=== PATIENT | male | born 1930 | race Caucasian/White ===

== ENCOUNTER 2016-10-04 08:35 | Inpatient (IN) | payer MEDICARE, BC ==
--- NOTE | 2016-10-04 08:53 | EDM.PDOC ---
ED HPI GENERAL MEDICAL PROBLEM - General Chief Complaint: Neuro Symptoms/Deficits Stated Complaint: [facility] Time Seen by Provider: 10/04/16 08:47 Source of Information: Reports: Patient History Limitations: Reports: No limitations - History of Present Illness INITIAL COMMENTS - FREE TEXT/NARRATIVE: 86-year-old male who is a known type II back diabetic using insulin for control presents to the ED due to to generalized weakness and development of diaphoresis and feeling like he was going to pass out. This happened this morning. He did take his normal dose of insulin with his breakfast but he states he did eat much breakfast. Blood sugar by paramedics recorded was 250. He takes Lantus 20 units at bedtime. States his blood sugars for the most part have been well-controlled. Denies any recent changes in his weight. Blood pressure. Appreciated to be quite low at 85/58 better is currently coming up to 118 on 68. He takes all of his medications in the mornings. Denies feeling nauseated. No recent nausea vomiting or diarrhea. Nonproductive cough which is chronic. History of chronic heart failure. Denies any chest pain over the weekend. Denies any genitourinary complaints. Pain in his lower back which radiates into his right posterior lateral hip area. Nearly made him fall this morning due to pain. Again no recent falls or injuries. History of atrial fibrillation but not aware of any palpitations this morning. No vertigo symptoms this morning. Onset: today Onset Date: 10/04/16 Onset Time: 08:00 Duration: Minutes:, Intermittent, Other (Generalized weakness with a sense of going to pass out.) Location: Reports: generalized Quality: Reports: Other (Generalized weakness with mild diaphoresis this morning.) Severity: moderate Improves with: Reports: Rest Worsens with: Reports: Movement Context: Reports: Other (Symptoms started after breakfast.). Denies: Activity, Exercise, Sick contact, Trauma Associated Symptoms: Reports: cough, malaise, shortness of breath (Chronically on), syncope ( exertion), weakness (Near syncope this morning ). Denies: confusion, chest pain, cough w sputum (Has a chronic nonproductive cough), diaphoresis, fever/chills, headaches, loss of appetite, nausea/vomiting, rash, seizure Treatments TODDLER NANNY: Reports: Other (see below) (Gen. a took only his normal medications ) Lower Back Pain Score (Numeric/FACES): 8 - Related Data Allergies Allergy/AdvReac Type Severity Reaction Status Date / Time No Known Allergies Allergy Verified 10/04/16 08:55 Home Meds: Home Meds Omeprazole 40 mg PO DAILY 02/08/14 [History] Insulin Regular, Human [NovoLIN R] 0 units SUBCUT TID #1 pen 02/26/14 [Rx] Insulin Glarg,Human.Rec.Analog [Lantus] 20 units SQ DAILY 11/15/14 [History] Warfarin [Coumadin] 5 mg PO SUTUWETH 11/15/14 [History] Metoprolol Succinate [Toprol XL] 25 mg PO DAILY 02/04/16 [History] Warfarin Sodium [Coumadin] 7.5 mg PO MOFRSA 02/04/16 [History] traMADol [Ultram] 50 mg PO Q6HR PRN 02/04/16 [History] Acetaminophen/oxyCODONE [Percocet 325-5 MG] 1 tab PO Q6H PRN 06/21/16 [History] Bismuth Subsalicylate [Pepto Bismol] 524 mg PO BID 06/21/16 [History] Diltiazem HCl [Tiazac] 360 mg PO DAILY 06/21/16 [History] Ferrous Sulfate 325 mg PO BID 06/21/16 [History] Furosemide 40 mg PO DAILY 06/21/16 [History] Gabapentin [Neurontin] 200 mg PO BID 06/21/16 [History] Levothyroxine [Synthroid] 25 mcg PO DAILY 06/21/16 [History] Lisinopril 2.5 mg PO DAILY 06/21/16 [History] Multivitamins [Tab-A-Liz] 1 tab PO DAILY 06/21/16 [History] Polyethylene Glycol 3350 [MiraLAX] 17 gm PO DAILY 06/21/16 [History] Potassium Chloride 20 meq PO DAILY 06/21/16 [History] Tamsulosin [Flomax] 0.4 mg PO BEDTIME 06/21/16 [History] Past Medical History HEENT History: Reports: Hard of hearing, Impaired vision Other HEENT History: wears eyeglasses Cardiovascular History: Reports: Afib, CAD, Cardiomyopathy, Heart murmur, High cholesterol, Hypertension Respiratory History: Reports: COPD Gastrointestinal History: Reports: Gastritis, GERD, Hemorrhoids, Helicobacter pylori, PUD Other Gastrointestinal History: ulcer Genitourinary History: Reports: BPH, Chronic renal insuffiency Musculoskeletal History: Reports: Osteoarthritis Neurological History: Reports: Neuropathy, diabetic Psychiatric History: Reports: Addiction Other Psychiatric History: states feels depressed "when I get sick like this." Endocrine/Metabolic History: Reports: Diabetes, type II Hematologic History: Reports: Anemia, Blood transfusion(s) Dermatologic History: Reports: Other (see below) Other Dermatologic History: "blisters removed on nose" - Past Surgical History GI Surgical History: Reports: Colonoscopy, EGD Other GI Surgeries/Procedures: No abdominal operations Social & Family History - Family History Family Medical History: Noncontributory HEENT: Reports: Cataract, Macular degeneration Cardiac: Reports: Hypertension : Reports: Diabetic nephropathy Musculoskeletal: Reports: Arthritis Neurological: Reports: Alzheimers disease, Dementia, Parkinson's, Vertigo Endocrine/Metabolic: Reports: Diabetes, type II Dermatologic: Reports: Psoriasis Oncologic: Reports: Leukemia, Prostate, Other (see below) Other Oncologic Family History: stomach - Tobacco Use Smoking Status *Q: Never Smoker Years of Tobacco use: 40 Packs/Tins Daily: 1.5 Used Tobacco, but Quit: Yes Month Tobacco Last Used: 11/1994 Second Hand Smoke Exposure: No - Caffeine Use Caffeine Use: Reports: None - Alcohol Use Days Per Week of Alcohol Use: 0 Number of Drinks Per Day: 1 Total Drinks Per Week: 0 - Recreational Drug Use Recreational Drug Use: No - Living Situation & Occupation Living situation: Reports: , assisted living (Currently residing at [facility] in the assisted living program) Occupation: retired ED ROS GENERAL - Review of Systems Review Of Systems: See Below Constitutional: Reports: malaise, weakness, fatigue, diaphoresis. Denies: fever , chills, night sweats (Mild this morning), decreased appetite, weight loss, weight gain HEENT: Reports: No symptoms Respiratory: Reports: Cough. Denies: Shortness of Breath, Wheezing, Pleuritic Chest Pain, Sputum (Chronic nonproductive cough), Hemoptysis, Other Cardiovascular: Reports: Blood pressure problem, Dyspnea on exertion (Chronic dependent edema.), Edema, Lightheadedness, Palpitations (Occasional). Denies: Chest pain, Claudication, Orthopnea, PND, Syncope, Other Endocrine: Reports: fatigue, high glucose, polyuria. Denies: low glucose, polydypsia (250 this morning) GI/Abdominal: Denies: Abdominal pain, Anorexia, Black stool, Bloody stool, Diarrhea, Decreased appetite, Difficulty swallowing, Distension, Flatus, Hematemesis, Hematochezia : Reports: frequency Musculoskeletal: Reports: back pain (Having increased lower back pain radiating to the right posterior iliac crest the last week or 10 days. No recent falls or injuries.) Skin: Reports: bruising (Bruises easily. He is on Coumadin chronically) Psychiatric: Reports: No symptoms Hematologic/Lymphatic: Reports: no symptoms, easy bruising Immunologic: Reports: no symptoms ED EXAM, GENERAL - Physical Exam Exam: See Below Exam Limited By: No limitations General Appearance: alert, WD/WN, no apparent distress Eye Exam: bilateral eye: PERRL Throat/Mouth: Normal inspection, Normal lips, Normal oropharynx Head: atraumatic, normocephalic Neck: normal inspection. No: supple, non-tender, full range of motion, lymphadenopathy (L), lymphadenopathy (R) Respiratory/Chest: no respiratory distress, lungs clear, no accessory muscle use , crackles (Few crackles right base) Cardiovascular: normal peripheral pulses, regular rate, rhythm, no edema, no murmur Peripheral Pulses: 0: posterior tibial (L), posterior tibial (R), dorsalis pedis (L), dorsalis pedis (R) GI/Abdominal: normal bowel sounds, non tender, no organomegaly, other (Has some bruising left lower abdominal wall close to the midline with a underlying hematoma measuring 4 cm x 2.5 cm. This appears from her recent to be from recent Lovenox injection versus a insulin shot.) Back Exam: normal inspection, vertebral tenderness (Tender throughout the lumbar spine worse at L4-5 L5-S1 facet joint on the right side radiating to his right hip area. He is also pain on palpation of the superior half of the right SI joint.). No: full range of motion, CVA tenderness (L), CVA tenderness (R) Extremities: normal inspection, normal range of motion, non-tender, no pedal edema, normal capillary refill Neurological: alert, oriented, CN II-XII intact Psychiatric: normal affect, normal mood Skin Exam: Warm, Dry, Intact, Normal color, No rash EKG INTERPRETATION EKG Date: 10/04/16 Time: 09:00 Rhythm: a-fib Rate (beats/min): 60 [place]: LAD-left axis deviation (-37) P-wave: absent QRS: other (Decreased voltage throughout the limb leads. Q waves leads 3 and aVF suggestive of of likely old inferior wall myocardial infarction. There is initial poor weight R-wave progression from V1 to V4 cannot rule out ischemia as a cause.) ST-T: normal QT: prolonged Course - Vital Signs Last Recorded V/S: Last Vital Signs Temp 36.3 C 10/04/16 08:48 Pulse 54 L 10/04/16 08:48 Resp 16 10/04/16 08:48 BP 106/58 L 10/04/16 08:48 Pulse Ox 93 L 10/04/16 08:48 Orthostatic Blood Pressure [ 92/56 Standing] Orthostatic Blood Pressure [ 118/68 Sitting] Orthostatic Blood Pressure [ 106/58 Supine] - Orders/Labs/Meds Orders: Active Orders 24 hr Category Date Time Status Admission Status [Patient Status] [ADT] Routine ADT 10/04/16 11:05 Active Cardiac Monitoring [RC] . DIRECTED Care 10/04/16 11:05 Active EKG Documentation Completion [RC] STAT Care 10/04/16 08:48 Active Oxygen Therapy [RC] ASDIRECTED Care 10/04/16 09:40 Active Sodium Chloride 0.9% [Normal Saline] 1,000 ml Med 10/04/16 09:00 Active IV ASDIRECTED Medication Orders Sodium Chloride (Normal Saline) 1,000 mls @ 100 mls/hr IV ASDIRECTED CORY Last Admin: 10/04/16 10:38 Dose: 100 mls/hr Labs: Laboratory Tests 10/04/16 10/04/16 10/04/16 Range/Units 09:00 09:00 09:00 WBC 9.32 H (4.23-9.07) K/mm3 RBC 3.94 L (4.63-6.08) M/mm3 Hgb 11.8 L (13.7-17.5) gm/L Hct 36.6 L (40.1-51.0) % MCV 92.9 H (79.0-92.2) fl MCH 29.9 (25.7-32.2) pg MCHC 32.2 (32.2-35.5) g/dl RDW Std Deviation 48.0 H (35.1-43.9) fL Plt Count 189 (163-337) K/mm3 MPV 9.7 (9.4-12.3) fl Neutrophils % (Manual) 76 H (40-60) % Band Neutrophils % 0 (0-10) % Lymphocytes % (Manual) 21 (20-40) % Atypical Lymphs % 0 % Monocytes % (Manual) 1 L (2-10) % Eosinophils % (Manual) 2 (0.8-7.0) % Basophils % (Manual) 0 L (0.2-1.2) Platelet Estimate Adequate RBC Morph Comment Normal PT 25.8 H (8.0-13.0) SECONDS INR 2.25 Sodium 132 L (136-145) mEq/L Potassium 5.8 H (3.5-5.1) mEq/L Chloride 99 (98-107) mEq/L Carbon Dioxide 24 (21-32) mEq/L Anion Gap 14.8 (5-15) BUN 47 H (7-18) mg/dL Creatinine 2.0 H (0.7-1.3) mg/dL Est Cr Clr Drug Dosing 28.56 mL/min Estimated GFR (MDRD) 32 (>60) mL/min BUN/Creatinine Ratio 23.5 H (14-18) Glucose 240 H (83-115) mg/dL Hemoglobin A1c (4.50-6.20) % Calcium 9.0 (8.5-10.1) mg/dL Magnesium (1.8-2.4) mg/dl Total Bilirubin 1.1 H (0.2-1.0) mg/dL AST 14 L (15-37) U/L ALT 20 (16-63) U/L Alkaline Phosphatase 94 (46-116) U/L CK-MB (CK-2) 1.1 (0-3.6) ng/ml Troponin I < 0.017 (0.00-0.056) ng/mL C-Reactive Protein 0.9 (<1.0) mg/dL B-Natriuretic Peptide (0-100) pg/mL Total Protein 7.2 (6.4-8.2) g/dl Albumin 3.5 (3.4-5.0) g/dl Globulin 3.7 gm/dL Albumin/Globulin Ratio 1.0 (1-2) TSH 3rd Generation (0.358-3.74) uIU/mL Urine Color (Yellow) Urine Appearance (Clear) Urine pH (5.0-8.0) Ur Specific [place] (1.005-1.030) Urine Protein (Negative) Urine Glucose (UA) (Negative) Urine Ketones (Negative) Urine Occult Blood (Negative) Urine Nitrite (Negative) Urine Bilirubin (Negative) Urine Urobilinogen (0.2-1.0) Ur Leukocyte Esterase (Negative) Urine RBC (0-5) /hpf Urine WBC (0-5) /hpf Ur Epithelial Cells Urine Bacteria (FEW) /hpf Urine Mucus (FEW) /hpf 10/04/16 10/04/16 10/04/16 Range/Units 09:00 09:00 09:00 WBC (4.23-9.07) K/mm3 RBC (4.63-6.08) M/mm3 Hgb (13.7-17.5) gm/L Hct (40.1-51.0) % MCV (79.0-92.2) fl MCH (25.7-32.2) pg MCHC (32.2-35.5) g/dl RDW Std Deviation (35.1-43.9) fL Plt Count (163-337) K/mm3 MPV (9.4-12.3) fl Neutrophils % (Manual) (40-60) % Band Neutrophils % (0-10) % Lymphocytes % (Manual) (20-40) % Atypical Lymphs % % Monocytes % (Manual) (2-10) % Eosinophils % (Manual) (0.8-7.0) % Basophils % (Manual) (0.2-1.2) Platelet Estimate RBC Morph Comment PT (8.0-13.0) SECONDS INR Sodium (136-145) mEq/L Potassium (3.5-5.1) mEq/L Chloride (98-107) mEq/L Carbon Dioxide (21-32) mEq/L Anion Gap (5-15) BUN (7-18) mg/dL Creatinine (0.7-1.3) mg/dL Est Cr Clr Drug Dosing mL/min Estimated GFR (MDRD) (>60) mL/min BUN/Creatinine Ratio (14-18) Glucose (83-115) mg/dL Hemoglobin A1c 7.80 H (4.50-6.20) % Calcium (8.5-10.1) mg/dL Magnesium (1.8-2.4) mg/dl Total Bilirubin (0.2-1.0) mg/dL AST (15-37) U/L ALT (16-63) U/L Alkaline Phosphatase (46-116) U/L CK-MB (CK-2) (0-3.6) ng/ml Troponin I (0.00-0.056) ng/mL C-Reactive Protein (<1.0) mg/dL B-Natriuretic Peptide 464 H (0-100) pg/mL Total Protein (6.4-8.2) g/dl Albumin (3.4-5.0) g/dl Globulin gm/dL Albumin/Globulin Ratio (1-2) TSH 3rd Generation 9.284 H (0.358-3.74) uIU/mL Urine Color (Yellow) Urine Appearance (Clear) Urine pH (5.0-8.0) Ur Specific [place] (1.005-1.030) Urine Protein (Negative) Urine Glucose (UA) (Negative) Urine Ketones (Negative) Urine Occult Blood (Negative) Urine Nitrite (Negative) Urine Bilirubin (Negative) Urine Urobilinogen (0.2-1.0) Ur Leukocyte Esterase (Negative) Urine RBC (0-5) /hpf Urine WBC (0-5) /hpf Ur Epithelial Cells Urine Bacteria (FEW) /hpf Urine Mucus (FEW) /hpf 10/04/16 10/04/16 Range/Units 09:00 10:16 WBC (4.23-9.07) K/mm3 RBC (4.63-6.08) M/mm3 Hgb (13.7-17.5) gm/L Hct (40.1-51.0) % MCV (79.0-92.2) fl MCH (25.7-32.2) pg MCHC (32.2-35.5) g/dl RDW Std Deviation (35.1-43.9) fL Plt Count (163-337) K/mm3 MPV (9.4-12.3) fl Neutrophils % (Manual) (40-60) % Band Neutrophils % (0-10) % Lymphocytes % (Manual) (20-40) % Atypical Lymphs % % Monocytes % (Manual) (2-10) % Eosinophils % (Manual) (0.8-7.0) % Basophils % (Manual) (0.2-1.2) Platelet Estimate RBC Morph Comment PT (8.0-13.0) SECONDS INR Sodium (136-145) mEq/L Potassium (3.5-5.1) mEq/L Chloride (98-107) mEq/L Carbon Dioxide (21-32) mEq/L Anion Gap (5-15) BUN (7-18) mg/dL Creatinine (0.7-1.3) mg/dL Est Cr Clr Drug Dosing mL/min Estimated GFR (MDRD) (>60) mL/min BUN/Creatinine Ratio (14-18) Glucose (83-115) mg/dL Hemoglobin A1c (4.50-6.20) % Calcium (8.5-10.1) mg/dL Magnesium 2.2 (1.8-2.4) mg/dl Total Bilirubin (0.2-1.0) mg/dL AST (15-37) U/L ALT (16-63) U/L Alkaline Phosphatase (46-116) U/L CK-MB (CK-2) (0-3.6) ng/ml Troponin I (0.00-0.056) ng/mL C-Reactive Protein (<1.0) mg/dL B-Natriuretic Peptide (0-100) pg/mL Total Protein (6.4-8.2) g/dl Albumin (3.4-5.0) g/dl Globulin gm/dL Albumin/Globulin Ratio (1-2) TSH 3rd Generation (0.358-3.74) uIU/mL Urine Color Yellow (Yellow) Urine Appearance Clear (Clear) Urine pH 6.0 (5.0-8.0) Ur Specific [place] 1.015 (1.005-1.030) Urine Protein Negative (Negative) Urine Glucose (UA) Negative (Negative) Urine Ketones Negative (Negative) Urine Occult Blood Trace-lysed H (Negative) Urine Nitrite Negative (Negative) Urine Bilirubin Negative (Negative) Urine Urobilinogen 0.2 (0.2-1.0) Ur Leukocyte Esterase 2+ H (Negative) Urine RBC 0-5 (0-5) /hpf Urine WBC 10-20 H (0-5) /hpf Ur Epithelial Cells Not Reportable Urine Bacteria Few (FEW) /hpf Urine Mucus Few (FEW) /hpf Meds: Medications Generic Name Dose Route Start Last Admin Trade Name Tiffany PRN Reason Stop Dose Admin Sodium Chloride 1,000 mls @ 100 mls/hr 10/04/16 09:00 10/04/16 10:38 Normal Saline IV 100 mls/hr ASDIRECTED CORY Administration Discontinued Medications Generic Name Dose Route Start Last Admin Trade Name Tiffany PRN Reason Stop Dose Admin Furosemide 40 mg 10/04/16 10:10 10/04/16 10:38 Lasix IVPUSH 10/04/16 10:11 40 mg NOW ONE Administration Sodium Polystyrene Sulfonate 30 gm 10/04/16 10:12 10/04/16 10:39 Kayexalate PO 10/04/16 10:13 30 gm ONETIME ONE Administration - Radiology Interpretation Free Text/Narrative:: 86-year-old male presents to the ED just generally not feeling well. Had a strong sense of dizziness and weakness that he might pass out this morning. Been aware of any palpitations. He has a history of chronic atrial fibrillation usually well-controlled with current medications. Blood sugar was 250 by paramedics recording. He takes Lantus 20 units in the evenings. Does take insulin before each meal. Td most of his breakfast this morning. No chest pain no cough no sputum production no fever or chills. Her pressure was found to be quite low on initial assessment at 85/56. He came up over to 110/57. When he is lying still in bed.. Orthostatic BPs will be done. Patient is on chronic Coumadin. Denies any changes in his stool colors. Examination feels it reveals a few crackles in the right base. Otherwise she remains in atrial fibrillation at 158 per minute. Plan IV will be normal saline at 100 mils per hour. Glycosylated protein will be checked. Routine labs to include PT/INR. Note he is taking his morning medications which include Cardizem 360 mg once daily with metoprolol. It may well drop his blood pressure too much at one time. - Re-Assessments/Exams Free Text/Narrative Re-Assessment/Exam: 10/04/16 09:10 ECG reveals atrial fibrillation at 60 per minute with no signs of ischemia. There is poor we aren't R-wave progression from V1 to V4 however. 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 Orthostatic BPs reveal BP 106/58 with a heart rate of 52 lying BP 118/68 sitting. Heart rate 53 BP 92/ 56 standing with a heart rate of 59. Therefore he is indeed orthostatic. Possibly due to too much antihypertensive medication at one time. Will await labs. One view chest x-ray to be obtained. 10/04/16 10:05 chest x-ray reveals mild to moderate cardiomegaly. Right hemidiaphragm appears to be mildly elevated as compared to the left but it appears to be chronic. Visualized portion of the lung clement are clear. He did drift down as low as 84% on O2 sats and is therefore placed on 2 L of oxygen per minute. O2 sats is staying up in the 90s high 90s at this time . BP is 112 172. 10/04/16 10:13 labs are back did reveal a normal white count at 9.3 2 with 76% neutrophils. Hemoglobin is mildly low 11.8 hematocrit 36.6 pounds 189,000. PT is 25.8 INR is 2.25. Sodium slightly low at 132 potassium is high at 5.8 and labs checked twice to make sure this was right. I will therefore treat him with Kayexalate 30 mg by mouth Lasix 40 mg IV. He is on a potassium supplement which obviously needs to be stopped. He is on low-dose lisinopril 2.5 mg daily. BUN is 47 creatinine is 2.0 glucose 240 hemoglobin A1c is 7.8. Bilirubin is 1.1 chest is 14 BNP was 464. TSH is markedly elevated at 9.284 indicating noncompliance with medication or underdosing. 10/04/16 10:52 x-rays of the lumbar spine reveal degenerative changes throughout and prepped and a mild compression fracture of the superior endplate of lumbar 4. She quit he is unclear. The pelvis itself appeared to be within normal limits with no sign of metastatic disease. Ideally he should probably stay in the hospital for observation status. I suspect he is on a bit to much medication causing orthostatic hypotension particularly taking the large dose of Cardizem I am in first thing in the morning with his long-acting metoprolol. Take stimulus tamsulosin before bed. Unclear why his potassium is so elevated. Certainly needs to discontinue the 20 mg of potassium daily. His hypothyroidism may well be causing some of his current symptoms as well with fatigue and dyspnea on minimal exertion. 10/04/16 11:[address] Aguirre interventional nurse hospitalist and the patient will be admitted for observation to the [facility] floor. Departure - Departure Time of Disposition: 11:23 Disposition: Admitted As Inpatient 65 Condition: fair Clinical Impression: Iatrogenic hypotension, Bradycardia, Hypothyroidism (acquired), Chronic renal insufficiency, stage III (moderate), Hyperkalemia, Chronic atrial fibrillation Congestive heart failure Qualifiers: Congestive heart failure type: diastolic Congestive heart failure chronicity: acute on chronic Qualified Code(s): I50.33 - Acute on chronic diastolic ( congestive) heart failure - My Orders Last 24 Hours: My Active Orders 10/04/16 08:48 EKG Documentation Completion [RC] STAT 10/04/16 09:00 Sodium Chloride 0.9% [Normal Saline] 1,000 ml IV ASDIRECTED 10/04/16 09:40 Oxygen Therapy [RC] ASDIRECTED 10/04/16 11:05 Admission Status [Patient Status] [ADT] Routine Cardiac Monitoring [RC] . DIRECTED - Assessment/Plan Last 24 Hours: My Active Orders 10/04/16 08:48 EKG Documentation Completion [RC] STAT 10/04/16 09:00 Sodium Chloride 0.9% [Normal Saline] 1,000 ml IV ASDIRECTED 10/04/16 09:40 Oxygen Therapy [RC] ASDIRECTED 10/04/16 11:05 Admission Status [Patient Status] [ADT] Routine Cardiac Monitoring [RC] . DIRECTED
[2016-10-04] MEDS ORDERED: Sodium Chloride 0.9% 1,000 ML IV SCH (09:00)
--- NOTE | 2016-10-04 09:47 | CR ---
Chest: Frontal view of the chest was obtained. Comparison: Previous chest x-ray of 06/22/16. Heart size is slightly prominent. Mild tortuosity of the thoracic aorta is seen. Lungs are clear with no acute infiltrates. Elevated right hemidiaphragm is seen which is stable. Impression: 1. Incidental findings. Nothing acute is identified on frontal chest x-ray. Diagnostic code #2
[2016-10-04] MEDS ORDERED: Furosemide 40 MG/4 ML VIAL IVPUSH ONE (10:10)
[2016-10-04] MEDS ORDERED: Sodium Polystyrene Sulfonate 15 GM/60 ML Susp 60 ML Bot PO ONE (10:12)
--- NOTE | 2016-10-04 11:20 | CR ---
Pelvis: AP view of the pelvis was obtained. Comparison: Previous pelvis exam of 08/10/10. Joint spaces are preserved within both hips. Mild joint space narrowing is seen within the left sacroiliac joint. Joint space within the right sacroiliac joint is maintained. Bony structures are osteopenic. Vascular calcification is seen. Nothing acute is identified. Impression: 1. Joint space narrowing within the left sacroiliac joint. 2. Other incidental findings. Diagnostic code #2
--- NOTE | 2016-10-04 11:20 | CR ---
Lumbar spine: AP, lateral and coned-down lateral views centered to the lumbosacral junction were obtained. Comparison: Previous lumbar spine study of 11/15/14. Disc space narrowing is scattered within the lower thoracic spine. Disc space narrowing with vacuum phenomena noted within the L1-L2 and L2-L3 disc. Minimal disc space narrowing and vacuum phenomenon is noted within the L3-L4 disc. Posterior disc space narrowing is noted at L4-L5. Scattered endplate osteophytes are seen. Minimal scoliosis is noted. Pedicles as well as visualized transverse and spinous processes appear intact. No abnormal subluxation is seen. Diffuse vascular calcification is noted within a nondilated abdominal aorta. Impression: 1. Degenerative change as noted above. Findings remain fairly stable from prior exam. Diagnostic code #2
[2016-10-04] MEDS ORDERED: Insulin Regular, Human 100 Units/ML 3 ML Vial SUBCUT ONE (12:08)
--- NOTE | 2016-10-04 14:01 | PCM.HP ---
H&P History of Present Illness - General Date of Service: 10/04/16 Admit Problem/Dx: Admission Diagnosis/Problem Admission Diagnosis/Problem Hypotension Source of Information: Patient, Old records, Provider, RN notes reviewed History Limitations: Reports: No limitations - History of Present Illness Initial Comments - Free Text/Narative: This is an 86 yo elderly white male with past medical hx/o atrial fibrillation on warfarin, CAD, Cardiomyopathy, HTN, HLD, COPD, GERD, PUD, BPH, CKD Stage 3, OA, DM2, Diabetic Neuropathy and PETER who comes in with complaints of generalized weakness associated with a sense of dizziness that he might pass out. He denies any traumatic episode or falls related to his symptoms. Patient denies having issues with his glucose. He is on insulin for his diabetes. His recorded initial glucose level was 250, taken by paramedics. He denies having any GI bleed or changes on his bowel habits or color. However he was found to be hypotensive with a BP of 85/56 mmHg on initial assessment. A review of his home medications reveals he is on the following for rate control and anti-hypertensive medications: Lasix 40 mg po daily, Cardizem 360 po daily, Lisinopril 2.5 mg po daily, Metoprolol 25 mg po daily and + Flomax which is known to cause Orthostatic hypotension. Patient had similar presentation back in early June and he was found to have GI bleed. His initial work up in ED shows a fairly stable Hgb level of 11.8 and Hct of 36.6. His INR is therapeutic at 2.25. His chemistry is remarkable for Na of 132, K of 5.8, BUN of 47, Cr of 2, BS 240, A1C 7.80, AST of 14, BNP of 464, and TSH 9.284. All his imaging studies (Chest, Pelvis and Lumbar Spine XRs) show no acute abnormal findings. Patient is being admitted for medical management of Orthostatic Hypotension and Mild Hypokalemia. He sis full code. Lower Back Pain Score (Numeric/FACES): 8 Right Hip Pain Score (Numeric/FACES): 2 - Related Data Allergies/Adverse Reactions: Allergies Allergy/AdvReac Type Severity Reaction Status Date / Time No Known Allergies Allergy Verified 10/04/16 08:55 Home Medications: Home Meds Omeprazole 40 mg PO DAILY 08/29/14 [History] Insulin Regular, Human [NovoLIN R] 0 units SUBCUT TID #1 pen 02/26/14 [Rx] Insulin Glarg,Human.Rec.Analog [Lantus] 20 units SQ DAILY 11/15/14 [History] Warfarin [Coumadin] 5 mg PO SUTUWETH 11/15/14 [History] Metoprolol Succinate [Toprol XL] 25 mg PO DAILY 02/04/16 [History] Warfarin Sodium [Coumadin] 7.5 mg PO MOFRSA 02/04/16 [History] traMADol [Ultram] 50 mg PO Q6HR PRN 02/04/16 [History] Acetaminophen/oxyCODONE [Percocet 325-5 MG] 1 tab PO Q6H PRN 06/21/16 [History] Bismuth Subsalicylate [Pepto Bismol] 524 mg PO BID 06/21/16 [History] Diltiazem HCl [Tiazac] 360 mg PO DAILY 06/21/16 [History] Ferrous Sulfate 325 mg PO BID 06/21/16 [History] Furosemide 40 mg PO DAILY 06/21/16 [History] Gabapentin [Neurontin] 200 mg PO BID 06/21/16 [History] Levothyroxine [Synthroid] 25 mcg PO DAILY 06/21/16 [History] Lisinopril 2.5 mg PO DAILY 06/21/16 [History] Multivitamins [Tab-A-Liz] 1 tab PO DAILY 06/21/16 [History] Polyethylene Glycol 3350 [MiraLAX] 17 gm PO DAILY 06/21/16 [History] Potassium Chloride 20 meq PO DAILY 06/21/16 [History] Tamsulosin [Flomax] 0.4 mg PO BEDTIME 06/21/16 [History] Past Medical History HEENT History: Reports: Hard of hearing, Impaired vision Other HEENT History: wears eyeglasses Cardiovascular History: Reports: Afib, CAD, Cardiomyopathy, Heart murmur, High cholesterol, Hypertension Respiratory History: Reports: COPD Gastrointestinal History: Reports: Gastritis, GERD, Hemorrhoids, Helicobacter pylori, PUD Other Gastrointestinal History: ulcer Genitourinary History: Reports: BPH, Chronic renal insuffiency Musculoskeletal History: Reports: Osteoarthritis Neurological History: Reports: Neuropathy, diabetic Psychiatric History: Reports: Addiction Other Psychiatric History: states feels depressed "when I get sick like this." Endocrine/Metabolic History: Reports: Diabetes, type II Hematologic History: Reports: Anemia, Blood transfusion(s) Dermatologic History: Reports: Other (see below) Other Dermatologic History: "blisters removed on nose" - Past Surgical History GI Surgical History: Reports: Colonoscopy, EGD Other GI Surgeries/Procedures: No abdominal operations Social & Family History - Family History Family Medical History: Noncontributory HEENT: Reports: Cataract, Macular degeneration Cardiac: Reports: Hypertension : Reports: Diabetic nephropathy Musculoskeletal: Reports: Arthritis Neurological: Reports: Alzheimers disease, Dementia, Parkinson's, Vertigo Endocrine/Metabolic: Reports: Diabetes, type II Dermatologic: Reports: Psoriasis Oncologic: Reports: Leukemia, Prostate, Other (see below) Other Oncologic Family History: stomach - Tobacco Use Smoking Status *Q: Never Smoker Years of Tobacco use: 40 Packs/Tins Daily: 1.5 Used Tobacco, but Quit: Yes Month Tobacco Last Used: 11/1994 Second Hand Smoke Exposure: No - Caffeine Use Caffeine Use: Reports: None - Alcohol Use Days Per Week of Alcohol Use: 0 Number of Drinks Per Day: 1 Total Drinks Per Week: 0 - Recreational Drug Use Recreational Drug Use: No - Living Situation & Occupation Living situation: Reports: , assisted living (Currently residing at [facility] in the assisted living program) Occupation: retired H&P Review of Systems - Review of Systems: Review Of Systems: See Below General: Reports: malaise, weakness, fatigue. Denies: fever, chills HEENT: Reports: no symptoms Pulmonary: Reports: Cough. Denies: Shortness of Breath Cardiovascular: Reports: palpitations, dyspnea on exertion, edema, lightheadedness, blood pressure problem. Denies: chest pain, syncope Gastrointestinal: Denies: Abdominal pain, Black stool, Bloody stool, Decreased appetite, Hematochezia, Melena, Nausea, Vomiting Genitourinary: Reports: frequency, retention Musculoskeletal: Reports: no symptoms Skin: Denies: cyanosis, pruritis, rash, erythema Psychiatric: Denies: depression, anxiety, hallucinations Neurological: Denies: Confusion, Dizziness, Seizure, Syncope, Difficulty Walking , Weakness, Gait Disturbance Hematologic/Lymphatic: Reports: anemia, easy bruising Immunologic: Reports: no symptoms Exam - Exam Exam: See Below - Vital Signs Vital Signs: Last Vital Signs Temp 36.3 C 04/24/17 08:48 Pulse 54 L 10/04/16 08:48 Resp 16 10/04/16 08:48 BP 106/58 L 10/04/16 08:48 Pulse Ox 93 L 10/04/16 08:48 Weight: 97.341 kg - Exam Quality Assessment: supplemental oxygen General: alert, oriented, cooperative, mild distress HEENT: Conjunctiva clear, EACs clear, EOMI, Hearing intact, Mucosa moist & pink , Nares patent, Normal nasal septum, Posterior pharynx clear, Pupils equal, Pupils reactive Neck: supple, trachea midline, 2+ carotid pulse wo bruit, full range of motion. No: JVD Lungs: Normal respiratory effort, Decreased breath sounds Cardiovascular: irregular rhythm, systolic murmur, other (irregular) Abdomen: normal bowel sounds, soft, other (Obese). No: organomegaly (Male) Exam: Deferred Rectal (Males) Exam: Deferred Back Exam: normal inspection, decreased range of motion Extremities: normal inspection, normal pulses, other (hyperpigmented skin on bilateral lower extremity). No: clubbing, cyanosis, calf tenderness, edema Peripheral Pulses: 2+: dorsalis pedis (L), dorsalis pedis (R) Skin: warm, dry, intact Neuro Extensive - Mental Status: oriented x3, normal cognition, memory intact Neuro Extensive - Motor, Sensory, Reflexes: CN II-XII intact, normal gait Psychiatric: alert, normal affect, normal mood - Patient Data Result Diagrams: 10/04/16 09:00 10/04/16 09:00 EKG INTERPRETATION EKG Date: 10/04/16 Time: 09:00 Rhythm: a-fib Rate (beats/min): 60 [place]: LAD-left axis deviation P-wave: absent ST-T: normal QT: prolonged EKG Interpretation Comments: Q wave in leads V1-V3 and aVF *Q Meaningful Use (ADM) - VTE *Q VTE Criteria *Q: - Stroke *Q Stroke Criteria *Q: - AMI *Q AMI Criteria *Q: Problem List Initiated/Reviewed/Updated: Yes Orders Last 24hrs: Medication Orders Sodium Chloride (Normal Saline) 1,000 mls @ 100 mls/hr IV ASDIRECTED CORY Last Admin: 10/04/16 10:38 Dose: 100 mls/hr Assessment/Plan Comment:: Assessment/Plan: Acute: Orthostatic Hypotension - Medication induced - Pos in ED: Standing 92/56 mmHg, Sitting 118/68 mmHg, Supine 106/58 mmHg - He is on Lasix 40 mg po daily, Cardizem 360 po daily, Lisinopril 2.5 mg po daily, and Metoprolol 25 mg po daily + Flomax for BPH - BP with parameters - Cut Cardizem current dose to 1/2 daily Generalized Weakness - 2/2 Above not hyperglycemia - Now resolved Mild Hypokalemia - K 5.8 - He is on K supplement - He got lasix, kayexalate and insulin in ED - Monitor Elevated TSH level - TSH is 9.2 - On thyroid hormone with 25 mcg po daily - Will increase dose to 50 mcg po daily High Risk falls - Risk factors: DM, HTN and A-fib - Insulin, Warfarin and BP Meds Chronic: Atrial Fibrillation, HR controlled on Warfarin CAD HTN Cardiomyopathy 2/2 CAD HLD COPD Hypothyroidism GERD with Hx/o PUD CKD Stage 3 BPH OA DM2, Stable, A1C is 7.8: ideal for his age group Diabetic Neuropathy PETER Hx/o CVA Plan: Admit to med-Surg with Tele Routine AM Labs Routine BP check Resume home meds except anti-hypertensive due to hypotension PT/OT consult SW/CM for d/c planning Code status: 1
[2016-10-04] MEDS ORDERED: Ondansetron 4 MG/2 ML SDV IV PRN (15:30)
[2016-10-04] MEDS ORDERED: Acetaminophen 325 MG Tab PO PRN (15:30)
[2016-10-04] MEDS ORDERED: Docusate Sodium 100 MG Cap PO PRN (15:30)
[2016-10-04] MEDS ORDERED: LORazepam 2 MG/ML MDV IV PRN (15:30)
[2016-10-04] MEDS ORDERED: Albuterol 0.083% 2.5 MG/3 ML Neb Soln NEB PRN (15:30)
[2016-10-04] MEDS ORDERED: Polyethylene Glycol 3350 Powder 17 GM Packet PO PRN (15:30)
[2016-10-04] MEDS ORDERED: Bisacodyl 5 MG Tab PO PRN (15:30)
[2016-10-04] MEDS ORDERED: HYDROmorphone 0.5 MG/0.5 ML Syringe IVPUSH PRN (15:30)
[2016-10-04] MEDS ORDERED: Acetaminophen/oxyCODONE 325-5 MG Tab PO PRN (15:35)
[2016-10-04] MEDS ORDERED: traMADol 50 MG Tab PO PRN (16:31)
[2016-10-04] MEDS ORDERED: Warfarin 7.5 MG Tab PO SCH (18:00)
[2016-10-04] MEDS: Insulin Aspart 100 Units/ML 3 ML Pen SUBCUT SCH ×2 (18:26→21:12)
[2016-10-04] MEDS ORDERED: Temazepam 7.5 MG Cap PO PRN (21:00)
[2016-10-04] MEDS ORDERED: Bismuth Subsalicylate 262 MG/15 ML Susp 236 ML Bottle PO SCH (21:00)
[2016-10-04] MEDS: Gabapentin 100 MG Cap PO SCH (21:11)
[2016-10-04] MEDS: Ferrous Sulfate 325 MG Tab PO SCH (21:12)
[2016-10-04] MEDS: Tamsulosin 0.4 MG Cap.ER PO SCH (21:12)
[2016-10-05] MEDS ORDERED: Bismuth Subsalicylate 262 MG/15 ML Susp 236 ML Bottle PO PRN (00:34)
[2016-10-05] MEDS: Levothyroxine 50 MCG Tab PO SCH (06:29)
[2016-10-05] MEDS: Insulin Aspart 100 Units/ML 3 ML Pen SUBCUT SCH ×4 (08:36→21:37)
[2016-10-05] MEDS: Metoprolol Succinate 25 MG Tab.ER PO SCH (08:37)
[2016-10-05] MEDS: Ferrous Sulfate 325 MG Tab PO SCH ×2 (08:38→21:37)
[2016-10-05] MEDS: Multivitamins,Therapeutic Tab PO SCH (08:38)
[2016-10-05] MEDS: Diltiazem 180 MG Cap.CD PO SCH (08:38)
[2016-10-05] MEDS: Lisinopril 2.5 MG Tab PO SCH (08:38)
[2016-10-05] MEDS: Furosemide 40 MG Tab PO SCH (08:38)
[2016-10-05] MEDS: Polyethylene Glycol 3350 Powder 17 GM Packet PO SCH ×2 (08:39→08:59)
[2016-10-05] MEDS: Gabapentin 100 MG Cap PO SCH ×2 (08:39→21:37)
[2016-10-05] MEDS: Acetaminophen/HYDROcodone 325-5 MG Tab PO PRN ×2 (08:58→21:41)
[2016-10-05] MEDS ORDERED: POTASSIUM CHLORIDE 20 MEQ PO SCH (09:00)
[2016-10-05] MEDS ORDERED: Insulin Detemir 100 Units/ML 3 ML Pen SUBCUT SCH (09:00)
--- NOTE | 2016-10-05 09:02 | PCM.PN ---
- General Info Date of Service: 10/05/16 Admission Dx/Problem (Free Text): Admission Diagnosis/Problem Admission Diagnosis/Problem Hypotension Subjective Update: Follow Up Functional Status: Reports: pain controlled, tolerating diet, ambulating, urinating. Denies: new symptoms - Review of Systems General: Denies: Fever, Weakness, Fatigue, Malaise HEENT: Reports: no symptoms Pulmonary: Denies: shortness of breath Cardiovascular: Denies: Chest Pain, Palpitations, Dyspnea on Exertion, Lightheadedness Gastrointestinal: Denies: Abdominal pain, Nausea, Vomiting Genitourinary: Reports: no symptoms Musculoskeletal: Reports: joint pain, other (hip pain) Skin: Reports: no symptoms Neurological: Reports: Difficulty Walking, Gait Disturbance. Denies: Confusion , Dizziness, Seizure, Syncope, Weakness Psychiatric: Denies: depression, anxiety, agitation, cravings, hallucinations - Patient Data Vitals - most recent: Last Vital Signs Temp 36.9 C 10/05/16 07:29 Pulse 85 10/05/16 08:37 Resp 18 10/05/16 07:29 BP 145/79 H 10/05/16 08:38 Pulse Ox 97 10/05/16 07:29 Weight - most recent: 94.483 kg I&O - last 24 hours: Intake & Output 10/04/16 10/05/16 10/05/16 22:59 06:59 14:59 Intake Total 885 1025 Output Total 950 3400 Balance -65 -2375 Lab Results last 24 hrs: Laboratory Results - last 24 hr 10/04/16 10/04/16 10/04/16 Range/Units 16:50 18:24 21:05 WBC (4.23-9.07) K/mm3 RBC (4.63-6.08) M/mm3 Hgb (13.7-17.5) gm/L Hct (40.1-51.0) % MCV (79.0-92.2) fl MCH (25.7-32.2) pg MCHC (32.2-35.5) g/dl RDW Std Deviation (35.1-43.9) fL Plt Count (163-337) K/mm3 MPV (9.4-12.3) fl Neut % (Auto) (34.0-67.9) % Lymph % (Auto) (21.8-53.1) % [place] % (Auto) (5.3-12.2) % Eos % (Auto) (0.8-7.0) Baso % (Auto) (0.1-1.2) % Neut # (Auto) (1.78-5.38) K/mm3 Lymph # (Auto) (1.32-3.57) K/mm3 [place] # (Auto) (0.30-0.82) K/mm3 Eos # (Auto) (0.04-0.54) K/mm3 Baso # (Auto) (0.01-0.08) K/mm3 PT (8.0-13.0) SECONDS INR Sodium (136-145) mEq/L Potassium (3.5-5.1) mEq/L Chloride (98-107) mEq/L Carbon Dioxide (21-32) mEq/L Anion Gap (5-15) BUN (7-18) mg/dL Creatinine (0.7-1.3) mg/dL Est Cr Clr Drug Dosing mL/min Estimated GFR (MDRD) (>60) mL/min BUN/Creatinine Ratio (14-18) Glucose (83-115) mg/dL POC Glucose 190 H 164 H (83-110) mg/dL Calcium (8.5-10.1) mg/dL Magnesium (1.8-2.4) mg/dl Urine Color Light yellow (Yellow) Urine Appearance Clear (Clear) Urine pH 6.5 (5.0-8.0) Ur Specific [place] 1.015 (1.005-1.030) Urine Protein Negative (Negative) Urine Glucose (UA) Negative (Negative) Urine Ketones Negative (Negative) Urine Occult Blood Negative (Negative) Urine Nitrite Negative (Negative) Urine Bilirubin Negative (Negative) Urine Urobilinogen 0.2 (0.2-1.0) Ur Leukocyte Esterase 1+ H (Negative) Urine RBC 0-5 (0-5) /hpf Urine WBC 0-5 (0-5) /hpf Ur Epithelial Cells Not seen (0-5) /hpf Urine Bacteria Rare (FEW) /hpf Urine Mucus Not seen (FEW) /hpf 10/05/16 10/05/16 10/05/16 Range/Units 05:10 05:10 05:10 WBC 6.53 (4.23-9.07) K/mm3 RBC 3.84 L (4.63-6.08) M/mm3 Hgb 11.3 L (13.7-17.5) gm/L Hct 35.6 L (40.1-51.0) % MCV 92.7 H (79.0-92.2) fl MCH 29.4 (25.7-32.2) pg MCHC 31.7 L (32.2-35.5) g/dl RDW Std Deviation 47.5 H (35.1-43.9) fL Plt Count 175 (163-337) K/mm3 MPV 10.2 (9.4-12.3) fl Neut % (Auto) 74.7 H (34.0-67.9) % Lymph % (Auto) 10.9 L (21.8-53.1) % [place] % (Auto) 10.9 (5.3-12.2) % Eos % (Auto) 2.9 (0.8-7.0) Baso % (Auto) 0.3 (0.1-1.2) % Neut # (Auto) 4.88 (1.78-5.38) K/mm3 Lymph # (Auto) 0.71 L (1.32-3.57) K/mm3 [place] # (Auto) 0.71 (0.30-0.82) K/mm3 Eos # (Auto) 0.19 (0.04-0.54) K/mm3 Baso # (Auto) 0.02 (0.01-0.08) K/mm3 PT 26.2 H (8.0-13.0) SECONDS INR 2.28 Sodium 138 (136-145) mEq/L Potassium 4.3 (3.5-5.1) mEq/L Chloride 102 (98-107) mEq/L Carbon Dioxide 28 (21-32) mEq/L Anion Gap 12.3 (5-15) BUN 38 H (7-18) mg/dL Creatinine 1.6 H (0.7-1.3) mg/dL Est Cr Clr Drug Dosing 35.70 mL/min Estimated GFR (MDRD) 41 (>60) mL/min BUN/Creatinine Ratio 23.8 H (14-18) Glucose 181 H (83-115) mg/dL POC Glucose (83-110) mg/dL Calcium 8.9 (8.5-10.1) mg/dL Magnesium 2.0 (1.8-2.4) mg/dl Urine Color (Yellow) Urine Appearance (Clear) Urine pH (5.0-8.0) Ur Specific [place] (1.005-1.030) Urine Protein (Negative) Urine Glucose (UA) (Negative) Urine Ketones (Negative) Urine Occult Blood (Negative) Urine Nitrite (Negative) Urine Bilirubin (Negative) Urine Urobilinogen (0.2-1.0) Ur Leukocyte Esterase (Negative) Urine RBC (0-5) /hpf Urine WBC (0-5) /hpf Ur Epithelial Cells (0-5) /hpf Urine Bacteria (FEW) /hpf Urine Mucus (FEW) /hpf 10/05/16 Range/Units 06:29 WBC (4.23-9.07) K/mm3 RBC (4.63-6.08) M/mm3 Hgb (13.7-17.5) gm/L Hct (40.1-51.0) % MCV (79.0-92.2) fl MCH (25.7-32.2) pg MCHC (32.2-35.5) g/dl RDW Std Deviation (35.1-43.9) fL Plt Count (163-337) K/mm3 MPV (9.4-12.3) fl Neut % (Auto) (34.0-67.9) % Lymph % (Auto) (21.8-53.1) % [place] % (Auto) (5.3-12.2) % Eos % (Auto) (0.8-7.0) Baso % (Auto) (0.1-1.2) % Neut # (Auto) (1.78-5.38) K/mm3 Lymph # (Auto) (1.32-3.57) K/mm3 [place] # (Auto) (0.30-0.82) K/mm3 Eos # (Auto) (0.04-0.54) K/mm3 Baso # (Auto) (0.01-0.08) K/mm3 PT (8.0-13.0) SECONDS INR Sodium (136-145) mEq/L Potassium (3.5-5.1) mEq/L Chloride (98-107) mEq/L Carbon Dioxide (21-32) mEq/L Anion Gap (5-15) BUN (7-18) mg/dL Creatinine (0.7-1.3) mg/dL Est Cr Clr Drug Dosing mL/min Estimated GFR (MDRD) (>60) mL/min BUN/Creatinine Ratio (14-18) Glucose (83-115) mg/dL POC Glucose 194 H (83-110) mg/dL Calcium (8.5-10.1) mg/dL Magnesium (1.8-2.4) mg/dl Urine Color (Yellow) Urine Appearance (Clear) Urine pH (5.0-8.0) Ur Specific [place] (1.005-1.030) Urine Protein (Negative) Urine Glucose (UA) (Negative) Urine Ketones (Negative) Urine Occult Blood (Negative) Urine Nitrite (Negative) Urine Bilirubin (Negative) Urine Urobilinogen (0.2-1.0) Ur Leukocyte Esterase (Negative) Urine RBC (0-5) /hpf Urine WBC (0-5) /hpf Ur Epithelial Cells (0-5) /hpf Urine Bacteria (FEW) /hpf Urine Mucus (FEW) /hpf Med Orders - Current: Current Medications Acetaminophen (Tylenol) 650 mg PO Q4H PRN PRN Reason: Pain (Mild 1-3)/fever Hydrocodone Bitart/Acetaminophen ([place] 325-5 Mg) 1 tab PO Q4H PRN PRN Reason: Pain (moderate 4-6) Last Admin: 10/05/16 08:58 Dose: 1 tab Albuterol (Proventil Neb Soln) 2.5 mg NEB Q2H PRN PRN Reason: Shortness Of Breath/wheezing Bisacodyl (Dulcolax) 5 mg PO DAILY PRN PRN Reason: Constipation Bismuth Subsalicylate (Pepto Bismol) 30 ml PO BID PRN PRN Reason: Heartburn Diltiazem HCl (Cardizem Cd) 180 mg PO DAILY [facility] Last Admin: 10/05/16 08:38 Dose: 180 mg Docusate Sodium (Colace) 100 mg PO BID PRN PRN Reason: Constipation Ferrous Sulfate (Ferrous Sulfate) 325 mg PO BID [facility] Last Admin: 10/05/16 08:38 Dose: 325 mg Furosemide (Lasix) 40 mg PO DAILY [facility] Last Admin: 10/05/16 08:38 Dose: 40 mg Gabapentin (Neurontin) 200 mg PO BID [facility] Last Admin: 10/05/16 08:39 Dose: 200 mg Hydromorphone HCl (Dilaudid) 0.25 mg IVPUSH Q2H PRN PRN Reason: Pain (severe 7-10) Insulin Aspart (Novolog) 0 unit SUBCUT QIDACANDBED [facility] PRN Reason: Protocol Last Admin: 10/05/16 08:36 Dose: 1 units Insulin Detemir (Levemir) 10 unit SUBCUT BID [facility] Levothyroxine Sodium (Synthroid) 50 mcg PO ACBREAKFAST [facility] Last Admin: 10/05/16 06:29 Dose: 50 mcg Lisinopril (Prinivil) 2.5 mg PO DAILY [facility] Last Admin: 10/05/16 08:38 Dose: 2.5 mg Lorazepam (Ativan) 0.5 mg IV Q6H PRN PRN Reason: Anxiety Magnesium Sulfate (Pharmacy To Dose - Magnesium Replacement) 0 dose .XX ASDIRECTED PRN PRN Reason: RX TO MONITOR MAG LEVELS Metoprolol Succinate (Toprol Xl) 25 mg PO DAILY [facility] Last Admin: 10/05/16 08:37 Dose: 25 mg Multivitamins (Thera) 1 each PO DAILY [facility] Last Admin: 10/05/16 08:38 Dose: 1 each Ondansetron HCl (Zofran) 4 mg IV Q6H PRN PRN Reason: Nausea/Vomiting Oxycodone/Acetaminophen (Percocet 325-5 Mg) 1 tab PO Q6H PRN PRN Reason: Pain Polyethylene Glycol (Miralax) 17 gm PO DAILY PRN PRN Reason: Constipation Polyethylene Glycol (Miralax) 17 gm PO DAILY [facility] Last Admin: 10/05/16 08:59 Dose: Not Given Potassium Chloride (Pharmacy To Dose - Potassium Replacement) 0 dose .XX ASDIRECTED PRN PRN Reason: RX TO MONITOR K LEVELS Senna/Docusate Sodium (Senna Plus) 1 tab PO BID PRN PRN Reason: Constipation Tamsulosin HCl (Flomax) 0.4 mg PO BEDTIME [facility] Last Admin: 10/04/16 21:12 Dose: 0.4 mg Temazepam (Restoril) 7.5 mg PO BEDTIME PRN PRN Reason: Sleep Tramadol HCl (Ultram) 50 mg PO Q6H PRN PRN Reason: Pain Warfarin Sodium (Coumadin) 5 mg PO SuTuWeTh@1800 [facility] Warfarin Sodium (Coumadin) 7.5 mg PO MoFrSa@1800 [facility] Last Admin: 10/04/16 18:30 Dose: 7.5 mg Warfarin Sodium (Pharmacy To Dose - Warfarin) 0 dose .XX ASDIRECTED PRN PRN Reason: RX TO DOSE COUMADIN Discontinued Medications Bismuth Subsalicylate (Pepto Bismol) 30 ml PO BID [facility] Last Admin: 10/04/16 21:12 Dose: Not Given Furosemide (Lasix) 40 mg IVPUSH NOW ONE Stop: 10/04/16 10:11 Last Admin: 10/04/16 10:38 Dose: 40 mg Sodium Chloride (Normal Saline) 1,000 mls @ 100 mls/hr IV ASDIRECTED [facility] Last Admin: 10/04/16 10:38 Dose: 100 mls/hr Insulin Human Regular (Humulin R) 4 unit SUBCUT ONETIME ONE PRN Reason: Protocol Stop: 10/04/16 12:09 Last Admin: 10/04/16 12:37 Dose: 4 unit Non-Formulary Medication (Potassium Chloride) 20 meq PO DAILY [facility] Sodium Polystyrene Sulfonate (Kayexalate) 30 gm PO ONETIME ONE Stop: 10/04/16 10:13 Last Admin: 10/04/16 10:39 Dose: 30 gm - Exam General: alert, oriented, cooperative, no acute distress HEENT: Pupils equal, Pupils reactive, EOMI, Mucous membr. moist/pink Neck: supple, trachea midline, no JVD, no thyromegaly Lungs: Normal respiratory effort, Decreased breath sounds Cardiovascular: Irregular Rhythm, Murmurs Abdomen: bowel sounds present, soft, no tenderness, no distension (Male) Exam: Deferred Back Exam: normal inspection, decreased range of motion Extremities: no edema, normal pulses, no tenderness/swelling, no clubbing, no cyanosis, no calf tenderness, other (Pain with active and passive ROM on right hip) Peripheral Pulses: 2+: posterior tibial (L), posterior tibial (R), dorsalis pedis (L), dorsalis pedis (R) Skin: warm, dry, intact Neurological: no new focal deficit Psy/Mental Status: alert, normal affect, normal mood - Problem List Review Problem List Initiated/Reviewed/Updated: Yes - My Orders Last 24 Hours: My Active Orders 10/04/16 15:30 Oxygen Therapy [RC] PRN Up With Assistance [RC] ASDIRECTED Up ad Kelsi [RC] ASDIRECTED VTE/DVT Education [RC] , Vital Signs [RC] 00,04,08,12,16,20 Acetaminophen [Tylenol] 650 mg PO Q4H PRN Acetaminophen/HYDROcodone [[place] 325-5 MG] 1 tab PO Q4H PRN Albuterol [Proventil Neb Soln] 2.5 mg NEB Q2H PRN Bisacodyl [Dulcolax] 5 mg PO DAILY PRN Docusate Sodium [Colace] 100 mg PO BID PRN Docusate Sodium/Sennosides [Senna Plus] 1 tab PO BID PRN HYDROmorphone [Dilaudid] 0.25 mg IVPUSH Q2H PRN LORazepam [Ativan] 0.5 mg IV Q6H PRN Ondansetron [Zofran] 4 mg IV Q6H PRN Polyethylene Glycol 3350 [MiraLAX] 17 gm PO DAILY PRN Resuscitation Status Routine 10/04/16 15:31 Intake and Output [RC] 04,16 10/04/16 15:32 RT Aerosol Therapy [RC] .PRN 10/04/16 15:33 Consult to Case Management [CONS] Routine Consult to Dye Range Operator [CONS] Routine Consult to Spiritual Care [CONS] Routine OT Evaluation and Treatment [CONS] Routine PT Evaluation and Treatment [CONS] Routine 10/04/16 15:35 Acetaminophen/oxyCODONE [Percocet 325-5 MG] 1 tab PO Q6H PRN 10/04/16 15:45 Magnesium Rep Pharmacy to Dose [Pharmacy to Dose - Magnesium Replacement] 0 dose .XX ASDIRECTED PRN Potassium Rep Pharmacy to Dose [Pharmacy to Dose - Potassium Replacement] 0 dose .XX ASDIRECTED PRN Warfarin Pharmacy to Dose [Pharmacy to Dose - Warfarin] 0 dose .XX ASDIRECTED PRN 10/04/16 16:31 traMADol [Ultram] 50 mg PO Q6H PRN 10/04/16 16:50 CULTURE URINE [RM] Stat 10/04/16 17:00 Insulin Aspart [NovoLOG] See Protocol SUBCUT QIDACANDBED 10/04/16 17:16 Accu Check [Blood Glucose Check, Bedside] [RC] QIDACANDBED 10/04/16 18:00 Warfarin [Coumadin] 7.5 mg PO MoFrSa@1800 10/04/16 21:00 Ferrous Sulfate 325 mg PO BID Gabapentin [Neurontin] 200 mg PO BID Tamsulosin [Flomax] 0.4 mg PO BEDTIME Temazepam [Restoril] 7.5 mg PO BEDTIME PRN 10/04/16 Dinner 2 Gram Sodium Diet [DIET] Consistent Carbohydrate Diet [DIET] Heart Healthy Diet [DIET] 10/05/16 00:34 Bismuth Subsalicylate [Pepto Bismol] 30 ml PO BID PRN 10/05/16 06:00 Levothyroxine [Synthroid] 50 mcg PO ACBREAKFAST 10/05/16 09:00 Diltiazem [Cardizem CD] 180 mg PO DAILY Furosemide [Lasix] 40 mg PO DAILY Insulin Detemir [Levemir] 10 unit SUBCUT BID Lisinopril [Prinivil] 2.5 mg PO DAILY Metoprolol Succinate [Toprol XL] 25 mg PO DAILY Multivitamins,Therapeutic [Thera] 1 each PO DAILY Polyethylene Glycol 3350 [MiraLAX] 17 gm PO DAILY 10/05/16 18:00 Warfarin [Coumadin] 5 mg PO SuTuWeTh@1800 10/06/16 05:11 BASIC METABOLIC PANEL,BMP [CHEM] AM CBC WITH AUTO DIFF [HEME] AM INR,PT,PROTHROMBIN TIME [COAG] AM MAGNESIUM [CHEM] AM 10/07/16 05:11 BASIC METABOLIC PANEL,BMP [CHEM] AM INR,PT,PROTHROMBIN TIME [COAG] AM MAGNESIUM [CHEM] AM - Plan Plan:: Assessment/Plan: Acute: OA/DJD- Right Hip - PRN Pain meds - PT/OT consult Generalized Weakness - 2/2 Above not hyperglycemia - Now resolved Elevated TSH level - TSH is 9.2, On thyroid hormone with 25 mcg po daily - Continue current dose of 50 mcg po daily High Risk falls - Risk factors: DM, HTN and A-fib - Insulin, Warfarin and BP Meds Resolved: S/p Orthostatic Hypotension - Medication induced - Pos in ED: Standing 92/56 mmHg, Sitting 118/68 mmHg, Supine 106/58 mmHg - He is on Lasix 40 mg po daily, Cardizem 360 po daily, Lisinopril 2.5 mg po daily, and Metoprolol 25 mg po daily + Flomax for BPH - BP with parameters - Cut Cardizem current dose to 1/2 daily - BP have been stable S/p Mild Hypokalemia - K 5.8 - He is on K supplement - He got lasix, kayexalate and insulin in ED - Monitor Chronic: Atrial Fibrillation, HR controlled on Warfarin CAD HTN Cardiomyopathy 2/2 CAD HLD COPD Hypothyroidism GERD with Hx/o PUD CKD Stage 3 BPH OA DM2, Stable, A1C is 7.8: ideal for his age group Diabetic Neuropathy PETER Hx/o CVA Plan: He is clinically stable Routine AM Labs Continue PT/OT consult SW/CM for d/c planning Possible d/c in am if vitals remains stable Code status: 1
[2016-10-05] MEDS ORDERED: Acetaminophen/HYDROcodone 325-10 MG Tab PO PRN (09:19)
[2016-10-05] MEDS ORDERED: Warfarin 5 MG Tab PO SCH (18:00)
[2016-10-05] MEDS: Tamsulosin 0.4 MG Cap.ER PO SCH (21:37)
[2016-10-05] MEDS: Insulin Detemir 100 Units/ML 3 ML Pen SUBCUT SCH (21:38)
[2016-10-06] MEDS: Levothyroxine 50 MCG Tab PO SCH (06:15)
[2016-10-06] MEDS: Insulin Detemir 100 Units/ML 3 ML Pen SUBCUT SCH (06:15)
--- NOTE | 2016-10-06 08:02 | PCM.DCSUM1 ---
Discharge Summary - Hospital Course Free Text/Narrative:: This is an 86 yo elderly white male with past medical hx/o atrial fibrillation on warfarin, CAD, Cardiomyopathy, HTN, HLD, COPD, GERD, PUD, BPH, CKD Stage 3, OA, DM2, Diabetic Neuropathy and PETER who comes in with complaints of generalized weakness associated with a sense of dizziness that he might pass out. He denies any traumatic episode or falls related to his symptoms. Patient denies having issues with his glucose. He is on insulin for his diabetes. His recorded initial glucose level was 250, taken by paramedics. He denies having any GI bleed or changes on his bowel habits or color. However he was found to be hypotensive with a BP of 85/56 mmHg on initial assessment. A review of his home medications reveals he is on the following for rate control and anti-hypertensive medications: Lasix 40 mg po daily, Cardizem 360 po daily, Lisinopril 2.5 mg po daily, Metoprolol 25 mg po daily and + Flomax which is known to cause Orthostatic hypotension. Patient had similar presentation back in early June and he was found to have GI bleed. His initial work up in ED shows a fairly stable Hgb level of 11.8 and Hct of 36.6. His INR is therapeutic at 2.25. His chemistry is remarkable for Na of 132, K of 5.8, BUN of 47, Cr of 2, BS 240, A1C 7.80, AST of 14, BNP of 464, and TSH 9.284. All his imaging studies (Chest, Pelvis and Lumbar Spine XRs) show no acute abnormal findings. Patient is being admitted for medical management of Orthostatic Hypotension and Mild Hypokalemia. He is full code. He was admitted, hydrated, diltiazem dose was decreased by half with good response and resolution of bradycardia and hypotenseion. He was given kayexalate , insulin in the ED for correction of hyperkalemia. Potassium level normalized and has been WNL since initial reading. Levothyroxine dose was increased to 50mcg daily- recommend recheck of TSH in 3 months to follow. INR's were therapeutic during his stay. He worked with PT/OT, did well and without dizziness/orthostasis. UA was with leukocytes and + WBC, UC is with gram + cocci , final and sensitivity is pending; verbal from micro is that looks like coagulase negative staph. He is started on oral bactrim BID x 5 total days pending sensitivity. He had cognitive eval with CAB STATION ATTENDANT for concerns of memory impairment, forgetfulness and is with moderate cognitive impairment, recommends assistance with higher executive functioning and recommend no further driving at this point. He will cont to have home health care through the [facility] for assistance with medications and further assistance as needed. He will follow up with his PCP, Dr. Cervantes within 7 days of discharge, labs prior, CBC, BMP and INR. - Discharge Data Discharge Date: 10/06/16 (admit date 10/04/16) Discharge Disposition: Home, Self-Care 01 Condition: Good - Discharge Diagnosis/Problem(s) (1) UTI (urinary tract infection) SNOMED Code(s): 10050389 ICD Code: N39.0 - URINARY TRACT INFECTION, SITE NOT SPECIFIED Status: Acute Current Visit: Yes (2) Bradycardia SNOMED Code(s): 56279109 ICD Code: R00.1 - BRADYCARDIA, UNSPECIFIED Status: Resolved Priority: High Current Visit: Yes (3) Chronic atrial fibrillation SNOMED Code(s): 107625653 ICD Code: I48.2 - CHRONIC ATRIAL FIBRILLATION Status: Chronic Priority: High Current Visit: Yes (4) Chronic renal insufficiency, stage III (moderate) SNOMED Code(s): 027651700 ICD Code: N18.3 - CHRONIC KIDNEY DISEASE, STAGE 3 (MODERATE) Status: Chronic Priority: High Current Visit: Yes (5) Congestive heart failure SNOMED Code(s): 08380950 ICD Code: I50.9 - HEART FAILURE, UNSPECIFIED Status: Chronic Priority: High Current Visit: Yes Qualifiers: Congestive heart failure type: diastolic Congestive heart failure chronicity: acute on chronic Qualified Code(s): I50.33 - Acute on chronic diastolic (congestive) heart failure (6) Hyperkalemia SNOMED Code(s): 17591725 ICD Code: E87.5 - HYPERKALEMIA Status: Resolved Priority: High Current Visit: Yes (7) Hypothyroidism (acquired) SNOMED Code(s): 231757995 ICD Code: E03.9 - HYPOTHYROIDISM, UNSPECIFIED Status: Chronic Priority: High Current Visit: Yes (8) Iatrogenic hypotension SNOMED Code(s): 460766407 ICD Code: I95.89 - OTHER HYPOTENSION Status: Resolved Priority: High Current Visit: Yes (9) Diabetes type 2, controlled SNOMED Code(s): 88922046 ICD Code: E11.9 - TYPE 2 DIABETES MELLITUS WITHOUT COMPLICATIONS Status: Chronic Priority: Medium Current Visit: Yes Qualifiers: Diabetes mellitus complication status: without complication - Patient Summary/Data Operative Procedure(s) Performed: None Complications: None Consults: Consultations 10/04/16 15:33 Consult to Case Management [CONS] Routine Consult to Electrical Transmission Engineer [CONS] Routine Consult to Spiritual Care [CONS] Routine OT Evaluation and Treatment [CONS] Routine PT Evaluation and Treatment [CONS] Routine 10/05/16 11:57 Consult to Speech Language Pathology [CAB STATION ATTENDANT Evaluation and Treatment] [CONS] Routine Labs Pending at D/C: Final urine culture- Urine sensitivity Recommended Follow-up Testing/Procedures: Check blood sugars per your prior home routine. Daily morning weight. Keep a record for your doctor. Follow up with Dr. Cervantes, PCP, within 5-7 days of discharge, Labs prior: CBC , BMP and INR Continue with Home Health Care through [facility] for medication set up assistance and monitoring Planned Operative Procedure(s) after DC: None - Patient Instructions Diet: Heart Healthy Diet, Drink 8-10+ Glasses/Day, Diabetic Diet Activity: As Tolerated Driving: Do Not Drive (recommend do not drive; use bus service or have a national van truck driver ) Showering/Bathing: May Shower Notify Provider of: Fever, Increased Pain, Nausea and/or Vomiting (dizziness, lightheadedness, weakness) - Discharge Plan Prescriptions/Med Rec: Diltiazem [Cardizem CD] 180 mg PO DAILY #30 cap.cd Levothyroxine [Synthroid] 50 mcg PO ACBREAKFAST #30 tablet Sulfamethoxazole/Trimethoprim [Bactrim Ds Tablet] 1 each PO BID #10 tablet Home Medications: Home Meds Omeprazole 40 mg PO DAILY 02/08/14 [History] Insulin Glarg,Human.Rec.Analog [Lantus] 20 units SQ DAILY 11/15/14 [History] Warfarin [Coumadin] 5 mg PO SUTUWETH 11/15/14 [History] Metoprolol Succinate [Toprol XL] 25 mg PO DAILY 02/04/16 [History] Warfarin Sodium [Coumadin] 7.5 mg PO MOFRSA 02/04/16 [History] traMADol [Ultram] 50 mg PO Q6HR PRN 02/04/16 [History] Acetaminophen/oxyCODONE [Percocet 325-5 MG] 1 tab PO Q6H PRN 06/21/16 [History] Bismuth Subsalicylate [Pepto Bismol] 524 mg PO BID PRN 06/21/16 [History] Ferrous Sulfate 325 mg PO BID 06/21/16 [History] Furosemide 40 mg PO DAILY 06/21/16 [History] Gabapentin [Neurontin] 200 mg PO BID 06/21/16 [History] Lisinopril 2.5 mg PO DAILY 06/21/16 [History] Multivitamins [Tab-A-Liz] 1 tab PO DAILY 06/21/16 [History] Polyethylene Glycol 3350 [MiraLAX] 17 gm PO DAILY 06/21/16 [History] Potassium Chloride 20 meq PO DAILY 06/21/16 [History] Tamsulosin [Flomax] 0.4 mg PO BEDTIME 06/21/16 [History] Diltiazem [Cardizem CD] 180 mg PO DAILY #30 cap.cd 10/06/16 [Rx] Levothyroxine [Synthroid] 50 mcg PO ACBREAKFAST #30 tablet 10/06/16 [Rx] Sulfamethoxazole/Trimethoprim [Bactrim Ds Tablet] 1 each PO BID #10 tablet 10/06 [Rx] Patient Handouts: Dizziness, [id number], Hypotension Forms: ED Department Discharge Referrals: Rosalio Cervantes MD [Primary Care Provider] - - Discharge Summary/Plan Comment DC Time >30 min.: Yes (40 min) - Review of Systems General: Reports: No Symptoms HEENT: Reports: no symptoms Pulmonary: Reports: no symptoms. Denies: shortness of breath, cough Cardiovascular: Reports: No Symptoms. Denies: Chest Pain, Palpitations, Dyspnea on Exertion, Lightheadedness Gastrointestinal: Reports: No symptoms Genitourinary: Reports: no symptoms Musculoskeletal: Reports: no symptoms Skin: Reports: no symptoms Neurological: Reports: No Symptoms. Denies: Dizziness Psychiatric: Reports: no symptoms - Patient Data Vitals - Most Recent: Last Vital Signs Temp 97.9 F 10/06/16 03:51 Pulse 73 10/06/16 03:51 Resp 16 10/06/16 03:51 BP 123/77 10/06/16 03:51 Pulse Ox 93 L 10/06/16 03:51 Weight - Most Recent: 201 lb I&O - Last 24 hours: Intake & Output 10/05/16 10/06/16 10/06/16 22:59 06:59 14:59 Intake Total 990 350 Output Total 4250 1100 Balance -3260 -750 Lab Results - Last 24 hrs: Laboratory Results - last 24 hr 10/05/16 10/05/16 10/05/16 Range/Units 11:42 17:06 21:20 WBC (4.23-9.07) K/mm3 RBC (4.63-6.08) M/mm3 Hgb (13.7-17.5) gm/L Hct (40.1-51.0) % MCV (79.0-92.2) fl MCH (25.7-32.2) pg MCHC (32.2-35.5) g/dl RDW Std Deviation (35.1-43.9) fL Plt Count (163-337) K/mm3 MPV (9.4-12.3) fl Neut % (Auto) (34.0-67.9) % Lymph % (Auto) (21.8-53.1) % Hopkins % (Auto) (5.3-12.2) % Eos % (Auto) (0.8-7.0) Baso % (Auto) (0.1-1.2) % Neut # (Auto) (1.78-5.38) K/mm3 Lymph # (Auto) (1.32-3.57) K/mm3 Hopkins # (Auto) (0.30-0.82) K/mm3 Eos # (Auto) (0.04-0.54) K/mm3 Baso # (Auto) (0.01-0.08) K/mm3 PT (8.0-13.0) SECONDS INR Sodium (136-145) mEq/L Potassium (3.5-5.1) mEq/L Chloride (98-107) mEq/L Carbon Dioxide (21-32) mEq/L Anion Gap (5-15) BUN (7-18) mg/dL Creatinine (0.7-1.3) mg/dL Est Cr Clr Drug Dosing mL/min Estimated GFR (MDRD) (>60) mL/min BUN/Creatinine Ratio (14-18) Glucose (83-115) mg/dL POC Glucose 199 H 169 H 172 H (83-110) mg/dL Calcium (8.5-10.1) mg/dL Magnesium (1.8-2.4) mg/dl 10/06/16 10/06/16 10/06/16 Range/Units 05:20 05:20 05:20 WBC 6.55 (4.23-9.07) K/mm3 RBC 4.00 L (4.63-6.08) M/mm3 Hgb 12.1 L (13.7-17.5) gm/L Hct 36.7 L (40.1-51.0) % MCV 91.8 (79.0-92.2) fl MCH 30.3 (25.7-32.2) pg MCHC 33.0 (32.2-35.5) g/dl RDW Std Deviation 46.6 H (35.1-43.9) fL Plt Count 202 (163-337) K/mm3 MPV 9.8 (9.4-12.3) fl Neut % (Auto) 66.0 (34.0-67.9) % Lymph % (Auto) 17.1 L (21.8-53.1) % Hopkins % (Auto) 11.9 (5.3-12.2) % Eos % (Auto) 3.7 (0.8-7.0) Baso % (Auto) 1.1 (0.1-1.2) % Neut # (Auto) 4.33 (1.78-5.38) K/mm3 Lymph # (Auto) 1.12 L (1.32-3.57) K/mm3 Hopkins # (Auto) 0.78 (0.30-0.82) K/mm3 Eos # (Auto) 0.24 (0.04-0.54) K/mm3 Baso # (Auto) 0.07 (0.01-0.08) K/mm3 PT 29.2 H (8.0-13.0) SECONDS INR 2.53 Sodium 138 (136-145) mEq/L Potassium 4.0 (3.5-5.1) mEq/L Chloride 101 (98-107) mEq/L Carbon Dioxide 28 (21-32) mEq/L Anion Gap 13.0 (5-15) BUN 33 H (7-18) mg/dL Creatinine 1.6 H (0.7-1.3) mg/dL Est Cr Clr Drug Dosing 35.70 mL/min Estimated GFR (MDRD) 41 (>60) mL/min BUN/Creatinine Ratio 20.6 H (14-18) Glucose 124 H (83-115) mg/dL POC Glucose (83-110) mg/dL Calcium 9.2 (8.5-10.1) mg/dL Magnesium 2.0 (1.8-2.4) mg/dl 10/06/16 Range/Units 06:14 WBC (4.23-9.07) K/mm3 RBC (4.63-6.08) M/mm3 Hgb (13.7-17.5) gm/L Hct (40.1-51.0) % MCV (79.0-92.2) fl MCH (25.7-32.2) pg MCHC (32.2-35.5) g/dl RDW Std Deviation (35.1-43.9) fL Plt Count (163-337) K/mm3 MPV (9.4-12.3) fl Neut % (Auto) (34.0-67.9) % Lymph % (Auto) (21.8-53.1) % Hopkins % (Auto) (5.3-12.2) % Eos % (Auto) (0.8-7.0) Baso % (Auto) (0.1-1.2) % Neut # (Auto) (1.78-5.38) K/mm3 Lymph # (Auto) (1.32-3.57) K/mm3 Hopkins # (Auto) (0.30-0.82) K/mm3 Eos # (Auto) (0.04-0.54) K/mm3 Baso # (Auto) (0.01-0.08) K/mm3 PT (8.0-13.0) SECONDS INR Sodium (136-145) mEq/L Potassium (3.5-5.1) mEq/L Chloride (98-107) mEq/L Carbon Dioxide (21-32) mEq/L Anion Gap (5-15) BUN (7-18) mg/dL Creatinine (0.7-1.3) mg/dL Est Cr Clr Drug Dosing mL/min Estimated GFR (MDRD) (>60) mL/min BUN/Creatinine Ratio (14-18) Glucose (83-115) mg/dL POC Glucose 123 H (83-110) mg/dL Calcium (8.5-10.1) mg/dL Magnesium (1.8-2.4) mg/dl BASSEM Results - Last 24 hrs: Microbiology 10/04/16 16:50 Urine Culture - Preliminary Urine, Bladder Staphylococcus Coagulase Neg Med Orders - Current: Current Medications Acetaminophen (Tylenol) 650 mg PO Q4H PRN PRN Reason: Pain (Mild 1-3)/fever Hydrocodone Bitart/Acetaminophen ([place] 325-5 Mg) 1 tab PO Q4H PRN PRN Reason: Pain (moderate 4-6) Last Admin: 10/05/16 21:41 Dose: 1 tab Hydrocodone Bitart/Acetaminophen ([place] 325-10 Mg) 1 tab PO Q6H PRN PRN Reason: Pain Albuterol (Proventil Neb Soln) 2.5 mg NEB Q2H PRN PRN Reason: Shortness Of Breath/wheezing Bisacodyl (Dulcolax) 5 mg PO DAILY PRN PRN Reason: Constipation Bismuth Subsalicylate (Pepto Bismol) 30 ml PO BID PRN PRN Reason: Heartburn Diltiazem HCl (Cardizem Cd) 180 mg PO DAILY [facility] Last Admin: 10/05/16 08:38 Dose: 180 mg Docusate Sodium (Colace) 100 mg PO BID PRN PRN Reason: Constipation Ferrous Sulfate (Ferrous Sulfate) 325 mg PO BID [facility] Last Admin: 10/05/16 21:37 Dose: 325 mg Furosemide (Lasix) 40 mg PO DAILY [facility] Last Admin: 10/05/16 08:38 Dose: 40 mg Gabapentin (Neurontin) 200 mg PO BID [facility] Last Admin: 10/05/16 21:37 Dose: 200 mg Hydromorphone HCl (Dilaudid) 0.25 mg IVPUSH Q2H PRN PRN Reason: Pain (severe 7-10) Insulin Aspart (Novolog) 0 unit SUBCUT QIDACANDBED [facility] PRN Reason: Protocol Last Admin: 10/05/16 21:37 Dose: 1 units Insulin Detemir (Levemir) 10 unit SUBCUT BID@0600,2100 [facility] Last Admin: 10/06/16 06:15 Dose: 10 units Levothyroxine Sodium (Synthroid) 50 mcg PO ACBREAKFAST [facility] Last Admin: 10/06/16 06:15 Dose: 50 mcg Lisinopril (Prinivil) 2.5 mg PO DAILY [facility] Last Admin: 10/05/16 08:38 Dose: 2.5 mg Lorazepam (Ativan) 0.5 mg IV Q6H PRN PRN Reason: Anxiety Magnesium Sulfate (Pharmacy To Dose - Magnesium Replacement) 0 dose .XX ASDIRECTED PRN PRN Reason: RX TO MONITOR MAG LEVELS Metoprolol Succinate (Toprol Xl) 25 mg PO DAILY [facility] Last Admin: 10/05/16 08:37 Dose: 25 mg Multivitamins (Thera) 1 each PO DAILY [facility] Last Admin: 10/05/16 08:38 Dose: 1 each Ondansetron HCl (Zofran) 4 mg IV Q6H PRN PRN Reason: Nausea/Vomiting Polyethylene Glycol (Miralax) 17 gm PO DAILY PRN PRN Reason: Constipation Polyethylene Glycol (Miralax) 17 gm PO DAILY [facility] Last Admin: 10/05/16 08:59 Dose: Not Given Potassium Chloride (Pharmacy To Dose - Potassium Replacement) 0 dose .XX ASDIRECTED PRN PRN Reason: RX TO MONITOR K LEVELS Senna/Docusate Sodium (Senna Plus) 1 tab PO BID PRN PRN Reason: Constipation Tamsulosin HCl (Flomax) 0.4 mg PO BEDTIME [facility] Last Admin: 10/05/16 21:37 Dose: 0.4 mg Temazepam (Restoril) 7.5 mg PO BEDTIME PRN PRN Reason: Sleep Tramadol HCl (Ultram) 50 mg PO Q6H PRN PRN Reason: Pain Warfarin Sodium (Coumadin) 5 mg PO SuTuWeTh@1800 [facility] Last Admin: 10/05/16 17:21 Dose: 5 mg Warfarin Sodium (Coumadin) 7.5 mg PO MoFrSa@1800 [facility] Last Admin: 10/04/16 18:30 Dose: 7.5 mg Warfarin Sodium (Pharmacy To Dose - Warfarin) 0 dose .XX ASDIRECTED PRN PRN Reason: RX TO DOSE COUMADIN Discontinued Medications Bismuth Subsalicylate (Pepto Bismol) 30 ml PO BID [facility] Last Admin: 10/04/16 21:12 Dose: Not Given Furosemide (Lasix) 40 mg IVPUSH NOW ONE Stop: 10/04/16 10:11 Last Admin: 10/04/16 10:38 Dose: 40 mg Sodium Chloride (Normal Saline) 1,000 mls @ 100 mls/hr IV ASDIRECTED [facility] Last Admin: 10/04/16 10:38 Dose: 100 mls/hr Insulin Detemir (Levemir) 10 unit SUBCUT BID [facility] Last Admin: 10/05/16 09:22 Dose: 10 units Insulin Human Regular (Humulin R) 4 unit SUBCUT ONETIME ONE PRN Reason: Protocol Stop: 10/04/16 12:09 Last Admin: 10/04/16 12:37 Dose: 4 unit Non-Formulary Medication (Potassium Chloride) 20 meq PO DAILY [facility] Oxycodone/Acetaminophen (Percocet 325-5 Mg) 1 tab PO Q6H PRN PRN Reason: Pain Sodium Polystyrene Sulfonate (Kayexalate) 30 gm PO ONETIME ONE Stop: 10/04/16 10:13 Last Admin: 10/04/16 10:39 Dose: 30 gm - Exam Quality Assessment: Reports: DVT prophylaxis General: Reports: alert, oriented, cooperative, no acute distress HEENT: Reports: Pupils equal, Pupils reactive, EOMI, Mucous membr. moist/pink Neck: Reports: supple Lungs: Reports: Clear to auscultation, Normal respiratory effort Cardiovascular: Reports: Irregular Rhythm Abdomen: Reports: bowel sounds present, soft, no tenderness, no distension (Male) Exam: Deferred Rectal (Males) Exam: Deferred Extremities: Reports: no edema, no calf tenderness Skin: Reports: warm, dry, intact Neurological: Reports: no new focal deficit, other (intermittent memory impairment- A&O x 3 this morning) Psy/Mental Status: Reports: alert, normal affect, normal mood *Q Meaningful Use (DIS) - VTE *Q VTE Criteria *Q: - Stroke *Q Stroke Criteria *Q: - AMI *Q AMI Criteria *Q:
[2016-10-06] MEDS: Gabapentin 100 MG Cap PO SCH (08:48)
[2016-10-06] MEDS: Metoprolol Succinate 25 MG Tab.ER PO SCH (08:48)
[2016-10-06] MEDS: Multivitamins,Therapeutic Tab PO SCH (08:48)
[2016-10-06] MEDS: Diltiazem 180 MG Cap.CD PO SCH (08:48)
[2016-10-06] MEDS: Insulin Aspart 100 Units/ML 3 ML Pen SUBCUT SCH ×2 (08:48→11:58)
[2016-10-06] MEDS: Lisinopril 2.5 MG Tab PO SCH (08:49)
[2016-10-06] MEDS: Ferrous Sulfate 325 MG Tab PO SCH (08:49)
[2016-10-06] MEDS: Polyethylene Glycol 3350 Powder 17 GM Packet PO SCH (08:49)
[2016-10-06] MEDS: Furosemide 40 MG Tab PO SCH (08:49)
[2016-10-06] MEDS ORDERED: Pneumococcal 13-Valent Conjugate Vaccine 0.5 ML Syringe IM ONE (10:21)
[2016-10-06] MEDS ORDERED: Diphtheria,Pertussis(Acell),Tetanus Vaccine 0.5 ML SDV inactive IM ONE (10:21)
[2016-10-06 11:12] VITALS: BP 125/77
== END 2016-10-06 12:39 | disposition home or self-care (01) | DRG 312 ==
LOC: JD.ED 08:35 → JD.MS 11:05
PROVIDERS: ADMIT Internal Medicine; ATTEND Internal Medicine
DX: I95.89 Other hypotension (principal); I95.2 Hypotension due to drugs; I50.33 Acute on chronic diastolic (congestive) heart failure; N39.0 Urinary tract infection, site not specified; I13.0 Hypertensive heart and chronic kidney disease with heart failure and stage 1 through stage 4 chronic kidney disease, or unspecified chronic kidney disease; I42.9 Cardiomyopathy, unspecified; T46.1X5A Adverse effect of calcium-channel blockers, initial encounter; R00.1 Bradycardia, unspecified; E78.00 Pure hypercholesterolemia, unspecified; R53.1 Weakness; E87.6 Hypokalemia; E87.5 Hyperkalemia; M16.11 Unilateral primary osteoarthritis, right hip; E03.9 Hypothyroidism, unspecified; R94.6 Abnormal results of thyroid function studies; Z91.81 History of falling; I48.2 Chronic atrial fibrillation; Z79.01 Long term (current) use of anticoagulants; D64.9 Anemia, unspecified; I25.10 Atherosclerotic heart disease of native coronary artery without angina pectoris; N18.3 Chronic kidney disease, stage 3 (moderate); Z87.891 Personal history of nicotine dependence; E78.5 Hyperlipidemia, unspecified; J44.9 Chronic obstructive pulmonary disease, unspecified; K21.9 Gastro-esophageal reflux disease without esophagitis; N40.0 Benign prostatic hyperplasia without lower urinary tract symptoms; M19.90 Unspecified osteoarthritis, unspecified site; E11.40 Type 2 diabetes mellitus with diabetic neuropathy, unspecified; Z79.4 Long term (current) use of insulin; D50.9 Iron deficiency anemia, unspecified; H91.90 Unspecified hearing loss, unspecified ear; Z79.899 Other long term (current) drug therapy; Z86.73 Personal history of transient ischemic attack (TIA), and cerebral infarction without residual deficits; Z23 Encounter for immunization
CPT/HCPCS: 36415; 71010; 72100; 72170; 80053; 81001; 82553; 83036; 83735; 83880; 84443; 84484; 85025; 85610; 86140; 93005; 96361; 96374; 99285; A9270; J1940; J7040; 80048; 82962; 87086; 87088; 87186; 90471; 90670; 90715; 96125-GN; 96372; 97110-GP; 97116-GP; 97161-GP; 97165-GO; 97530-GP; G0009; J1815-GY; J1817

== ENCOUNTER 2016-10-07 09:47 | Emergency (ER) | payer MEDICARE, BC ==
[2016-10-07] MEDS ORDERED: Acetaminophen/HYDROcodone 325-5 MG Tab PO ONE (10:31)
--- NOTE | 2016-10-07 10:57 | EDM.PDOC ---
ED HPI Trauma - General Chief Complaint: Lower Extremity Injury/Pain Stated Complaint: RIGHT HIP PAIN Time Seen by Provider: 10/07/16 10:12 Source: Reports: Patient, RN notes reviewed - History of Present Illness INITIAL COMMENTS - FREE TEXT/NARRATIVE: 86-year-old gentleman comes in with right low back pain. He states he's been having this discomfort for about 2 weeks. The pain is much worse when he tries to sit up, get up out of bed or a chair and with walking-type movement. As long he is sitting or lying relatively still the pain is either gone or very mild. He does not remember any fall or particular injury the pain does not radiate to his right groin and also does not radiate down the leg. No chest or abdominal pain at this time. No nausea vomiting fever chills. Allergies/ADRs: Allergies No Known Allergies Allergy (Verified 10/07/16 10:06) Home Medications: Ambulatory Orders Omeprazole 40 mg PO DAILY 02/08/14 [Confirmed 10/07/16] Warfarin [Coumadin] 5 mg PO SUTUWETHSA 11/15/14 [Confirmed 10/07/16] Metoprolol Succinate [Toprol XL] 25 mg PO DAILY 02/04/16 [Confirmed 10/07/16] Warfarin Sodium [Coumadin] 7.5 mg PO MOFR 02/04/16 [Confirmed 10/07/16] Ferrous Sulfate 325 mg PO BID 06/21/16 [Confirmed 10/07/16] Furosemide 40 mg PO DAILY 06/21/16 [Confirmed 10/07/16] Gabapentin [Neurontin] 200 mg PO BID 06/21/16 [Confirmed 10/07/16] Lisinopril 2.5 mg PO DAILY 06/21/16 [Confirmed 10/07/16] Potassium Chloride 20 meq PO DAILY 06/21/16 [Confirmed 10/07/16] Tamsulosin [Flomax] 0.4 mg PO BEDTIME 06/21/16 [Confirmed 10/07/16] Diltiazem [Cardizem CD] 180 mg PO DAILY #30 cap.cd 10/06/16 [Confirmed 10/07/16] Levothyroxine [Synthroid] 50 mcg PO ACBREAKFAST #30 tablet 10/06/16 [Confirmed 10/07/16] Sulfamethoxazole/Trimethoprim [Bactrim Ds Tablet] 1 each PO BID #10 tablet 10/06 [Confirmed 10/07/16] Hydrocodone/Acetaminophen [[place] 5-325 Tablet] 1 each PO Q6HR PRN #14 tablet [place]-3/DHA/Epa/Fish Oil [Fish Oil 1,000 mg Softgel] 1,000 mg PO DAILY 10/07/16 [Confirmed 10/07/16] Vitamin E 400 intnl unit PO DAILY 10/07/16 [Confirmed 10/07/16] Past Medical History HEENT History: Reports: Hard of hearing, Impaired vision Other HEENT History: wears eyeglasses Cardiovascular History: Reports: Afib, CAD, Cardiomyopathy, Heart murmur, High cholesterol, Hypertension Respiratory History: Reports: COPD Gastrointestinal History: Reports: Gastritis, GERD, Hemorrhoids, Helicobacter pylori, PUD Other Gastrointestinal History: ulcer Genitourinary History: Reports: BPH, Chronic renal insuffiency, UTI, recurrent Musculoskeletal History: Reports: Osteoarthritis Neurological History: Reports: Neuropathy, diabetic Psychiatric History: Reports: Addiction, Depression Other Psychiatric History: states feels depressed "when I get sick like this." State "the only thing, I'd like to get well, this pain" is making pt feel depressed. Endocrine/Metabolic History: Reports: Diabetes, type II Hematologic History: Reports: Anemia, Blood transfusion(s) Dermatologic History: Reports: Other (see below) Other Dermatologic History: "blisters removed on nose" - Past Surgical History GI Surgical History: Reports: Colonoscopy, EGD Other GI Surgeries/Procedures: No abdominal operations Social & Family History - Family History Family Medical History: Noncontributory HEENT: Reports: Cataract, Macular degeneration Cardiac: Reports: Hypertension : Reports: Diabetic nephropathy Musculoskeletal: Reports: Arthritis Neurological: Reports: Alzheimers disease, Dementia, Parkinson's, Vertigo Endocrine/Metabolic: Reports: Diabetes, type II Dermatologic: Reports: Psoriasis Oncologic: Reports: Leukemia, Prostate, Other (see below) Other Oncologic Family History: stomach - Tobacco Use Smoking Status *Q: Never Smoker Years of Tobacco use: 40 Packs/Tins Daily: 1.5 Used Tobacco, but Quit: Yes Month Tobacco Last Used: 11/1994 Second Hand Smoke Exposure: No - Caffeine Use Caffeine Use: Reports: None - Alcohol Use Days Per Week of Alcohol Use: 0 Number of Drinks Per Day: 1 Total Drinks Per Week: 0 - Recreational Drug Use Recreational Drug Use: No - Living Situation & Occupation Living situation: Reports: , assisted living (Currently residing at [facility] in the assisted living program) Occupation: retired Review of Systems - Review of Systems Review Of Systems: See Below Constitutional: Denies: chills, fever Mouth/Throat: Reports: no symptoms Respiratory: Reports: Shortness of Breath (Mild exertional, chronic). Denies: Cough Cardiovascular: Denies: chest pain GI/Abdominal: Denies: Abdominal pain, Nausea, Vomiting Musculoskeletal: Reports: back pain (Right low back). Denies: leg pain, joint pain Skin: Reports: bruising (A she does have some bruising right low back, he does not recall any injury to that area) Neurological: Denies: Numbness, Tingling, Weakness Trauma Exam - Physical Exam Exam: See Below General Appearance: Reports: alert, mild distress Head: Reports: atraumatic. Denies: facial swelling Eyes: bilateral eye: PERRL Throat/Mouth: Reports: Normal inspection Neck: Reports: full range of motion Respiratory Exam: Reports: no respiratory distress, lungs clear Cardiovascular: Reports: regular rate, rhythm GI/Abdominal: Reports: soft, non tender Back: Reports: paraspinal tenderness (Patient does have some tenderness right low back, there is also an area of bruising right flank with tenderness there as well). Denies: vertebral tenderness Extremities: Reports: other (Patient has good range of motion at the hips with no unusual discomfort with that). Denies: bony-point tenderness, pain with movement Neurologic: Reports: no motor/sensory deficits, normal mood/affect. Denies: motor weakness, sensory deficit Skin: Reports: Normal color, Warm/dry Course - Vital Signs Last Recorded V/S: Last Vital Signs Temp 98.8 F 10/07/16 10:00 Pulse 88 10/07/16 10:00 Resp 18 10/07/16 10:00 BP 146/80 H 10/07/16 10:00 Pulse Ox 96 10/07/16 10:00 - Orders/Labs/Meds Meds: Medications Discontinued Medications Generic Name Dose Route Start Last Admin Trade Name Freq PRN Reason Stop Dose Admin Hydrocodone Bitart/Acetaminophen 1 tab 10/07/16 10:31 10/07/16 11:01 [place] 325-5 Mg PO 10/07/16 10:32 1 tab ONETIME ONE Administration - Re-Assessments/Exams Free Text/Narrative Re-Assessment/Exam: 10/07/16 10:58 Patient does have tenderness area of discomfort right low back and also a small area of bruising as documented. He does not recall falling or injuring himself but also is on Coumadin. He states he does use a walker to get around. He's been taking some Aleve for the discomfort but states that has not really given him much relief. He has not taken anything yet today. He is probably going to need some hydrocodone or something of that nature for a short period of time to get through this. I also am going to prescribe some physical therapy for him and hopefully that will work out. The pain does not radiate to his groin. This does not appear to be a hip problem. X-rays are therefore not clinically indicated at this time. Discharge instructions as documented Departure - Departure Time of Disposition: 11:00 Disposition: Home, Self-Care 01 Condition: fair Clinical Impression: Back strain Prescriptions: Hydrocodone/Acetaminophen [[place] 5-325 Tablet] 1 each PO Q6HR PRN #14 tablet PRN Reason: Pain Referrals: Rosalio Cervantes MD [Primary Care Provider] - Forms: ED Department Discharge Additional Instructions: Alternate ice and heat as needed to right low back, he may take the hydrocodone pain pills one every 6-8 hours as needed for severe pain, continue to use her walker, physical therapy recommended to try get that to heal up more quickly for you, followup with your regular medical provider at the clinic in about 7- 10 days for recheck, call for appointment. Return to ED as needed
[2016-10-07 13:57] VITALS: BP 132/73
== END 2016-10-07 11:35 | disposition home or self-care (01) ==
LOC: JD.ED 09:47
DX: S39.012A Strain of muscle, fascia and tendon of lower back, initial encounter (principal); I48.91 Unspecified atrial fibrillation; I25.10 Atherosclerotic heart disease of native coronary artery without angina pectoris; R01.1 Cardiac murmur, unspecified; E78.00 Pure hypercholesterolemia, unspecified; I10 Essential (primary) hypertension; J44.9 Chronic obstructive pulmonary disease, unspecified; K21.9 Gastro-esophageal reflux disease without esophagitis; Z87.440 Personal history of urinary (tract) infections; F32.9 Major depressive disorder, single episode, unspecified; E11.9 Type 2 diabetes mellitus without complications; Z86.2 Personal history of diseases of the blood and blood-forming organs and certain disorders involving the immune mechanism; X58.XXXA Exposure to other specified factors, initial encounter
CPT/HCPCS: 99283; A9270

== ENCOUNTER 2016-11-09 01:54 | Emergency (ER) | payer MEDICARE, BC ==
[2016-11-09 02:01] VITALS: BP 151/75
--- NOTE | 2016-11-09 02:03 | EDM.PDOC ---
ED HPI GENERAL MEDICAL PROBLEM - General Chief Complaint: Gastrointestinal Problem Stated Complaint: [facility] Time Seen by Provider: 11/09/16 02:01 - History of Present Illness INITIAL COMMENTS - FREE TEXT/NARRATIVE: 86-year-old male brought in by EMS with rectal bleeding. Patient is single episode of rectal bleeding this evening. He went to the bathroom and noticed bright red blood in the toilet. The patient has had problems with significantly bleeding hemorrhoids in the past to the point of causing dizziness. He has been transfused because of this. Patient colonoscopy and EGD this last winter that was significant for gastritis from reviewing the hospitalist note however have not found the entire operative report. The patient is not having any chest pain chest pressure breathing difficulties or shortness of breath this time he is not having any abdominal pain. Patient denies any constipation. The patient is on Coumadin for atrial fibrillation. - Related Data Allergies Allergy/AdvReac Type Severity Reaction Status Date / Time No Known Allergies Allergy Verified 11/09/16 02:01 Home Meds: Home Meds Omeprazole 40 mg PO DAILY 02/08/14 [History] Warfarin [Coumadin] 5 mg PO SUTUWETHSA 11/15/14 [History] Metoprolol Succinate [Toprol XL] 25 mg PO DAILY 02/04/16 [History] Warfarin Sodium [Coumadin] 7.5 mg PO MOFR 02/04/16 [History] Ferrous Sulfate 325 mg PO BID 06/21/16 [History] Furosemide 40 mg PO DAILY 06/21/16 [History] Gabapentin [Neurontin] 200 mg PO BID 06/21/16 [History] Lisinopril 2.5 mg PO DAILY 06/21/16 [History] Potassium Chloride 20 meq PO DAILY 06/21/16 [History] Tamsulosin [Flomax] 0.4 mg PO BEDTIME 06/21/16 [History] Diltiazem [Cardizem CD] 180 mg PO DAILY #30 cap.cd 10/06/16 [Rx] Levothyroxine [Synthroid] 50 mcg PO ACBREAKFAST #30 tablet 10/06/16 [Rx] Sulfamethoxazole/Trimethoprim [Bactrim Ds Tablet] 1 each PO BID #10 tablet 10/06 [Rx] Hydrocodone/Acetaminophen [[place] 5-325 Tablet] 1 each PO Q6HR PRN #14 tablet [Rx] Insulin Glarg,Human.Rec.Analog [Lantus] 20 unit SQ BEDTIME 10/07/16 [History] [place]-3/DHA/Epa/Fish Oil [Fish Oil 1,000 mg Softgel] 1,000 mg PO DAILY 10/07/16 [History] Vitamin E 400 intnl unit PO DAILY 10/07/16 [History] Hydrocortisone [Anusol-HC] 30 gm RC Q12H #1 cream..g. 11/09/16 [Rx] Past Medical History HEENT History: Reports: Hard of Hearing, Impaired Vision Other HEENT History: wears eyeglasses Cardiovascular History: Reports: Afib, CAD, Cardiomyopathy, Heart Murmur, High Cholesterol, Hypertension Respiratory History: Reports: COPD Gastrointestinal History: Reports: Gastritis, GERD, Hemorrhoids, Helicobacter Pylori, PUD Other Gastrointestinal History: ulcer Genitourinary History: Reports: BPH, Chronic Renal Insuffiency, UTI, Recurrent Musculoskeletal History: Reports: Osteoarthritis Neurological History: Reports: Neuropathy, Diabetic Psychiatric History: Reports: Addiction, Depression Other Psychiatric History: states feels depressed "when I get sick like this." State "the only thing, I'd like to get well, this pain" is making pt feel depressed. Endocrine/Metabolic History: Reports: Diabetes, Type II Hematologic History: Reports: Anemia, Blood Transfusion(s) Dermatologic History: Reports: Other (See Below) Other Dermatologic History: "blisters removed on nose" - Past Surgical History Musculoskeletal Surgical History: Reports: Other (See Below) Dermatological Surgical History: Reports: Skin Biopsy Social & Family History - Family History Family Medical History: Noncontributory HEENT: Reports: Cataract, Macular Degeneration Cardiac: Reports: Hypertension : Reports: Diabetic Nephropathy Musculoskeletal: Reports: Arthritis Neurological: Reports: Alzheimers Disease, Dementia, Parkinson's, Vertigo Endocrine/Metabolic: Reports: Diabetes, type II Dermatologic: Reports: Psoriasis Oncologic: Reports: Leukemia, Prostate, Other (See Below) Other Oncologic Family History: stomach - Tobacco Use Smoking Status *Q: Never Smoker Years of Tobacco use: 40 Packs/Tins Daily: 1.5 Used Tobacco, but Quit: Yes Month Tobacco Last Used: 11/1994 Second Hand Smoke Exposure: No - Caffeine Use Caffeine Use: Reports: None - Alcohol Use Days Per Week of Alcohol Use: 0 Number of Drinks Per Day: 1 Total Drinks Per Week: 0 - Recreational Drug Use Recreational Drug Use: No - Living Situation & Occupation Living situation: Reports: , Assisted Living Occupation: Retired ED ROS GENERAL - Review of Systems Review Of Systems: See Below Constitutional: Reports: No Symptoms HEENT: Reports: No Symptoms Respiratory: Reports: No Symptoms Cardiovascular: Reports: No Symptoms Endocrine: Reports: No Symptoms GI/Abdominal: Reports: Hematochezia. Denies: Abdominal Pain, Constipation, Diarrhea, Decreased Appetite, Difficulty Swallowing, Nausea, Vomiting : Reports: No Symptoms Neurological: Reports: No Symptoms ED EXAM, GI/ABD - Physical Exam Exam: See Below Exam Limited By: No Limitations General Appearance: Alert, No Apparent Distress Head: Atraumatic, Normocephalic Neck: Normal Inspection, Supple, Non-Tender, Full Range of Motion. No: Lymphadenopathy (L), Lymphadenopathy (R) Respiratory/Chest: No Respiratory Distress, Lungs Clear, Normal Breath Sounds Cardiovascular: No Edema, No Murmur, Irregularly Irregular GI/Abdominal: Normal Bowel Sounds, Soft, Non-Tender Rectal (Males) Exam: Heme + Stool, Hemorrhoids (Multiple external hemorrhoids, no thrombosed), Other (Patient is an enlarged prostate no fissures identified bright red blood and maroon clots noted). No: Prostate Normal Course - Vital Signs Last Recorded V/S: Last Vital Signs Temp 36.6 C 11/09/16 01:58 Pulse 97 11/09/16 01:58 Resp 16 11/09/16 01:58 BP 151/75 H 11/09/16 01:58 Pulse Ox 97 11/09/16 01:58 - Orders/Labs/Meds Labs: Laboratory Tests 11/09/16 11/09/16 11/09/16 Range/Units 02:30 02:30 02:30 WBC (4.23-9.07) K/mm3 RBC (4.63-6.08) M/mm3 Hgb (13.7-17.5) gm/L Hct (40.1-51.0) % MCV (79.0-92.2) fl MCH (25.7-32.2) pg MCHC (32.2-35.5) g/dl RDW Std Deviation (35.1-43.9) fL Plt Count (163-337) K/mm3 MPV (9.4-12.3) fl Neutrophils % (Manual) (40-60) % Band Neutrophils % (0-10) % Lymphocytes % (Manual) (20-40) % Atypical Lymphs % % Monocytes % (Manual) (2-10) % Eosinophils % (Manual) (0.8-7.0) % Basophils % (Manual) (0.2-1.2) Platelet Estimate RBC Morph Comment PT 34.0 H (8.0-13.0) SECONDS INR 2.91 APTT 42 H (22-36) SECONDS Sodium 141 (136-145) mEq/L Potassium 4.2 (3.5-5.1) mEq/L Chloride 105 (98-107) mEq/L Carbon Dioxide 25 (21-32) mEq/L Anion Gap 15.2 H (5-15) BUN 24 H (7-18) mg/dL Creatinine 1.5 H (0.7-1.3) mg/dL Est Cr Clr Drug Dosing TNP Estimated GFR (MDRD) 44 (>60) mL/min BUN/Creatinine Ratio 16.0 (14-18) Glucose 107 (83-115) mg/dL Calcium 8.7 (8.5-10.1) mg/dL Total Bilirubin 0.7 (0.2-1.0) mg/dL AST 15 (15-37) U/L ALT 18 (16-63) U/L Alkaline Phosphatase 101 (46-116) U/L Total Protein 7.0 (6.4-8.2) g/dl Albumin 2.9 L (3.4-5.0) g/dl Globulin 4.1 gm/dL Albumin/Globulin Ratio 0.7 L (1-2) Blood Type A POSITIVE Gel Antibody Screen Negative 11/09/16 Range/Units 02:39 WBC 6.40 (4.23-9.07) K/mm3 RBC 3.97 L (4.63-6.08) M/mm3 Hgb 11.5 L (13.7-17.5) gm/L Hct 35.5 L (40.1-51.0) % MCV 89.4 (79.0-92.2) fl MCH 29.0 (25.7-32.2) pg MCHC 32.4 (32.2-35.5) g/dl RDW Std Deviation 45.8 H (35.1-43.9) fL Plt Count 236 (163-337) K/mm3 MPV 8.8 L (9.4-12.3) fl Neutrophils % (Manual) 72 H (40-60) % Band Neutrophils % 1 (0-10) % Lymphocytes % (Manual) 20 (20-40) % Atypical Lymphs % 0 % Monocytes % (Manual) 4 (2-10) % Eosinophils % (Manual) 3 (0.8-7.0) % Basophils % (Manual) 0 L (0.2-1.2) Platelet Estimate Adequate RBC Morph Comment Normal PT (8.0-13.0) SECONDS INR APTT (22-36) SECONDS Sodium (136-145) mEq/L Potassium (3.5-5.1) mEq/L Chloride (98-107) mEq/L Carbon Dioxide (21-32) mEq/L Anion Gap (5-15) BUN (7-18) mg/dL Creatinine (0.7-1.3) mg/dL Est Cr Clr Drug Dosing Estimated GFR (MDRD) (>60) mL/min BUN/Creatinine Ratio (14-18) Glucose (83-115) mg/dL Calcium (8.5-10.1) mg/dL Total Bilirubin (0.2-1.0) mg/dL AST (15-37) U/L ALT (16-63) U/L Alkaline Phosphatase (46-116) U/L Total Protein (6.4-8.2) g/dl Albumin (3.4-5.0) g/dl Globulin gm/dL Albumin/Globulin Ratio (1-2) Blood Type Gel Antibody Screen - Re-Assessments/Exams Free Text/Narrative Re-Assessment/Exam: 11/09/16 04:14 Patient has not had any more bloody stools and has been stable here in the emergency room we'll continue to observe for now labs show no acute change hematocrit of 35% hemoglobin 11.5, INR 2.9 11/09/16 04:48 Patient continues to do well no bleeding 11/09/16 06:05 Patient attempted a BM had a few small pieces of stool some bright red blood in the toilet but we did still see the bottom of the toilet then bright red blood on wipes. The nurse thought that she saw one of the hemorrhoids bleeding. We reexamined and could not find the bleeder. 11/09/16 07:[address] Hooker we will stop the patient's Coumadin. The patient should followup with Dr. Hooker on we'll start Anusol HC Departure - Departure Time of Disposition: 07:20 Disposition: Home, Self-Care 01 Clinical Impression: Hemorrhoids - Discharge Information Prescriptions: Hydrocortisone [Anusol-HC] 30 gm RC Q12H #1 cream..g. Referrals: Rosalio Cervantes MD [Primary Care Provider] - Mariposa Hooker MD [Physician] - Forms: ED Department Discharge Additional Instructions: Return to the emergency room with any questions or problems. Stop your Coumadin until advised to restart it. You have been started on Anusol HC use twice daily for up to one week. Followup with Dr. Hooker on of this week.
== END 2016-11-09 08:15 | disposition home or self-care (01) ==
LOC: JD.ED 01:54
DX: K64.9 Unspecified hemorrhoids (principal); D64.9 Anemia, unspecified; I25.10 Atherosclerotic heart disease of native coronary artery without angina pectoris; E78.00 Pure hypercholesterolemia, unspecified; I48.91 Unspecified atrial fibrillation; K21.9 Gastro-esophageal reflux disease without esophagitis; J44.9 Chronic obstructive pulmonary disease, unspecified; M19.90 Unspecified osteoarthritis, unspecified site; E11.40 Type 2 diabetes mellitus with diabetic neuropathy, unspecified; F32.9 Major depressive disorder, single episode, unspecified; Z79.01 Long term (current) use of anticoagulants; Z79.899 Other long term (current) drug therapy; Z79.4 Long term (current) use of insulin
CPT/HCPCS: 36415; 80053; 85025; 85610; 85730; 86850; 86900; 86901; 99283; 99284

== ENCOUNTER 2016-12-29 18:20 | Emergency (ER) | payer MEDICARE, BC ==
--- NOTE | 2016-12-29 19:28 | EDM.PDOC ---
ED HPI GENERAL MEDICAL PROBLEM - General Chief Complaint: Diabetic Complaint Stated Complaint: JUAN JOSE CRENSHAW Time Seen by Provider: 12/29/16 19:05 Source of Information: Reports: Patient, Old Records, RN Notes Reviewed History Limitations: Reports: Other (Patient is a poor historian) - History of Present Illness INITIAL COMMENTS - FREE TEXT/NARRATIVE: EMS reported to the patient's nurse that they were called by the patient for not feeling well. They found his blood glucose to be depressed at 68. They gave D50, and here in the ED, his Accu-Chek was 195. When I asked the patient what happened that brings him to the ED, he states that he was feeling drowsy and weak, and that he checked his blood sugar himself and found it to be 68. He states that he takes both regular and Lantus insulin by a sliding scale, and that he checks his sugars 3 times a day. When I asked what sort of numbers he has recently had, he reports Accu-Cheks of 110-140 , but then states that he has been taking up to 130 and 140 units of regular insulin, before correcting himself that he met 30 or 40 units. He is unable to tell me how much Lantus he takes. He was unable to provide a past medical history, other than diabetes. I had to obtain his past history from old charts. 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: IV/IO Other Treatments RATE QUOTING OPERATOR: D50 amp - Related Data Allergies Allergy/AdvReac Type Severity Reaction Status Date / Time No Known Allergies Allergy Verified 12/29/16 18:27 Home Meds: Home Meds Omeprazole 40 mg PO DAILY 02/08/14 [History] Warfarin [Coumadin] 5 mg PO SUTUWETHSA 11/15/14 [History] Metoprolol Succinate [Toprol XL] 25 mg PO DAILY 02/04/16 [History] Warfarin Sodium [Coumadin] 7.5 mg PO MOFR 02/04/16 [History] Ferrous Sulfate 325 mg PO BID 06/21/16 [History] Furosemide 40 mg PO DAILY 06/21/16 [History] Gabapentin [Neurontin] 200 mg PO BID 06/21/16 [History] Lisinopril 2.5 mg PO DAILY 06/21/16 [History] Potassium Chloride 20 meq PO DAILY 06/21/16 [History] Tamsulosin [Flomax] 0.4 mg PO BEDTIME 06/21/16 [History] Diltiazem [Cardizem CD] 180 mg PO DAILY #30 cap.cd 10/06/16 [Rx] Levothyroxine [Synthroid] 50 mcg PO ACBREAKFAST #30 tablet 10/06/16 [Rx] Sulfamethoxazole/Trimethoprim [Bactrim Ds Tablet] 1 each PO BID #10 tablet 10/06 [Rx] Hydrocodone/Acetaminophen [[place] 5-325 Tablet] 1 each PO Q6HR PRN #14 tablet [Rx] Insulin Glarg,Human.Rec.Analog [Lantus] 20 unit SQ BEDTIME 10/07/16 [History] [place]-3/DHA/Epa/Fish Oil [Fish Oil 1,000 mg Softgel] 1,000 mg PO DAILY 10/07/16 [History] Vitamin E 400 intnl unit PO DAILY 10/07/16 [History] Hydrocortisone [Anusol-HC] 30 gm RC Q12H #1 cream..g. 11/09/16 [Rx] Past Medical History HEENT History: Reports: Hard of Hearing, Impaired Vision Other HEENT History: wears eyeglasses Cardiovascular History: Reports: Afib, CAD, Cardiomyopathy, High Cholesterol, Hypertension Gastrointestinal History: Reports: Gastritis, GERD, Hemorrhoids, Helicobacter Pylori, PUD Genitourinary History: Reports: BPH, Chronic Renal Insuffiency Musculoskeletal History: Reports: Osteoarthritis Neurological History: Reports: Neuropathy, Diabetic Psychiatric History: Reports: Addiction, Depression Endocrine/Metabolic History: Reports: Diabetes, Type II Hematologic History: Reports: Anemia, Blood Transfusion(s) - Past Surgical History Dermatological Surgical History: Reports: Skin Biopsy Social & Family History - Family History Family Medical History: Noncontributory HEENT: Reports: Cataract, Macular Degeneration Cardiac: Reports: Hypertension : Reports: Diabetic Nephropathy Musculoskeletal: Reports: Arthritis Neurological: Reports: Alzheimers Disease, Dementia, Parkinson's, Vertigo Endocrine/Metabolic: Reports: Diabetes, type II Dermatologic: Reports: Psoriasis Oncologic: Reports: Leukemia, Prostate, Other (See Below) Other Oncologic Family History: stomach - Tobacco Use Smoking Status *Q: Former Smoker Years of Tobacco use: 40 Packs/Tins Daily: 1.5 Used Tobacco, but Quit: No Month Tobacco Last Used: 11/1994 Second Hand Smoke Exposure: No - Caffeine Use Caffeine Use: Reports: None - Alcohol Use Alcohol Use History: Yes Days Per Week of Alcohol Use: 0 Number of Drinks Per Day: 1 Total Drinks Per Week: 0 Alcohol Use Frequency: Rarely - Recreational Drug Use Recreational Drug Use: No - Living Situation & Occupation Living situation: Reports: Single, Assisted Living Occupation: Retired ED ROS GENERAL - Review of Systems Review Of Systems: Unable To Obtain ED EXAM GENERAL NO PERIP PULSE - Physical Exam Exam: See Below Exam Limited By: No Limitations General Appearance: Alert, WD/WN, No Apparent Distress Eye Exam: Bilateral Eye: Normal Inspection Ears: Normal External Exam, Hearing Grossly Normal Nose: Normal Inspection, No Blood Throat/Mouth: Normal Inspection, Normal Lips, Normal Voice, No Airway Compromise Head: Atraumatic, Normocephalic Neck: Normal Inspection, Full Range of Motion Respiratory/Chest: No Respiratory Distress, Lungs Clear, Normal Breath Sounds, No Accessory Muscle Use Cardiovascular: Normal Peripheral Pulses, No Gallop, No JVD, No Murmur, No Rub, Tachycardia, Irregularly Irregular GI/Abdominal: Normal Bowel Sounds, Soft, Non-Tender, No Organomegaly, No Distention, No Abnormal Bruit, No Mass (Male) Exam: Deferred Rectal (Males) Exam: Deferred Back Exam: Normal Inspection, Full Range of Motion, NT Extremities: Normal Inspection, Normal Range of Motion, No Pedal Edema, Normal Capillary Refill Neurological: Alert, Oriented, No Motor/Sensory Deficits Psychiatric: Normal Affect Skin Exam: Warm, Dry, Intact, Normal Color, No Rash Lymphatic: No Adenopathy EKG INTERPRETATION EKG Date: 12/29/16 Time: 20:00 Rhythm: A-Fib Rate (Beats/Min): 107 [place]: LAD-Left [place] Deviation P-Wave: Absent QRS: Normal ST-T: Normal QT: Normal Comparison: No Change (10/04/2016) Course - Vital Signs Last Recorded V/S: Last Vital Signs Temp 36.6 C 12/29/16 18:27 Pulse 99 12/29/16 22:49 Resp 18 12/29/16 22:49 BP 143/95 H 12/29/16 22:49 Pulse Ox 99 12/29/16 22:49 Orthostatic Blood Pressure [ 123/74 Standing] Orthostatic Blood Pressure [ 139/85 Sitting] Orthostatic Blood Pressure [ 142/91 Supine] - Orders/Labs/Meds Orders: Active Orders 24 hr Category Date Time Status Accu Check [Blood Glucose Check, Bedside] [RC] ONETIME Care 12/29/16 19:07 Active Accu Check [Blood Glucose Check, Bedside] [RC] ONETIME Care 12/29/16 22:08 Active EKG Documentation Completion [RC] STAT Care 12/29/16 19:23 Active Orthostatic Vital Signs [RC] STAT Care 12/29/16 19:23 Active Chest 2V [CR] Stat Exams 12/29/16 19:23 Taken Labs: Laboratory Tests 12/29/16 12/29/16 12/29/16 Range/Units 18:26 19:46 20:10 WBC 12.09 H (4.23-9.07) K/mm3 RBC 3.56 L (4.63-6.08) M/mm3 Hgb 10.3 L (13.7-17.5) gm/L Hct 31.7 L (40.1-51.0) % MCV 89.0 (79.0-92.2) fl MCH 28.9 (25.7-32.2) pg MCHC 32.5 (32.2-35.5) g/dl RDW Std Deviation 46.7 H (35.1-43.9) fL Plt Count 300 (163-337) K/mm3 MPV 9.1 L (9.4-12.3) fl Neutrophils % (Manual) 78 H (40-60) % Band Neutrophils % 0 (0-10) % Lymphocytes % (Manual) 11 L (20-40) % Atypical Lymphs % 0 % Monocytes % (Manual) 11 H (2-10) % Eosinophils % (Manual) 0 L (0.8-7.0) % Basophils % (Manual) 0 L (0.2-1.2) Platelet Estimate Adequate RBC Morph Comment Normal PT (8.0-13.0) SECONDS INR Sodium (136-145) mEq/L Potassium (3.5-5.1) mEq/L Chloride (98-107) mEq/L Carbon Dioxide (21-32) mEq/L Anion Gap (5-15) BUN (7-18) mg/dL Creatinine (0.7-1.3) mg/dL Est Cr Clr Drug Dosing mL/min Estimated GFR (MDRD) (>60) mL/min BUN/Creatinine Ratio (14-18) Glucose (83-115) mg/dL POC Glucose 195 H (83-110) mg/dL Calcium (8.5-10.1) mg/dL Magnesium (1.8-2.4) mg/dl Total Bilirubin (0.2-1.0) mg/dL AST (15-37) U/L ALT (16-63) U/L Alkaline Phosphatase (46-116) U/L Troponin I (0.00-0.056) ng/mL B-Natriuretic Peptide (0-100) pg/mL Total Protein (6.4-8.2) g/dl Albumin (3.4-5.0) g/dl Globulin gm/dL Albumin/Globulin Ratio (1-2) TSH 3rd Generation (0.358-3.74) uIU/mL Urine Color Yellow (Yellow) Urine Appearance Clear (Clear) Urine pH 7.0 (5.0-8.0) Ur Specific [place] 1.015 (1.005-1.030) Urine Protein 2+ H (Negative) Urine Glucose (UA) Negative (Negative) Urine Ketones Negative (Negative) Urine Occult Blood Trace-lysed H (Negative) Urine Nitrite Negative (Negative) Urine Bilirubin Negative (Negative) Urine Urobilinogen 1.0 (0.2-1.0) Ur Leukocyte Esterase Negative (Negative) Urine RBC 0-5 (0-5) /hpf Urine WBC 0-5 (0-5) /hpf Ur Epithelial Cells Not seen (0-5) /hpf Urine Bacteria Occasional (FEW) /hpf Urine Mucus Not seen (FEW) /hpf 12/29/16 12/29/16 12/29/16 Range/Units 20:10 20:10 20:10 WBC (4.23-9.07) K/mm3 RBC (4.63-6.08) M/mm3 Hgb (13.7-17.5) gm/L Hct (40.1-51.0) % MCV (79.0-92.2) fl MCH (25.7-32.2) pg MCHC (32.2-35.5) g/dl RDW Std Deviation (35.1-43.9) fL Plt Count (163-337) K/mm3 MPV (9.4-12.3) fl Neutrophils % (Manual) (40-60) % Band Neutrophils % (0-10) % Lymphocytes % (Manual) (20-40) % Atypical Lymphs % % Monocytes % (Manual) (2-10) % Eosinophils % (Manual) (0.8-7.0) % Basophils % (Manual) (0.2-1.2) Platelet Estimate RBC Morph Comment PT 36.1 H (8.0-13.0) SECONDS INR 3.08 Sodium 136 (136-145) mEq/L Potassium 4.0 (3.5-5.1) mEq/L Chloride 101 (98-107) mEq/L Carbon Dioxide 26 (21-32) mEq/L Anion Gap 13.0 (5-15) BUN 15 (7-18) mg/dL Creatinine 1.3 (0.7-1.3) mg/dL Est Cr Clr Drug Dosing 38.73 mL/min Estimated GFR (MDRD) 52 (>60) mL/min BUN/Creatinine Ratio 11.5 L (14-18) Glucose 131 H (83-115) mg/dL POC Glucose (83-110) mg/dL Calcium 8.8 (8.5-10.1) mg/dL Magnesium 1.8 (1.8-2.4) mg/dl Total Bilirubin 1.2 H (0.2-1.0) mg/dL AST 15 (15-37) U/L ALT 12 L (16-63) U/L Alkaline Phosphatase 134 H (46-116) U/L Troponin I 0.021 (0.00-0.056) ng/mL B-Natriuretic Peptide 479 H (0-100) pg/mL Total Protein 7.5 (6.4-8.2) g/dl Albumin 2.7 L (3.4-5.0) g/dl Globulin 4.8 gm/dL Albumin/Globulin Ratio 0.6 L (1-2) TSH 3rd Generation 2.209 (0.358-3.74) uIU/mL Urine Color (Yellow) Urine Appearance (Clear) Urine pH (5.0-8.0) Ur Specific [place] (1.005-1.030) Urine Protein (Negative) Urine Glucose (UA) (Negative) Urine Ketones (Negative) Urine Occult Blood (Negative) Urine Nitrite (Negative) Urine Bilirubin (Negative) Urine Urobilinogen (0.2-1.0) Ur Leukocyte Esterase (Negative) Urine RBC (0-5) /hpf Urine WBC (0-5) /hpf Ur Epithelial Cells (0-5) /hpf Urine Bacteria (FEW) /hpf Urine Mucus (FEW) /hpf 12/29/16 Range/Units 22:09 WBC (4.23-9.07) K/mm3 RBC (4.63-6.08) M/mm3 Hgb (13.7-17.5) gm/L Hct (40.1-51.0) % MCV (79.0-92.2) fl MCH (25.7-32.2) pg MCHC (32.2-35.5) g/dl RDW Std Deviation (35.1-43.9) fL Plt Count (163-337) K/mm3 MPV (9.4-12.3) fl Neutrophils % (Manual) (40-60) % Band Neutrophils % (0-10) % Lymphocytes % (Manual) (20-40) % Atypical Lymphs % % Monocytes % (Manual) (2-10) % Eosinophils % (Manual) (0.8-7.0) % Basophils % (Manual) (0.2-1.2) Platelet Estimate RBC Morph Comment PT (8.0-13.0) SECONDS INR Sodium (136-145) mEq/L Potassium (3.5-5.1) mEq/L Chloride (98-107) mEq/L Carbon Dioxide (21-32) mEq/L Anion Gap (5-15) BUN (7-18) mg/dL Creatinine (0.7-1.3) mg/dL Est Cr Clr Drug Dosing mL/min Estimated GFR (MDRD) (>60) mL/min BUN/Creatinine Ratio (14-18) Glucose (83-115) mg/dL POC Glucose 134 H (83-110) mg/dL Calcium (8.5-10.1) mg/dL Magnesium (1.8-2.4) mg/dl Total Bilirubin (0.2-1.0) mg/dL AST (15-37) U/L ALT (16-63) U/L Alkaline Phosphatase (46-116) U/L Troponin I (0.00-0.056) ng/mL B-Natriuretic Peptide (0-100) pg/mL Total Protein (6.4-8.2) g/dl Albumin (3.4-5.0) g/dl Globulin gm/dL Albumin/Globulin Ratio (1-2) TSH 3rd Generation (0.358-3.74) uIU/mL Urine Color (Yellow) Urine Appearance (Clear) Urine pH (5.0-8.0) Ur Specific [place] (1.005-1.030) Urine Protein (Negative) Urine Glucose (UA) (Negative) Urine Ketones (Negative) Urine Occult Blood (Negative) Urine Nitrite (Negative) Urine Bilirubin (Negative) Urine Urobilinogen (0.2-1.0) Ur Leukocyte Esterase (Negative) Urine RBC (0-5) /hpf Urine WBC (0-5) /hpf Ur Epithelial Cells (0-5) /hpf Urine Bacteria (FEW) /hpf Urine Mucus (FEW) /hpf - Re-Assessments/Exams Free Text/Narrative Re-Assessment/Exam: 12/29/16 20:10 The patient is orthostatic, based on a diastolic drop of >10 mmHg, however, is likely because he is on Lasix for his CHF. I'm therefore going to refrain from bolusing with IV fluid presently, until I have additional lab results. 12/29/16 21:13 Two-view chest radiograph reviewed. Cardiac silhouette is at the upper limits of normal. Mild pulmonary vascular congestion. No pleural effusions. No focal infiltrate. No pneumothorax. Formal read per the Radiologist pending. 12/29/16 22:12 Repeat Accu-Chek at this time is 134. The patient's workup is grossly unremarkable. As mentioned above, the patient is mildly orthostatic, however, his chest radiograph shows mild pulmonary vascular congestion, and his BNP is modestly elevated at 479, therefore I have elected to not give him IV fluid. He is in atrial fibrillation, which is chronic. His INR is supratherapeutic at 3.08. The patient appears to be confused, and I suspect he may have some dementia. His earlier hypoglycemia of 68 is likely due to excess insulin or inadequate oral intake. I don't see an indication to have the patient admitted to the hospital, however, I will request the patient follow-up with his PCP, Dr. Cervantes. Departure - Departure Time of Disposition: 22:13 Disposition: Home, Self-Care 01 Preliminary Cause of *Q: Sepsis & Multi System Organ Failure Condition: Good Clinical Impression: Insulin reaction, Supratherapeutic INR, Atrial fibrillation, chronic, Orthostasis, Congestive heart failure - Discharge Information Instructions: Atrial Fibrillation, [id number] Referrals: Rosalio Cervantes MD [Primary Care Provider] - Forms: ED Department Discharge Additional Instructions: You were seen in the emergency room after calling EMS for not feeling well. Your blood sugar was found to be low at 68. You were given sugar through an IV, and since then, your blood sugar has been good. Workup in the ER included blood work, a urinalysis, an ECG, a chest x-ray, positional blood pressure checks, and two Accu-Cheks. Your workup showed that your blood pressure dropped when you stood up, however, this is likely because of the Lasix that you are taking. Your INR (coumadin number) was found to be slightly high at 3.08. You need to follow-up with Dr. Cervantes, as he may want you to hold a dose of Coumadin, or perhaps reduce your dose. The rest of your workup was unremarkable. Your low blood sugar was due to taking too much insulin for the amount that you ate. Follow-up with Dr. Cervantes at the next available appointment. If any other problems, please do not hesitate to return to the ER. - My Orders Last 24 Hours: My Active Orders 12/29/16 19:07 Accu Check [Blood Glucose Check, Bedside] [RC] ONETIME 12/29/16 19:23 EKG Documentation Completion [RC] STAT Orthostatic Vital Signs [RC] STAT Chest 2V [CR] Stat 12/29/16 22:08 Accu Check [Blood Glucose Check, Bedside] [RC] ONETIME - Assessment/Plan Last 24 Hours: My Active Orders 12/29/16 19:07 Accu Check [Blood Glucose Check, Bedside] [RC] ONETIME 12/29/16 19:23 EKG Documentation Completion [RC] STAT Orthostatic Vital Signs [RC] STAT Chest 2V [CR] Stat 12/29/16 22:08 Accu Check [Blood Glucose Check, Bedside] [RC] ONETIME
[2016-12-29 22:51] VITALS: BP 143/95
--- NOTE | 2016-12-30 07:39 | CR ---
Chest: Two views of the chest were obtained. Comparison: Previous chest x-ray of 10/04/16. Heart is mildly enlarged. Mild increased density is noted within the left base believed to be chronic. No acute appearing infiltrates are seen. Mild degenerative change is seen within the spine. Impression: 1. Findings as described above. Nothing acute is appreciated. Diagnostic code #2
== END 2016-12-29 22:50 | disposition home or self-care (01) ==
LOC: JD.ED 18:20
DX: R53.1 Weakness (principal); T38.3X5A Adverse effect of insulin and oral hypoglycemic [antidiabetic] drugs, initial encounter; R79.1 Abnormal coagulation profile; I48.2 Chronic atrial fibrillation; I13.0 Hypertensive heart and chronic kidney disease with heart failure and stage 1 through stage 4 chronic kidney disease, or unspecified chronic kidney disease; N18.9 Chronic kidney disease, unspecified; I50.9 Heart failure, unspecified; E11.22 Type 2 diabetes mellitus with diabetic chronic kidney disease; E11.40 Type 2 diabetes mellitus with diabetic neuropathy, unspecified; I25.10 Atherosclerotic heart disease of native coronary artery without angina pectoris; E78.00 Pure hypercholesterolemia, unspecified; K21.9 Gastro-esophageal reflux disease without esophagitis; I42.9 Cardiomyopathy, unspecified; M19.90 Unspecified osteoarthritis, unspecified site; Z86.2 Personal history of diseases of the blood and blood-forming organs and certain disorders involving the immune mechanism; Z87.891 Personal history of nicotine dependence; Z79.4 Long term (current) use of insulin; Z79.01 Long term (current) use of anticoagulants; Z79.899 Other long term (current) drug therapy; Z98.890 Other specified postprocedural states
CPT/HCPCS: 36415; 71020; 71020-26; 80053; 81001; 82962; 83735; 83880; 84443; 84484; 85025; 85610; 93005; 99283; 99284-25

== ENCOUNTER 2017-01-15 21:09 | Inpatient (IN) | payer MEDICARE, BC ==
[2017-01-15] MEDS ORDERED: Sodium Chloride 0.9% 10 ML Syringe FLUSH PRN (21:32)
--- NOTE | 2017-01-15 22:34 | PCM.HP ---
H&P History of Present Illness - General Date of Service: 01/15/17 Source of Information: Patient, Old Records, Provider, RN Notes Reviewed, Significant Other History Limitations: Reports: Physical Impairment - History of Present Illness Initial Comments - Free Text/Narative: This is an 86 year old elderly white male with past medical history of chronic atrial fibrillation on warfarin, coronary artery disease, hypertension, hyperlipidemia, COPD, history of cardiomyopathy, peptic ulcers disease, BPH, C[address], osteoarthritis/DJD, type 2 diabetes with diabetic neuropathy and iron deficiency anemia who presents to the emergency department with complains of urinary retention. His chief complaint is associated with weakness and dizziness. On presentation to the emergency department, he was found hypotensive and with a heart rate ranging in the 40s to 50s. Patient is known to me from previous multiple admissions. Last time he was here was in September 2016 where in he was admitted for hypotension. His initial workup in the emergency department shows a CBC remarkable for RBC of 3.38, hemoglobin 9.7, HCT of 30.2, neutrophils of 68.6% and lymphocyte of 15.8%. His PT is 55.9 and INR is 4.65. His chemistry is remarkable for sodium of 133, BUN of 30, creatinine of 2.2, glucose of 162, AST of 9, ALT of 12, alkaline phosphatase of 124, and albumin of 2.9. His UA is not suggestive of UTI. Patient received initial treatment in the emergency department before he was sent to the floor for further management. He is full code. Lower Pelvic Pain Score (Numeric/FACES): 6 - Related Data Allergies/Adverse Reactions: Allergies Allergy/AdvReac Type Severity Reaction Status Date / Time No Known Allergies Allergy Verified 01/15/17 21:10 Home Medications: Home Meds Omeprazole 80 mg PO DAILY 02/08/14 [History] Warfarin [Coumadin] 5 mg PO SUTUWETHSA 11/15/14 [History] Metoprolol Succinate [Toprol XL] 25 mg PO DAILY 02/04/16 [History] Warfarin Sodium [Coumadin] 7.5 mg PO MOFR 02/04/16 [History] Ferrous Sulfate 325 mg PO BID 06/21/16 [History] Furosemide 40 mg PO DAILY 06/21/16 [History] Gabapentin [Neurontin] 200 mg PO BID 06/21/16 [History] Lisinopril 2.5 mg PO DAILY 06/21/16 [History] Tamsulosin [Flomax] 0.4 mg PO BEDTIME 06/21/16 [History] Diltiazem [Cardizem CD] 180 mg PO DAILY #30 cap.cd 10/06/16 [Rx] Levothyroxine [Synthroid] 50 mcg PO ACBREAKFAST #30 tablet 10/06/16 [Rx] Insulin Glarg,Human.Rec.Analog [Lantus] 20 unit SQ BEDTIME 10/07/16 [History] [place]-3/DHA/Epa/Fish Oil [Fish Oil 1,000 mg Softgel] 1,000 mg PO DAILY 10/07/16 [History] Vitamin E 400 intnl unit PO DAILY 10/07/16 [History] Acetaminophen [Tylenol] 500 mg PO Q6HR PRN 01/15/17 [History] Acetaminophen/oxyCODONE [Percocet 325-5 MG] 1 tab PO Q6HR PRN 01/15/17 [History] Bismuth Subsalicylate [Pepto-Bismol] 524 mg PO BID PRN 01/15/17 [History] L.acidoph,Paracasei, B.lactis [Probiotic] 1 dose PO DAILY 01/15/17 [History] Polyethylene Glycol [Polyox Wsr-301] 17 gram PO DAILY 01/15/17 [History] traMADol [Ultram] 1 tab PO Q6HR PRN 01/15/17 [History] Multivitamin [[place] Multivitamin] 1 dose PO DAILY 01/16/17 [History] Potassium Chloride [Klor-Con M20] 20 meq PO DAILY 01/16/17 [History] Past Medical History HEENT History: Reports: Hard of Hearing, Impaired Vision Other HEENT History: wears eyeglasses Cardiovascular History: Reports: Afib, CAD, Cardiomyopathy, High Cholesterol, Hypertension Respiratory History: Reports: COPD Gastrointestinal History: Reports: Gastritis, GERD, Hemorrhoids, Helicobacter Pylori, PUD Other Gastrointestinal History: ulcer Genitourinary History: Reports: BPH, Chronic Renal Insuffiency Musculoskeletal History: Reports: Osteoarthritis Neurological History: Reports: Neuropathy, Diabetic Psychiatric History: Reports: Addiction, Depression Other Psychiatric History: states feels depressed "when I get sick like this." State "the only thing, I'd like to get well, this pain" is making pt feel depressed. Endocrine/Metabolic History: Reports: Diabetes, Type II Hematologic History: Reports: Anemia, Blood Transfusion(s) Dermatologic History: Reports: Other (See Below) Other Dermatologic History: "blisters removed on nose" - Past Surgical History Dermatological Surgical History: Reports: Skin Biopsy Social & Family History - Family History Family Medical History: Noncontributory HEENT: Reports: Cataract, Macular Degeneration Cardiac: Reports: Hypertension : Reports: Diabetic Nephropathy Musculoskeletal: Reports: Arthritis Neurological: Reports: Alzheimers Disease, Dementia, Parkinson's, Vertigo Endocrine/Metabolic: Reports: Diabetes, type II Dermatologic: Reports: Psoriasis Oncologic: Reports: Leukemia, Prostate, Other (See Below) Other Oncologic Family History: stomach - Tobacco Use Smoking Status *Q: Former Smoker Years of Tobacco use: 40 Packs/Tins Daily: 1.5 Used Tobacco, but Quit: Yes Month Tobacco Last Used: years ago Second Hand Smoke Exposure: No - Caffeine Use Caffeine Use: Reports: Soda - Alcohol Use Days Per Week of Alcohol Use: 0 Number of Drinks Per Day: 1 Total Drinks Per Week: 0 - Recreational Drug Use Recreational Drug Use: No - Living Situation & Occupation Living situation: Reports: Single, Assisted Living Occupation: Retired H&P Review of Systems - Review of Systems: Review Of Systems: See Below General: Reports: Malaise, Weakness, Fatigue HEENT: Reports: No Symptoms Pulmonary: Reports: Cough Cardiovascular: Reports: Dyspnea on Exertion, Blood Pressure Problem Gastrointestinal: Denies: Abdominal Pain, Diarrhea, Hematochezia, Melena, Nausea , Vomiting Genitourinary: Reports: Frequency, Retention Musculoskeletal: Reports: No Symptoms Skin: Reports: Change in Color. Denies: Cyanosis, Pallor, Rash Psychiatric: Denies: Depression, Anxiety, Hallucinations, Suicidal Ideation Neurological: Reports: Weakness, Gait Disturbance. Denies: Confusion Hematologic/Lymphatic: Reports: Anemia, Easy Bruising Immunologic: Reports: No Symptoms Exam - Exam Exam: See Below - Vital Signs Vital Signs: Last Vital Signs Temp 36.4 C 01/15/17 21:11 Pulse 62 01/15/17 21:11 Resp 16 01/15/17 21:11 BP 91/51 L 01/15/17 21:11 Pulse Ox 100 01/15/17 21:11 Weight: 90.718 kg - Exam General: Alert, Oriented, Cooperative. No: Mild Distress HEENT: Conjunctiva Clear, EACs Clear, EOMI, Hearing Intact, Mucosa Moist & [place] , Nares Patent, Normal Nasal Septum, Posterior Pharynx Clear, Pupils Equal, Pupils Reactive Neck: Supple, Trachea Midline, +2 Carotid Pulse wo Bruit. No: JVD Lungs: Normal Respiratory Effort, Decreased Breath Sounds, Crackles Cardiovascular: Irregular Rhythm, Systolic Murmur GI/Abdominal Exam: Normal Bowel Sounds, Soft, Non-Tender, No Organomegaly, No Distention, No Abnormal Bruit, No Mass (Male) Exam: Other (Indwelling Enam[place]ado catheter) Rectal (Males) Exam: Deferred Back Exam: Normal Inspection, Decreased Range of Motion Extremities: Normal Inspection, Normal Range of Motion, Non-Tender, No Pedal Edema, Normal Capillary Refill Peripheral Pulses: 2+: Posterior Tibial (L), Posterior Tibial (R), Dorsalis Pedis (L), Dorsalis Pedis (R) Skin: Warm, Dry, Intact Neuro Extensive - Mental Status: Oriented x3, Normal Cognition, Memory Intact Neuro Extensive - Motor, Sensory, Reflexes: CN II-XII Intact (fairly intact), Abnormal Gait Psychiatric: Alert, Normal Affect, Normal Mood - Patient Data Lab Results Last 24 hrs: Laboratory Results - last 24 hr 01/15/17 01/15/17 01/15/17 Range/Units 21:40 21:40 21:40 WBC 6.91 (4.23-9.07) K/mm3 RBC 3.38 L (4.63-6.08) M/mm3 Hgb 9.7 L (13.7-17.5) gm/L Hct 30.2 L (40.1-51.0) % MCV 89.3 (79.0-92.2) fl MCH 28.7 (25.7-32.2) pg MCHC 32.1 L (32.2-35.5) g/dl RDW Std Deviation 47.8 H (35.1-43.9) fL Plt Count 298 (163-337) K/mm3 MPV 8.6 L (9.4-12.3) fl Neut % (Auto) 68.6 H (34.0-67.9) % Lymph % (Auto) 15.8 L (21.8-53.1) % Gran[place] % (Auto) 11.7 (5.3-12.2) % Eos % (Auto) 2.9 (0.8-7.0) Baso % (Auto) 0.7 (0.1-1.2) % Neut # (Auto) 4.74 (1.78-5.38) K/mm3 Lymph # (Auto) 1.09 L (1.32-3.57) K/mm3 Granite # (Auto) 0.81 (0.30-0.82) K/mm3 Eos # (Auto) 0.20 (0.04-0.54) K/mm3 Baso # (Auto) 0.05 (0.01-0.08) K/mm3 PT 55.9 H* (8.0-13.0) SECONDS INR 4.65 Sodium 133 L (136-145) mEq/L Potassium 4.5 (3.5-5.1) mEq/L Chloride 98 (98-107) mEq/L Carbon Dioxide 28 (21-32) mEq/L Anion Gap 11.5 (5-15) BUN 30 H (7-18) mg/dL Creatinine 2.2 H (0.7-1.3) mg/dL Est Cr Clr Drug Dosing 25.20 mL/min Estimated GFR (MDRD) 28 (>60) mL/min BUN/Creatinine Ratio 13.6 L (14-18) Glucose 162 H (83-115) mg/dL Calcium 8.9 (8.5-10.1) mg/dL Total Bilirubin 0.6 (0.2-1.0) mg/dL AST 9 L (15-37) U/L ALT 12 L (16-63) U/L Alkaline Phosphatase 124 H (46-116) U/L Troponin I 0.022 (0.00-0.056) ng/mL Total Protein 7.0 (6.4-8.2) g/dl Albumin 2.9 L (3.4-5.0) g/dl Globulin 4.1 gm/dL Albumin/Globulin Ratio 0.7 L (1-2) Lipase 113 (73-393) U/L Urine Color (Yellow) Urine Appearance (Clear) Urine pH (5.0-8.0) Ur Specific [place] (1.005-1.030) Urine Protein (Negative) Urine Glucose (UA) (Negative) Urine Ketones (Negative) Urine Occult Blood (Negative) Urine Nitrite (Negative) Urine Bilirubin (Negative) Urine Urobilinogen (0.2-1.0) Ur Leukocyte Esterase (Negative) Urine RBC (0-5) /hpf Urine WBC (0-5) /hpf Urine WBC Clumps (NOT SEEN) /hpf Ur Epithelial Cells (0-5) /hpf Ur Transition Epith Cell (0-5) Urine Bacteria (FEW) /hpf Hyaline Casts (0-5) /lpf Urine Mucus (FEW) /hpf Urine Yeast (NOT SEEN) 01/15/17 Range/Units 21:45 WBC (4.23-9.07) K/mm3 RBC (4.63-6.08) M/mm3 Hgb (13.7-17.5) gm/L Hct (40.1-51.0) % MCV (79.0-92.2) fl MCH (25.7-32.2) pg MCHC (32.2-35.5) g/dl RDW Std Deviation (35.1-43.9) fL Plt Count (163-337) K/mm3 MPV (9.4-12.3) fl Neut % (Auto) (34.0-67.9) % Lymph % (Auto) (21.8-53.1) % Granite % (Auto) (5.3-12.2) % Eos % (Auto) (0.8-7.0) Baso % (Auto) (0.1-1.2) % Neut # (Auto) (1.78-5.38) K/mm3 Lymph # (Auto) (1.32-3.57) K/mm3 Gran[place] # (Auto) (0.30-0.82) K/mm3 Eos # (Auto) (0.04-0.54) K/mm3 Baso # (Auto) (0.01-0.08) K/mm3 PT (8.0-13.0) SECONDS INR Sodium (136-145) mEq/L Potassium (3.5-5.1) mEq/L Chloride (98-107) mEq/L Carbon Dioxide (21-32) mEq/L Anion Gap (5-15) BUN (7-18) mg/dL Creatinine (0.7-1.3) mg/dL Est Cr Clr Drug Dosing mL/min Estimated GFR (MDRD) (>60) mL/min BUN/Creatinine Ratio (14-18) Glucose (83-115) mg/dL Calcium (8.5-10.1) mg/dL Total Bilirubin (0.2-1.0) mg/dL AST (15-37) U/L ALT (16-63) U/L Alkaline Phosphatase (46-116) U/L Troponin I (0.00-0.056) ng/mL Total Protein (6.4-8.2) g/dl Albumin (3.4-5.0) g/dl Globulin gm/dL Albumin/Globulin Ratio (1-2) Lipase (73-393) U/L Urine Color Yellow (Yellow) Urine Appearance Clear (Clear) Urine pH 5.5 (5.0-8.0) Ur Specific [place] 1.015 (1.005-1.030) Urine Protein Trace H (Negative) Urine Glucose (UA) Negative (Negative) Urine Ketones Negative (Negative) Urine Occult Blood Negative (Negative) Urine Nitrite Negative (Negative) Urine Bilirubin Negative (Negative) Urine Urobilinogen 0.2 (0.2-1.0) Ur Leukocyte Esterase Trace H (Negative) Urine RBC 0-5 (0-5) /hpf Urine WBC 0-5 (0-5) /hpf Urine WBC Clumps Not seen (NOT SEEN) /hpf Ur Epithelial Cells 0-5 (0-5) /hpf Ur Transition Epith Cell 0-5 (0-5) Urine Bacteria Few (FEW) /hpf Hyaline Casts 0-5 (0-5) /lpf Urine Mucus Not seen (FEW) /hpf Urine Yeast Not seen (NOT SEEN) Result Diagrams: 01/16/17 05:45 01/16/17 05:45 *Q Meaningful Use (ADM) - VTE *Q VTE Criteria *Q: - Stroke *Q Stroke Criteria *Q: - AMI *Q AMI Criteria *Q: Problem List Initiated/Reviewed/Updated: Yes Orders Last 24hrs: Active Orders 24 hr Category Date Time Status EKG 12 Lead [EKG Documentation Completion] [RC] STAT Care 01/15/17 21:33 Active [place] Catheter Insertion [Insert Urinary Catheter] [OM. Care 01/15/17 22:15 Ordered PC] Q24H Peripheral IV Care [RC] . DIRECTED Care 01/15/17 21:33 Active Peripheral IV Care [RC] . DIRECTED Care 01/15/17 21:33 Active Urinary Catheter Assessment [RC] ASDIRECTED Care 01/15/17 22:15 Ordered Sodium Chloride 0.9% [Saline Flush] Med 01/15/17 21:32 Active 10 ml FLUSH ASDIRECTED PRN Peripheral IV Insertion Adult [OM.PC] Routine Oth 01/15/17 21:33 Ordered Medication Orders Sodium Chloride (Saline Flush) 10 ml FLUSH ASDIRECTED PRN PRN Reason: Keep Vein Open Assessment/Plan Comment:: Assessment/Plan: Acute: Orthostatic Hypotension - Gain likely medications induced - Feels dizzy and weak - He is 81/51 mmHg at the time of my examination - He is on the following medications: Lasix 40 mg po daily, lisinopril 2.5 mg by mouth daily, Cardizem 180 mg by mouth daily, and Flomax 0.4 mg by mouth at bedtime - Will continue to trim down his home maintenance meds Bradycardia - HR as low as 40s-50s - He is on cardizem 180 mg po daily - Telemetry - Hold off CCB Supratherapeutic INR - INR 4.65 - Will hold off Warfarin dose - No need for Vit K at this time 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 - 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, may have worsened by acute urinary retention - Hold off diuretics - May consider gentle hydration - Monitor labs - Avoid neprhotoxis agent if all possible Acute on Chronic Urinary Retention - Has BPH and Urinary Retention - Already on flomax - Received enamorado cath in ED - Will increase frequency of flomax to BID Generalized Weakness and Dizziness - Multi-factorial - PT/OT consult Chronic: Atrial Fibrillation, with Slow HR, on Warfarin CAD HTN HLD 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
--- NOTE | 2017-01-15 22:43 | EDM.PDOC ---
ED HPI GENERAL MEDICAL PROBLEM - General Chief Complaint: Genitourinary Problem Stated Complaint: [facility] Time Seen by Provider: 01/15/17 21:13 Source of Information: Reports: Patient, Old Records, Provider, RN Notes Reviewed, Significant Other History Limitations: Reports: Other (mild confusion) - History of Present Illness INITIAL COMMENTS - FREE TEXT/NARRATIVE: 86 y/o M with hx many medical problems including A-fib on warfarin, CHF, DM, presents with lower abd pain and difficulty urinating. He called EMS because he was also having a hard time walking. He lives alone. He is a poor historian. Not able to state when symptoms started. States he felt ok earlier today. Started feeling worse after taking his meds this evening. Feels weak and dizzy. No chest pain/SOB. Has lower abd pain and difficulty urinating today. No dysuria/hematuria or flank pain. No vomiting. Has been taking meds as prescribed, no recent changes per patient. Lower Pelvic Pain Score (Numeric/FACES): 6 - Related Data Allergies Allergy/AdvReac Type Severity Reaction Status Date / Time No Known Allergies Allergy Verified 01/15/17 21:10 Home Meds: Home Meds Omeprazole 40 mg PO DAILY 02/08/14 [History] Warfarin [Coumadin] 5 mg PO SUTUWETHSA 11/15/14 [History] Metoprolol Succinate [Toprol XL] 25 mg PO DAILY 02/04/16 [History] Warfarin Sodium [Coumadin] 7.5 mg PO MOFR 02/04/16 [History] Ferrous Sulfate 325 mg PO BID 06/21/16 [History] Furosemide 40 mg PO DAILY 06/21/16 [History] Gabapentin [Neurontin] 200 mg PO BID 06/21/16 [History] Lisinopril 2.5 mg PO DAILY 06/21/16 [History] Potassium Chloride 20 meq PO DAILY 06/21/16 [History] Tamsulosin [Flomax] 0.4 mg PO BEDTIME 06/21/16 [History] Diltiazem [Cardizem CD] 180 mg PO DAILY #30 cap.cd 10/06/16 [Rx] Levothyroxine [Synthroid] 50 mcg PO ACBREAKFAST #30 tablet 10/06/16 [Rx] Sulfamethoxazole/Trimethoprim [Bactrim Ds Tablet] 1 each PO BID #10 tablet 10/06 [Rx] Hydrocodone/Acetaminophen [Boaz 5-325 Tablet] 1 each PO Q6HR PRN #14 tablet [Rx] Insulin Glarg,Human.Rec.Analog [Lantus] 20 unit SQ BEDTIME 10/07/16 [History] [place]-3/DHA/Epa/Fish Oil [Fish Oil 1,000 mg Softgel] 1,000 mg PO DAILY 10/07/16 [History] Vitamin E 400 intnl unit PO DAILY 10/07/16 [History] Hydrocortisone [Anusol-HC] 30 gm RC Q12H #1 cream..g. 11/09/16 [Rx] Past Medical History HEENT History: Reports: Hard of Hearing, Impaired Vision Other HEENT History: wears eyeglasses Cardiovascular History: Reports: Afib, CAD, Cardiomyopathy, High Cholesterol, Hypertension Respiratory History: Reports: COPD Gastrointestinal History: Reports: Gastritis, GERD, Hemorrhoids, Helicobacter Pylori, PUD Other Gastrointestinal History: ulcer Genitourinary History: Reports: BPH, Chronic Renal Insuffiency Musculoskeletal History: Reports: Osteoarthritis Neurological History: Reports: Neuropathy, Diabetic Psychiatric History: Reports: Addiction, Depression Other Psychiatric History: states feels depressed "when I get sick like this." State "the only thing, I'd like to get well, this pain" is making pt feel depressed. Endocrine/Metabolic History: Reports: Diabetes, Type II Hematologic History: Reports: Anemia, Blood Transfusion(s) Dermatologic History: Reports: Other (See Below) Other Dermatologic History: "blisters removed on nose" - Past Surgical History Dermatological Surgical History: Reports: Skin Biopsy Social & Family History - Family History Family Medical History: Noncontributory HEENT: Reports: Cataract, Macular Degeneration Cardiac: Reports: Hypertension : Reports: Diabetic Nephropathy Musculoskeletal: Reports: Arthritis Neurological: Reports: Alzheimers Disease, Dementia, Parkinson's, Vertigo Endocrine/Metabolic: Reports: Diabetes, type II Dermatologic: Reports: Psoriasis Oncologic: Reports: Leukemia, Prostate, Other (See Below) Other Oncologic Family History: stomach - Tobacco Use Smoking Status *Q: Former Smoker Years of Tobacco use: 40 Packs/Tins Daily: 1.5 Used Tobacco, but Quit: Yes Month Tobacco Last Used: years ago Second Hand Smoke Exposure: No - Caffeine Use Caffeine Use: Reports: Soda - Alcohol Use Days Per Week of Alcohol Use: 0 Number of Drinks Per Day: 1 Total Drinks Per Week: 0 - Recreational Drug Use Recreational Drug Use: No - Living Situation & Occupation Living situation: Reports: Single, Assisted Living Occupation: Retired ED ROS GENERAL - Review of Systems Review Of Systems: See Below Constitutional: Reports: Malaise, Weakness, Fatigue. Denies: Fever HEENT: Reports: No Symptoms Respiratory: Denies: Shortness of Breath Cardiovascular: Denies: Chest Pain Endocrine: Reports: Fatigue GI/Abdominal: Reports: Abdominal Pain : Reports: Urinary Retention Musculoskeletal: Reports: No Symptoms Skin: Reports: No Symptoms Neurological: Reports: Dizziness Psychiatric: Reports: No Symptoms Hematologic/Lymphatic: Reports: No Symptoms Immunologic: Reports: No Symptoms ED EXAM, RENAL/ - Physical Exam Exam: See Below Exam Limited By: No Limitations General Appearance: Alert, WD/WN, No Apparent Distress Eye Exam: Bilateral Eye: Normal Inspection, PERRL Ears: Normal External Exam Nose: Normal Inspection, Nasal Flaring Throat/Mouth: Normal Voice, No Airway Compromise Head: Atraumatic, Normocephalic Neck: Normal Inspection, Supple, Non-Tender, Full Range of Motion Respiratory/Chest: No Respiratory Distress, Lungs Clear, Normal Breath Sounds, No Accessory Muscle Use, Chest Non-Tender Cardiovascular: No Edema, No Murmur, Bradycardia, Irregularly Irregular GI/Abdominal: Soft, No Distention, Other (mild suprapubic TTP, no rebound/ guarding). No: Rebound Back Exam: Normal Inspection. No: CVA Tenderness (L), CVA Tenderness (R) Extremities: Normal Inspection Neurological: Alert, Oriented, Normal Cognition, No Motor/Sensory Deficits Psychiatric: Normal Affect, Normal Mood Skin Exam: Warm, Dry, Intact, Normal Color, No Rash Course - Vital Signs Last Recorded V/S: Last Vital Signs Temp 36.4 C 01/15/17 23:30 Pulse 58 L 01/15/17 23:30 Resp 14 01/15/17 23:30 BP 119/71 01/15/17 23:30 Pulse Ox 97 01/15/17 23:30 - Orders/Labs/Meds Orders: Active Orders 24 hr Category Date Time Status EKG 12 Lead [EKG Documentation Completion] [RC] STAT Care 01/15/17 21:33 Active Dickey Catheter Insertion [Insert Urinary Catheter] [OM. Care 01/15/17 22:15 Ordered PC] Q24H Peripheral IV Care [RC] . DIRECTED Care 01/15/17 21:33 Active Peripheral IV Care [RC] . DIRECTED Care 01/15/17 21:33 Active Urinary Catheter Assessment [RC] ASDIRECTED Care 01/15/17 22:15 Active Sodium Chloride 0.9% [Saline Flush] Med 01/15/17 21:32 Active 10 ml FLUSH ASDIRECTED PRN Peripheral IV Insertion Adult [OM.PC] Routine Oth 01/15/17 21:33 Ordered Medication Orders Acetaminophen (Tylenol) 650 mg PO Q4H PRN PRN Reason: Pain (Mild 1-3)/fever Hydrocodone Bitart/Acetaminophen (Boaz 325-5 Mg) 1 tab PO Q4H PRN PRN Reason: Pain (moderate 4-6) Albuterol/Ipratropium (Duoneb 3.0-0.5 Mg/3 Ml) 3 ml NEB Q4H PRN PRN Reason: Shortness Of Breath/wheezing Bisacodyl (Dulcolax) 5 mg PO DAILY PRN PRN Reason: Constipation Docusate Sodium (Colace) 100 mg PO BID PRN PRN Reason: Constipation Ferrous Sulfate (Ferrous Sulfate) 325 mg PO BID [facility] Hydromorphone HCl (Dilaudid) 0.25 mg IVPUSH Q4H PRN PRN Reason: Pain (severe 7-10) Promethazine HCl 12.5 mg/ (Sodium Chloride) 50.5 mls @ 100 mls/hr IV Q6H PRN PRN Reason: Nausea/Vomiting Levothyroxine Sodium (Synthroid) 50 mcg PO ACBREAKFAST [facility] Lorazepam (Ativan) 0.25 mg IV Q6H PRN PRN Reason: Anxiety Lorazepam (Ativan) 2 mg IVPUSH Q4H PRN PRN Reason: Seizures Magnesium Sulfate (Pharmacy To Dose - Magnesium Replacement) 1 dose .XX ASDIRECTED [facility] Metoprolol Tartrate (Lopressor) 5 mg IVPUSH Q4H PRN PRN Reason: Tachycardia Non-Formulary Medication (Hydrocortisone) 30 gm RC Q12H [facility] Non-Formulary Medication (Insulin Glarg,Human.Rec.Analog) 20 unit SQ BEDTIME [facility] Non-Formulary Medication ([place]-3/Dha/Epa/Fish Oil [Fish Oil 1,000 Mg Softgel]) 1,000 mg PO DAILY [facility] Non-Formulary Medication (Vitamin E [Vitamin E]) 400 intnl unit PO DAILY [facility] Ondansetron HCl (Zofran) 4 mg IV Q6H PRN PRN Reason: Nausea/Vomiting Polyethylene Glycol (Miralax) 17 gm PO DAILY PRN PRN Reason: Constipation Potassium Chloride (Pharmacy To Dose - Potassium Replacement) 1 dose .XX ASDIRECTED [facility] Senna/Docusate Sodium (Senna Plus) 1 tab PO BID PRN PRN Reason: Constipation Sodium Chloride (Saline Flush) 10 ml FLUSH ASDIRECTED PRN PRN Reason: Keep Vein Open Tamsulosin HCl (Flomax) 0.4 mg PO BEDTIME [facility] Temazepam (Restoril) 7.5 mg PO BEDTIME PRN PRN Reason: Sleep Labs: Laboratory Tests 01/15/17 01/15/17 01/15/17 Range/Units 21:40 21:40 21:40 WBC 6.91 (4.23-9.07) K/mm3 RBC 3.38 L (4.63-6.08) M/mm3 Hgb 9.7 L (13.7-17.5) gm/L Hct 30.2 L (40.1-51.0) % MCV 89.3 (79.0-92.2) fl MCH 28.7 (25.7-32.2) pg MCHC 32.1 L (32.2-35.5) g/dl RDW Std Deviation 47.8 H (35.1-43.9) fL Plt Count 298 (163-337) K/mm3 MPV 8.6 L (9.4-12.3) fl Neut % (Auto) 68.6 H (34.0-67.9) % Lymph % (Auto) 15.8 L (21.8-53.1) % [place] % (Auto) 11.7 (5.3-12.2) % Eos % (Auto) 2.9 (0.8-7.0) Baso % (Auto) 0.7 (0.1-1.2) % Neut # (Auto) 4.74 (1.78-5.38) K/mm3 Lymph # (Auto) 1.09 L (1.32-3.57) K/mm3 [place] # (Auto) 0.81 (0.30-0.82) K/mm3 Eos # (Auto) 0.20 (0.04-0.54) K/mm3 Baso # (Auto) 0.05 (0.01-0.08) K/mm3 PT 55.9 H* (8.0-13.0) SECONDS INR 4.65 Sodium 133 L (136-145) mEq/L Potassium 4.5 (3.5-5.1) mEq/L Chloride 98 (98-107) mEq/L Carbon Dioxide 28 (21-32) mEq/L Anion Gap 11.5 (5-15) BUN 30 H (7-18) mg/dL Creatinine 2.2 H (0.7-1.3) mg/dL Est Cr Clr Drug Dosing 25.20 mL/min Estimated GFR (MDRD) 28 (>60) mL/min BUN/Creatinine Ratio 13.6 L (14-18) Glucose 162 H (83-115) mg/dL Calcium 8.9 (8.5-10.1) mg/dL Total Bilirubin 0.6 (0.2-1.0) mg/dL AST 9 L (15-37) U/L ALT 12 L (16-63) U/L Alkaline Phosphatase 124 H (46-116) U/L Troponin I 0.022 (0.00-0.056) ng/mL Total Protein 7.0 (6.4-8.2) g/dl Albumin 2.9 L (3.4-5.0) g/dl Globulin 4.1 gm/dL Albumin/Globulin Ratio 0.7 L (1-2) Lipase 113 (73-393) U/L Urine Color (Yellow) Urine Appearance (Clear) Urine pH (5.0-8.0) Ur Specific [place] (1.005-1.030) Urine Protein (Negative) Urine Glucose (UA) (Negative) Urine Ketones (Negative) Urine Occult Blood (Negative) Urine Nitrite (Negative) Urine Bilirubin (Negative) Urine Urobilinogen (0.2-1.0) Ur Leukocyte Esterase (Negative) Urine RBC (0-5) /hpf Urine WBC (0-5) /hpf Urine WBC Clumps (NOT SEEN) /hpf Ur Epithelial Cells (0-5) /hpf Ur Transition Epith Cell (0-5) Urine Bacteria (FEW) /hpf Hyaline Casts (0-5) /lpf Urine Mucus (FEW) /hpf Urine Yeast (NOT SEEN) 01/15/17 Range/Units 21:45 WBC (4.23-9.07) K/mm3 RBC (4.63-6.08) M/mm3 Hgb (13.7-17.5) gm/L Hct (40.1-51.0) % MCV (79.0-92.2) fl MCH (25.7-32.2) pg MCHC (32.2-35.5) g/dl RDW Std Deviation (35.1-43.9) fL Plt Count (163-337) K/mm3 MPV (9.4-12.3) fl Neut % (Auto) (34.0-67.9) % Lymph % (Auto) (21.8-53.1) % [place] % (Auto) (5.3-12.2) % Eos % (Auto) (0.8-7.0) Baso % (Auto) (0.1-1.2) % Neut # (Auto) (1.78-5.38) K/mm3 Lymph # (Auto) (1.32-3.57) K/mm3 [place] # (Auto) (0.30-0.82) K/mm3 Eos # (Auto) (0.04-0.54) K/mm3 Baso # (Auto) (0.01-0.08) K/mm3 PT (8.0-13.0) SECONDS INR Sodium (136-145) mEq/L Potassium (3.5-5.1) mEq/L Chloride (98-107) mEq/L Carbon Dioxide (21-32) mEq/L Anion Gap (5-15) BUN (7-18) mg/dL Creatinine (0.7-1.3) mg/dL Est Cr Clr Drug Dosing mL/min Estimated GFR (MDRD) (>60) mL/min BUN/Creatinine Ratio (14-18) Glucose (83-115) mg/dL Calcium (8.5-10.1) mg/dL Total Bilirubin (0.2-1.0) mg/dL AST (15-37) U/L ALT (16-63) U/L Alkaline Phosphatase (46-116) U/L Troponin I (0.00-0.056) ng/mL Total Protein (6.4-8.2) g/dl Albumin (3.4-5.0) g/dl Globulin gm/dL Albumin/Globulin Ratio (1-2) Lipase (73-393) U/L Urine Color Yellow (Yellow) Urine Appearance Clear (Clear) Urine pH 5.5 (5.0-8.0) Ur Specific [place] 1.015 (1.005-1.030) Urine Protein Trace H (Negative) Urine Glucose (UA) Negative (Negative) Urine Ketones Negative (Negative) Urine Occult Blood Negative (Negative) Urine Nitrite Negative (Negative) Urine Bilirubin Negative (Negative) Urine Urobilinogen 0.2 (0.2-1.0) Ur Leukocyte Esterase Trace H (Negative) Urine RBC 0-5 (0-5) /hpf Urine WBC 0-5 (0-5) /hpf Urine WBC Clumps Not seen (NOT SEEN) /hpf Ur Epithelial Cells 0-5 (0-5) /hpf Ur Transition Epith Cell 0-5 (0-5) Urine Bacteria Few (FEW) /hpf Hyaline Casts 0-5 (0-5) /lpf Urine Mucus Not seen (FEW) /hpf Urine Yeast Not seen (NOT SEEN) Meds: Medications Generic Name Dose Route Start Last Admin Trade Name Freq PRN Reason Stop Dose Admin Acetaminophen 650 mg 01/15/17 23:10 Tylenol PO Q4H PRN Pain (Mild 1-3)/fever Hydrocodone Bitart/Acetaminophen 1 tab 01/15/17 23:10 Boaz 325-5 Mg PO Q4H PRN Pain (moderate 4-6) Albuterol/Ipratropium 3 ml 01/15/17 23:10 Duoneb 3.0-0.5 Mg/3 Ml NEB Q4H PRN Shortness Of Breath/wheezing Bisacodyl 5 mg 01/15/17 23:10 Dulcolax PO DAILY PRN Constipation Docusate Sodium 100 mg 01/15/17 23:10 Colace PO BID PRN Constipation Ferrous Sulfate 325 mg 01/16/17 09:00 Ferrous Sulfate PO BID [facility] Hydromorphone HCl 0.25 mg 01/15/17 23:10 Dilaudid IVPUSH Q4H PRN Pain (severe 7-10) Promethazine HCl 12.5 mg/ 50.5 mls @ 100 mls/hr 01/15/17 23:10 Sodium Chloride IV Q6H PRN Nausea/Vomiting Levothyroxine Sodium 50 mcg 01/16/17 06:00 Synthroid PO ACBREAKFAST [facility] Lorazepam 0.25 mg 01/15/17 23:10 Ativan IV Q6H PRN Anxiety Lorazepam 2 mg 01/15/17 23:21 Ativan IVPUSH Q4H PRN Seizures Magnesium Sulfate 1 dose 01/15/17 23:30 Pharmacy To Dose - Magnesium Replacement .XX ASDIRECTED [facility] Metoprolol Tartrate 5 mg 01/15/17 23:21 Lopressor IVPUSH Q4H PRN Tachycardia Non-Formulary Medication 30 gm 01/15/17 23:15 Hydrocortisone RC Q12H [facility] Non-Formulary Medication 20 unit 01/16/17 21:00 Insulin Glarg,Human.Rec.Analog SQ BEDTIME [facility] Non-Formulary Medication 1,000 mg 01/16/17 09:00 [place]-3/Dha/Epa/Fish Oil [Fish Oil 1,000 Mg Softgel] PO DAILY [facility] Non-Formulary Medication 400 intnl unit 01/16/17 09:00 Vitamin E [Vitamin E] PO DAILY [facility] Ondansetron HCl 4 mg 01/15/17 23:10 Zofran IV Q6H PRN Nausea/Vomiting Polyethylene Glycol 17 gm 01/15/17 23:10 Miralax PO DAILY PRN Constipation Potassium Chloride 1 dose 01/15/17 23:30 Pharmacy To Dose - Potassium Replacement .XX ASDIRECTED [facility] Senna/Docusate Sodium 1 tab 01/15/17 23:10 Senna Plus PO BID PRN Constipation Sodium Chloride 10 ml 01/15/17 21:32 Saline Flush FLUSH ASDIRECTED PRN Keep Vein Open Tamsulosin HCl 0.4 mg 01/16/17 21:00 Flomax PO BEDTIME [facility] Temazepam 7.5 mg 01/15/17 23:10 Restoril PO BEDTIME PRN Sleep - Re-Assessments/Exams Free Text/Narrative Re-Assessment/Exam: 01/15/17 22:38 EKG shows atrial fibrillation with rate 50, no significant ST abnormality. Dickey placed for retention with approx 300 cc out. Creatinine 2.2, up from 1.3 a few weeks ago. Feels dizzy with standing. BP 90/50, HR 40-50, suspect that he is overly medicated. INR also supratherapeutic. Mild anemia, HCT 30 down from 32 a few weeks ago. Can't walk due to dizziness/weakness. Discussed with Dr. Aguirre who agrees to admit the patient. Departure - Departure Time of Disposition: 22:41 Disposition: Admitted As Inpatient 65 Clinical Impression: Urinary retention with incomplete bladder emptying, Acute kidney injury, Supratherapeutic INR, Chronic anemia, Bradycardia with 41-50 beats per minute Atrial fibrillation Qualifiers: Atrial fibrillation type: chronic Qualified Code(s): I48.2 - Chronic atrial fibrillation Hypotension Qualifiers: Hypotension type: hypotension due to drug Qualified Code(s): I95.2 - Hypotension due to drugs - Discharge Information - My Orders Last 24 Hours: My Active Orders 01/15/17 21:32 Sodium Chloride 0.9% [Saline Flush] 10 ml FLUSH ASDIRECTED PRN 01/15/17 21:33 EKG 12 Lead [EKG Documentation Completion] [RC] STAT Peripheral IV Care [RC] . DIRECTED Peripheral IV Care [RC] . DIRECTED Peripheral IV Insertion Adult [OM.PC] Routine 01/15/17 22:15 Dickey Catheter Insertion [Insert Urinary Catheter] [OM.PC] Q24H Urinary Catheter Assessment [RC] ASDIRECTED - Assessment/Plan Last 24 Hours: My Active Orders 01/15/17 21:32 Sodium Chloride 0.9% [Saline Flush] 10 ml FLUSH ASDIRECTED PRN 01/15/17 21:33 EKG 12 Lead [EKG Documentation Completion] [RC] STAT Peripheral IV Care [RC] . DIRECTED Peripheral IV Care [RC] . DIRECTED Peripheral IV Insertion Adult [OM.PC] Routine 01/15/17 22:15 Dickey Catheter Insertion [Insert Urinary Catheter] [OM.PC] Q24H Urinary Catheter Assessment [RC] ASDIRECTED
[2017-01-15] MEDS ORDERED: Promethazine 12.5 MG in Sodium Chloride 0.9% 50 ML IV PRN (23:10)
[2017-01-15] MEDS ORDERED: HYDROmorphone 1 MG/ML Syringe IVPUSH PRN (23:10)
[2017-01-15] MEDS ORDERED: Ondansetron 4 MG/2 ML SDV IV PRN (23:10)
[2017-01-15] MEDS ORDERED: Docusate Sodium 100 MG Cap PO PRN (23:10)
[2017-01-15] MEDS ORDERED: Polyethylene Glycol 3350 Powder 17 GM Packet PO PRN (23:10)
[2017-01-15] MEDS ORDERED: Acetaminophen 325 MG Tab PO PRN (23:10)
[2017-01-15] MEDS ORDERED: LORazepam 2 MG/ML MDV IV PRN (23:10)
[2017-01-15] MEDS ORDERED: Albuterol/Ipratropium 3.0-0.5 MG/3 ML Neb Soln NEB PRN (23:10)
[2017-01-15] MEDS ORDERED: Metoprolol Tartrate 5 MG/5 ML SDV IVPUSH PRN (23:21)
[2017-01-15] MEDS ORDERED: LORazepam 2 MG/ML MDV IVPUSH PRN (23:21)
[2017-01-16] MEDS: HYDROCORTISONE 30 GM RC SCH ×2 (00:30→12:25)
[2017-01-16] MEDS: Acetaminophen/HYDROcodone 325-5 MG Tab PO PRN (00:37)
[2017-01-16] MEDS: Temazepam 7.5 MG Cap PO PRN ×2 (01:57→21:05)
[2017-01-16] MEDS: Levothyroxine 50 MCG Tab PO SCH (06:36)
--- NOTE | 2017-01-16 07:53 | PCM.PN ---
- General Info Date of Service: 01/16/17 Admission Dx/Problem (Free Text): Orthostatic Hypotension, Bradycardia and Urinary Retention Subjective Update: Follow Up Functional Status: Reports: Pain Controlled, Tolerating Diet, Urinating. Denies : Ambulating - Review of Systems General: Reports: Weakness. Denies: Fever, Chills HEENT: Denies: Contact Lenses Pulmonary: Denies: Shortness of Breath Cardiovascular: Denies: Chest Pain Gastrointestinal: Denies: Abdominal Pain, Nausea, Vomiting Genitourinary: Reports: No Symptoms Musculoskeletal: Reports: No Symptoms Skin: Reports: No Symptoms Neurological: Reports: No Symptoms, Weakness, Gait Disturbance. Denies: Confusion Psychiatric: Denies: Depression, Anxiety, Hallucinations Systems Review Comment:: No overnight or acute issues. He is no apparent distress. He has no new complaints. He felt about the same. His BP and HRs have improved significantly. However INR remains elevated. No active bleed reported. - Patient Data Vitals - Most Recent: Last Vital Signs Temp 36.6 C 01/16/17 04:33 Pulse 65 01/16/17 04:33 Resp 16 01/16/17 04:33 BP 107/51 L 01/16/17 04:33 Pulse Ox 96 01/16/17 04:33 Weight - Most Recent: 86.999 kg I&O - Last 24 Hours: Intake & Output 01/15/17 01/16/17 01/16/17 22:59 06:59 14:59 Intake Total 130 Output Total 512 Balance -382 Lab Results Last 24 Hours: Laboratory Results - last 24 hr 01/16/17 01/16/17 01/16/17 Range/Units 01:50 05:45 05:45 WBC 7.75 (4.23-9.07) K/mm3 RBC 3.49 L (4.63-6.08) M/mm3 Hgb 9.9 L (13.7-17.5) gm/L Hct 31.3 L (40.1-51.0) % MCV 89.7 (79.0-92.2) fl MCH 28.4 (25.7-32.2) pg MCHC 31.6 L (32.2-35.5) g/dl RDW Std Deviation 47.8 H (35.1-43.9) fL Plt Count 301 (163-337) K/mm3 MPV 9.5 (9.4-12.3) fl Neut % (Auto) 79.9 H (34.0-67.9) % Lymph % (Auto) 10.7 L (21.8-53.1) % [place] % (Auto) 8.1 (5.3-12.2) % Eos % (Auto) 0.8 (0.8-7.0) Baso % (Auto) 0.4 (0.1-1.2) % Neut # (Auto) 6.19 H (1.78-5.38) K/mm3 Lymph # (Auto) 0.83 L (1.32-3.57) K/mm3 [place] # (Auto) 0.63 (0.30-0.82) K/mm3 Eos # (Auto) 0.06 (0.04-0.54) K/mm3 Baso # (Auto) 0.03 (0.01-0.08) K/mm3 PT (8.0-13.0) SECONDS INR Sodium 134 L (136-145) mEq/L Potassium 4.9 (3.5-5.1) mEq/L Chloride 96 L (98-107) mEq/L Carbon Dioxide 29 (21-32) mEq/L Anion Gap 13.9 (5-15) BUN 31 H (7-18) mg/dL Creatinine 2.2 H (0.7-1.3) mg/dL Est Cr Clr Drug Dosing 25.20 mL/min Estimated GFR (MDRD) 28 (>60) mL/min BUN/Creatinine Ratio 14.1 (14-18) Glucose 193 H (83-115) mg/dL Calcium 8.7 (8.5-10.1) mg/dL Magnesium 1.9 (1.8-2.4) mg/dl MRSA (PCR) Negative 01/16/17 Range/Units 05:45 WBC (4.23-9.07) K/mm3 RBC (4.63-6.08) M/mm3 Hgb (13.7-17.5) gm/L Hct (40.1-51.0) % MCV (79.0-92.2) fl MCH (25.7-32.2) pg MCHC (32.2-35.5) g/dl RDW Std Deviation (35.1-43.9) fL Plt Count (163-337) K/mm3 MPV (9.4-12.3) fl Neut % (Auto) (34.0-67.9) % Lymph % (Auto) (21.8-53.1) % [place] % (Auto) (5.3-12.2) % Eos % (Auto) (0.8-7.0) Baso % (Auto) (0.1-1.2) % Neut # (Auto) (1.78-5.38) K/mm3 Lymph # (Auto) (1.32-3.57) K/mm3 [place] # (Auto) (0.30-0.82) K/mm3 Eos # (Auto) (0.04-0.54) K/mm3 Baso # (Auto) (0.01-0.08) K/mm3 PT 58.9 H* (8.0-13.0) SECONDS INR 4.88 Sodium (136-145) mEq/L Potassium (3.5-5.1) mEq/L Chloride (98-107) mEq/L Carbon Dioxide (21-32) mEq/L Anion Gap (5-15) BUN (7-18) mg/dL Creatinine (0.7-1.3) mg/dL Est Cr Clr Drug Dosing mL/min Estimated GFR (MDRD) (>60) mL/min BUN/Creatinine Ratio (14-18) Glucose (83-115) mg/dL Calcium (8.5-10.1) mg/dL Magnesium (1.8-2.4) mg/dl MRSA (PCR) Med Orders - Current: Current Medications Acetaminophen (Tylenol) 650 mg PO Q4H PRN PRN Reason: Pain (Mild 1-3)/fever Hydrocodone Bitart/Acetaminophen ([place] 325-5 Mg) 1 tab PO Q4H PRN PRN Reason: Pain (moderate 4-6) Last Admin: 01/16/17 00:37 Dose: 1 tab Albuterol/Ipratropium (Duoneb 3.0-0.5 Mg/3 Ml) 3 ml NEB Q4H PRN PRN Reason: Shortness Of Breath/wheezing Bisacodyl (Dulcolax) 5 mg PO DAILY PRN PRN Reason: Constipation Docusate Sodium (Colace) 100 mg PO BID PRN PRN Reason: Constipation Ferrous Sulfate (Ferrous Sulfate) 325 mg PO BID [facility] Hydromorphone HCl (Dilaudid) 0.25 mg IVPUSH Q4H PRN PRN Reason: Pain (severe 7-10) Promethazine HCl 12.5 mg/ (Sodium Chloride) 50.5 mls @ 100 mls/hr IV Q6H PRN PRN Reason: Nausea/Vomiting Levothyroxine Sodium (Synthroid) 50 mcg PO ACBREAKFAST [facility] Last Admin: 01/16/17 06:36 Dose: 50 mcg Lorazepam (Ativan) 0.25 mg IV Q6H PRN PRN Reason: Anxiety Lorazepam (Ativan) 2 mg IVPUSH Q4H PRN PRN Reason: Seizures Magnesium Sulfate (Pharmacy To Dose - Magnesium Replacement) 1 dose .XX ASDIRECTED [facility] Metoprolol Tartrate (Lopressor) 5 mg IVPUSH Q4H PRN PRN Reason: Tachycardia Non-Formulary Medication (Hydrocortisone) 30 gm RC Q12H [facility] Last Admin: 01/16/17 00:30 Dose: Not Given Non-Formulary Medication (Insulin Glarg,Human.Rec.Analog) 20 unit SQ BEDTIME [facility] Non-Formulary Medication ([place]-3/Dha/Epa/Fish Oil [Fish Oil 1,000 Mg Softgel]) 1,000 mg PO DAILY [facility] Non-Formulary Medication (Vitamin E [Vitamin E]) 400 intnl unit PO DAILY [facility] Ondansetron HCl (Zofran) 4 mg IV Q6H PRN PRN Reason: Nausea/Vomiting Polyethylene Glycol (Miralax) 17 gm PO DAILY PRN PRN Reason: Constipation Potassium Chloride (Pharmacy To Dose - Potassium Replacement) 1 dose .XX ASDIRECTED [facility] Senna/Docusate Sodium (Senna Plus) 1 tab PO BID PRN PRN Reason: Constipation Sodium Chloride (Saline Flush) 10 ml FLUSH ASDIRECTED PRN PRN Reason: Keep Vein Open Tamsulosin HCl (Flomax) 0.4 mg PO BID [facility] Temazepam (Restoril) 7.5 mg PO BEDTIME PRN PRN Reason: Sleep Last Admin: 01/16/17 01:57 Dose: 7.5 mg Discontinued Medications Tamsulosin HCl (Flomax) 0.4 mg PO BEDTIME [facility] - Exam General: Alert, Oriented, Cooperative HEENT: Pupils Equal, Pupils Reactive, EOMI, Mucous Membr. Moist/[place], Other ( Poor dentition) Neck: Supple, Trachea Midline, No JVD, No Thyromegaly Lungs: Normal Respiratory Effort, Decreased Breath Sounds Cardiovascular: Irregular Rhythm, Murmurs GI/Abdominal Exam: Normal Bowel Sounds, Soft, Non-Tender, No Organomegaly, No Distention, No Abnormal Bruit, No Mass (Male) Exam: Deferred Back Exam: Normal Inspection, Decreased Range of Motion Extremities: Normal Inspection, Normal Range of Motion, Non-Tender, No Pedal Edema, Normal Capillary Refill, Other (hyperpimentation on bilateral lower extremity) Skin: Warm, Dry, Intact Neurological: No New Focal Deficit Psy/Mental Status: Alert, Normal Affect, Normal Mood - Problem List Review Problem List Initiated/Reviewed/Updated: Yes - My Orders Last 24 Hours: My Active Orders 01/15/17 23:10 Oxygen Therapy [RC] PRN Up With Assistance [RC] ASDIRECTED Up ad Kelsi [RC] ASDIRECTED VTE/DVT Education [RC] Vital Signs [RC] Q4HR Acetaminophen [Tylenol] 650 mg PO Q4H PRN Acetaminophen/HYDROcodone [[place] 325-5 MG] 1 tab PO Q4H PRN Albuterol/Ipratropium [DuoNeb 3.0-0.5 MG/3 ML] 3 ml NEB Q4H PRN Bisacodyl [Dulcolax] 5 mg PO DAILY PRN Docusate Sodium [Colace] 100 mg PO BID PRN Docusate Sodium/Sennosides [Senna Plus] 1 tab PO BID PRN HYDROmorphone [Dilaudid] 0.25 mg IVPUSH Q4H PRN LORazepam [Ativan] 0.25 mg IV Q6H PRN Ondansetron [Zofran] 4 mg IV Q6H PRN Polyethylene Glycol 3350 [MiraLAX] 17 gm PO DAILY PRN Promethazine [Phenergan] 12.5 mg Sodium Chloride 0.9% [Normal Saline] 50 ml IV Q6H Temazepam [Restoril] 7.5 mg PO BEDTIME PRN Resuscitation Status Routine 01/15/17 23:12 RT Aerosol Therapy [RC] ASDIRECTED Consult to Case Management [CONS] Routine Consult to [employer] [CONS] Routine Consult to Spiritual Care [CONS] Routine OT Evaluation and Treatment [CONS] Routine PT Evaluation and Treatment [CONS] Routine Respiratory Care Assess and Treatment [CONS] Routine 01/15/17 23:15 Hydrocortisone 30 gm RC Q12H 01/15/17 23:21 LORazepam [Ativan] 2 mg IVPUSH Q4H PRN Metoprolol Tartrate [Lopressor] 5 mg IVPUSH Q4H PRN 01/15/17 23:30 Magnesium Rep Pharmacy to Dose [Pharmacy to Dose - Magnesium Replacement] 1 dose .XX ASDIRECTED Potassium Rep Pharmacy to Dose [Pharmacy to Dose - Potassium Replacement] 1 dose .XX ASDIRECTED 01/16/17 06:00 Levothyroxine [Synthroid] 50 mcg PO ACBREAKFAST 01/16/17 09:00 Ferrous Sulfate 325 mg PO BID [place]-3/DHA/Epa/Fish Oil [Fish Oil 1,000 mg Softgel] 1,000 mg PO DAILY Tamsulosin [Flomax] 0.4 mg PO BID Vitamin E [Vitamin E] 400 intnl unit PO DAILY 01/16/17 21:00 Insulin Glarg,Human.Rec.Analog 20 unit SQ BEDTIME 01/16/17 Breakfast Heart Healthy Diet [DIET] 01/17/17 05:11 BASIC METABOLIC PANEL,BMP [CHEM] AM CBC WITH AUTO DIFF [HEME] AM INR,PT,PROTHROMBIN TIME [COAG] AM MAGNESIUM [CHEM] AM 01/18/17 05:11 BASIC METABOLIC PANEL,BMP [CHEM] AM CBC WITH AUTO DIFF [HEME] AM INR,PT,PROTHROMBIN TIME [COAG] AM MAGNESIUM [CHEM] AM 01/19/17 05:11 BASIC METABOLIC PANEL,BMP [CHEM] AM CBC WITH AUTO DIFF [HEME] AM INR,PT,PROTHROMBIN TIME [COAG] AM MAGNESIUM [CHEM] AM - Plan Plan:: Assessment/Plan: Acute: Supratherapeutic INR - INR 4.65 ---> 4.88 - Continue to hold off Warfarin dose - No need for Vit K 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, 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 - Hold off diuretics - May consider gentle hydration - Monitor labs - Avoid nephrotoxic agent if all possible Acute on Chronic Urinary Retention - Has BPH and Urinary Retention - Already on flomax - Consider removing enamorado in am - Continue flomax 0.4 mg po BID Generalized Weakness - Multi-factorial as noted above - Continue PT/OT Polypharmacy Resolved: S/p Orthostatic Hypotension - Gain likely medications induced - Feels dizzy and weak - He is 81/51 mmHg at the time of my examination - He is on the following medications: Lasix 40 mg po daily, lisinopril 2.5 mg by mouth daily, Cardizem 180 mg by mouth daily, and Flomax 0.4 mg by mouth at bedtime - Will continue to trim down his home maintenance meds S/p Bradycardia - HR as low as 40s-50s - He is on cardizem 180 mg po daily - Telemetry - Hold off CCB Chronic: Atrial Fibrillation, with Slow HR, on Warfarin CAD HTN HLD 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
[2017-01-16] MEDS: Ferrous Sulfate 325 MG Tab PO SCH ×2 (09:24→21:05)
[2017-01-16] MEDS: Non-Formulary Medication 1 Each (Omega-3/Dha/Epa/Fish Oil [Fish Oil 1,000 Mg Softgel] 1,00 PO SCH (09:24)
[2017-01-16] MEDS: Tamsulosin 0.4 MG Cap.ER PO SCH ×2 (09:24→21:05)
[2017-01-16] MEDS: VITAMIN E PO SCH (09:25)
[2017-01-16] MEDS ORDERED: Magnesium Sulfate/Water 2 GM in Premix Bag 1 BAG IV ONE (13:45)
[2017-01-16] MEDS ORDERED: Bismuth Subsalicylate 262 MG/15 ML Susp 236 ML Bottle PO PRN (17:04)
[2017-01-16] MEDS ORDERED: INSULIN GLARG HUMAN REC ANALOG 20 UNIT SQ SCH (21:00)
[2017-01-16] MEDS ORDERED: Tamsulosin 0.4 MG Cap.ER PO SCH (21:00)
[2017-01-16] MEDS: Insulin Detemir 100 Units/ML 3 ML Pen SUBCUT SCH (21:30)
[2017-01-17] MEDS: HYDROCORTISONE 30 GM RC SCH (00:18)
[2017-01-17] MEDS: Levothyroxine 50 MCG Tab PO SCH (05:22)
[2017-01-17] MEDS: Insulin Aspart 100 Units/ML 3 ML Pen SUBCUT SCH ×4 (07:39→21:07)
[2017-01-17] MEDS: Ferrous Sulfate 325 MG Tab PO SCH ×2 (08:24→21:04)
[2017-01-17] MEDS: Diltiazem 180 MG Cap.CD PO SCH (08:24)
[2017-01-17] MEDS: Insulin Detemir 100 Units/ML 3 ML Pen SUBCUT SCH ×2 (08:25→21:06)
[2017-01-17] MEDS: Tamsulosin 0.4 MG Cap.ER PO SCH ×2 (08:25→21:05)
[2017-01-17] MEDS: VITAMIN E PO SCH (08:26)
[2017-01-17] MEDS: Non-Formulary Medication 1 Each (Omega-3/Dha/Epa/Fish Oil [Fish Oil 1,000 Mg Softgel] 1,00 PO SCH (08:26)
[2017-01-17] MEDS: Multivitamins,Therapeutic Tab PO SCH (08:26)
[2017-01-17] MEDS ORDERED: HYDROmorphone 0.5 MG/0.5 ML Syringe IVPUSH PRN (08:52)
--- NOTE | 2017-01-17 08:53 | PCM.PN ---
- General Info Date of Service: 01/17/17 Admission Dx/Problem (Free Text): Orthostatic Hypotension, Bradycardia and Urinary Retention Subjective Update: Follow Up Functional Status: Reports: Pain Controlled, Tolerating Diet, Urinating - Review of Systems General: Denies: Fever, Weakness, Fatigue, Malaise HEENT: Reports: No Symptoms Pulmonary: Denies: Shortness of Breath Cardiovascular: Denies: Chest Pain Gastrointestinal: Denies: Abdominal Pain, Nausea, Vomiting Genitourinary: Reports: No Symptoms Musculoskeletal: Reports: No Symptoms Skin: Reports: No Symptoms Neurological: Denies: Confusion, Difficulty Walking, Weakness, Gait Disturbance Psychiatric: Denies: Depression, Anxiety, Agitation, Hallucinations Systems Review Comment:: No significant overnight or acute issues. He feels all right. He slept good. He has been ambulating. He has not has a bm yet. He has no new complaints. - Patient Data Vitals - Most Recent: Last Vital Signs Temp 36.7 C 01/17/17 08:18 Pulse 67 01/17/17 08:18 Resp 14 01/17/17 08:18 BP 139/80 01/17/17 08:18 Pulse Ox 99 01/17/17 08:18 Weight - Most Recent: 85.049 kg I&O - Last 24 Hours: Intake & Output 01/16/17 01/17/17 01/17/17 22:59 06:59 14:59 Intake Total 1350 500 Output Total 1500 2200 Balance -150 -1700 Lab Results Last 24 Hours: Laboratory Results - last 24 hr 01/16/17 01/17/17 01/17/17 Range/Units 21:10 06:05 06:05 WBC 7.06 (4.23-9.07) K/mm3 RBC 3.61 L (4.63-6.08) M/mm3 Hgb 10.5 L (13.7-17.5) gm/L Hct 32.3 L (40.1-51.0) % MCV 89.5 (79.0-92.2) fl MCH 29.1 (25.7-32.2) pg MCHC 32.5 (32.2-35.5) g/dl RDW Std Deviation 48.0 H (35.1-43.9) fL Plt Count 295 (163-337) K/mm3 MPV 9.3 L (9.4-12.3) fl Neut % (Auto) 76.8 H (34.0-67.9) % Lymph % (Auto) 9.9 L (21.8-53.1) % [place] % (Auto) 9.2 (5.3-12.2) % Eos % (Auto) 3.0 (0.8-7.0) Baso % (Auto) 0.8 (0.1-1.2) % Neut # (Auto) 5.42 H (1.78-5.38) K/mm3 Lymph # (Auto) 0.70 L (1.32-3.57) K/mm3 [place] # (Auto) 0.65 (0.30-0.82) K/mm3 Eos # (Auto) 0.21 (0.04-0.54) K/mm3 Baso # (Auto) 0.06 (0.01-0.08) K/mm3 Manual Slide Review Abnormal smear PT (8.0-13.0) SECONDS INR Sodium 137 (136-145) mEq/L Potassium 5.4 H (3.5-5.1) mEq/L Chloride 101 (98-107) mEq/L Carbon Dioxide 29 (21-32) mEq/L Anion Gap 12.4 (5-15) BUN 24 H (7-18) mg/dL Creatinine 1.4 H (0.7-1.3) mg/dL Est Cr Clr Drug Dosing 39.59 mL/min Estimated GFR (MDRD) 48 (>60) mL/min BUN/Creatinine Ratio 17.1 (14-18) Glucose 110 (83-115) mg/dL POC Glucose 260 H (83-110) mg/dL Calcium 9.2 (8.5-10.1) mg/dL Magnesium 2.3 (1.8-2.4) mg/dl 01/17/17 01/17/17 Range/Units 06:05 07:11 WBC (4.23-9.07) K/mm3 RBC (4.63-6.08) M/mm3 Hgb (13.7-17.5) gm/L Hct (40.1-51.0) % MCV (79.0-92.2) fl MCH (25.7-32.2) pg MCHC (32.2-35.5) g/dl RDW Std Deviation (35.1-43.9) fL Plt Count (163-337) K/mm3 MPV (9.4-12.3) fl Neut % (Auto) (34.0-67.9) % Lymph % (Auto) (21.8-53.1) % [place] % (Auto) (5.3-12.2) % Eos % (Auto) (0.8-7.0) Baso % (Auto) (0.1-1.2) % Neut # (Auto) (1.78-5.38) K/mm3 Lymph # (Auto) (1.32-3.57) K/mm3 [place] # (Auto) (0.30-0.82) K/mm3 Eos # (Auto) (0.04-0.54) K/mm3 Baso # (Auto) (0.01-0.08) K/mm3 Manual Slide Review PT 56.1 H* (8.0-13.0) SECONDS INR 4.66 Sodium (136-145) mEq/L Potassium (3.5-5.1) mEq/L Chloride (98-107) mEq/L Carbon Dioxide (21-32) mEq/L Anion Gap (5-15) BUN (7-18) mg/dL Creatinine (0.7-1.3) mg/dL Est Cr Clr Drug Dosing mL/min Estimated GFR (MDRD) (>60) mL/min BUN/Creatinine Ratio (14-18) Glucose (83-115) mg/dL POC Glucose 102 (83-110) mg/dL Calcium (8.5-10.1) mg/dL Magnesium (1.8-2.4) mg/dl Med Orders - Current: Current Medications Acetaminophen (Tylenol) 650 mg PO Q4H PRN PRN Reason: Pain (Mild 1-3)/fever Hydrocodone Bitart/Acetaminophen ([place] 325-5 Mg) 1 tab PO Q4H PRN PRN Reason: Pain (moderate 4-6) Last Admin: 01/16/17 00:37 Dose: 1 tab Albuterol/Ipratropium (Duoneb 3.0-0.5 Mg/3 Ml) 3 ml NEB Q4H PRN PRN Reason: Shortness Of Breath/wheezing Bisacodyl (Dulcolax) 5 mg PO DAILY PRN PRN Reason: Constipation Bismuth Subsalicylate (Pepto Bismol) 30 ml PO BID PRN PRN Reason: Heartburn Diltiazem HCl (Cardizem Cd) 180 mg PO DAILY [facility] Last Admin: 01/17/17 08:24 Dose: 180 mg Docusate Sodium (Colace) 100 mg PO BID PRN PRN Reason: Constipation Ferrous Sulfate (Ferrous Sulfate) 325 mg PO BID [facility] Last Admin: 01/17/17 08:24 Dose: 325 mg Hydromorphone HCl (Dilaudid) 0.25 mg IVPUSH Q4H PRN PRN Reason: Pain (severe 7-10) Promethazine HCl 12.5 mg/ (Sodium Chloride) 50.5 mls @ 100 mls/hr IV Q6H PRN PRN Reason: Nausea/Vomiting Insulin Aspart (Novolog) 0 unit SUBCUT QIDACANDBED [facility] PRN Reason: Protocol Last Admin: 01/17/17 07:39 Dose: Not Given Insulin Detemir (Levemir) 10 unit SUBCUT BID [facility] Last Admin: 01/17/17 08:25 Dose: 10 units Levothyroxine Sodium (Synthroid) 50 mcg PO ACBREAKFAST [facility] Last Admin: 01/17/17 05:22 Dose: 50 mcg Lorazepam (Ativan) 0.25 mg IV Q6H PRN PRN Reason: Anxiety Lorazepam (Ativan) 2 mg IVPUSH Q4H PRN PRN Reason: Seizures Magnesium Sulfate (Pharmacy To Dose - Magnesium Replacement) 1 dose .XX ASDIRECTED [facility] Metoprolol Tartrate (Lopressor) 5 mg IVPUSH Q4H PRN PRN Reason: Tachycardia Multivitamins (Thera) 1 each PO DAILY [facility] Last Admin: 01/17/17 08:26 Dose: 1 each Non-Formulary Medication (Hydrocortisone) 30 gm RC Q12H [facility] Last Admin: 01/17/17 00:18 Dose: Not Given Non-Formulary Medication ([place]-3/Dha/Epa/Fish Oil [Fish Oil 1,000 Mg Softgel]) 1,000 mg PO DAILY [facility] Last Admin: 01/17/17 08:26 Dose: Not Given Non-Formulary Medication (Vitamin E [Vitamin E]) 400 intnl unit PO DAILY [facility] Last Admin: 01/17/17 08:26 Dose: Not Given Ondansetron HCl (Zofran) 4 mg IV Q6H PRN PRN Reason: Nausea/Vomiting Polyethylene Glycol (Miralax) 17 gm PO DAILY PRN PRN Reason: Constipation Potassium Chloride (Pharmacy To Dose - Potassium Replacement) 1 dose .XX ASDIRECTED [facility] Senna/Docusate Sodium (Senna Plus) 1 tab PO BID PRN PRN Reason: Constipation Last Admin: 01/17/17 05:22 Dose: 1 tab Sodium Chloride (Saline Flush) 10 ml FLUSH ASDIRECTED PRN PRN Reason: Keep Vein Open Tamsulosin HCl (Flomax) 0.4 mg PO BID [facility] Last Admin: 01/17/17 08:25 Dose: 0.4 mg Temazepam (Restoril) 7.5 mg PO BEDTIME PRN PRN Reason: Sleep Last Admin: 01/16/17 21:05 Dose: 7.5 mg Discontinued Medications Hydromorphone HCl (Dilaudid) 0.25 mg IVPUSH Q4H PRN PRN Reason: Pain (severe 7-10) Magnesium Sulfate 2 gm/ Premix 50 mls @ 50 mls/hr IV ONETIME ONE Stop: 01/16/17 14:44 Last Admin: 01/16/17 14:28 Dose: 50 mls/hr Non-Formulary Medication (Insulin Glarg,Human.Rec.Analog) 20 unit SQ BEDTIME [facility] Last Admin: 01/16/17 22:12 Dose: Not Given Non-FormGummi (Bear Multivitamin) 1 dose PO DAILY [facility] Tamsulosin HCl (Flomax) 0.4 mg PO BEDTIME [facility] Last Admin: 01/16/17 22:12 Dose: Not Given - Exam General: Alert, Oriented, Cooperative, No Acute Distress HEENT: Pupils Equal, Pupils Reactive, EOMI, Mucous Membr. Moist/[place], Other ( poor dentition) Neck: Supple, Trachea Midline, No JVD, No Thyromegaly Lungs: Normal Respiratory Effort, Decreased Breath Sounds Cardiovascular: Irregular Rhythm, Murmurs GI/Abdominal Exam: Normal Bowel Sounds, Soft, Non-Tender, No Distention, No Abnormal Bruit, No Mass (Male) Exam: Other (indwellign enamorado catheter) Back Exam: Normal Inspection, Decreased Range of Motion Extremities: Normal Inspection, Normal Range of Motion, Non-Tender, No Pedal Edema, Normal Capillary Refill, Other (Hyperpigmentation) Peripheral Pulses: 2+: Dorsalis Pedis (L), Dorsalis Pedis (R) Skin: Warm, Dry, Intact Neurological: No New Focal Deficit Psy/Mental Status: Alert, Normal Affect, Normal Mood - Problem List Review Problem List Initiated/Reviewed/Updated: Yes - My Orders Last 24 Hours: My Active Orders 01/16/17 09:00 Ferrous Sulfate 325 mg PO BID [place]-3/DHA/Epa/Fish Oil [Fish Oil 1,000 mg Softgel] 1,000 mg PO DAILY Tamsulosin [Flomax] 0.4 mg PO BID Vitamin E [Vitamin E] 400 intnl unit PO DAILY 01/16/17 17:04 Bismuth Subsalicylate [Pepto Bismol] 30 ml PO BID PRN 01/17/17 08:52 HYDROmorphone [Dilaudid] 0.25 mg IVPUSH Q4H PRN 01/17/17 09:00 Diltiazem [Cardizem CD] 180 mg PO DAILY Insulin Detemir [Levemir] 10 unit SUBCUT BID Multivitamins,Therapeutic [Thera] 1 each PO DAILY 01/18/17 05:11 BASIC METABOLIC PANEL,BMP [CHEM] AM CBC WITH AUTO DIFF [HEME] AM INR,PT,PROTHROMBIN TIME [COAG] AM MAGNESIUM [CHEM] AM 01/19/17 05:11 BASIC METABOLIC PANEL,BMP [CHEM] AM CBC WITH AUTO DIFF [HEME] AM INR,PT,PROTHROMBIN TIME [COAG] AM MAGNESIUM [CHEM] AM - Plan Plan:: Assessment/Plan: Acute: Supratherapeutic INR - INR 4.65 ---> 4.88 ---> 4.66 - Continue to hold off Warfarin dose - No need for Vit K Urinary Retention - Acute on Chronic - Has BPH and Urinary Retention - Already on flomax - Consider removing enamorado in am - Continue flomax 0.4 mg po BID - D/c enamorado cath and see if he can void on his own Generalized Weakness, Improved - Multi-factorial as noted above - Continue PT/OT 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 If he is not able to do this on his own, then he should need someone to do it for him. Patient is not receptive to NH placment. SW/CM will sit down and further talks to him.
[2017-01-17] MEDS ORDERED: [UNRECOGNIZED DRUG - REMARK] PO SCH (09:00)
[2017-01-17] MEDS: Vitamin E (dl-alpha-tocopherol acetate) 400 Unit Cap PO SCH (09:28)
[2017-01-17] MEDS: Bisacodyl 5 MG Tab PO PRN (09:29)
[2017-01-17] MEDS: Fish Oil/Omega-3 Fatty Acids 1 Gm Cap PO SCH (09:29)
[2017-01-17] MEDS ORDERED: Magnesium Hydroxide 400 MG/5 ML Susp 30 ML Cup PO ONE (20:00)
[2017-01-18] MEDS: Insulin Aspart 100 Units/ML 3 ML Pen SUBCUT SCH ×4 (06:08→21:30)
[2017-01-18] MEDS: Levothyroxine 50 MCG Tab PO SCH (06:08)
[2017-01-18] MEDS: Tamsulosin 0.4 MG Cap.ER PO SCH ×2 (09:16→21:30)
[2017-01-18] MEDS: Vitamin E (dl-alpha-tocopherol acetate) 400 Unit Cap PO SCH (09:16)
[2017-01-18] MEDS: Ferrous Sulfate 325 MG Tab PO SCH ×2 (09:16→21:30)
[2017-01-18] MEDS: Fish Oil/Omega-3 Fatty Acids 1 Gm Cap PO SCH (09:16)
[2017-01-18] MEDS: Multivitamins,Therapeutic Tab PO SCH (09:16)
[2017-01-18] MEDS: Diltiazem 180 MG Cap.CD PO SCH (09:16)
[2017-01-18] MEDS: Insulin Detemir 100 Units/ML 3 ML Pen SUBCUT SCH ×2 (09:17→21:29)
[2017-01-18] MEDS: Bisacodyl 5 MG Tab PO PRN (12:56)
--- NOTE | 2017-01-18 13:30 | PCM.PN ---
- General Info Date of Service: 01/18/17 Admission Dx/Problem (Free Text): Orthostatic Hypotension, Bradycardia and Urinary Retention Patient doing well, seen this morning. Slept well. Denies any complaints of pain or discomfort. Passing urine without problems. Had small BM yesterday, good appetite. Up ambulatory with PT doing well. B/P has been stable, no further bradycardia noted. This afternoon has been tachycardic with slight low grade temp in the 99 range. Functional Status: Reports: Pain Controlled, Tolerating Diet, Ambulating, Urinating. Denies: New Symptoms - Review of Systems General: Reports: Fever (minimal 99.1). Denies: Weakness (resolved) HEENT: Reports: No Symptoms Pulmonary: Reports: No Symptoms Cardiovascular: Reports: No Symptoms Gastrointestinal: Reports: No Symptoms Genitourinary: Reports: No Symptoms Neurological: Reports: No Symptoms - Patient Data Vitals - Most Recent: Last Vital Signs Temp 99.0 F 01/18/17 11:55 Pulse 109 H 01/18/17 11:55 Resp 12 01/18/17 11:55 BP 120/75 01/18/17 11:55 Pulse Ox 97 01/18/17 11:55 Weight - Most Recent: 184 lb 3.2 oz I&O - Last 24 Hours: Intake & Output 01/17/17 01/18/17 01/18/17 22:59 06:59 14:59 Intake Total 1010 375 240 Output Total 2600 1425 Balance -1590 -1050 240 Lab Results Last 24 Hours: Laboratory Results - last 24 hr 01/17/17 01/17/17 01/18/17 Range/Units 16:45 21:04 06:06 WBC (4.23-9.07) K/mm3 RBC (4.63-6.08) M/mm3 Hgb (13.7-17.5) gm/L Hct (40.1-51.0) % MCV (79.0-92.2) fl MCH (25.7-32.2) pg MCHC (32.2-35.5) g/dl RDW Std Deviation (35.1-43.9) fL Plt Count (163-337) K/mm3 MPV (9.4-12.3) fl Neut % (Auto) (34.0-67.9) % Lymph % (Auto) (21.8-53.1) % [place] % (Auto) (5.3-12.2) % Eos % (Auto) (0.8-7.0) Baso % (Auto) (0.1-1.2) % Neut # (Auto) (1.78-5.38) K/mm3 Lymph # (Auto) (1.32-3.57) K/mm3 [place] # (Auto) (0.30-0.82) K/mm3 Eos # (Auto) (0.04-0.54) K/mm3 Baso # (Auto) (0.01-0.08) K/mm3 Manual Slide Review PT (8.0-13.0) SECONDS INR Sodium (136-145) mEq/L Potassium (3.5-5.1) mEq/L Chloride (98-107) mEq/L Carbon Dioxide (21-32) mEq/L Anion Gap (5-15) BUN (7-18) mg/dL Creatinine (0.7-1.3) mg/dL Est Cr Clr Drug Dosing mL/min Estimated GFR (MDRD) (>60) mL/min BUN/Creatinine Ratio (14-18) Glucose (83-115) mg/dL POC Glucose 171 H 194 H 133 H (83-110) mg/dL Calcium (8.5-10.1) mg/dL Magnesium (1.8-2.4) mg/dl 01/18/17 01/18/17 01/18/17 Range/Units 06:17 06:17 06:17 WBC 9.70 H (4.23-9.07) K/mm3 RBC 3.75 L (4.63-6.08) M/mm3 Hgb 10.9 L (13.7-17.5) gm/L Hct 33.2 L (40.1-51.0) % MCV 88.5 (79.0-92.2) fl MCH 29.1 (25.7-32.2) pg MCHC 32.8 (32.2-35.5) g/dl RDW Std Deviation 47.3 H (35.1-43.9) fL Plt Count 317 (163-337) K/mm3 MPV 9.7 (9.4-12.3) fl Neut % (Auto) 80.2 H (34.0-67.9) % Lymph % (Auto) 7.5 L (21.8-53.1) % [place] % (Auto) 11.1 (5.3-12.2) % Eos % (Auto) 0.8 (0.8-7.0) Baso % (Auto) 0.2 (0.1-1.2) % Neut # (Auto) 7.77 H (1.78-5.38) K/mm3 Lymph # (Auto) 0.73 L (1.32-3.57) K/mm3 [place] # (Auto) 1.08 H (0.30-0.82) K/mm3 Eos # (Auto) 0.08 (0.04-0.54) K/mm3 Baso # (Auto) 0.02 (0.01-0.08) K/mm3 Manual Slide Review Abnormal smear PT 31.0 H (8.0-13.0) SECONDS INR 2.67 Sodium 134 L (136-145) mEq/L Potassium 5.1 (3.5-5.1) mEq/L Chloride 100 (98-107) mEq/L Carbon Dioxide 28 (21-32) mEq/L Anion Gap 11.1 (5-15) BUN 19 H (7-18) mg/dL Creatinine 1.3 (0.7-1.3) mg/dL Est Cr Clr Drug Dosing 42.64 mL/min Estimated GFR (MDRD) 52 (>60) mL/min BUN/Creatinine Ratio 14.6 (14-18) Glucose 132 H (83-115) mg/dL POC Glucose (83-110) mg/dL Calcium 9.6 (8.5-10.1) mg/dL Magnesium 2.1 (1.8-2.4) mg/dl 01/18/17 Range/Units 10:42 WBC (4.23-9.07) K/mm3 RBC (4.63-6.08) M/mm3 Hgb (13.7-17.5) gm/L Hct (40.1-51.0) % MCV (79.0-92.2) fl MCH (25.7-32.2) pg MCHC (32.2-35.5) g/dl RDW Std Deviation (35.1-43.9) fL Plt Count (163-337) K/mm3 MPV (9.4-12.3) fl Neut % (Auto) (34.0-67.9) % Lymph % (Auto) (21.8-53.1) % [place] % (Auto) (5.3-12.2) % Eos % (Auto) (0.8-7.0) Baso % (Auto) (0.1-1.2) % Neut # (Auto) (1.78-5.38) K/mm3 Lymph # (Auto) (1.32-3.57) K/mm3 [place] # (Auto) (0.30-0.82) K/mm3 Eos # (Auto) (0.04-0.54) K/mm3 Baso # (Auto) (0.01-0.08) K/mm3 Manual Slide Review PT (8.0-13.0) SECONDS INR Sodium (136-145) mEq/L Potassium (3.5-5.1) mEq/L Chloride (98-107) mEq/L Carbon Dioxide (21-32) mEq/L Anion Gap (5-15) BUN (7-18) mg/dL Creatinine (0.7-1.3) mg/dL Est Cr Clr Drug Dosing mL/min Estimated GFR (MDRD) (>60) mL/min BUN/Creatinine Ratio (14-18) Glucose (83-115) mg/dL POC Glucose 187 H (83-110) mg/dL Calcium (8.5-10.1) mg/dL Magnesium (1.8-2.4) mg/dl Med Orders - Current: Current Medications Acetaminophen (Tylenol) 650 mg PO Q4H PRN PRN Reason: Pain (Mild 1-3)/fever Hydrocodone Bitart/Acetaminophen ([place] 325-5 Mg) 1 tab PO Q4H PRN PRN Reason: Pain (moderate 4-6) Last Admin: 01/16/17 00:37 Dose: 1 tab Albuterol/Ipratropium (Duoneb 3.0-0.5 Mg/3 Ml) 3 ml NEB Q4H PRN PRN Reason: Shortness Of Breath/wheezing Bisacodyl (Dulcolax) 5 mg PO DAILY PRN PRN Reason: Constipation Last Admin: 08/08/17 12:56 Dose: 5 mg Bismuth Subsalicylate (Pepto Bismol) 30 ml PO BID PRN PRN Reason: Heartburn Diltiazem HCl (Cardizem Cd) 180 mg PO DAILY [facility] Last Admin: 01/18/17 09:16 Dose: 180 mg Docusate Sodium (Colace) 100 mg PO BID PRN PRN Reason: Constipation Last Admin: 01/18/17 12:56 Dose: 100 mg Ferrous Sulfate (Ferrous Sulfate) 325 mg PO BID [facility] Last Admin: 01/18/17 09:16 Dose: 325 mg Fish Oil (Fish Oil) 1 gm PO DAILY [facility] Last Admin: 01/18/17 09:16 Dose: 1 gm Hydromorphone HCl (Dilaudid) 0.25 mg IVPUSH Q4H PRN PRN Reason: Pain (severe 7-10) Promethazine HCl 12.5 mg/ (Sodium Chloride) 50.5 mls @ 100 mls/hr IV Q6H PRN PRN Reason: Nausea/Vomiting Insulin Aspart (Novolog) 0 unit SUBCUT QIDACANDBED [facility] PRN Reason: Protocol Last Admin: 01/18/17 12:43 Dose: 1 unit Insulin Detemir (Levemir) 10 unit SUBCUT BID [facility] Last Admin: 01/18/17 09:17 Dose: 10 units Levothyroxine Sodium (Synthroid) 50 mcg PO ACBREAKFAST [facility] Last Admin: 01/18/17 06:08 Dose: 50 mcg Lorazepam (Ativan) 0.25 mg IV Q6H PRN PRN Reason: Anxiety Lorazepam (Ativan) 2 mg IVPUSH Q4H PRN PRN Reason: Seizures Magnesium Sulfate (Pharmacy To Dose - Magnesium Replacement) 1 dose .XX ASDIRECTED [facility] Metoprolol Succinate (Toprol Xl) 12.5 mg PO DAILY [facility] Metoprolol Tartrate (Lopressor) 5 mg IVPUSH Q4H PRN PRN Reason: Tachycardia Multivitamins (Thera) 1 each PO DAILY [facility] Last Admin: 01/18/17 09:16 Dose: 1 each Ondansetron HCl (Zofran) 4 mg IV Q6H PRN PRN Reason: Nausea/Vomiting Last Admin: 01/18/17 12:56 Dose: 4 mg Polyethylene Glycol (Miralax) 17 gm PO DAILY PRN PRN Reason: Constipation Potassium Chloride (Pharmacy To Dose - Potassium Replacement) 1 dose .XX ASDIRECTED [facility] Senna/Docusate Sodium (Senna Plus) 1 tab PO BID PRN PRN Reason: Constipation Last Admin: 01/17/17 05:22 Dose: 1 tab Sodium Chloride (Saline Flush) 10 ml FLUSH ASDIRECTED PRN PRN Reason: Keep Vein Open Tamsulosin HCl (Flomax) 0.4 mg PO BID [facility] Last Admin: 01/18/17 09:16 Dose: 0.4 mg Temazepam (Restoril) 7.5 mg PO BEDTIME PRN PRN Reason: Sleep Last Admin: 01/16/17 21:05 Dose: 7.5 mg Vitamin E (Vitamin E) 400 units PO DAILY [facility] Last Admin: 01/18/17 09:16 Dose: 400 units Warfarin Sodium (Pharmacy To Dose - Warfarin) 1 dose .XX ASDIRECTED [facility] Discontinued Medications Hydromorphone HCl (Dilaudid) 0.25 mg IVPUSH Q4H PRN PRN Reason: Pain (severe 7-10) Magnesium Sulfate 2 gm/ Premix 50 mls @ 50 mls/hr IV ONETIME ONE Stop: 01/16/17 14:44 Last Admin: 01/16/17 14:28 Dose: 50 mls/hr Magnesium Hydroxide (Milk Of Magnesia) 30 ml PO ONETIME ONE Stop: 01/17/17 20:01 Last Admin: 01/17/17 21:05 Dose: 30 ml Non-Formulary Medication (Hydrocortisone) 30 gm RC Q12H [facility] Last Admin: 01/17/17 00:18 Dose: Not Given Non-Formulary Medication (Insulin Glarg,Human.Rec.Analog) 20 unit SQ BEDTIME [facility] Last Admin: 01/16/17 22:12 Dose: Not Given Non-Formulary Medication ([place]-3/Dha/Epa/Fish Oil [Fish Oil 1,000 Mg Softgel]) 1,000 mg PO DAILY [facility] Last Admin: 01/17/17 08:26 Dose: Not Given Non-Formulary Medication (Vitamin E [Vitamin E]) 400 intnl unit PO DAILY [facility] Last Admin: 01/17/17 08:26 Dose: Not Given Non-FormGummi (Bear Multivitamin) 1 dose PO DAILY [facility] Tamsulosin HCl (Flomax) 0.4 mg PO BEDTIME [facility] Last Admin: 01/16/17 22:12 Dose: Not Given - Exam Quality Assessment: DVT Prophylaxis General: Alert, Oriented, Cooperative, No Acute Distress, Other ([place]) HEENT: Pupils Equal, EOMI, Mucous Membr. Moist/[place] Neck: Supple Lungs: Clear to Auscultation, Normal Respiratory Effort, Decreased Breath Sounds (bases bilat), Rhonchi (exp to bases bilat) Cardiovascular: Irregular Rhythm GI/Abdominal Exam: Normal Bowel Sounds, Soft, Non-Tender, No Organomegaly (Male) Exam: Deferred Extremities: Normal Inspection, No Pedal Edema, Other (venous insufficiency changes) Peripheral Pulses: 1+: Dorsalis Pedis (L), Dorsalis Pedis (R) Neurological: No New Focal Deficit Psy/Mental Status: Alert, Normal Affect, Normal Mood - Problem List & Annotations (1) Acute kidney injury SNOMED Code(s): 32527841 Code(s): N17.9 - ACUTE KIDNEY FAILURE, UNSPECIFIED Status: Acute Priority : High Current Visit: Yes (2) Atrial fibrillation SNOMED Code(s): 13138700 Code(s): I48.91 - UNSPECIFIED ATRIAL FIBRILLATION Status: Chronic Priority: Medium Current Visit: Yes Qualifiers: Atrial fibrillation type: chronic Qualified Code(s): I48.2 - Chronic atrial fibrillation (3) Bradycardia with 41-50 beats per minute SNOMED Code(s): 24046492 Code(s): R00.1 - BRADYCARDIA, UNSPECIFIED Status: Resolved Priority: High Current Visit: Yes (4) Chronic anemia SNOMED Code(s): 642680944 Code(s): D64.9 - ANEMIA, UNSPECIFIED Status: Chronic Priority: Medium Current Visit: Yes (5) Hypotension SNOMED Code(s): 38008973 Code(s): I95.9 - HYPOTENSION, UNSPECIFIED Status: Resolved Priority: High Current Visit: Yes Qualifiers: Hypotension type: hypotension due to drug Qualified Code(s): I95.2 - Hypotension due to drugs (6) Supratherapeutic INR SNOMED Code(s): 286561445, 570088476 Code(s): R79.1 - ABNORMAL COAGULATION PROFILE Status: Resolved Priority: High Current Visit: Yes (7) Urinary retention with incomplete bladder emptying SNOMED Code(s): 672197440 Code(s): R33.9 - RETENTION OF URINE, UNSPECIFIED Status: Resolved Priority: High Current Visit: Yes (8) Hyperkalemia SNOMED Code(s): 69239234 Code(s): E87.5 - HYPERKALEMIA Status: Resolved Priority: High Current Visit: Yes - Problem List Review Problem List Initiated/Reviewed/Updated: Yes - My Orders Last 24 Hours: My Active Orders 01/18/17 13:22 Chest 2V [CR] Routine UA W/MICROSCOPIC [URIN] Urgent 01/18/17 13:30 Metoprolol Succinate [Toprol XL] 12.5 mg PO DAILY Warfarin Pharmacy to Dose [Pharmacy to Dose - Warfarin] 1 dose .XX ASDIRECTED - Plan Plan:: Assessment/Plan: Acute: Supratherapeutic INR - INR 4.65 ---> 4.88 ---> 4.66-->2.66--therapeutic today - Restart Coumadin with pharmacy to dose Urinary Retention - Acute on Chronic - Has BPH and Urinary Retention - Already on flomax; BID - Dickey has been dc'd and he is voiding on his own - Low grade temp this afternoon, will recheck UA this afternoon Generalized Weakness, Improved - Multi-factorial as noted above - Continue PT/OT Check CXR and UA this afternoon as WBC with slight elevation and low grade temp this afternoon. 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 If he is not able to do this on his own, then he should need someone to do it for him. Patient is not receptive to NH placment. SW/CM will sit down and further talks to him. Most likely will return to [facility] with increased services per SW. Will continue to assess.
[2017-01-18] MEDS: Metoprolol Succinate 25 MG Tab.ER PO SCH (14:26)
--- NOTE | 2017-01-18 14:39 | CR ---
Chest: Two views of the chest were obtained. Comparison: Previous chest x-ray of 12/29/16. Heart size slightly prominent. Central lung markings mildly increased which appear stable. Mild increased density noted within the lateral left costophrenic angle which appears chronic. No acute infiltrates are seen. Bony structures are within normal limits for the patient's age. Impression: 1. Stable findings. Nothing acute is appreciated. Diagnostic code #2
[2017-01-18] MEDS ORDERED: Warfarin 5 MG Tab PO SCH (18:00)
[2017-01-19] MEDS: Levothyroxine 50 MCG Tab PO SCH (06:24)
[2017-01-19] MEDS: Insulin Aspart 100 Units/ML 3 ML Pen SUBCUT SCH ×4 (06:24→21:40)
[2017-01-19] MEDS: Fish Oil/Omega-3 Fatty Acids 1 Gm Cap PO SCH (10:12)
[2017-01-19] MEDS: Vitamin E (dl-alpha-tocopherol acetate) 400 Unit Cap PO SCH (10:12)
[2017-01-19] MEDS: Multivitamins,Therapeutic Tab PO SCH (10:15)
[2017-01-19] MEDS: Ferrous Sulfate 325 MG Tab PO SCH ×2 (10:15→21:36)
[2017-01-19] MEDS: Insulin Detemir 100 Units/ML 3 ML Pen SUBCUT SCH ×2 (10:25→21:38)
[2017-01-19] MEDS: Tamsulosin 0.4 MG Cap.ER PO SCH ×2 (10:25→21:36)
[2017-01-19] MEDS: Metoprolol Succinate 25 MG Tab.ER PO SCH (11:13)
[2017-01-19] MEDS: Diltiazem 180 MG Cap.CD PO SCH (11:15)
--- NOTE | 2017-01-19 13:26 | PCM.PN ---
- General Info Date of Service: 01/19/17 Admission Dx/Problem (Free Text): Orthostatic Hypotension, Bradycardia and Urinary Retention Patient doing well, seen this morning. Slept well. Denies any complaints of pain or discomfort. Passing urine without problems. Had small BM again today. good appetite. Up ambulatory with PT doing well. Functional Status: Reports: Pain Controlled, Tolerating Diet, Ambulating, Urinating. Denies: New Symptoms - Review of Systems General: Reports: No Symptoms HEENT: Reports: No Symptoms Pulmonary: Reports: No Symptoms. Denies: Shortness of Breath, Cough Cardiovascular: Reports: No Symptoms. Denies: Palpitations, Dyspnea on Exertion Gastrointestinal: Reports: No Symptoms. Denies: Nausea Genitourinary: Reports: No Symptoms. Denies: Retention Musculoskeletal: Reports: No Symptoms Skin: Reports: No Symptoms Neurological: Reports: No Symptoms Psychiatric: Reports: No Symptoms - Patient Data Vitals - Most Recent: Last Vital Signs Temp 98.6 F 01/19/17 08:24 Pulse 92 01/19/17 11:13 Resp 14 01/19/17 08:24 BP 109/70 01/19/17 11:13 Pulse Ox 98 01/19/17 08:24 Weight - Most Recent: 181 lb 6.4 oz I&O - Last 24 Hours: Intake & Output 01/18/17 01/19/17 01/19/17 22:59 06:59 14:59 Intake Total 1030 125 240 Output Total 975 1000 Balance 55 -875 240 Lab Results Last 24 Hours: Laboratory Results - last 24 hr 01/18/17 01/18/17 01/18/17 Range/Units 17:12 20:08 21:29 WBC (4.23-9.07) K/mm3 RBC (4.63-6.08) M/mm3 Hgb (13.7-17.5) gm/L Hct (40.1-51.0) % MCV (79.0-92.2) fl MCH (25.7-32.2) pg MCHC (32.2-35.5) g/dl RDW Std Deviation (35.1-43.9) fL Plt Count (163-337) K/mm3 MPV (9.4-12.3) fl Neut % (Auto) (34.0-67.9) % Lymph % (Auto) (21.8-53.1) % [place] % (Auto) (5.3-12.2) % Eos % (Auto) (0.8-7.0) Baso % (Auto) (0.1-1.2) % Neut # (Auto) (1.78-5.38) K/mm3 Lymph # (Auto) (1.32-3.57) K/mm3 [place] # (Auto) (0.30-0.82) K/mm3 Eos # (Auto) (0.04-0.54) K/mm3 Baso # (Auto) (0.01-0.08) K/mm3 PT (8.0-13.0) SECONDS INR Sodium (136-145) mEq/L Potassium (3.5-5.1) mEq/L Chloride (98-107) mEq/L Carbon Dioxide (21-32) mEq/L Anion Gap (5-15) BUN (7-18) mg/dL Creatinine (0.7-1.3) mg/dL Est Cr Clr Drug Dosing mL/min Estimated GFR (MDRD) (>60) mL/min BUN/Creatinine Ratio (14-18) Glucose (83-115) mg/dL POC Glucose 177 H 179 H (83-110) mg/dL Calcium (8.5-10.1) mg/dL Magnesium (1.8-2.4) mg/dl Urine Color Yellow (Yellow) Urine Appearance Clear (Clear) Urine pH 7.0 (5.0-8.0) Ur Specific [place] 1.020 (1.005-1.030) Urine Protein 2+ H (Negative) Urine Glucose (UA) Negative (Negative) Urine Ketones Negative (Negative) Urine Occult Blood Trace-lysed H (Negative) Urine Nitrite Negative (Negative) Urine Bilirubin Negative (Negative) Urine Urobilinogen 0.2 (0.2-1.0) Ur Leukocyte Esterase Negative (Negative) Urine RBC 5-10 H (0-5) /hpf Urine WBC 0-5 (0-5) /hpf Ur Epithelial Cells 0-5 (0-5) /hpf Urine Bacteria Not seen (FEW) /hpf Urine Mucus Not seen (FEW) /hpf 01/19/17 01/19/17 01/19/17 Range/Units 06:20 06:27 06:27 WBC 9.20 H (4.23-9.07) K/mm3 RBC 3.56 L (4.63-6.08) M/mm3 Hgb 10.2 L (13.7-17.5) gm/L Hct 31.6 L (40.1-51.0) % MCV 88.8 (79.0-92.2) fl MCH 28.7 (25.7-32.2) pg MCHC 32.3 (32.2-35.5) g/dl RDW Std Deviation 47.4 H (35.1-43.9) fL Plt Count 302 (163-337) K/mm3 MPV 9.3 L (9.4-12.3) fl Neut % (Auto) 75.4 H (34.0-67.9) % Lymph % (Auto) 10.5 L (21.8-53.1) % Stokes % (Auto) 12.4 H (5.3-12.2) % Eos % (Auto) 1.1 (0.8-7.0) Baso % (Auto) 0.3 (0.1-1.2) % Neut # (Auto) 6.93 H (1.78-5.38) K/mm3 Lymph # (Auto) 0.97 L (1.32-3.57) K/mm3 Stokes # (Auto) 1.14 H (0.30-0.82) K/mm3 Eos # (Auto) 0.10 (0.04-0.54) K/mm3 Baso # (Auto) 0.03 (0.01-0.08) K/mm3 PT (8.0-13.0) SECONDS INR Sodium 133 L (136-145) mEq/L Potassium 5.2 H (3.5-5.1) mEq/L Chloride 100 (98-107) mEq/L Carbon Dioxide 27 (21-32) mEq/L Anion Gap 11.2 (5-15) BUN 18 (7-18) mg/dL Creatinine 1.5 H (0.7-1.3) mg/dL Est Cr Clr Drug Dosing 36.95 mL/min Estimated GFR (MDRD) 44 (>60) mL/min BUN/Creatinine Ratio 12.0 L (14-18) Glucose 135 H (83-115) mg/dL POC Glucose 132 H (83-110) mg/dL Calcium 9.7 (8.5-10.1) mg/dL Magnesium 2.4 (1.8-2.4) mg/dl Urine Color (Yellow) Urine Appearance (Clear) Urine pH (5.0-8.0) Ur Specific [place] (1.005-1.030) Urine Protein (Negative) Urine Glucose (UA) (Negative) Urine Ketones (Negative) Urine Occult Blood (Negative) Urine Nitrite (Negative) Urine Bilirubin (Negative) Urine Urobilinogen (0.2-1.0) Ur Leukocyte Esterase (Negative) Urine RBC (0-5) /hpf Urine WBC (0-5) /hpf Ur Epithelial Cells (0-5) /hpf Urine Bacteria (FEW) /hpf Urine Mucus (FEW) /hpf 01/19/17 01/19/17 Range/Units 06:27 11:45 WBC (4.23-9.07) K/mm3 RBC (4.63-6.08) M/mm3 Hgb (13.7-17.5) gm/L Hct (40.1-51.0) % MCV (79.0-92.2) fl MCH (25.7-32.2) pg MCHC (32.2-35.5) g/dl RDW Std Deviation (35.1-43.9) fL Plt Count (163-337) K/mm3 MPV (9.4-12.3) fl Neut % (Auto) (34.0-67.9) % Lymph % (Auto) (21.8-53.1) % Stokes % (Auto) (5.3-12.2) % Eos % (Auto) (0.8-7.0) Baso % (Auto) (0.1-1.2) % Neut # (Auto) (1.78-5.38) K/mm3 Lymph # (Auto) (1.32-3.57) K/mm3 Stokes # (Auto) (0.30-0.82) K/mm3 Eos # (Auto) (0.04-0.54) K/mm3 Baso # (Auto) (0.01-0.08) K/mm3 PT 26.0 H (8.0-13.0) SECONDS INR 2.26 Sodium (136-145) mEq/L Potassium (3.5-5.1) mEq/L Chloride (98-107) mEq/L Carbon Dioxide (21-32) mEq/L Anion Gap (5-15) BUN (7-18) mg/dL Creatinine (0.7-1.3) mg/dL Est Cr Clr Drug Dosing mL/min Estimated GFR (MDRD) (>60) mL/min BUN/Creatinine Ratio (14-18) Glucose (83-115) mg/dL POC Glucose 163 H (83-110) mg/dL Calcium (8.5-10.1) mg/dL Magnesium (1.8-2.4) mg/dl Urine Color (Yellow) Urine Appearance (Clear) Urine pH (5.0-8.0) Ur Specific [place] (1.005-1.030) Urine Protein (Negative) Urine Glucose (UA) (Negative) Urine Ketones (Negative) Urine Occult Blood (Negative) Urine Nitrite (Negative) Urine Bilirubin (Negative) Urine Urobilinogen (0.2-1.0) Ur Leukocyte Esterase (Negative) Urine RBC (0-5) /hpf Urine WBC (0-5) /hpf Ur Epithelial Cells (0-5) /hpf Urine Bacteria (FEW) /hpf Urine Mucus (FEW) /hpf Med Orders - Current: Current Medications Acetaminophen (Tylenol) 650 mg PO Q4H PRN PRN Reason: Pain (Mild 1-3)/fever Hydrocodone Bitart/Acetaminophen ([place] 325-5 Mg) 1 tab PO Q4H PRN PRN Reason: Pain (moderate 4-6) Last Admin: 01/16/17 00:37 Dose: 1 tab Albuterol/Ipratropium (Duoneb 3.0-0.5 Mg/3 Ml) 3 ml NEB Q4H PRN PRN Reason: Shortness Of Breath/wheezing Bisacodyl (Dulcolax) 5 mg PO DAILY PRN PRN Reason: Constipation Last Admin: 01/18/17 12:56 Dose: 5 mg Bismuth Subsalicylate (Pepto Bismol) 30 ml PO BID PRN PRN Reason: Heartburn Diltiazem HCl (Cardizem Cd) 180 mg PO DAILY [facility] Last Admin: 01/19/17 11:15 Dose: Not Given Docusate Sodium (Colace) 100 mg PO BID PRN PRN Reason: Constipation Last Admin: 01/18/17 12:56 Dose: 100 mg Ferrous Sulfate (Ferrous Sulfate) 325 mg PO BID [facility] Last Admin: 01/19/17 10:15 Dose: 325 mg Fish Oil (Fish Oil) 1 gm PO DAILY [facility] Last Admin: 01/19/17 10:12 Dose: 1 gm Hydromorphone HCl (Dilaudid) 0.25 mg IVPUSH Q4H PRN PRN Reason: Pain (severe 7-10) Promethazine HCl 12.5 mg/ (Sodium Chloride) 50.5 mls @ 100 mls/hr IV Q6H PRN PRN Reason: Nausea/Vomiting Insulin Aspart (Novolog) 0 unit SUBCUT QIDACANDBED [facility] PRN Reason: Protocol Last Admin: 01/19/17 11:53 Dose: 1 unit Insulin Detemir (Levemir) 10 unit SUBCUT BID [facility] Last Admin: 01/19/17 10:25 Dose: 10 units Levothyroxine Sodium (Synthroid) 50 mcg PO ACBREAKFAST [facility] Last Admin: 01/19/17 06:24 Dose: 50 mcg Lorazepam (Ativan) 0.25 mg IV Q6H PRN PRN Reason: Anxiety Lorazepam (Ativan) 2 mg IVPUSH Q4H PRN PRN Reason: Seizures Magnesium Sulfate (Pharmacy To Dose - Magnesium Replacement) 1 dose .XX ASDIRECTED [facility] Metoprolol Succinate (Toprol Xl) 12.5 mg PO DAILY [facility] Last Admin: 01/19/17 11:13 Dose: 12.5 mg Metoprolol Tartrate (Lopressor) 5 mg IVPUSH Q4H PRN PRN Reason: Tachycardia Multivitamins (Thera) 1 each PO DAILY [facility] Last Admin: 01/19/17 10:15 Dose: 1 each Ondansetron HCl (Zofran) 4 mg IV Q6H PRN PRN Reason: Nausea/Vomiting Last Admin: 01/18/17 12:56 Dose: 4 mg Polyethylene Glycol (Miralax) 17 gm PO DAILY PRN PRN Reason: Constipation Potassium Chloride (Pharmacy To Dose - Potassium Replacement) 1 dose .XX ASDIRECTED [facility] Senna/Docusate Sodium (Senna Plus) 1 tab PO BID PRN PRN Reason: Constipation Last Admin: 01/17/17 05:22 Dose: 1 tab Sodium Chloride (Saline Flush) 10 ml FLUSH ASDIRECTED PRN PRN Reason: Keep Vein Open Tamsulosin HCl (Flomax) 0.4 mg PO BID [facility] Last Admin: 01/19/17 10:25 Dose: 0.4 mg Temazepam (Restoril) 7.5 mg PO BEDTIME PRN PRN Reason: Sleep Last Admin: 01/16/17 21:05 Dose: 7.5 mg Vitamin E (Vitamin E) 400 units PO DAILY [facility] Last Admin: 01/19/17 10:12 Dose: 400 units Warfarin Sodium (Pharmacy To Dose - Warfarin) 0 dose .XX ASDIRECTED PRN PRN Reason: RX TO DOSE COUMADIN Discontinued Medications Hydromorphone HCl (Dilaudid) 0.25 mg IVPUSH Q4H PRN PRN Reason: Pain (severe 7-10) Magnesium Sulfate 2 gm/ Premix 50 mls @ 50 mls/hr IV ONETIME ONE Stop: 01/16/17 14:44 Last Admin: 01/16/17 14:28 Dose: 50 mls/hr Magnesium Hydroxide (Milk Of Magnesia) 30 ml PO ONETIME ONE Stop: 01/17/17 20:01 Last Admin: 01/17/17 21:05 Dose: 30 ml Non-Formulary Medication (Hydrocortisone) 30 gm RC Q12H [facility] Last Admin: 01/17/17 00:18 Dose: Not Given Non-Formulary Medication (Insulin Glarg,Human.Rec.Analog) 20 unit SQ BEDTIME [facility] Last Admin: 01/16/17 22:12 Dose: Not Given Non-Formulary Medication ([place]-3/Dha/Epa/Fish Oil [Fish Oil 1,000 Mg Softgel]) 1,000 mg PO DAILY [facility] Last Admin: 01/17/17 08:26 Dose: Not Given Non-Formulary Medication (Vitamin E [Vitamin E]) 400 intnl unit PO DAILY [facility] Last Admin: 01/17/17 08:26 Dose: Not Given Non-FormGummi (Bear Multivitamin) 1 dose PO DAILY [facility] Tamsulosin HCl (Flomax) 0.4 mg PO BEDTIME [facility] Last Admin: 01/16/17 22:12 Dose: Not Given Warfarin Sodium (Coumadin) 5 mg PO DAILY@1800 [facility] Stop: 01/18/17 21:00 Last Admin: 01/18/17 17:11 Dose: 5 mg - Exam Quality Assessment: DVT Prophylaxis General: Alert, Oriented, Cooperative, No Acute Distress HEENT: Pupils Equal, Mucous Membr. Moist/[place] Lungs: Clear to Auscultation, Normal Respiratory Effort Cardiovascular: Irregular Rhythm GI/Abdominal Exam: Normal Bowel Sounds, Soft, Non-Tender (Male) Exam: Deferred Extremities: Normal Inspection Neurological: No New Focal Deficit Psy/Mental Status: Alert, Normal Affect, Normal Mood - Problem List & Annotations (1) Acute kidney injury SNOMED Code(s): 03927983 Code(s): N17.9 - ACUTE KIDNEY FAILURE, UNSPECIFIED Status: Acute Priority : High Current Visit: Yes (2) Atrial fibrillation SNOMED Code(s): 99393651 Code(s): I48.91 - UNSPECIFIED ATRIAL FIBRILLATION Status: Chronic Priority: Medium Current Visit: Yes Qualifiers: Atrial fibrillation type: chronic Qualified Code(s): I48.2 - Chronic atrial fibrillation (3) Bradycardia with 41-50 beats per minute SNOMED Code(s): 68416508 Code(s): R00.1 - BRADYCARDIA, UNSPECIFIED Status: Resolved Priority: High Current Visit: Yes (4) Chronic anemia SNOMED Code(s): 057879508 Code(s): D64.9 - ANEMIA, UNSPECIFIED Status: Chronic Priority: Medium Current Visit: Yes (5) Hypotension SNOMED Code(s): 10789473 Code(s): I95.9 - HYPOTENSION, UNSPECIFIED Status: Resolved Priority: High Current Visit: Yes Qualifiers: Hypotension type: hypotension due to drug Qualified Code(s): I95.2 - Hypotension due to drugs (6) Supratherapeutic INR SNOMED Code(s): 368561167, 377737237 Code(s): R79.1 - ABNORMAL COAGULATION PROFILE Status: Resolved Priority: High Current Visit: Yes (7) Urinary retention with incomplete bladder emptying SNOMED Code(s): 714368327 Code(s): R33.9 - RETENTION OF URINE, UNSPECIFIED Status: Resolved Priority: High Current Visit: Yes (8) Hyperkalemia SNOMED Code(s): 61847076 Code(s): E87.5 - HYPERKALEMIA Status: Resolved Priority: High Current Visit: Yes - Problem List Review Problem List Initiated/Reviewed/Updated: Yes - My Orders Last 24 Hours: My Active Orders 01/18/17 13:30 Metoprolol Succinate [Toprol XL] 12.5 mg PO DAILY Warfarin Pharmacy to Dose [Pharmacy to Dose - Warfarin] 0 dose .XX ASDIRECTED PRN 01/20/17 05:11 BASIC METABOLIC PANEL,BMP [CHEM] AM CBC WITH AUTO DIFF [HEME] AM INR,PT,PROTHROMBIN TIME [COAG] AM 01/21/17 05:11 INR,PT,PROTHROMBIN TIME [COAG] AM 01/22/17 05:11 INR,PT,PROTHROMBIN TIME [COAG] AM 01/23/17 05:11 INR,PT,PROTHROMBIN TIME [COAG] AM 01/24/17 05:11 INR,PT,PROTHROMBIN TIME [COAG] AM 01/25/17 05:11 INR,PT,PROTHROMBIN TIME [COAG] AM - Plan Plan:: Assessment/Plan: Acute: Generalized Weakness, Improved - Multi-factorial as noted above - Continue PT/OT Check CXR and UA yesterday for slight increased WBC and low grade fever; both unremarkable. 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 - Hold off diuretics - May consider gentle hydration - Monitor labs - Avoid nephrotoxic agent if all possible Supratherapeutic INR - INR 4.65 ---> 4.88 ---> 4.66-->2.66-->2.26 - Restart Coumadin with pharmacy to dose Urinary Retention - Acute on Chronic - Has BPH and Urinary Retention - Already on flomax; BID - Dickey has been dc'd and he is voiding on his own - Low grade temp this afternoon, will recheck UA this afternoon Chronic: Atrial Fibrillation, with Slow HR, on Warfarin CAD HTN HLD 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 Likely dc in next 24-48 hours. Code status: 1
[2017-01-19] MEDS: Acetaminophen/HYDROcodone 325-5 MG Tab PO PRN (16:52)
[2017-01-19] MEDS: Temazepam 7.5 MG Cap PO PRN (21:36)
[2017-01-20] MEDS: Levothyroxine 50 MCG Tab PO SCH (06:30)
[2017-01-20] MEDS: Insulin Aspart 100 Units/ML 3 ML Pen SUBCUT SCH (06:30)
--- NOTE | 2017-01-20 06:51 | PCM.DCSUM1 ---
[id number] with past medical history of chronic atrial fibrillation on warfarin, coronary artery disease, hypertension, hyperlipidemia, COPD, history of cardiomyopathy, peptic ulcers disease, BPH, [address], osteoarthritis/ DJD, type 2 diabetes with diabetic neuropathy and iron deficiency anemia who presents to the emergency department with complains of urinary retention. His chief complaint is associated with weakness and dizziness. On presentation to the emergency department, he was found hypotensive and with a heart rate ranging in the 40s to 50s. Patient is known to me from previous multiple admissions. Last time he was here was in September 2016 where in he was admitted for hypotension. His initial workup in the emergency department shows a CBC remarkable for RBC of 3.38, hemoglobin 9.7, HCT of 30.2, neutrophils of 68.6% and lymphocyte of 15.8%. His PT is 55.9 and INR is 4.65. His chemistry is remarkable for sodium of 133, BUN of 30, creatinine of 2.2, glucose of 162, AST of 9, ALT of 12, alkaline phosphatase of 124, and albumin of 2.9. His UA is not suggestive of UTI. Patient received initial treatment in the emergency department before he was sent to the floor for further management. He is full code. Patient was hydrated with IVF, B/P medications, specifically beta luis medications were adjusted. INR was supratherapeutic, coumadin doses held and adjusted. INR was therapeutic at time of discharge. Labs remained essentially stable during his stay. PT/OT recommend rehab stay. He is discharged to SNF today. HR's controlled, B/P stable without further hypotension. He is up ambulatory with assist. He is to follow up with PCP within 5-7 days of discharge. - Discharge Data Discharge Date: 01/20/17 (admit date 01/15/17) Discharge Disposition: DC/Tfer to Other 70 Condition: Good - Discharge Diagnosis/Problem(s) (1) Acute kidney injury SNOMED Code(s): 57761998 ICD Code: N17.9 - ACUTE KIDNEY FAILURE, UNSPECIFIED Status: Acute Priority: High (2) Atrial fibrillation SNOMED Code(s): 95249359 ICD Code: I48.91 - UNSPECIFIED ATRIAL FIBRILLATION Status: Chronic Priority: Medium Qualifiers: Atrial fibrillation type: chronic Qualified Code(s): I48.2 - Chronic atrial fibrillation (3) Bradycardia with 41-50 beats per minute SNOMED Code(s): 41890450 ICD Code: R00.1 - BRADYCARDIA, UNSPECIFIED Status: Resolved Priority: High (4) Chronic anemia SNOMED Code(s): 393665592 ICD Code: D64.9 - ANEMIA, UNSPECIFIED Status: Chronic Priority: Medium (5) Hypotension SNOMED Code(s): 49210535 ICD Code: I95.9 - HYPOTENSION, UNSPECIFIED Status: Resolved Priority: High Qualifiers: Hypotension type: hypotension due to drug Qualified Code(s): I95.2 - Hypotension due to drugs (6) Supratherapeutic INR SNOMED Code(s): 022277612, 636197690 ICD Code: R79.1 - ABNORMAL COAGULATION PROFILE Status: Resolved Priority : High (7) Urinary retention with incomplete bladder emptying SNOMED Code(s): 313416002 ICD Code: R33.9 - RETENTION OF URINE, UNSPECIFIED Status: Resolved Priority: High (8) Hyperkalemia SNOMED Code(s): 45137259 ICD Code: E87.5 - HYPERKALEMIA Status: Resolved Priority: High - Patient Summary/Data Operative Procedure(s) Performed: None Complications: None Consults: Consultations 01/15/17 23:12 Consult to Case Management [CONS] Routine Consult to Entry Level Software Developer [CONS] Routine Consult to Spiritual Care [CONS] Routine OT Evaluation and Treatment [CONS] Routine PT Evaluation and Treatment [CONS] Routine Respiratory Care Assess and Treatment [CONS] Routine Labs Pending at D/C: None Recommended Follow-up Testing/Procedures: Take Daily weight and record in log. Please take to primary provider on clinic visit. B/P checks daily prior to medication administration with parameters for blood pressure medications Follow up with your PCP, Dr. Cervantes within 5-7 days of discharge Push fluids Labs to be done at time of follow up with Doctor- BMP and INR Planned Operative Procedure(s) after DC: None Hospital Course: As above - Patient Instructions Diet: Heart Healthy Diet Activity: As Tolerated Driving: Do Not Drive Showering/Bathing: May Shower Notify Provider of: Fever, Increased Pain, Swelling and Redness, Nausea and/or Vomiting - Discharge Plan Prescriptions/Med Rec: Diltiazem [Cardizem CD] 180 mg PO DAILY #30 cap.cd Docusate Sodium [Colace] 100 mg PO BID PRN #30 cap PRN Reason: Constipation Ferrous Sulfate 325 mg PO BID #60 tablet Metoprolol Succinate [Toprol XL] 12.5 mg PO DAILY #30 tab.er Home Medications: Home Meds Omeprazole 80 mg PO DAILY 02/08/14 [History] Warfarin [Coumadin] 5 mg PO SUTUWETHSA 11/15/14 [History] Warfarin Sodium [Coumadin] 7.5 mg PO MOFR 02/04/16 [History] Gabapentin [Neurontin] 200 mg PO BID 06/21/16 [History] Tamsulosin [Flomax] 0.4 mg PO BEDTIME 06/21/16 [History] Levothyroxine [Synthroid] 50 mcg PO ACBREAKFAST #30 tablet 10/06/16 [Rx] Insulin Glarg,Human.Rec.Analog [Lantus] 20 unit SQ BEDTIME 10/07/16 [History] Banner-3/DHA/Epa/Fish Oil [Fish Oil 1,000 mg Softgel] 1,000 mg PO DAILY 10/07/16 [History] Vitamin E 400 intnl unit PO DAILY 10/07/16 [History] Acetaminophen [Tylenol] 500 mg PO Q6HR PRN 01/15/17 [History] Acetaminophen/oxyCODONE [Percocet 325-5 MG] 1 tab PO Q6HR PRN 01/15/17 [History] L.acidoph,Paracasei, B.lactis [Probiotic] 1 dose PO DAILY 01/15/17 [History] Polyethylene Glycol [Polyox Wsr-301] 17 gram PO DAILY 01/15/17 [History] traMADol [Ultram] 1 tab PO Q6HR PRN 01/15/17 [History] Multivitamin [Gummi Bear Multivitamin] 1 dose PO DAILY 01/16/17 [History] Potassium Chloride [Klor-Con M20] 20 meq PO DAILY 01/16/17 [History] Diltiazem [Cardizem CD] 180 mg PO DAILY #30 cap.cd 01/20/17 [Rx] Docusate Sodium [Colace] 100 mg PO BID PRN #30 cap 01/20/17 [Rx] Ferrous Sulfate 325 mg PO BID #60 tablet 01/20/17 [Rx] Furosemide 40 mg PO DAILY #0 01/20/17 [Rx] Metoprolol Succinate [Toprol XL] 12.5 mg PO DAILY #30 tab.er 01/20/17 [Rx] Patient Handouts: Acute Kidney Injury, Hypotension, [id number], Warfarin: What You Need to Know Forms: ED Department Discharge Referrals: Rosalio Cervantes MD [Primary Care Provider] - - Discharge Summary/Plan Comment DC Time >30 min.: Yes (40 min) - General Info Date of Service: 01/20/17 Admission Dx/Problem (Free Text: Orthostatic Hypotension, Bradycardia and Urinary Retention Patient doing well, seen this morning. Slept well. Denies any complaints of pain or discomfort. Passing urine without problems. good appetite. Up ambulatory with PT doing well. Plans for DC to [place] today. Functional Status: Reports: Pain Controlled, Tolerating Diet, Ambulating, Urinating. Denies: New Symptoms - Review of Systems General: Reports: No Symptoms HEENT: Reports: No Symptoms Pulmonary: Reports: No Symptoms Cardiovascular: Reports: No Symptoms Gastrointestinal: Reports: No Symptoms Genitourinary: Reports: No Symptoms Musculoskeletal: Reports: No Symptoms Skin: Reports: No Symptoms Neurological: Reports: No Symptoms Psychiatric: Reports: No Symptoms - Patient Data Vitals - Most Recent: Last Vital Signs Temp 98.1 F 01/20/17 03:01 Pulse 92 01/20/17 03:01 Resp 14 01/20/17 03:01 BP 140/98 H 01/20/17 03:01 Pulse Ox 100 01/20/17 03:01 Weight - Most Recent: 179 lb 4.8 oz I&O - Last 24 hours: Intake & Output 01/19/17 01/19/17 01/20/17 14:59 22:59 06:59 Intake Total 240 840 200 Output Total 800 300 Balance 240 40 -100 Lab Results - Last 24 hrs: Laboratory Results - last 24 hr 01/19/17 01/19/17 01/19/17 Range/Units 06:27 06:27 06:27 WBC 9.20 H (4.23-9.07) K/mm3 RBC 3.56 L (4.63-6.08) M/mm3 Hgb 10.2 L (13.7-17.5) gm/L Hct 31.6 L (40.1-51.0) % MCV 88.8 (79.0-92.2) fl MCH 28.7 (25.7-32.2) pg MCHC 32.3 (32.2-35.5) g/dl RDW Std Deviation 47.4 H (35.1-43.9) fL Plt Count 302 (163-337) K/mm3 MPV 9.3 L (9.4-12.3) fl Neut % (Auto) 75.4 H (34.0-67.9) % Lymph % (Auto) 10.5 L (21.8-53.1) % [place] % (Auto) 12.4 H (5.3-12.2) % Eos % (Auto) 1.1 (0.8-7.0) Baso % (Auto) 0.3 (0.1-1.2) % Neut # (Auto) 6.93 H (1.78-5.38) K/mm3 Lymph # (Auto) 0.97 L (1.32-3.57) K/mm3 [place] # (Auto) 1.14 H (0.30-0.82) K/mm3 Eos # (Auto) 0.10 (0.04-0.54) K/mm3 Baso # (Auto) 0.03 (0.01-0.08) K/mm3 PT 26.0 H (8.0-13.0) SECONDS INR 2.26 Sodium 133 L (136-145) mEq/L Potassium 5.2 H (3.5-5.1) mEq/L Chloride 100 (98-107) mEq/L Carbon Dioxide 27 (21-32) mEq/L Anion Gap 11.2 (5-15) BUN 18 (7-18) mg/dL Creatinine 1.5 H (0.7-1.3) mg/dL Est Cr Clr Drug Dosing 36.95 mL/min Estimated GFR (MDRD) 44 (>60) mL/min BUN/Creatinine Ratio 12.0 L (14-18) Glucose 135 H (83-115) mg/dL POC Glucose (83-110) mg/dL Calcium 9.7 (8.5-10.1) mg/dL Magnesium 2.4 (1.8-2.4) mg/dl 01/19/17 01/19/17 01/19/17 Range/Units 11:45 16:40 21:38 WBC (4.23-9.07) K/mm3 RBC (4.63-6.08) M/mm3 Hgb (13.7-17.5) gm/L Hct (40.1-51.0) % MCV (79.0-92.2) fl MCH (25.7-32.2) pg MCHC (32.2-35.5) g/dl RDW Std Deviation (35.1-43.9) fL Plt Count (163-337) K/mm3 MPV (9.4-12.3) fl Neut % (Auto) (34.0-67.9) % Lymph % (Auto) (21.8-53.1) % [place] % (Auto) (5.3-12.2) % Eos % (Auto) (0.8-7.0) Baso % (Auto) (0.1-1.2) % Neut # (Auto) (1.78-5.38) K/mm3 Lymph # (Auto) (1.32-3.57) K/mm3 [place] # (Auto) (0.30-0.82) K/mm3 Eos # (Auto) (0.04-0.54) K/mm3 Baso # (Auto) (0.01-0.08) K/mm3 PT (8.0-13.0) SECONDS INR Sodium (136-145) mEq/L Potassium (3.5-5.1) mEq/L Chloride (98-107) mEq/L Carbon Dioxide (21-32) mEq/L Anion Gap (5-15) BUN (7-18) mg/dL Creatinine (0.7-1.3) mg/dL Est Cr Clr Drug Dosing mL/min Estimated GFR (MDRD) (>60) mL/min BUN/Creatinine Ratio (14-18) Glucose (83-115) mg/dL POC Glucose 163 H 92 138 H (83-110) mg/dL Calcium (8.5-10.1) mg/dL Magnesium (1.8-2.4) mg/dl 01/20/17 01/20/17 01/20/17 Range/Units 05:25 05:25 05:25 WBC 8.07 (4.23-9.07) K/mm3 RBC 3.80 L (4.63-6.08) M/mm3 Hgb 10.8 L (13.7-17.5) gm/L Hct 33.7 L (40.1-51.0) % MCV 88.7 (79.0-92.2) fl MCH 28.4 (25.7-32.2) pg MCHC 32.0 L (32.2-35.5) g/dl RDW Std Deviation 47.2 H (35.1-43.9) fL Plt Count 327 (163-337) K/mm3 MPV 9.2 L (9.4-12.3) fl Neut % (Auto) 74.0 H (34.0-67.9) % Lymph % (Auto) 10.9 L (21.8-53.1) % [place] % (Auto) 12.6 H (5.3-12.2) % Eos % (Auto) 1.9 (0.8-7.0) Baso % (Auto) 0.4 (0.1-1.2) % Neut # (Auto) 5.97 H (1.78-5.38) K/mm3 Lymph # (Auto) 0.88 L (1.32-3.57) K/mm3 [place] # (Auto) 1.02 H (0.30-0.82) K/mm3 Eos # (Auto) 0.15 (0.04-0.54) K/mm3 Baso # (Auto) 0.03 (0.01-0.08) K/mm3 PT 23.9 H (8.0-13.0) SECONDS INR 2.09 Sodium 135 L (136-145) mEq/L Potassium 5.0 (3.5-5.1) mEq/L Chloride 100 (98-107) mEq/L Carbon Dioxide 25 (21-32) mEq/L Anion Gap 15.0 (5-15) BUN 22 H (7-18) mg/dL Creatinine 1.4 H (0.7-1.3) mg/dL Est Cr Clr Drug Dosing 39.59 mL/min Estimated GFR (MDRD) 48 (>60) mL/min BUN/Creatinine Ratio 15.7 (14-18) Glucose 126 H (83-115) mg/dL POC Glucose (83-110) mg/dL Calcium 9.3 (8.5-10.1) mg/dL Magnesium (1.8-2.4) mg/dl 01/20/17 Range/Units 06:06 WBC (4.23-9.07) K/mm3 RBC (4.63-6.08) M/mm3 Hgb (13.7-17.5) gm/L Hct (40.1-51.0) % MCV (79.0-92.2) fl MCH (25.7-32.2) pg MCHC (32.2-35.5) g/dl RDW Std Deviation (35.1-43.9) fL Plt Count (163-337) K/mm3 MPV (9.4-12.3) fl Neut % (Auto) (34.0-67.9) % Lymph % (Auto) (21.8-53.1) % [place] % (Auto) (5.3-12.2) % Eos % (Auto) (0.8-7.0) Baso % (Auto) (0.1-1.2) % Neut # (Auto) (1.78-5.38) K/mm3 Lymph # (Auto) (1.32-3.57) K/mm3 [place] # (Auto) (0.30-0.82) K/mm3 Eos # (Auto) (0.04-0.54) K/mm3 Baso # (Auto) (0.01-0.08) K/mm3 PT (8.0-13.0) SECONDS INR Sodium (136-145) mEq/L Potassium (3.5-5.1) mEq/L Chloride (98-107) mEq/L Carbon Dioxide (21-32) mEq/L Anion Gap (5-15) BUN (7-18) mg/dL Creatinine (0.7-1.3) mg/dL Est Cr Clr Drug Dosing mL/min Estimated GFR (MDRD) (>60) mL/min BUN/Creatinine Ratio (14-18) Glucose (83-115) mg/dL POC Glucose 125 H (83-110) mg/dL Calcium (8.5-10.1) mg/dL Magnesium (1.8-2.4) mg/dl Med Orders - Current: Current Medications Acetaminophen (Tylenol) 650 mg PO Q4H PRN PRN Reason: Pain (Mild 1-3)/fever Hydrocodone Bitart/Acetaminophen ([place] 325-5 Mg) 1 tab PO Q4H PRN PRN Reason: Pain (moderate 4-6) Last Admin: 01/19/17 16:52 Dose: 1 tab Albuterol/Ipratropium (Duoneb 3.0-0.5 Mg/3 Ml) 3 ml NEB Q4H PRN PRN Reason: Shortness Of Breath/wheezing Bisacodyl (Dulcolax) 5 mg PO DAILY PRN PRN Reason: Constipation Last Admin: 01/18/17 12:56 Dose: 5 mg Bismuth Subsalicylate (Pepto Bismol) 30 ml PO BID PRN PRN Reason: Heartburn Diltiazem HCl (Cardizem Cd) 180 mg PO DAILY [facility] Last Admin: 01/19/17 11:15 Dose: Not Given Docusate Sodium (Colace) 100 mg PO BID PRN PRN Reason: Constipation Last Admin: 01/18/17 12:56 Dose: 100 mg Ferrous Sulfate (Ferrous Sulfate) 325 mg PO BID [facility] Last Admin: 01/19/17 21:36 Dose: 325 mg Fish Oil (Fish Oil) 1 gm PO DAILY [facility] Last Admin: 01/19/17 10:12 Dose: 1 gm Hydromorphone HCl (Dilaudid) 0.25 mg IVPUSH Q4H PRN PRN Reason: Pain (severe 7-10) Promethazine HCl 12.5 mg/ (Sodium Chloride) 50.5 mls @ 100 mls/hr IV Q6H PRN PRN Reason: Nausea/Vomiting Insulin Aspart (Novolog) 0 unit SUBCUT QIDACANDBED [facility] PRN Reason: Protocol Last Admin: 01/20/17 06:30 Dose: Not Given Insulin Detemir (Levemir) 10 unit SUBCUT BID [facility] Last Admin: 01/19/17 21:38 Dose: 10 units Levothyroxine Sodium (Synthroid) 50 mcg PO ACBREAKFAST [facility] Last Admin: 01/20/17 06:30 Dose: 50 mcg Lorazepam (Ativan) 0.25 mg IV Q6H PRN PRN Reason: Anxiety Lorazepam (Ativan) 2 mg IVPUSH Q4H PRN PRN Reason: Seizures Magnesium Sulfate (Pharmacy To Dose - Magnesium Replacement) 1 dose .XX ASDIRECTED [facility] Metoprolol Succinate (Toprol Xl) 12.5 mg PO DAILY [facility] Last Admin: 01/19/17 11:13 Dose: 12.5 mg Metoprolol Tartrate (Lopressor) 5 mg IVPUSH Q4H PRN PRN Reason: Tachycardia Multivitamins (Thera) 1 each PO DAILY [facility] Last Admin: 01/19/17 10:15 Dose: 1 each Ondansetron HCl (Zofran) 4 mg IV Q6H PRN PRN Reason: Nausea/Vomiting Last Admin: 01/18/17 12:56 Dose: 4 mg Polyethylene Glycol (Miralax) 17 gm PO DAILY PRN PRN Reason: Constipation Potassium Chloride (Pharmacy To Dose - Potassium Replacement) 1 dose .XX ASDIRECTED [facility] Senna/Docusate Sodium (Senna Plus) 1 tab PO BID PRN PRN Reason: Constipation Last Admin: 01/17/17 05:22 Dose: 1 tab Sodium Chloride (Saline Flush) 10 ml FLUSH ASDIRECTED PRN PRN Reason: Keep Vein Open Tamsulosin HCl (Flomax) 0.4 mg PO BID [facility] Last Admin: 01/19/17 21:36 Dose: 0.4 mg Temazepam (Restoril) 7.5 mg PO BEDTIME PRN PRN Reason: Sleep Last Admin: 01/19/17 21:36 Dose: 7.5 mg Vitamin E (Vitamin E) 400 units PO DAILY [facility] Last Admin: 01/19/17 10:12 Dose: 400 units Warfarin Sodium (Pharmacy To Dose - Warfarin) 0 dose .XX ASDIRECTED PRN PRN Reason: RX TO DOSE COUMADIN Discontinued Medications Hydromorphone HCl (Dilaudid) 0.25 mg IVPUSH Q4H PRN PRN Reason: Pain (severe 7-10) Magnesium Sulfate 2 gm/ Premix 50 mls @ 50 mls/hr IV ONETIME ONE Stop: 01/16/17 14:44 Last Admin: 01/16/17 14:28 Dose: 50 mls/hr Magnesium Hydroxide (Milk Of Magnesia) 30 ml PO ONETIME ONE Stop: 01/17/17 20:01 Last Admin: 01/17/17 21:05 Dose: 30 ml Non-Formulary Medication (Hydrocortisone) 30 gm RC Q12H [facility] Last Admin: 01/17/17 00:18 Dose: Not Given Non-Formulary Medication (Insulin Glarg,Human.Rec.Analog) 20 unit SQ BEDTIME [facility] Last Admin: 01/16/17 22:12 Dose: Not Given Non-Formulary Medication (Banner-3/Dha/Epa/Fish Oil [Fish Oil 1,000 Mg Softgel]) 1,000 mg PO DAILY [facility] Last Admin: 01/17/17 08:26 Dose: Not Given Non-Formulary Medication (Vitamin E [Vitamin E]) 400 intnl unit PO DAILY [facility] Last Admin: 01/17/17 08:26 Dose: Not Given Non-FormGummi (Bear Multivitamin) 1 dose PO DAILY [facility] Tamsulosin HCl (Flomax) 0.4 mg PO BEDTIME [facility] Last Admin: 01/16/17 22:12 Dose: Not Given Warfarin Sodium (Coumadin) 5 mg PO DAILY@1800 [facility] Stop: 01/18/17 21:00 Last Admin: 01/18/17 17:11 Dose: 5 mg - Exam Quality Assessment: Reports: DVT Prophylaxis General: Reports: Alert, Oriented, Cooperative, No Acute Distress, Other ([place]) HEENT: Reports: Pupils Equal, EOMI, Mucous Membr. Moist/[place] Neck: Reports: Supple Lungs: Reports: Clear to Auscultation, Normal Respiratory Effort Cardiovascular: Reports: Irregular Rhythm GI/Abdominal Exam: Normal Bowel Sounds, Soft, Non-Tender (Male) Exam: Deferred Rectal (Males) Exam: Deferred Extremities: Pedal Edema (trace to ankles/pedal; venous infufficiency changes to LE noted) Neurological: Reports: No New Focal Deficit Psy/Mental Status: Reports: Alert, Normal Affect, Normal Mood *Q Meaningful Use (DIS) - VTE *Q VTE Criteria *Q: - Stroke *Q Stroke Criteria *Q: - AMI *Q AMI Criteria *Q:
[2017-01-20] MEDS: Fish Oil/Omega-3 Fatty Acids 1 Gm Cap PO SCH (08:28)
[2017-01-20] MEDS: Diltiazem 180 MG Cap.CD PO SCH (08:28)
[2017-01-20] MEDS: Vitamin E (dl-alpha-tocopherol acetate) 400 Unit Cap PO SCH (08:28)
[2017-01-20] MEDS: Multivitamins,Therapeutic Tab PO SCH (08:28)
[2017-01-20] MEDS: Tamsulosin 0.4 MG Cap.ER PO SCH (08:28)
[2017-01-20] MEDS: Ferrous Sulfate 325 MG Tab PO SCH (08:28)
[2017-01-20] MEDS: Insulin Detemir 100 Units/ML 3 ML Pen SUBCUT SCH (08:29)
[2017-01-20] MEDS: Metoprolol Succinate 25 MG Tab.ER PO SCH (08:30)
[2017-01-20 08:34] VITALS: BP 123/78
[2017-01-20] MEDS ORDERED: Warfarin 3 MG Tab PO ONE (10:00)
== END 2017-01-20 10:10 | disposition home or self-care (01) | DRG 683 ==
LOC: JD.ED 21:09 → UNDOADMIN 22:57 → JD.MS 22:57 → UNDODISIN 01-20 10:10
PROVIDERS: ADMIT Internal Medicine; ATTEND Internal Medicine
PROC: 0T2BX0Z Change Drainage Device in Bladder, External Approach (ICD-10-PCS; principal; 2017-01-15)
DX: N17.9 Acute kidney failure, unspecified (principal); R33.8 Other retention of urine; I42.9 Cardiomyopathy, unspecified; I48.2 Chronic atrial fibrillation; R00.1 Bradycardia, unspecified; D64.9 Anemia, unspecified; I95.2 Hypotension due to drugs; R79.1 Abnormal coagulation profile; R33.9 Retention of urine, unspecified; I48.91 Unspecified atrial fibrillation; N40.1 Benign prostatic hyperplasia with lower urinary tract symptoms; E78.00 Pure hypercholesterolemia, unspecified; E87.5 Hyperkalemia; K21.9 Gastro-esophageal reflux disease without esophagitis; R53.1 Weakness; N18.9 Chronic kidney disease, unspecified; R42 Dizziness and giddiness; F32.9 Major depressive disorder, single episode, unspecified; I25.10 Atherosclerotic heart disease of native coronary artery without angina pectoris; N18.3 Chronic kidney disease, stage 3 (moderate); I12.9 Hypertensive chronic kidney disease with stage 1 through stage 4 chronic kidney disease, or unspecified chronic kidney disease; E78.5 Hyperlipidemia, unspecified; J44.9 Chronic obstructive pulmonary disease, unspecified; E11.40 Type 2 diabetes mellitus with diabetic neuropathy, unspecified; Z79.899 Other long term (current) drug therapy; Z79.01 Long term (current) use of anticoagulants; Z87.891 Personal history of nicotine dependence
CPT/HCPCS: 36415; 51702; 51798; 71020; 71020-26; 80048; 80053; 81001; 82962; 83690; 83735; 84484; 85025; 85610; 87641; 93005; 97112-GP; 97116-GP; 97162-GP; 97165-GO; 99285; 99285-25; A9270-GY; J1815-GY; J2405; J3475

== ENCOUNTER 2017-02-11 21:49 | Emergency (ER) | payer MEDICARE, BC ==
[2017-02-11 22:05] VITALS: BP 140/75
--- NOTE | 2017-02-11 23:34 | EDM.PDOC ---
ED HPI GENERAL MEDICAL PROBLEM - General Chief Complaint: Flank Pain Stated Complaint: LOWER CHEST PAIN Time Seen by Provider: 02/11/17 21:51 Source of Information: Reports: Patient History Limitations: Reports: No Limitations - History of Present Illness INITIAL COMMENTS - FREE TEXT/NARRATIVE: This is an 86-year-old male. Around 6 PM this evening after supper he had onset of left flank pain going into the left lower quadrant. He has no history of kidney stones and no history of diverticulitis. The stone he states is pretty severe but he had no nausea and vomiting and no diaphoresis. He denies any recent urinary tract type symptoms. He lives at [facility] and he comes by ambulance to the ER. He denies any fever or chills. He denies any diarrhea. The left flank pain has gotten better since it occurred but it is still there. Denies any right-sided back pain or abdominal pain. Treatments POOL HAND: Reports: Acetaminophen Left Flank Pain Score (Numeric/FACES): 7 - Related Data Allergies Allergy/AdvReac Type Severity Reaction Status Date / Time No Known Allergies Allergy Verified 01/15/17 21:10 Home Meds: Home Meds Omeprazole 80 mg PO DAILY 02/08/14 [History] Warfarin [Coumadin] 5 mg PO SUTUWETHSA 11/15/14 [History] Gabapentin [Neurontin] 200 mg PO BID 06/21/16 [History] Tamsulosin [Flomax] 0.4 mg PO BEDTIME 06/21/16 [History] Levothyroxine [Synthroid] 50 mcg PO ACBREAKFAST #30 tablet 10/06/16 [Rx] Insulin Glarg,Human.Rec.Analog [Lantus] 20 unit SQ BEDTIME 10/07/16 [History] [place]-3/DHA/Epa/Fish Oil [Fish Oil 1,000 mg Softgel] 1,000 mg PO DAILY 10/07/16 [History] Vitamin E 400 intnl unit PO DAILY 10/07/16 [History] Acetaminophen [Tylenol] 500 mg PO Q6HR PRN 01/15/17 [History] L.acidoph,Paracasei, B.lactis [Probiotic] 1 dose PO DAILY 01/15/17 [History] Polyethylene Glycol [Polyox Wsr-301] 17 gram PO DAILY 01/15/17 [History] traMADol [Ultram] 1 tab PO Q6HR PRN 01/15/17 [History] Multivitamin [Gummi Bear Multivitamin] 1 dose PO DAILY 01/16/17 [History] Potassium Chloride [Klor-Con M20] 20 meq PO DAILY 01/16/17 [History] Diltiazem [Cardizem CD] 180 mg PO DAILY #30 cap.cd 01/20/17 [Rx] Docusate Sodium [Colace] 100 mg PO BID PRN #30 cap 01/20/17 [Rx] Ferrous Sulfate 325 mg PO BID #60 tablet 01/20/17 [Rx] Furosemide 40 mg PO DAILY #0 01/20/17 [Rx] Metoprolol Succinate [Toprol XL] 12.5 mg PO DAILY #30 tab.er 01/20/17 [Rx] Warfarin [Coumadin] 2.5 mg PO DAILY 02/11/17 [History] Past Medical History HEENT History: Reports: Hard of Hearing, Impaired Vision Other HEENT History: wears eyeglasses Cardiovascular History: Reports: Afib, CAD, Cardiomyopathy, Heart Failure, High Cholesterol, Hypertension Respiratory History: Reports: COPD Gastrointestinal History: Reports: Gastritis, GERD, Hemorrhoids, PUD Other Gastrointestinal History: ulcer Genitourinary History: Reports: Acute Renal Failure, BPH, Retention, Urinary Musculoskeletal History: Reports: Osteoarthritis Neurological History: Reports: Neuropathy, Diabetic Psychiatric History: Reports: Addiction, Depression Other Psychiatric History: states feels depressed "when I get sick like this." State "the only thing, I'd like to get well, this pain" is making pt feel depressed. Endocrine/Metabolic History: Reports: Diabetes, Type II, Hypothyroidism Hematologic History: Reports: Anemia, Blood Transfusion(s) Dermatologic History: Reports: Other (See Below) Other Dermatologic History: "blisters removed on nose" - Infectious Disease History Infectious Disease History: Reports: Chicken Pox, Influenza - Past Surgical History Dermatological Surgical History: Reports: Skin Biopsy Social & Family History - Family History Family Medical History: Noncontributory HEENT: Reports: Cataract, Macular Degeneration Cardiac: Reports: Hypertension : Reports: Diabetic Nephropathy Musculoskeletal: Reports: Arthritis Neurological: Reports: Alzheimers Disease, Dementia, Parkinson's, Vertigo Endocrine/Metabolic: Reports: Diabetes, type II Dermatologic: Reports: Psoriasis Oncologic: Reports: Leukemia, Prostate, Other (See Below) Other Oncologic Family History: stomach - Tobacco Use Smoking Status *Q: Former Smoker Years of Tobacco use: 40 Packs/Tins Daily: 1 Used Tobacco, but Quit: Yes Month Tobacco Last Used: 4 Second Hand Smoke Exposure: No - Caffeine Use Caffeine Use: Reports: Soda Caffeine Use Comment: every other day - Alcohol Use Days Per Week of Alcohol Use: 0 Number of Drinks Per Day: 1 Total Drinks Per Week: 0 - Recreational Drug Use Recreational Drug Use: No - Living Situation & Occupation Living situation: Reports: Single, Assisted Living Occupation: Retired ED ROS GENERAL - Review of Systems Review Of Systems: See Below Constitutional: Denies: Fever, Chills HEENT: Reports: No Symptoms Respiratory: Reports: No Symptoms Cardiovascular: Reports: No Symptoms Endocrine: Reports: No Symptoms GI/Abdominal: Reports: Abdominal Pain, Other (As per history of present illness) . Denies: Diarrhea, Nausea, Vomiting : Reports: Flank Pain. Denies: Dysuria Musculoskeletal: Reports: No Symptoms Skin: Reports: No Symptoms Neurological: Reports: No Symptoms Psychiatric: Reports: No Symptoms Hematologic/Lymphatic: Reports: No Symptoms ED EXAM,LOWER BACK PAIN/INJURY - Physical Exam Exam: See Below Exam Limited By: No Limitations General Appearance: Alert, WD/WN, No Apparent Distress Eye Exam: Bilateral Eye: Normal Inspection Ears: Normal External Exam Nose: Normal Inspection Throat/Mouth: Normal Inspection, Normal Lips, Normal Voice Head: Atraumatic, Normocephalic Neck: Supple Respiratory/Chest: No Respiratory Distress, Lungs Clear, Normal Breath Sounds Cardiovascular: Regular Rate, Rhythm, No Murmur GI/Abdominal: Soft, Other (He has some mild soreness the left lower quadrant on palpation but he is no guarding and no distention no rigidity or rebound, his left flank is also somewhat tender but seems to be more muscle related not rib related though I cannot reproduce his pain exactly with palpation) Back Exam: Other (As above) Extremities: Normal Inspection Neurological: Alert, Normal Mood/Affect Psychiatric: Normal Affect, Normal Mood Skin Exam: Warm, Dry Course - Vital Signs Last Recorded V/S: Last Vital Signs Temp 97.8 F 02/11/17 22:04 Pulse 91 02/11/17 22:04 Resp 18 02/11/17 22:04 BP 140/75 02/11/17 22:04 Pulse Ox 98 02/11/17 22:04 - Orders/Labs/Meds Orders: Active Orders 24 hr Category Date Time Status Dickey Catheter Insertion [Insert Urinary Catheter] [OM. Care 02/12/17 00:10 Ordered PC] Q24H Urinary Catheter Assessment [RC] ASDIRECTED Care 02/12/17 00:19 Active Abdomen Pelvis wo Cont [CT] Stat Exams 02/11/17 23:06 Taken UA W/MICROSCOPIC [URIN] Stat Lab 02/11/17 23:05 Ordered Labs: Laboratory Tests 02/11/17 02/11/17 Range/Units 23:30 23:30 WBC 6.12 (4.23-9.07) K/mm3 RBC 3.35 L (4.63-6.08) M/mm3 Hgb 9.8 L (13.7-17.5) gm/L Hct 29.9 L (40.1-51.0) % MCV 89.3 (79.0-92.2) fl MCH 29.3 (25.7-32.2) pg MCHC 32.8 (32.2-35.5) g/dl RDW Std Deviation 51.2 H (35.1-43.9) fL Plt Count 213 (163-337) K/mm3 MPV 9.4 (9.4-12.3) fl Neut % (Auto) 67.3 (34.0-67.9) % Lymph % (Auto) 16.8 L (21.8-53.1) % [place] % (Auto) 12.1 (5.3-12.2) % Eos % (Auto) 2.8 (0.8-7.0) Baso % (Auto) 0.7 (0.1-1.2) % Neut # (Auto) 4.12 (1.78-5.38) K/mm3 Lymph # (Auto) 1.03 L (1.32-3.57) K/mm3 [place] # (Auto) 0.74 (0.30-0.82) K/mm3 Eos # (Auto) 0.17 (0.04-0.54) K/mm3 Baso # (Auto) 0.04 (0.01-0.08) K/mm3 Sodium 137 (136-145) mEq/L Potassium 4.3 (3.5-5.1) mEq/L Chloride 102 (98-107) mEq/L Carbon Dioxide 27 (21-32) mEq/L Anion Gap 12.3 (5-15) BUN 22 H (7-18) mg/dL Creatinine 1.2 (0.7-1.3) mg/dL Est Cr Clr Drug Dosing 46.19 mL/min Estimated GFR (MDRD) 57 (>60) mL/min BUN/Creatinine Ratio 18.3 H (14-18) Glucose 140 H (83-115) mg/dL Calcium 8.9 (8.5-10.1) mg/dL Total Bilirubin 0.6 (0.2-1.0) mg/dL AST 15 (15-37) U/L ALT 18 (16-63) U/L Alkaline Phosphatase 104 (46-116) U/L Total Protein 6.3 L (6.4-8.2) g/dl Albumin 2.7 L (3.4-5.0) g/dl Globulin 3.6 gm/dL Albumin/Globulin Ratio 0.8 L (1-2) - Radiology Interpretation Free Text/Narrative:: CT scan of the abdomen and pelvis shows prostate cancer metastasized to the extra peritoneal lymph nodes and a probable cirrhotic liver. - Re-Assessments/Exams Free Text/Narrative Re-Assessment/Exam: 02/12/17 01:07 I spoke to the patient regarding his prostate because he does appear to have a TURP in the past but he doesn't remember. I told him that his prostate was enlarged thyroid did not say the cancer word to him. We did put a Dickey catheter and got just over 1000 mL of urine and his right flank pain has resolved. I will leave the Dickey catheter in and send him back to [facility]. He is to follow-up with Dr. Cervantes this coming week for his Dickey catheter possible removal as well as evaluation and consideration of his prostate cancer that metastasized. 02/12/17 01:09 Departure - Departure Time of Disposition: 01:08 Disposition: Home, Self-Care 01 Condition: Fair Clinical Impression: Acute urinary retention, Prostate cancer metastatic to intraabdominal lymph node - Discharge Information Referrals: Rosalio Cervantes MD [Primary Care Provider] - Forms: ED Department Discharge Additional Instructions: Return to [facility], Please continue with Dickey catheter care, make an appointment for him to see Dr. Cervantes this coming week regarding his Dickey catheter care as well as his newly diagnosed prostate cancer with lymph node involvement, return to the ER as needed - My Orders Last 24 Hours: My Active Orders 02/11/17 23:05 UA W/MICROSCOPIC [URIN] Stat 02/11/17 23:06 Abdomen Pelvis wo Cont [CT] Stat 02/12/17 00:10 Dickey Catheter Insertion [Insert Urinary Catheter] [OM.PC] Q24H 02/12/17 00:19 Urinary Catheter Assessment [RC] ASDIRECTED - Assessment/Plan Last 24 Hours: My Active Orders 02/11/17 23:05 UA W/MICROSCOPIC [URIN] Stat 02/11/17 23:06 Abdomen Pelvis wo Cont [CT] Stat 02/12/17 00:10 Dickey Catheter Insertion [Insert Urinary Catheter] [OM.PC] Q24H 02/12/17 00:19 Urinary Catheter Assessment [RC] ASDIRECTED
--- NOTE | 2017-02-14 17:57 | CT ---
CT abdomen and pelvis Technique: Multiple axial sections from above the dome of the diaphragm inferiorly through the pubic symphysis were obtained. Intravenous and oral contrast was not utilized. Comparison: Previous CT abdomen and pelvis exam of 02/14/14. Findings: Prominent retroperitoneal adenopathy is seen which is an interval change from prior study. Adenopathy continues along the right iliac chain within the pelvis. Prostate gland is markedly enlarged which also is an interval change from prior exam. Bladder is moderately dilated. Visualized lung bases show mild interstitial fibrosis and scarring. Liver is slightly small in size possibly due to cirrhosis. Spleen size is normal. Adrenal glands show no nodule. Aorta shows atherosclerotic change without aneurysmal dilatation. Gallbladder shows no calcified gallstones. Cyst is identified within the right kidney measuring about 3.3 cm. Exophytic cyst noted off the left kidney measuring 6.9 cm. No renal calculi are seen. No ureteral dilatation is seen. Pancreas appears within normal limits. No mesenteric abnormalities are seen. There is a slightly prominent lymph node being seen next to the left side of the bladder measuring 1.7 cm. Additional lymph node is noted within the upper left groin or adjacent lower anterior pelvis measuring 1.6 cm. Bone window settings were reviewed which show scattered degenerative change throughout the spine. Osteopenia is also present within the osseous structures. Impression: 1. Bulky retroperitoneal adenopathy with adenopathy continuing along the right iliac chain. Very enlarged prostate gland. These findings are an interval change from prior study. Several additional lymph nodes are seen within the left pelvis. Findings are likely due to worsening prostate carcinoma with metastasis. 2. Moderately dilated bladder compatible with an element of bladder outlet obstruction. 3. Cysts within both kidneys. 4. Several lymph nodes are seen within the left lower pelvis. 5. Probable cirrhosis and other stable findings as noted above. Diagnostic code #9 I agree with preliminary report issued by [employer] ([employer] preliminary report dictated on 02/12/17, 1:20 AM Central Time)
== END 2017-02-12 01:25 | disposition home or self-care (01) ==
LOC: JD.ED 21:49
DX: C61 Malignant neoplasm of prostate (principal); C77.2 Secondary and unspecified malignant neoplasm of intra-abdominal lymph nodes; R33.8 Other retention of urine; I11.0 Hypertensive heart disease with heart failure; I50.9 Heart failure, unspecified; I25.10 Atherosclerotic heart disease of native coronary artery without angina pectoris; E78.00 Pure hypercholesterolemia, unspecified; J44.9 Chronic obstructive pulmonary disease, unspecified; K21.9 Gastro-esophageal reflux disease without esophagitis; F32.9 Major depressive disorder, single episode, unspecified; E11.40 Type 2 diabetes mellitus with diabetic neuropathy, unspecified; E03.9 Hypothyroidism, unspecified; Z86.2 Personal history of diseases of the blood and blood-forming organs and certain disorders involving the immune mechanism; Z87.891 Personal history of nicotine dependence; Z79.899 Other long term (current) drug therapy; Z79.01 Long term (current) use of anticoagulants; Z79.4 Long term (current) use of insulin
CPT/HCPCS: 36415; 51702; 74176; 74176-26; 80053; 85025; 99284; 99284-25

== ENCOUNTER 2017-02-26 22:45 | Emergency (ER) | payer MEDICARE, BC ==
[2017-02-26 22:54] VITALS: BP 116/70
--- NOTE | 2017-02-26 23:03 | EDM.PDOC ---
ED HPI GENERAL MEDICAL PROBLEM - General Chief Complaint: Abdominal Pain Stated Complaint: LOWER ABDOMINAL PAIN Time Seen by Provider: 02/26/17 22:55 - History of Present Illness INITIAL COMMENTS - FREE TEXT/NARRATIVE: 86-year-old male presents emergency room with abdominal pain. Patient states the pain started late this afternoon he describes it as lower abdominal. He is not associated with any nausea or vomiting. He is not having any difficulty voiding. He is stooling every day but his stools are hard. Patient denies any fevers chills. Patient has not had any significant dietary changes no recent medication changes. Lower Abdomen Pain Score (Numeric/FACES): 6 - Related Data Allergies Allergy/AdvReac Type Severity Reaction Status Date / Time No Known Allergies Allergy Verified 01/15/17 21:10 Home Meds: Home Meds Omeprazole 80 mg PO DAILY 02/08/14 [History] Warfarin [Coumadin] 5 mg PO SUTUWETHSA 11/15/14 [History] Gabapentin [Neurontin] 200 mg PO BID 06/21/16 [History] Tamsulosin [Flomax] 0.4 mg PO BEDTIME 06/21/16 [History] Levothyroxine [Synthroid] 50 mcg PO ACBREAKFAST #30 tablet 10/06/16 [Rx] Insulin Glarg,Human.Rec.Analog [Lantus] 20 unit SQ BEDTIME 10/07/16 [History] [place]-3/DHA/Epa/Fish Oil [Fish Oil 1,000 mg Softgel] 1,000 mg PO DAILY 10/07/16 [History] Vitamin E 400 intnl unit PO DAILY 10/07/16 [History] Acetaminophen [Tylenol] 500 mg PO Q6HR PRN 01/15/17 [History] L.acidoph,Paracasei, B.lactis [Probiotic] 1 dose PO DAILY 01/15/17 [History] Polyethylene Glycol [Polyox Wsr-301] 17 gram PO DAILY 01/15/17 [History] traMADol [Ultram] 1 tab PO Q6HR PRN 01/15/17 [History] Multivitamin [Gummi Bear Multivitamin] 1 dose PO DAILY 01/16/17 [History] Potassium Chloride [Klor-Con M20] 20 meq PO DAILY 01/16/17 [History] Diltiazem [Cardizem CD] 180 mg PO DAILY #30 cap.cd 01/20/17 [Rx] Docusate Sodium [Colace] 100 mg PO BID PRN #30 cap 01/20/17 [Rx] Ferrous Sulfate 325 mg PO BID #60 tablet 01/20/17 [Rx] Furosemide 40 mg PO DAILY #0 01/20/17 [Rx] Metoprolol Succinate [Toprol XL] 12.5 mg PO DAILY #30 tab.er 01/20/17 [Rx] Warfarin [Coumadin] 2.5 mg PO MOFR 02/11/17 [History] Bisacodyl [Dulcolax] 5 mg PO DAILY 02/26/17 [History] Hydrocortisone [Anusol-HC] 1 dose TOP BID PRN 02/26/17 [History] Ipratropium/Albuterol Sulfate [Iprat-Albut 0.5-3(2.5) MG/3 ML] 1 ampule INH Q4H PRN 02/26/17 [History] Past Medical History HEENT History: Reports: Hard of Hearing, Impaired Vision Other HEENT History: wears eyeglasses Cardiovascular History: Reports: Afib, CAD, Cardiomyopathy, Heart Failure, High Cholesterol, Hypertension Respiratory History: Reports: COPD Gastrointestinal History: Reports: Gastritis, GERD, Hemorrhoids, PUD Other Gastrointestinal History: ulcer Genitourinary History: Reports: Acute Renal Failure, BPH, Retention, Urinary Musculoskeletal History: Reports: Osteoarthritis Neurological History: Reports: Neuropathy, Diabetic Psychiatric History: Reports: Addiction, Depression Other Psychiatric History: states feels depressed "when I get sick like this." State "the only thing, I'd like to get well, this pain" is making pt feel depressed. Endocrine/Metabolic History: Reports: Diabetes, Type II, Hypothyroidism Hematologic History: Reports: Anemia, Blood Transfusion(s) Dermatologic History: Reports: Other (See Below) Other Dermatologic History: "blisters removed on nose" - Infectious Disease History Infectious Disease History: Reports: Chicken Pox, Influenza - Past Surgical History Dermatological Surgical History: Reports: Skin Biopsy Social & Family History - Family History Family Medical History: Noncontributory HEENT: Reports: Cataract, Macular Degeneration Cardiac: Reports: Hypertension : Reports: Diabetic Nephropathy Musculoskeletal: Reports: Arthritis Neurological: Reports: Alzheimers Disease, Dementia, Parkinson's, Vertigo Endocrine/Metabolic: Reports: Diabetes, type II Dermatologic: Reports: Psoriasis Oncologic: Reports: Leukemia, Prostate, Other (See Below) Other Oncologic Family History: stomach - Tobacco Use Smoking Status *Q: Former Smoker Years of Tobacco use: 40 Packs/Tins Daily: 1 Used Tobacco, but Quit: Yes Month Tobacco Last Used: 4 Second Hand Smoke Exposure: No - Caffeine Use Caffeine Use: Reports: Soda Caffeine Use Comment: every other day - Alcohol Use Days Per Week of Alcohol Use: 0 Number of Drinks Per Day: 1 Total Drinks Per Week: 0 - Recreational Drug Use Recreational Drug Use: No - Living Situation & Occupation Living situation: Reports: Single, Assisted Living Occupation: Retired ED ROS GENERAL - Review of Systems Review Of Systems: See Below Constitutional: Reports: No Symptoms HEENT: Reports: No Symptoms Respiratory: Reports: No Symptoms Cardiovascular: Reports: No Symptoms GI/Abdominal: Reports: Abdominal Pain, Constipation. Denies: Diarrhea, Nausea, Vomiting : Reports: No Symptoms Musculoskeletal: Reports: No Symptoms Neurological: Reports: No Symptoms ED EXAM, GI/ABD - Physical Exam Exam: See Below Exam Limited By: No Limitations General Appearance: Alert, No Apparent Distress Head: Atraumatic, Normocephalic Neck: Normal Inspection, Supple, Non-Tender. No: Lymphadenopathy (L), Lymphadenopathy (R) Respiratory/Chest: No Respiratory Distress, Lungs Clear, Normal Breath Sounds Cardiovascular: Regular Rate, Rhythm, No Edema, No Murmur GI/Abdominal Exam: Normal Bowel Sounds, Soft, Other (He has diffuse abdominal discomfort worse in the suprapubic area and in the upper abdomen with palpation no rebound guarding or distention noted) Extremities: Normal Inspection, No Pedal Edema Course - Vital Signs Last Recorded V/S: Last Vital Signs Temp 36.1 C 02/26/17 22:50 Pulse 81 02/26/17 22:50 Resp 16 02/26/17 22:50 BP 116/70 02/26/17 22:50 Pulse Ox 100 02/26/17 22:50 - Orders/Labs/Meds Orders: Active Orders 24 hr Category Date Time Status Abdomen 2V AP Flat Upright [CR] Stat Exams 02/26/17 23:16 Taken Labs: Laboratory Tests 02/26/17 02/26/17 02/26/17 Range/Units 22:53 22:53 22:53 WBC 7.35 (4.23-9.07) K/mm3 RBC 3.77 L (4.63-6.08) M/mm3 Hgb 10.8 L (13.7-17.5) gm/L Hct 33.5 L (40.1-51.0) % MCV 88.9 (79.0-92.2) fl MCH 28.6 (25.7-32.2) pg MCHC 32.2 (32.2-35.5) g/dl RDW Std Deviation 49.6 H (35.1-43.9) fL Plt Count 393 H (163-337) K/mm3 MPV 9.2 L (9.4-12.3) fl Neutrophils % (Manual) 81 H (40-60) % Band Neutrophils % 0 (0-10) % Lymphocytes % (Manual) 9 L (20-40) % Atypical Lymphs % 0 % Monocytes % (Manual) 7 (2-10) % Eosinophils % (Manual) 2 (0.8-7.0) % Basophils % (Manual) 1 (0.2-1.2) Platelet Estimate Adequate Plt Morphology Comment Normal Polychromasia 1+ slight Hypochromasia 1+ slight Poikilocytosis 1+ slight Anisocytosis 1+ slight Microcytosis 1+ slight Macrocytosis 1+ slight Spherocytes 1+ slight Tear Drop Cells 1+ slight RBC Morph Comment Abnormal PT 22.8 H (8.0-13.0) SECONDS INR 2.00 Sodium 134 L (136-145) mEq/L Potassium 4.0 (3.5-5.1) mEq/L Chloride 99 (98-107) mEq/L Carbon Dioxide 29 (21-32) mEq/L Anion Gap 10.0 (5-15) BUN 19 H (7-18) mg/dL Creatinine 1.4 H (0.7-1.3) mg/dL Est Cr Clr Drug Dosing 40.80 mL/min Estimated GFR (MDRD) 48 (>60) mL/min BUN/Creatinine Ratio 13.6 L (14-18) Glucose 177 H (83-115) mg/dL Calcium 8.7 (8.5-10.1) mg/dL Total Bilirubin 0.4 (0.2-1.0) mg/dL AST 15 (15-37) U/L ALT 15 L (16-63) U/L Alkaline Phosphatase 133 H (46-116) U/L Total Protein 7.1 (6.4-8.2) g/dl Albumin 2.6 L (3.4-5.0) g/dl Globulin 4.5 gm/dL Albumin/Globulin Ratio 0.6 L (1-2) Urine Color (Yellow) Urine Appearance (Clear) Urine pH (5.0-8.0) Ur Specific [place] (1.005-1.030) Urine Protein (Negative) Urine Glucose (UA) (Negative) Urine Ketones (Negative) Urine Occult Blood (Negative) Urine Nitrite (Negative) Urine Bilirubin (Negative) Urine Urobilinogen (0.2-1.0) Ur Leukocyte Esterase (Negative) Urine RBC (0-5) /hpf Urine WBC (0-5) /hpf Ur Epithelial Cells (0-5) /hpf Urine Bacteria (FEW) /hpf Hyaline Casts (0-5) /lpf Urine Mucus (FEW) /hpf 02/27/17 Range/Units 00:01 WBC (4.23-9.07) K/mm3 RBC (4.63-6.08) M/mm3 Hgb (13.7-17.5) gm/L Hct (40.1-51.0) % MCV (79.0-92.2) fl MCH (25.7-32.2) pg MCHC (32.2-35.5) g/dl RDW Std Deviation (35.1-43.9) fL Plt Count (163-337) K/mm3 MPV (9.4-12.3) fl Neutrophils % (Manual) (40-60) % Band Neutrophils % (0-10) % Lymphocytes % (Manual) (20-40) % Atypical Lymphs % % Monocytes % (Manual) (2-10) % Eosinophils % (Manual) (0.8-7.0) % Basophils % (Manual) (0.2-1.2) Platelet Estimate Plt Morphology Comment Polychromasia Hypochromasia Poikilocytosis Anisocytosis Microcytosis Macrocytosis Spherocytes Tear Drop Cells RBC Morph Comment PT (8.0-13.0) SECONDS INR Sodium (136-145) mEq/L Potassium (3.5-5.1) mEq/L Chloride (98-107) mEq/L Carbon Dioxide (21-32) mEq/L Anion Gap (5-15) BUN (7-18) mg/dL Creatinine (0.7-1.3) mg/dL Est Cr Clr Drug Dosing mL/min Estimated GFR (MDRD) (>60) mL/min BUN/Creatinine Ratio (14-18) Glucose (83-115) mg/dL Calcium (8.5-10.1) mg/dL Total Bilirubin (0.2-1.0) mg/dL AST (15-37) U/L ALT (16-63) U/L Alkaline Phosphatase (46-116) U/L Total Protein (6.4-8.2) g/dl Albumin (3.4-5.0) g/dl Globulin gm/dL Albumin/Globulin Ratio (1-2) Urine Color Yellow (Yellow) Urine Appearance Clear (Clear) Urine pH 5.5 (5.0-8.0) Ur Specific [place] 1.025 (1.005-1.030) Urine Protein 2+ H (Negative) Urine Glucose (UA) Trace H (Negative) Urine Ketones Negative (Negative) Urine Occult Blood Negative (Negative) Urine Nitrite Negative (Negative) Urine Bilirubin Negative (Negative) Urine Urobilinogen 0.2 (0.2-1.0) Ur Leukocyte Esterase Negative (Negative) Urine RBC 0-5 (0-5) /hpf Urine WBC 0-5 (0-5) /hpf Ur Epithelial Cells 0-5 (0-5) /hpf Urine Bacteria Not seen (FEW) /hpf Hyaline Casts 0-5 (0-5) /lpf Urine Mucus Moderate H (FEW) /hpf Meds: Medications Discontinued Medications Generic Name Dose Route Start Last Admin Trade Name Tiffany PRN Reason Stop Dose Admin Acetaminophen 650 mg 02/27/17 00:47 02/27/17 00:53 Tylenol PO 02/27/17 00:48 650 mg ONETIME ONE Administration Magnesium Citrate 296 ml 02/27/17 01:14 Citrate Of Magnesia PO 02/27/17 01:15 ONETIME ONE - Re-Assessments/Exams Free Text/Narrative Re-Assessment/Exam: 02/26/17 23:21 Bladder scan showed a urine volume of 166 mL 02/27/17 01:21 Laboratory evaluation really unrevealing the patient was given some Tylenol for his discomfort x-ray shows a lot of stool in the right and into the transverse colon not a lot of stool seen in the descending and sigmoid region. The cause of his discomfort is uncertain at this point it could be related to the right- sided stool accumulation. Discussed the findings of this with the patient. We will hold off on CT evaluation try him on mag citrate at the [facility]. Return to the emergency room in 12-24 hours if not better sooner if getting worse. Departure - Departure Time of Disposition: :23 Disposition: Home, Self-Care 01 Clinical Impression: Abdominal pain - Discharge Information Referrals: Rosalio Cervantes MD [Primary Care Provider] - Forms: ED Department Discharge Additional Instructions: Return to the emergency room with any questions problems or worsening symptoms. Return if not better in 12-24 hours sooner if getting worse. You have been sent home with a bottle of mag citrate drink this when you get home. This should help your stool move and hopefully improve your discomfort. If you are not feeling better in 12-24 hours return to the emergency room for reevaluation. Tylenol may be used for discomfort follow the directions on the bottle. - My Orders Last 24 Hours: My Active Orders 02/26/17 23:16 Abdomen 2V AP Flat Upright [CR] Stat - Assessment/Plan Last 24 Hours: My Active Orders 02/26/17 23:16 Abdomen 2V AP Flat Upright [CR] Stat
[2017-02-27] MEDS ORDERED: Acetaminophen Soln 650 MG/20.3 ML UD Cup PO ONE (00:47)
[2017-02-27] MEDS ORDERED: Magnesium Citrate Solution 296 ML Bottle PO ONE (01:14)
--- NOTE | 2017-02-28 08:20 | CR ---
Abdomen: Supine and upright views of the abdomen were obtained. Comparison: Previous abdominal x-ray of 07/28/16. Bowel gas pattern appears within normal limits. Slight degenerative change is scattered within the spine. Calcifications are seen within the pelvis compatible with phleboliths. Vascular calcification is seen. Impression: 1. Incidental findings. Diagnostic code #2
== END 2017-02-27 01:38 | disposition home or self-care (01) ==
LOC: JD.ED 22:45
DX: R10.30 Lower abdominal pain, unspecified (principal); I48.91 Unspecified atrial fibrillation; I25.10 Atherosclerotic heart disease of native coronary artery without angina pectoris; I50.9 Heart failure, unspecified; E78.00 Pure hypercholesterolemia, unspecified; J44.9 Chronic obstructive pulmonary disease, unspecified; K21.9 Gastro-esophageal reflux disease without esophagitis; E11.40 Type 2 diabetes mellitus with diabetic neuropathy, unspecified; E03.9 Hypothyroidism, unspecified; M19.90 Unspecified osteoarthritis, unspecified site; F32.9 Major depressive disorder, single episode, unspecified; Z79.01 Long term (current) use of anticoagulants; Z79.4 Long term (current) use of insulin; Z79.899 Other long term (current) drug therapy; Z87.891 Personal history of nicotine dependence
CPT/HCPCS: 36415; 74020; 80053; 81001; 85025; 85610; 99284; A9270

== ENCOUNTER 2017-06-12 08:43 | Emergency (ER) | payer MEDICARE, BC ==
[2017-06-12 09:00] VITALS: BP 127/84
--- NOTE | 2017-06-12 09:19 | EDM.PDOC ---
ED HPI GENERAL MEDICAL PROBLEM - General Chief Complaint: General Stated Complaint: INCREASED WEAKNESS Time Seen by Provider: 06/12/17 09:13 Source of Information: Reports: Patient History Limitations: Reports: No Limitations - History of Present Illness INITIAL COMMENTS - FREE TEXT/NARRATIVE: 87-year-old male presents the ED from [place] where he resides. Reports he lost control of his bladder during the night unbeknownst to him. This is never happened before. He just generally doesn't feel well. His finger on anything specific. No fever or chills. Abdomen doesn't feel all the best but he did have breakfast this morning. There's been no vomiting or diarrhea. He tends to have constipation issues. He is an insulin-dependent diabetic. Blood sugar was 114 and this morning. Possibility of a hypoglycemic episode causing him to lose control his bladder appreciated. He's alert he is oriented. He is aware that his left eye is reddened. Black has been using some drops in this eye. Denies cough or sputum production. Denies feeling any more short of breath than normal. Has had no previous prostate problems. Denies any real dysuria or urgency or frequency. History of chronic atrial fibrillation and on Coumadin. He is also an insulin-dependent diabetic. Denies any chest pains. Onset: Today Onset Date: 06/12/17 (Awoke with widened bed i.e. lost bladder control during the night unbeknownst to him.) Location: Reports: Generalized (Generalized sense of not feeling well.) Quality: Denies: Ache, Burning, Pressure, Same as Previous Episode, Sharp, Stabbing, Throbbing Severity: Moderate Improves with: Reports: None Worsens with: Reports: None Context: Denies: Activity, Exercise, Lifting, Sick Contact, Trauma, Other Associated Symptoms: Reports: Malaise, Shortness of Breath, Weakness. 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: Other (see below) (None.) - Related Data Allergies Allergy/AdvReac Type Severity Reaction Status Date / Time No Known Allergies Allergy Verified 06/12/17 09:00 Home Meds: Home Meds Omeprazole 40 mg PO DAILY 02/08/14 [History] Warfarin [Coumadin] 5 mg PO MOFR 11/15/14 [History] Gabapentin [Neurontin] 200 mg PO BID 06/21/16 [History] Tamsulosin [Flomax] 0.4 mg PO BEDTIME 06/21/16 [History] Levothyroxine [Synthroid] 50 mcg PO ACBREAKFAST #30 tablet 10/06/16 [Rx] Insulin Glarg,Human.Rec.Analog [Lantus] 17 unit SQ BEDTIME 10/07/16 [History] [place]-3/DHA/Epa/Fish Oil [Fish Oil 1,000 mg Softgel] 1,000 mg PO DAILY 10/07/16 [History] Vitamin E 400 intnl unit PO DAILY 10/07/16 [History] Acetaminophen [Tylenol] 650 mg PO Q6HR PRN 01/15/17 [History] L.acidoph,Paracasei, B.lactis [Probiotic] 1 dose PO DAILY 01/15/17 [History] Polyethylene Glycol [Polyox Wsr-301] 17 gram PO DAILY 01/15/17 [History] traMADol [Ultram] 1 tab PO Q6HR PRN 01/15/17 [History] Multivitamin [G[place] Multivitamin] 1 dose PO DAILY 01/16/17 [History] Potassium Chloride [Klor-Con M20] 20 meq PO DAILY 01/16/17 [History] Diltiazem [Cardizem CD] 180 mg PO DAILY #30 cap.cd 01/20/17 [Rx] Docusate Sodium [Colace] 100 mg PO BID PRN #30 cap 01/20/17 [Rx] Ferrous Sulfate 325 mg PO BID #60 tablet 01/20/17 [Rx] Furosemide 40 mg PO DAILY #0 01/20/17 [Rx] Metoprolol Succinate [Toprol XL] 12.5 mg PO DAILY #30 tab.er 01/20/17 [Rx] Warfarin [Coumadin] 7.5 mg PO SUTUWETHSA 02/11/17 [History] Bisacodyl [Dulcolax] 5 mg PO DAILY 02/26/17 [History] Hydrocortisone [Anusol-HC] 1 dose TOP BID PRN 02/26/17 [History] Ipratropium/Albuterol Sulfate [Iprat-Albut 0.5-3(2.5) MG/3 ML] 1 ampule INH Q4H PRN 02/26/17 [History] Bicalutamide [Casodex] 50 mg PO DAILY 06/12/17 [History] Tobramycin/Dexamethasone [Tobradex Eye Drops] 1 drop EYELF DAILY 06/12/17 [ History] Past Medical History HEENT History: Reports: Hard of Hearing, Impaired Vision Other HEENT History: wears eyeglasses Cardiovascular History: Reports: Afib, CAD, Cardiomyopathy, Heart Failure, High Cholesterol, Hypertension Respiratory History: Reports: COPD Gastrointestinal History: Reports: Gastritis, GERD, Hemorrhoids, PUD Other Gastrointestinal History: ulcer Genitourinary History: Reports: Acute Renal Failure, BPH, Retention, Urinary Musculoskeletal History: Reports: Osteoarthritis Neurological History: Reports: Neuropathy, Diabetic Psychiatric History: Reports: Addiction, Depression Other Psychiatric History: states feels depressed "when I get sick like this." State "the only thing, I'd like to get well, this pain" is making pt feel depressed. Endocrine/Metabolic History: Reports: Diabetes, Type II, Hypothyroidism Hematologic History: Reports: Anemia, Blood Transfusion(s) Dermatologic History: Reports: Other (See Below) Other Dermatologic History: "blisters removed on nose" - Infectious Disease History Infectious Disease History: Reports: Chicken Pox, Influenza - Past Surgical History Dermatological Surgical History: Reports: Skin Biopsy Social & Family History - Family History Family Medical History: Noncontributory HEENT: Reports: Cataract, Macular Degeneration Cardiac: Reports: Hypertension : Reports: Diabetic Nephropathy Musculoskeletal: Reports: Arthritis Neurological: Reports: Alzheimers Disease, Dementia, Parkinson's, Vertigo Endocrine/Metabolic: Reports: Diabetes, type II Dermatologic: Reports: Psoriasis Oncologic: Reports: Leukemia, Prostate, Other (See Below) Other Oncologic Family History: stomach - Tobacco Use Smoking Status *Q: Unknown Ever Smoked Years of Tobacco use: 40 Packs/Tins Daily: 1 Used Tobacco, but Quit: Yes Month Tobacco Last Used: 4 Second Hand Smoke Exposure: No - Caffeine Use Caffeine Use: Reports: Soda Caffeine Use Comment: every other day - Alcohol Use Days Per Week of Alcohol Use: 0 Number of Drinks Per Day: 1 Total Drinks Per Week: 0 - Recreational Drug Use Recreational Drug Use: No - Living Situation & Occupation Living situation: Reports: Single, Assisted Living Occupation: Retired ED ROS GENERAL - Review of Systems Review Of Systems: See Below Constitutional: Reports: Malaise, Weakness, Fatigue, Decreased Appetite. Denies : Fever, Chills HEENT: Reports: Eye Pain, Glasses. Denies: Eye Discharge, Nose Pain (Left eye is reddened but not painful.), Rhinitis Respiratory: Reports: Shortness of Breath. Denies: Wheezing, Pleuritic Chest Pain (On exertion), Cough, Sputum, Hemoptysis Cardiovascular: Reports: Blood Pressure Problem, Dyspnea on Exertion ( Chronically), Edema (Usually has a little bit of fluid in both lower extremities ). Denies: Chest Pain, Claudication, Lightheadedness, Orthopnea (Chronic hypertension) Endocrine: Reports: Fatigue. Denies: High Glucose GI/Abdominal: Reports: Abdominal Pain, Constipation (And intermittent abdominal cramping pain. History of constipation problems). Denies: Diarrhea, Nausea, Stool Incontinence, Vomiting, Other : Reports: Incontinence. Denies: Dysuria, Flank Pain, Frequency, Pain, Urgency Musculoskeletal: Reports: Shoulder Pain (JK knees hips low back and neck.), Joint Pain, Other ( Shoulder pain at times. uses a walker to aid his ambulation. ) Skin: Reports: Bruising (Bruises easily from being on Coumadin. Particularly at sites of insulin injections.) Neurological: Reports: Paresthesia, Difficulty Walking, Weakness. Denies: Confusion, Dizziness, Headache, Pre-Existing Deficit, Seizure, Syncope Psychiatric: Reports: No Symptoms (Uses a walker to aid his gait.) Hematologic/Lymphatic: Reports: No Symptoms Immunologic: Reports: No Symptoms ED EXAM, GENERAL - Physical Exam Exam: See Below Exam Limited By: No Limitations General Appearance: Alert, WD/WN, No Apparent Distress Eye Exam: Left Eye: Periorbital Changes (Left lower lid is erythematous and he appears to have a blocked tear duct on the left side.) Ears: Normal TMs Throat/Mouth: Normal Inspection, Normal Lips, Normal Oropharynx. No: Normal Teeth Head: Atraumatic, Normocephalic Neck: Normal Inspection, Supple, Non-Tender, Full Range of Motion. No: Lymphadenopathy (L), Lymphadenopathy (R) Respiratory/Chest: No Respiratory Distress, No Accessory Muscle Use, Chest Non- Tender, Rales (Right base.). No: Respiratory Distress, Rhonchi, Wheezing Cardiovascular: JVD (Mild JVD.), Irregularly Irregular. No: Normal Peripheral Pulses, No Edema, No Gallop, No Murmur, No Rub Peripheral Pulses: 1+: Posterior Tibial (L), Posterior Tibial (R), Dorsalis Pedis (L), Dorsalis Pedis (R) GI/Abdominal: Normal Bowel Sounds, Soft, Non-Tender, No Organomegaly, Distended (Slightly distended and to page percussion the upper abdomen. The lower abdomen shows distention and tenderness to palpation over the suprapubic area. Questionable if he's not in very mild retention. A bladder scan will be ordered. ) Back Exam: Normal Inspection, Vertebral Tenderness (Mild along the for). No: Full Range of Motion, CVA Tenderness (L), CVA Tenderness (R) Extremities: Normal Inspection ( lumbar spine bilaterally.), Normal Range of Motion, Pedal Edema, Other (Evidence of degenerative arthritic changes both knees both hips.) Neurological: Alert (1+ pitting edema both lower extremities.), Oriented, CN II- XII Intact, Normal Cognition. No: Normal Reflexes Psychiatric: Normal Affect, Normal Mood Skin Exam: Warm, Dry, Intact, Normal Color, Other (1 ecchymotic area right lower mid abdomen at site of insulin injection. Has bilateral mild venous stasis dermatitis.) Course - Vital Signs Last Recorded V/S: Last Vital Signs Temp 36.9 C 06/12/17 08:56 Pulse 75 06/12/17 08:56 Resp 18 06/12/17 08:56 BP 127/84 06/12/17 08:56 Pulse Ox 99 06/12/17 08:56 - Orders/Labs/Meds Orders: Active Orders 24 hr Category Date Time Status EKG Documentation Completion [RC] STAT Care 06/12/17 09:15 Active Labs: Laboratory Tests 06/12/17 06/12/17 06/12/17 Range/Units 09:35 10:06 10:06 WBC 7.54 (4.23-9.07) K/mm3 RBC 4.16 L (4.63-6.08) M/mm3 Hgb 12.3 L (13.7-17.5) gm/L Hct 37.9 L (40.1-51.0) % MCV 91.1 (79.0-92.2) fl MCH 29.6 (25.7-32.2) pg MCHC 32.5 (32.2-35.5) g/dl RDW Std Deviation 49.3 H (35.1-43.9) fL Plt Count 183 (163-337) K/mm3 MPV 9.5 (9.4-12.3) fl Neutrophils % (Manual) 77 H (40-60) % Band Neutrophils % 0 (0-10) % Lymphocytes % (Manual) 20 (20-40) % Atypical Lymphs % 0 % Monocytes % (Manual) 3 (2-10) % Eosinophils % (Manual) 0 L (0.8-7.0) % Basophils % (Manual) 0 L (0.2-1.2) Platelet Estimate Adequate RBC Morph Comment Normal PT 28.3 H (8.0-13.0) SECONDS INR 2.45 Sodium (136-145) mEq/L Potassium (3.5-5.1) mEq/L Chloride (98-107) mEq/L Carbon Dioxide (21-32) mEq/L Anion Gap (5-15) BUN (7-18) mg/dL Creatinine (0.7-1.3) mg/dL Est Cr Clr Drug Dosing mL/min Estimated GFR (MDRD) (>60) mL/min BUN/Creatinine Ratio (14-18) Glucose (83-115) mg/dL Calcium (8.5-10.1) mg/dL Magnesium (1.8-2.4) mg/dl Total Bilirubin (0.2-1.0) mg/dL AST (15-37) U/L ALT (16-63) U/L Alkaline Phosphatase (46-116) U/L Troponin I (0.00-0.056) ng/mL C-Reactive Protein (<1.0) mg/dL NT-Pro-B Natriuret Pep (0-450) pg/mL Total Protein (6.4-8.2) g/dl Albumin (3.4-5.0) g/dl Globulin gm/dL Albumin/Globulin Ratio (1-2) Urine Color Light yellow (Yellow) Urine Appearance Clear (Clear) Urine pH 6.5 (5.0-8.0) Ur Specific [place] 1.015 (1.005-1.030) Urine Protein Trace H (Negative) Urine Glucose (UA) Negative (Negative) Urine Ketones Negative (Negative) Urine Occult Blood Trace-lysed H (Negative) Urine Nitrite Negative (Negative) Urine Bilirubin Negative (Negative) Urine Urobilinogen 0.2 (0.2-1.0) Ur Leukocyte Esterase Negative (Negative) Urine RBC 0-5 (0-5) /hpf Urine WBC Not seen (0-5) /hpf Ur Epithelial Cells Not seen (0-5) /hpf Urine Bacteria Not seen (FEW) /hpf Urine Mucus Few (FEW) /hpf 06/12/17 Range/Units 10:06 WBC (4.23-9.07) K/mm3 RBC (4.63-6.08) M/mm3 Hgb (13.7-17.5) gm/L Hct (40.1-51.0) % MCV (79.0-92.2) fl MCH (25.7-32.2) pg MCHC (32.2-35.5) g/dl RDW Std Deviation (35.1-43.9) fL Plt Count (163-337) K/mm3 MPV (9.4-12.3) fl Neutrophils % (Manual) (40-60) % Band Neutrophils % (0-10) % Lymphocytes % (Manual) (20-40) % Atypical Lymphs % % Monocytes % (Manual) (2-10) % Eosinophils % (Manual) (0.8-7.0) % Basophils % (Manual) (0.2-1.2) Platelet Estimate RBC Morph Comment PT (8.0-13.0) SECONDS INR Sodium 140 (136-145) mEq/L Potassium 4.5 (3.5-5.1) mEq/L Chloride 105 (98-107) mEq/L Carbon Dioxide 30 (21-32) mEq/L Anion Gap 9.5 (5-15) BUN 26 H (7-18) mg/dL Creatinine 1.4 H (0.7-1.3) mg/dL Est Cr Clr Drug Dosing 40.03 mL/min Estimated GFR (MDRD) 48 (>60) mL/min BUN/Creatinine Ratio 18.6 H (14-18) Glucose 141 H (83-115) mg/dL Calcium 8.7 (8.5-10.1) mg/dL Magnesium 2.1 (1.8-2.4) mg/dl Total Bilirubin 0.7 (0.2-1.0) mg/dL AST 17 (15-37) U/L ALT 18 (16-63) U/L Alkaline Phosphatase 148 H (46-116) U/L Troponin I 0.020 (0.00-0.056) ng/mL C-Reactive Protein < 0.2 (<1.0) mg/dL NT-Pro-B Natriuret Pep 2351 H (0-450) pg/mL Total Protein 6.8 (6.4-8.2) g/dl Albumin 3.1 L (3.4-5.0) g/dl Globulin 3.7 gm/dL Albumin/Globulin Ratio 0.8 L (1-2) Urine Color (Yellow) Urine Appearance (Clear) Urine pH (5.0-8.0) Ur Specific [place] (1.005-1.030) Urine Protein (Negative) Urine Glucose (UA) (Negative) Urine Ketones (Negative) Urine Occult Blood (Negative) Urine Nitrite (Negative) Urine Bilirubin (Negative) Urine Urobilinogen (0.2-1.0) Ur Leukocyte Esterase (Negative) Urine RBC (0-5) /hpf Urine WBC (0-5) /hpf Ur Epithelial Cells (0-5) /hpf Urine Bacteria (FEW) /hpf Urine Mucus (FEW) /hpf - Radiology Interpretation Free Text/Narrative:: 87-year-old male presents to the ED from [place] primarily because he lost control of his bladder during the night of which he was not aware of. This has not happened to him before. He just generally has a sense of not feeling well. No defined fever O2 sats and vital signs are normal. Exam reveals an erythematous left alae for blocked tear duct. He does have some crackles in his right base compared with mild congestive failure. Mild jugular venous pulsation distention. Lungs are otherwise clear. The abdomen is slightly distended and tympanitic to percussion compatible with some aerophagia. He has tenderness suprapubically and a question whether or not I can palpate his bladder suggesting mild retention. Blood sugar apparently was 114 this morning. Plan routine labs chest x-ray ECG and of course a urinalysis to be done. - Re-Assessments/Exams Free Text/Narrative Re-Assessment/Exam: 06/12/17 10:28 chest x-ray reveals mild cardiomegaly. There is a small right- sided pleural effusion as well with blunted costophrenic angle. Bladder scan revealed initially 179 mils of urine in his bladder then 221 mils. Patient was then asked to void and he voided 300 mils. Therefore appears that he is emptying completely. No sign of overflow incontinence 06/12/17 11:05 White count is 7.54 with a 77% neutrophil count and no bands. Hemoglobin is 12.3. Hematocrit 37.9. Platelet count 183,000. PT is 28.3 and INR is therapeutic at 2.45. Sodium is 140. Potassium 4.5. Toward 105. Bicarbonate 30. Anion gap is 9.5. BUN is 26. Creatinine is 1.4. EGFR is 48. Glucose is 141. Calcium 8.7. Magnesium normal at 2.1. Liver function normal other than alkaline phosphatase slightly elevated at 148. Troponin I is less than 0.020. C-reactive protein is less than 0.2. BNP is elevated at 2351. This relates with clinical findings of right-sided pleural effusion. Albumin fraction is slightly low at 3.1 total protein 6.8. The urinalysis is negative for any signs of infection.. Patient takes 40 mg of Lasix daily. I plan on increasing it to 40 mg twice a day for the next 3 days and then to use 40 mg in the a.m. and 20 mg in the p.m. Reason for acute decompensation is unclear. He does not apparent appear otherwise to be unwell. The cause of loss of bladder control during the night is unclear although may have been due to a hypoglycemic event. Will have him follow-up with his primary care physician towards the end of next week. Departure - Departure Time of Disposition: 11:11 Disposition: Home, Self-Care 01 Condition: Fair Clinical Impression: Enuresis, nocturnal only Acute exacerbation of congestive heart failure Qualifiers: Congestive heart failure type: diastolic Qualified Code(s): I50.33 - Acute on chronic diastolic (congestive) heart failure - Discharge Information Instructions: Heart Failure, [id number] Referrals: Rosalio Cervantes MD [Primary Care Provider] - Forms: ED Department Discharge Additional Instructions: Evaluation in the emergency room today in regards to loss of bladder control that occurred during sleep last night. I could not identify for sure any cause of this on investigations. I have some concerns that you may have developed a low normal blood sugar to cause you to lose control of your bladder. Please make sure blood sugars are checked at bedtime and if they are below 100 should be provided. The only finding on examination was fluid in the bottom of the right lung confirmed on x-ray with a small pleural effusion evident. BNP is also moderately elevated. No evidence of recent myocardial infarction and the reason for decompensation of heart failure is unclear. Treatment needs to be an increase in Lasix dose to 40 mg in the morning and 40 mg around 2 PM daily for the next 3 days. This should be started this afternoon. After this then he should stay on 40 mg of Lasix in the morning and 20 mg in the p.m. at 2:00. Suggest follow-up with personal physician later next week for heart failure review. Of note urinalysis proved to be normal with no evidence of infection.( Care Plan Goals: Evaluation in the emergency him today in regards to loss of bladder control sometime during the night for unclear reason. Possible hypoglycemic reaction could've precipitated this. Check on your prostate reveal that you're emptying her bladder completely and there is no sign of overflow incontinence. Lab work did identify evidence of worsening congestive heart failure which was apparent clinically with lots of falls or fluid in the bottom of the right lung and chest x-ray showing a small pleural effusion. Therefore the only treatment that needs to be changed is to increase her Lasix from 40 mg in the a.m. to 40 mg in the p.m. at 2:00 as well for the next 3 days and then 40 mg in the morning and 20 mg in the midafternoon daily. Suggest follow-up with your personal care physician on or Tuesday this next week. - My Orders Last 24 Hours: My Active Orders 06/12/17 09:15 EKG Documentation Completion [RC] STAT - Assessment/Plan Last 24 Hours: My Active Orders 06/12/17 09:15 EKG Documentation Completion [RC] STAT
--- NOTE | 2017-06-12 14:52 | CR ---
Chest: Portable view of the chest was obtained. Comparison: Prior chest x-ray of 01/18/17. Heart size is mildly prominent but accentuated from portable technique. Elevated right hemidiaphragm is seen which is a stable finding. Lungs are clear with no acute infiltrates. Bony structures are grossly intact. Impression: 1. Nothing acute is appreciated. No significant change from previous study. Diagnostic code #2
== END 2017-06-12 11:36 | disposition home or self-care (01) ==
LOC: JD.ED 08:43
DX: N39.44 Nocturnal enuresis (principal); I50.33 Acute on chronic diastolic (congestive) heart failure; E11.40 Type 2 diabetes mellitus with diabetic neuropathy, unspecified; E78.00 Pure hypercholesterolemia, unspecified; Z79.01 Long term (current) use of anticoagulants; Z79.4 Long term (current) use of insulin; Z79.899 Other long term (current) drug therapy
CPT/HCPCS: 36415; 71010; 71010-26; 80053; 81001; 83735; 83880; 84484; 85025; 85610; 86140; 93005; 99284; 99285-25

== ENCOUNTER 2017-11-16 07:17 | Emergency (ER) | payer MEDICARE, BC ==
[2017-11-16 07:25] VITALS: BP 140/90
--- NOTE | 2017-11-16 07:46 | EDM.PDOC ---
ED HPI GENERAL MEDICAL PROBLEM - General Chief Complaint: ENT Problem Stated Complaint: PAIN FROM TOOTH EXTRACTION Time Seen by Provider: 11/16/17 07:26 Source of Information: Reports: Patient History Limitations: Reports: Altered Mental Status (Somewhat confused. Poor historian.) - History of Present Illness INITIAL COMMENTS - FREE TEXT/NARRATIVE: The patient states that he had an upper right tooth extracted this past 11/14/2017, and has been bleeding from the extraction site on and off since. He says he has only slight pain. The patient is on Coumadin for chronic atrial fibrillation, which was not held prior to the extraction. He followed up with his dentist yesterday, and was instructed to bite down on tea bags. He now presents because of rebleeding since 01:30 this morning. The patient's PCP is Dr. Cervantes. Tooth/Teeth Pain Score (Numeric/FACES): 2 - Related Data Allergies Allergy/AdvReac Type Severity Reaction Status Date / Time No Known Allergies Allergy Verified 11/16/17 07:25 Home Meds: Home Meds Omeprazole 40 mg PO DAILY 02/08/14 [History] Warfarin [Coumadin] 5 mg PO MOFR 11/15/14 [History] Gabapentin [Neurontin] 200 mg PO BID 06/21/16 [History] Tamsulosin [Flomax] 0.4 mg PO BEDTIME 06/21/16 [History] Levothyroxine [Synthroid] 50 mcg PO ACBREAKFAST #30 tablet 10/06/16 [Rx] Insulin Glarg,Human.Rec.Analog [Lantus] 17 unit SQ BEDTIME 10/07/16 [History] [place]-3/DHA/Epa/Fish Oil [Fish Oil 1,000 mg Softgel] 1,000 mg PO DAILY 10/07/16 [History] Vitamin E 400 intnl unit PO DAILY 10/07/16 [History] Acetaminophen [Tylenol] 650 mg PO Q6HR PRN 01/15/17 [History] L.acidoph,Paracasei, B.lactis [Probiotic] 1 dose PO DAILY 01/15/17 [History] Polyethylene Glycol [Polyox Wsr-301] 17 gram PO DAILY 01/15/17 [History] traMADol [Ultram] 1 tab PO Q6HR PRN 01/15/17 [History] Multivitamin [Gummi Bear Multivitamin] 1 dose PO DAILY 01/16/17 [History] Potassium Chloride [Klor-Con M20] 20 meq PO DAILY 01/16/17 [History] Diltiazem [Cardizem CD] 180 mg PO DAILY #30 cap.cd 01/20/17 [Rx] Docusate Sodium [Colace] 100 mg PO BID PRN #30 cap 01/20/17 [Rx] Ferrous Sulfate 325 mg PO BID #60 tablet 01/20/17 [Rx] Furosemide 40 mg PO DAILY #0 01/20/17 [Rx] Metoprolol Succinate [Toprol XL] 12.5 mg PO DAILY #30 tab.er 01/20/17 [Rx] Warfarin [Coumadin] 7.5 mg PO SUTUWETHSA 02/11/17 [History] Bisacodyl [Dulcolax] 5 mg PO DAILY 02/26/17 [History] Hydrocortisone [Anusol-HC] 1 dose TOP BID PRN 02/26/17 [History] Ipratropium/Albuterol Sulfate [Iprat-Albut 0.5-3(2.5) MG/3 ML] 1 ampule INH Q4H PRN 02/26/17 [History] Bicalutamide [Casodex] 50 mg PO DAILY 06/12/17 [History] Tobramycin/Dexamethasone [Tobradex Eye Drops] 1 drop EYELF DAILY 06/12/17 [ History] Past Medical History HEENT History: Reports: Hard of Hearing, Impaired Vision Other HEENT History: wears eyeglasses Cardiovascular History: Reports: Afib (chronic), CAD, Cardiomyopathy, Heart Failure (systolic + distolic), High Cholesterol, Hypertension Respiratory History: Reports: COPD Gastrointestinal History: Reports: Gastritis, GERD, Hemorrhoids, PUD Genitourinary History: Reports: BPH, Chronic Renal Insuffiency, Retention, Urinary Musculoskeletal History: Reports: Osteoarthritis Neurological History: Reports: Neuropathy, Diabetic Psychiatric History: Reports: Addiction, Depression Endocrine/Metabolic History: Reports: Diabetes, Type II, Hypothyroidism Hematologic History: Reports: Anemia, Blood Transfusion(s) - Infectious Disease History Infectious Disease History: Reports: Chicken Pox, Influenza - Past Surgical History Dermatological Surgical History: Reports: Skin Biopsy (nose) Social & Family History - Family History Family Medical History: Noncontributory HEENT: Reports: Cataract, Macular Degeneration Cardiac: Reports: Hypertension : Reports: Diabetic Nephropathy Musculoskeletal: Reports: Arthritis Neurological: Reports: Alzheimers Disease, Dementia, Parkinson's, Vertigo Endocrine/Metabolic: Reports: Diabetes, type II Dermatologic: Reports: Psoriasis Oncologic: Reports: Leukemia, Prostate, Other (See Below) Other Oncologic Family History: stomach - Caffeine Use Caffeine Use: Reports: Soda Caffeine Use Comment: every other day - Living Situation & Occupation Living situation: Reports: Single, Assisted Living Occupation: Retired ED ROS ENT - Review of Systems Review Of Systems: ROS reveals no pertinent complaints other than HPI. ED EXAM, ENT - Physical Exam Exam: See Below Exam Limited By: No Limitations General Appearance: Alert, WD/WN, No Apparent Distress Eye Exam: Bilateral Eye: Normal Inspection Ears: Normal External Exam Nose: Normal Inspection, No Blood Mouth/Throat: Other (Generally poor dentition. There is a blood clot within tooth socket #2 or 3, not actively bleeding.) Course - Vital Signs Last Recorded V/S: Last Vital Signs Temp 36.8 C 11/16/17 07:22 Pulse 93 11/16/17 07:22 Resp 18 11/16/17 07:22 BP 140/90 11/16/17 07:22 Pulse Ox 97 11/16/17 07:22 - Re-Assessments/Exams Free Text/Narrative Re-Assessment/Exam: 11/16/17 07:42 The patient has a blood clot in his tooth socket #2 or 3, that is not currently bleeding. The patient is on Coumadin that was not held prior to this procedure. We are told that he saw his dentist yesterday, who recommended the patient apply tea bags to the socket. At this time, I see no indication for any sort of intervention, however, I am recommending patient follow-up with his dentist if he is concerned about continued bleeding. Departure - Departure Time of Disposition: 07:44 Disposition: Home, Self-Care 01 Condition: Good Clinical Impression: S/P tooth extraction - Discharge Information Instructions: Dental Extraction, Care After, [id number] Referrals: Rosalio Cervantes MD [Primary Care Provider] - Forms: ED Department Discharge Additional Instructions: Mr. Ramirez was seen in the emergency room over concern of bleeding from where a tooth was extracted this past 11/14/2017. On examination in the ER, a clot was found in the tooth socket, with no active bleeding. We recommend that if there is a concern about continued bleeding, the patient follow-up with his dentist. If any other problems, please do not hesitate to return Mr. Ramirez to the ER.
== END 2017-11-16 08:05 | disposition home or self-care (01) ==
LOC: JD.ED 07:17
DX: K91.840 Postprocedural hemorrhage of a digestive system organ or structure following a digestive system procedure (principal); I13.0 Hypertensive heart and chronic kidney disease with heart failure and stage 1 through stage 4 chronic kidney disease, or unspecified chronic kidney disease; I50.9 Heart failure, unspecified; J44.9 Chronic obstructive pulmonary disease, unspecified; N18.9 Chronic kidney disease, unspecified; D63.1 Anemia in chronic kidney disease; E11.22 Type 2 diabetes mellitus with diabetic chronic kidney disease; E11.41 Type 2 diabetes mellitus with diabetic mononeuropathy; Z79.899 Other long term (current) drug therapy
CPT/HCPCS: 99283

== ENCOUNTER 2017-12-09 09:33 | Emergency (ER) | payer MEDICARE, BC ==
--- NOTE | 2017-12-09 10:52 | EDM.PDOC ---
ED HPI GENERAL MEDICAL PROBLEM - General Chief Complaint: Gastrointestinal Problem Stated Complaint: [facility] Time Seen by Provider: 12/09/17 10:35 Source of Information: Reports: Patient History Limitations: Reports: No Limitations - History of Present Illness INITIAL COMMENTS - FREE TEXT/NARRATIVE: The patient was sent from [facility] for painless rectal bleeding that began around 09:00 this morning. The patient states that he has had this in the past, and that it is due to a hemorrhoid. He is on Coumadin for chronic atrial fibrillation - he does not recall when his INR was last checked. He denies feeling lightheaded. No prior hemorrhoidal surgery. The patient's PCP is Dr. Cervantes. - Related Data Allergies Allergy/AdvReac Type Severity Reaction Status Date / Time No Known Allergies Allergy Verified 12/09/17 09:42 Home Meds: Home Meds Omeprazole 40 mg PO DAILY 02/08/14 [History] Warfarin [Coumadin] 5 mg PO MOFR 11/15/14 [History] Gabapentin [Neurontin] 200 mg PO BID 06/21/16 [History] Tamsulosin [Flomax] 0.4 mg PO BEDTIME 06/21/16 [History] Levothyroxine [Synthroid] 50 mcg PO ACBREAKFAST #30 tablet 10/06/16 [Rx] Insulin Glarg,Human.Rec.Analog [Lantus] 17 unit SQ BEDTIME 10/07/16 [History] [place]-3/DHA/Epa/Fish Oil [Fish Oil 1,000 mg Softgel] 1,000 mg PO DAILY 10/07/16 [History] Vitamin E 400 intnl unit PO DAILY 10/07/16 [History] Acetaminophen [Tylenol] 650 mg PO Q6HR PRN 01/15/17 [History] L.acidoph,Paracasei, B.lactis [Probiotic] 1 dose PO DAILY 01/15/17 [History] Polyethylene Glycol [Polyox Wsr-301] 17 gram PO DAILY 01/15/17 [History] traMADol [Ultram] 1 tab PO Q6HR PRN 01/15/17 [History] Multivitamin [Gummi Bear Multivitamin] 1 dose PO DAILY 01/16/17 [History] Potassium Chloride [Klor-Con M20] 20 meq PO DAILY 01/16/17 [History] Diltiazem [Cardizem CD] 180 mg PO DAILY #30 cap.cd 01/20/17 [Rx] Docusate Sodium [Colace] 100 mg PO BID PRN #30 cap 01/20/17 [Rx] Ferrous Sulfate 325 mg PO BID #60 tablet 01/20/17 [Rx] Furosemide 40 mg PO DAILY #0 01/20/17 [Rx] Metoprolol Succinate [Toprol XL] 12.5 mg PO DAILY #30 tab.er 01/20/17 [Rx] Warfarin [Coumadin] 7.5 mg PO SUTUWETHSA 02/11/17 [History] Bisacodyl [Dulcolax] 5 mg PO DAILY 02/26/17 [History] Hydrocortisone [Anusol-HC] 1 dose TOP BID PRN 02/26/17 [History] Ipratropium/Albuterol Sulfate [Iprat-Albut 0.5-3(2.5) MG/3 ML] 1 ampule INH Q4H PRN 02/26/17 [History] Bicalutamide [Casodex] 50 mg PO DAILY 06/12/17 [History] Tobramycin/Dexamethasone [Tobradex Eye Drops] 1 drop EYELF DAILY 06/12/17 [ History] Past Medical History HEENT History: Reports: Hard of Hearing, Impaired Vision Other HEENT History: wears eyeglasses Cardiovascular History: Reports: Afib (chronic), CAD, Cardiomyopathy, Heart Failure (systolic + distolic), High Cholesterol, Hypertension Respiratory History: Reports: COPD Gastrointestinal History: Reports: Gastritis, GERD, Hemorrhoids, PUD Genitourinary History: Reports: BPH, Chronic Renal Insuffiency, Retention, Urinary Musculoskeletal History: Reports: Osteoarthritis Neurological History: Reports: Neuropathy, Diabetic Psychiatric History: Reports: Addiction, Depression Endocrine/Metabolic History: Reports: Diabetes, Type II, Hypothyroidism Hematologic History: Reports: Anemia, Blood Transfusion(s) - Infectious Disease History Infectious Disease History: Reports: Chicken Pox, Influenza - Past Surgical History Dermatological Surgical History: Reports: Skin Biopsy (nose) Social & Family History - Family History Family Medical History: Noncontributory HEENT: Reports: Cataract, Macular Degeneration Cardiac: Reports: Hypertension : Reports: Diabetic Nephropathy Musculoskeletal: Reports: Arthritis Neurological: Reports: Alzheimers Disease, Dementia, Parkinson's, Vertigo Endocrine/Metabolic: Reports: Diabetes, type II Dermatologic: Reports: Psoriasis Oncologic: Reports: Leukemia, Prostate, Other (See Below) Other Oncologic Family History: stomach - Caffeine Use Caffeine Use: Reports: Soda Caffeine Use Comment: every other day - Living Situation & Occupation Living situation: Reports: Single, Assisted Living ([facility]) Occupation: Retired ED ROS GENERAL - Review of Systems Review Of Systems: ROS reveals no pertinent complaints other than HPI. ED EXAM, GI/ABD - Physical Exam Exam: See Below Exam Limited By: No Limitations General Appearance: Alert, WD/WN, No Apparent Distress Eyes: Bilateral: Normal Appearance, EOMI Ears: Normal External Exam, Hearing Loss (mild) Nose: Normal Inspection, No Blood Throat/Mouth: Normal Inspection, Normal Lips, Normal Voice, No Airway Compromise Head: Atraumatic, Normocephalic Neck: Normal Inspection, Full Range of Motion Respiratory/Chest: No Respiratory Distress, Lungs Clear, Normal Breath Sounds, No Accessory Muscle Use Cardiovascular: Normal Peripheral Pulses, No Edema, No Gallop, No JVD, No Rub, Systolic Murmur (Grade III, heard best at apex, c/w mitral regurgitation), Irregularly Irregular (regular rate) GI/Abdominal Exam: Normal Bowel Sounds, Soft, No Organomegaly, No Distention, No Abnormal Bruit, No Mass, Tender (minimal, generalized) (Male) Exam: Deferred Rectal (Males) Exam: Normal Rectal Tone, Bloody Stool, Heme + Stool, Hemorrhoids (external, non-thrombosed), Other (No active rectal bleeding) Back Exam: Normal Inspection, Full Range of Motion, NT Extremities: Normal Inspection, Normal Range of Motion, No Pedal Edema, Normal Capillary Refill Neurological: Alert, Oriented, Normal Cognition, No Motor/Sensory Deficits Psychiatric: Normal Affect Skin Exam: Warm, Dry, Intact, Normal Color, No Rash Course - Vital Signs Last Recorded V/S: Last Vital Signs Temp 36.3 C 12/09/17 09:38 Pulse 88 12/09/17 09:38 Resp 18 12/09/17 09:38 BP 140/73 12/09/17 09:38 Pulse Ox 95 12/09/17 09:38 Orthostatic Blood Pressure [ 129/69 Standing] Orthostatic Blood Pressure [ 137/81 Sitting] Orthostatic Blood Pressure [ 145/77 Supine] - Orders/Labs/Meds Orders: Active Orders 24 hr Category Date Time Status Fecal Occult Blood Collection [RC] ASDIRECTED Care 12/09/17 10:58 Active Orthostatic Vital Signs [RC] STAT Care 12/09/17 10:44 Active Labs: Laboratory Tests 12/09/17 12/09/17 Range/Units 11:00 11:00 WBC 8.08 (4.23-9.07) K/mm3 RBC 3.58 L (4.63-6.08) M/mm3 Hgb 11.1 L (13.7-17.5) gm/L Hct 33.3 L (40.1-51.0) % MCV 93.0 H (79.0-92.2) fl MCH 31.0 (25.7-32.2) pg MCHC 33.3 (32.2-35.5) g/dl RDW Std Deviation 47.0 H (35.1-43.9) fL Plt Count 222 (163-337) K/mm3 MPV 8.4 L (9.4-12.3) fl Neutrophils % (Manual) 75 H (40-60) % Band Neutrophils % 0 (0-10) % Lymphocytes % (Manual) 18 L (20-40) % Atypical Lymphs % 0 % Monocytes % (Manual) 2 (2-10) % Eosinophils % (Manual) 5 (0.8-7.0) % Basophils % (Manual) 0 L (0.2-1.2) Platelet Estimate Adequate RBC Morph Comment Normal PT 19.9 H (9.5-12.1) SECONDS INR 1.85 - Re-Assessments/Exams Free Text/Narrative Re-Assessment/Exam: 12/09/17 10:50 The patient reports a large amount of painless hemorrhoidal bleeding beginning around 09:00, however, on examination, there is no active bleeding. The rectal area is red, and on rectal exam, he is heme positive. There are noninflamed external hemorrhoids, but no palpable abnormalities on examination. I have ordered orthostatics, a CBC, and an INR, just to make sure that he has not lost excessive blood and is not excessively anticoagulated, however, no other intervention is indicated at this time. 12/09/17 11:47 The patient is not orthostatic. 12/09/17 12:16 Test results discussed with the patient and his niece. Today's workup is unremarkable. His INR is actually subtherapeutic. The patient does not recall who prescribes his Coumadin, but his PCP is Dr. Cervantes. I will include in his discharge instructions that his prescriber be notified of his INR today. I will refer the patient to Dr. Frederick for evaluation for possible hemorrhoid surgery. Departure - Departure Time of Disposition: 12:18 Disposition: Home, Self-Care 01 Condition: Good Clinical Impression: Bleeding hemorrhoids, Subtherapeutic international normalized ratio (INR) - Discharge Information Referrals: Rosalio Cervantes MD [Primary Care Provider] - Vasquez Frederick MD [Physician] - Forms: ED Department Discharge Additional Instructions: You were seen in the emergency room for bleeding hemorrhoids. Workup in the ER included a CBC, to make sure that you're not anemic, an INR ( your Coumadin number), and positional blood pressure checks. Your workup was unremarkable, except that your INR was found to be mildly low at 1.85. Have [facility] contact Dr. Cervantes (or whoever prescribes your Coumadin) to relay that information. Follow-up with the surgeon Dr. Frederick to discuss treatment options for hemorrhoids. If any other problems, please do not hesitate to return to the ER. - My Orders Last 24 Hours: My Active Orders 12/09/17 10:44 Orthostatic Vital Signs [RC] STAT 12/09/17 10:58 Fecal Occult Blood Collection [RC] ASDIRECTED - Assessment/Plan Last 24 Hours: My Active Orders 12/09/17 10:44 Orthostatic Vital Signs [RC] STAT 12/09/17 10:58 Fecal Occult Blood Collection [RC] ASDIRECTED
[2017-12-09 12:27] VITALS: BP 140/77
== END 2017-12-09 12:45 | disposition home or self-care (01) ==
LOC: JD.ED 09:33
DX: K64.9 Unspecified hemorrhoids (principal); I13.0 Hypertensive heart and chronic kidney disease with heart failure and stage 1 through stage 4 chronic kidney disease, or unspecified chronic kidney disease; I50.9 Heart failure, unspecified; J44.9 Chronic obstructive pulmonary disease, unspecified; E11.40 Type 2 diabetes mellitus with diabetic neuropathy, unspecified; E11.22 Type 2 diabetes mellitus with diabetic chronic kidney disease; D63.1 Anemia in chronic kidney disease; I48.91 Unspecified atrial fibrillation; Z79.01 Long term (current) use of anticoagulants; Z79.899 Other long term (current) drug therapy; Z79.4 Long term (current) use of insulin
CPT/HCPCS: 36415; 82270; 85007; 85027; 85610; 99283; 99284-25

== ENCOUNTER 2018-06-15 16:10 | Inpatient (IN) | payer MEDICARE, BC ==
--- NOTE | 2018-06-15 17:15 | EDM.PDOC ---
ED HPI GENERAL MEDICAL PROBLEM - General Chief Complaint: Back Pain or Injury Stated Complaint: BACK PAIN Time Seen by Provider: 06/15/18 16:31 Source of Information: Reports: Patient, Old Records, RN Notes Reviewed History Limitations: Reports: No Limitations - History of Present Illness INITIAL COMMENTS - FREE TEXT/NARRATIVE: Patient is an 88 year old male who presents to the ED for the evaluation of low back pain and heme + stool. The patient states that he has been having lumbar back pain for around one month now. He has been seen by Dr. Cervantes today in clinic and another lumbar x-ray was done and showed a lytic lesion (2.9cm x 2.7cm) on the right side of sacrum. His hgb done at clinic is 9.1, and PSA was 150 and had heme + stool. He was sent by Dr. Cervantes for further evaluation of the labs. He would put his pain at a 6/10 today. He states that the pain is sharp and stabbing in nature, it does not radiate down his legs, nor does it radiate anywhere else. He denies any weakness/dizziness, fevers/chills, nausea/ vomiting/diarrhea. He did note that he had a BM yesterday and this was regular for him, he did not note any blood or black coloring to his stool. He is also on coumadin. 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 Cano at clinic lower spine Pain Score (Numeric/FACES): 5 - Related Data Allergies Allergy/AdvReac Type Severity Reaction Status Date / Time No Known Allergies Allergy Verified 12/09/17 09:42 Home Meds: Home Meds Omeprazole 40 mg PO DAILY 02/08/14 [History] Warfarin [Coumadin] 5 mg PO ASDIRECTED 11/15/14 [History] Gabapentin [Neurontin] 200 mg PO BID 06/21/16 [History] Tamsulosin [Flomax] 0.4 mg PO BEDTIME 06/21/16 [History] Insulin Glarg,Human.Rec.Analog [Lantus] 17 unit SQ BEDTIME 10/07/16 [History] [place]-3/DHA/Epa/Fish Oil [Fish Oil 1,000 mg Softgel] 1,000 mg PO DAILY 10/07/16 [History] Vitamin E 400 intnl unit PO DAILY 10/07/16 [History] Acetaminophen [Tylenol] 650 mg PO Q6HR PRN 01/15/17 [History] L.acidoph,Paracasei, B.lactis [Probiotic] 1 dose PO DAILY 01/15/17 [History] Polyethylene Glycol [Polyox Wsr-301] 17 gram PO DAILY 01/15/17 [History] traMADol [Ultram] 1 tab PO Q6HR PRN 01/15/17 [History] Multivitamin [Gummi Bear Multivitamin] 1 dose PO DAILY 01/16/17 [History] Potassium Chloride [Klor-Con M20] 20 meq PO DAILY 01/16/17 [History] Diltiazem [Cardizem CD] 180 mg PO DAILY #30 cap.cd 01/20/17 [Rx] Docusate Sodium [Colace] 100 mg PO BID PRN #30 cap 01/20/17 [Rx] Ferrous Sulfate 325 mg PO BID #60 tablet 01/20/17 [Rx] Furosemide 40 mg PO DAILY #0 01/20/17 [Rx] Metoprolol Succinate [Toprol XL] 12.5 mg PO DAILY #30 tab.er 01/20/17 [Rx] Bisacodyl [Dulcolax] 5 mg PO DAILY PRN 02/26/17 [History] Hydrocortisone [Anusol-HC] 1 dose TOP BID PRN 02/26/17 [History] Ipratropium/Albuterol Sulfate [Iprat-Albut 0.5-3(2.5) MG/3 ML] 1 ampule INH Q4H PRN 02/26/17 [History] Bicalutamide [Casodex] 50 mg PO DAILY 06/12/17 [History] Acetaminophen with Codeine [Tylenol with Codeine #3 Tablet] 1 each PO 1500 PRN 06/15/18 [History] Furosemide 20 mg PO 1400 06/15/18 [History] Insulin Aspart [NovoLOG] 0 unit SQ TID 06/15/18 [History] Levothyroxine [Synthroid] 75 mcg PO ACBREAKFAST 06/15/18 [History] Naproxen Sodium 220 mg PO TID PRN 06/15/18 [History] Past Medical History HEENT History: Reports: Hard of Hearing, Impaired Vision Other HEENT History: wears eyeglasses Cardiovascular History: Reports: Afib, CAD, Cardiomyopathy, Heart Failure, High Cholesterol, Hypertension Respiratory History: Reports: COPD, SOB Gastrointestinal History: Reports: Chronic Constipation, Gastritis, GERD, Hemorrhoids, PUD Other Gastrointestinal History: ulcer Genitourinary History: Reports: BPH, Chronic Renal Insuffiency, Prostate Disorder, Retention, Urinary Musculoskeletal History: Reports: Osteoarthritis Neurological History: Reports: Neuropathy, Diabetic Psychiatric History: Reports: Addiction, Depression Other Psychiatric History: states feels depressed "when I get sick like this." State "the only thing, I'd like to get well, this pain" is making pt feel depressed. Endocrine/Metabolic History: Reports: Diabetes, Type II, Hypothyroidism Hematologic History: Reports: Anemia, Blood Transfusion(s) Dermatologic History: Reports: Other (See Below) Other Dermatologic History: "blisters removed on nose" - Infectious Disease History Infectious Disease History: Reports: Chicken Pox, Influenza - Past Surgical History Dermatological Surgical History: Reports: Skin Biopsy Social & Family History - Family History Family Medical History: Noncontributory HEENT: Reports: Cataract, Macular Degeneration Cardiac: Reports: Hypertension : Reports: Diabetic Nephropathy Musculoskeletal: Reports: Arthritis Neurological: Reports: Alzheimers Disease, Dementia, Parkinson's, Vertigo Endocrine/Metabolic: Reports: Diabetes, type II Dermatologic: Reports: Psoriasis Oncologic: Reports: Leukemia, Prostate, Other (See Below) Other Oncologic Family History: stomach - Tobacco Use Smoking Status *Q: Former Smoker Used Tobacco, but Quit: No - Caffeine Use Caffeine Use: Reports: Soda Caffeine Use Comment: every other day - Recreational Drug Use Recreational Drug Use: No - Living Situation & Occupation Living situation: Reports: Single, Assisted Living ([facility]) Occupation: Retired ED ROS GENERAL - Review of Systems Review Of Systems: See Below Constitutional: Reports: No Symptoms HEENT: Reports: No Symptoms Respiratory: Reports: No Symptoms Cardiovascular: Reports: No Symptoms Endocrine: Reports: No Symptoms GI/Abdominal: Denies: Black Stool, Hematemesis, Hematochezia, Melena, Nausea, Vomiting : Reports: No Symptoms Musculoskeletal: Reports: No Symptoms, Back Pain (lower back pain) Skin: Reports: No Symptoms Neurological: Reports: No Symptoms Psychiatric: Reports: No Symptoms ED EXAM,LOWER BACK PAIN/INJURY - Physical Exam Exam: See Below Exam Limited By: No Limitations General Appearance: Alert, WD/WN, No Apparent Distress Eye Exam: Bilateral Eye: EOMI, Normal Inspection, PERRL Ears: Normal External Exam Nose: Normal Inspection Throat/Mouth: Normal Inspection, Normal Oropharynx, No Airway Compromise Head: Atraumatic, Normocephalic Neck: Normal Inspection Respiratory/Chest: No Respiratory Distress, No Accessory Muscle Use, Chest Non- Tender, Rhonchi (to right lung, almost rub sounding in nature) Cardiovascular: Normal Peripheral Pulses, Regular Rate, Rhythm, No JVD, No Murmur GI/Abdominal: Normal Bowel Sounds, Soft, Non-Tender, No Distention, No Mass Rectal (Males) Exam: Heme + Stool (as reported by Dr. Cervantes) Back Exam: Normal Inspection, Decreased Range of Motion (due to pain) Extremities: Normal Inspection, Normal Capillary Refill Neurological: Alert, Normal Mood/Affect, Normal Plantar Flexion, Normal Gait, No Motor/Sensory Deficits, Oriented x 3 Psychiatric: Normal Affect, Normal Mood Skin Exam: Warm, Dry, Intact, Normal Color, No Rash Course - Vital Signs Last Recorded V/S: Last Vital Signs Temp 97.5 F 06/15/18 16:20 Pulse 75 06/15/18 16:20 Resp 18 06/15/18 16:20 BP 120/61 06/15/18 16:20 Pulse Ox 95 06/15/18 16:20 Orthostatic Blood Pressure [ 105/63 Standing] Orthostatic Blood Pressure [ 126/67 Sitting] Orthostatic Blood Pressure [ 124/67 Supine] - Orders/Labs/Meds Orders: Active Orders 24 hr Category Date Time Status Admission Status [Patient Status] [ADT] Routine ADT 06/15/18 21:32 Active Peripheral IV Care [RC] . DIRECTED Care 06/15/18 19:54 Active RED BLOOD CELLS LP [BBK] Stat Lab 06/15/18 17:17 Results TYPE AND SCREEN [BBK] Stat Lab 06/15/18 17:17 Results Pantoprazole [ProTONIX IV] 80 mg Med 06/15/18 19:56 Active Sodium Chloride 0.9% [Normal Saline] 100 ml IV ONETIME Sodium Chloride 0.9% [Normal Saline] 1,000 ml Med 06/15/18 20:15 Active IV ASDIRECTED Sodium Chloride 0.9% [Saline Flush] Med 06/15/18 19:54 Active 10 ml FLUSH ASDIRECTED PRN Peripheral IV Insertion Adult [OM.PC] Routine Oth 06/15/18 19:54 Ordered Medication Orders Pantoprazole Sodium 80 mg/ (Sodium Chloride) 100 mls @ 10 mls/hr IV ONETIME ONE Stop: 06/16/18 05:55 Last Admin: 06/15/18 20:33 Dose: 10 mls/hr Sodium Chloride (Normal Saline) 1,000 mls @ 150 mls/hr IV ASDIRECTED CORY Last Admin: 06/15/18 20:35 Dose: 150 mls/hr Sodium Chloride (Saline Flush) 10 ml FLUSH ASDIRECTED PRN PRN Reason: Keep Vein Open Last Admin: 06/15/18 20:34 Dose: 10 ml Admin: 06/15/18 20:16 Dose: 10 ml Labs: Laboratory Tests 06/15/18 06/15/18 06/15/18 Range/Units 17:17 17:17 17:17 WBC 7.70 (4.23-9.07) K/mm3 RBC 3.28 L (4.63-6.08) M/mm3 Hgb 9.2 L (13.7-17.5) gm/L Hct 29.4 L (40.1-51.0) % MCV 89.6 (79.0-92.2) fl MCH 28.0 (25.7-32.2) pg MCHC 31.3 L (32.2-35.5) g/dl RDW Std Deviation 49.1 H (35.1-43.9) fL Plt Count 319 (163-337) K/mm3 MPV 9.6 (9.4-12.3) fl Neutrophils % (Manual) 78 H (40-60) % Band Neutrophils % 2 (0-10) % Lymphocytes % (Manual) 16 L (20-40) % Atypical Lymphs % 0 % Monocytes % (Manual) 2 (2-10) % Eosinophils % (Manual) 1 (0.8-7.0) % Basophils % (Manual) 1 (0.2-1.2) Platelet Estimate Adequate Hypochromasia Few Anisocytosis 1+ slight Ovalocytes Few RBC Morph Comment Not Reportable PT 23.6 H (9.5-12.1) SECONDS INR 2.20 Sodium 136 (136-145) mEq/L Potassium 4.4 (3.5-5.1) mEq/L Chloride 97 L (98-107) mEq/L Carbon Dioxide 29 (21-32) mEq/L Anion Gap 14.4 (5-15) BUN 29 H (7-18) mg/dL Creatinine 1.6 H (0.7-1.3) mg/dL Est Cr Clr Drug Dosing 34.35 mL/min Estimated GFR (MDRD) 41 (>60) mL/min BUN/Creatinine Ratio 18.1 H (14-18) Glucose 192 H (83-115) mg/dL Calcium 9.5 (8.5-10.1) mg/dL Total Bilirubin 0.7 (0.2-1.0) mg/dL AST 19 (15-37) U/L ALT 17 (16-63) U/L Alkaline Phosphatase 337 H (46-116) U/L Total Protein 7.9 (6.4-8.2) g/dl Albumin 2.9 L (3.4-5.0) g/dl Globulin 5.0 gm/dL Albumin/Globulin Ratio 0.6 L (1-2) Blood Type Gel Antibody Screen Crossmatch 06/15/18 Range/Units 17:17 WBC (4.23-9.07) K/mm3 RBC (4.63-6.08) M/mm3 Hgb (13.7-17.5) gm/L Hct (40.1-51.0) % MCV (79.0-92.2) fl MCH (25.7-32.2) pg MCHC (32.2-35.5) g/dl RDW Std Deviation (35.1-43.9) fL Plt Count (163-337) K/mm3 MPV (9.4-12.3) fl Neutrophils % (Manual) (40-60) % Band Neutrophils % (0-10) % Lymphocytes % (Manual) (20-40) % Atypical Lymphs % % Monocytes % (Manual) (2-10) % Eosinophils % (Manual) (0.8-7.0) % Basophils % (Manual) (0.2-1.2) Platelet Estimate Hypochromasia Anisocytosis Ovalocytes RBC Morph Comment PT (9.5-12.1) SECONDS INR Sodium (136-145) mEq/L Potassium (3.5-5.1) mEq/L Chloride (98-107) mEq/L Carbon Dioxide (21-32) mEq/L Anion Gap (5-15) BUN (7-18) mg/dL Creatinine (0.7-1.3) mg/dL Est Cr Clr Drug Dosing mL/min Estimated GFR (MDRD) (>60) mL/min BUN/Creatinine Ratio (14-18) Glucose (83-115) mg/dL Calcium (8.5-10.1) mg/dL Total Bilirubin (0.2-1.0) mg/dL AST (15-37) U/L ALT (16-63) U/L Alkaline Phosphatase (46-116) U/L Total Protein (6.4-8.2) g/dl Albumin (3.4-5.0) g/dl Globulin gm/dL Albumin/Globulin Ratio (1-2) Blood Type A POSITIVE Gel Antibody Screen Negative Crossmatch See Detail Meds: Medications Generic Name Dose Route Start Last Admin Trade Name Freq PRN Reason Stop Dose Admin Pantoprazole Sodium 80 mg/ 100 mls @ 10 mls/hr 06/15/18 19:56 06/15/18 20:33 Sodium Chloride IV 06/16/18 05:55 10 mls/hr ONETIME ONE Administration Sodium Chloride 1,000 mls @ 150 mls/hr 06/15/18 20:15 06/15/18 20:35 Normal Saline IV 150 mls/hr ASDIRECTED CORY Administration Sodium Chloride 10 ml 06/15/18 19:54 06/15/18 20:34 Saline Flush FLUSH 10 ml ASDIRECTED PRN Administration Keep Vein Open Discontinued Medications Generic Name Dose Route Start Last Admin Trade Name Freq PRN Reason Stop Dose Admin Diatrizoate Meglum/Diatrizoate Sod 120 ml 06/15/18 18:05 06/15/18 20:15 Gastrografin 37% PO 06/15/18 18:06 120 ml ONETIME ONE Administration Iopamidol 100 ml 06/15/18 18:05 06/15/18 20:16 Isovue-300 (61%) IVPUSH 06/15/18 18:06 75 ml ONETIME ONE Administration Pantoprazole Sodium 40 mg 06/15/18 20:26 06/15/18 20:34 Protonix Iv IVPUSH 06/15/18 20:27 40 mg ONETIME ONE Administration - Radiology Interpretation Free Text/Narrative:: CT chest Technique: Multiple axial sections were obtained through the chest. Intravenous contrast was utilized. Comparison: No prior chest CT is available. Findings: Aorta shows atherosclerotic calcification without aneurysm. Coronary artery calcification is seen. Heart is mildly enlarged. Mediastinum and hilar regions show no adenopathy. Gynecomastia is identified bilaterally. No axillary adenopathy is seen. Mild emphysematous changes are seen within both lungs. Mild interstitial fibrosis is seen within both lung bases. No acute parenchymal change is seen. Bone window settings were reviewed which shows a mixture of sclerotic and osteolytic lesions throughout the thoracic spine. Sclerosis is noted within the sternum. No discrete rib abnormality is appreciated. Impression: 1. Mixture of osteolytic and sclerotic lesions throughout the thoracic spine compatible with metastatic disease. Sclerotic area also noted within the sternum compatible with metastatic disease. 2. Gynecomastia bilaterally. 3. Other incidental findings. Diagnostic code #9 CT abdomen and pelvis Technique: Multiple axial sections were obtained from above the dome of the diaphragm inferiorly through the pubic symphysis. Intravenous and oral contrast was utilized. Delayed images were also obtained through the pelvis. Comparison: Prior noncontrast CT abdomen and pelvis study of 02/11/17. Findings: Liver shows no discrete abnormality. Small low-density lesion is noted within the spleen measuring 5 mm in size. Small additional second lesion measuring 5 mm is also noted. Spleen is not enlarged. Adrenal glands show no nodule. Fluid-filled collection is seen posterior to the kidney which appears stable from prior CT exam and has a maximum length of 7.6 cm. Pancreas is atrophic without discrete mass. Gallbladder contains no calcified gallstones. Right kidney shows a cyst measuring 2.8 cm. Left kidney shows a minimal cortical lesion which is felt compatible with additional cyst measuring 9 mm. No additional abnormality is seen within the kidneys. Aorta shows atherosclerotic change. Scattered retroperitoneal adenopathy is seen as well as adenopathy within the right iliac chain. This adenopathy has decreased in prominence from previous exam. Appendix not definitely visualized but no findings of appendicitis are seen. Diverticuli are seen within the descending and sigmoid colon without diverticulitis. Prostate gland is mildly enlarged but decreased in size from previous study. Delayed images shows contrast within the ureters as well as a small amount of contrast within the bladder. Bone window settings were reviewed which shows a mixture of sclerotic and osteolytic lesions within the proximal femurs as well as within the pelvis compatible with metastatic disease. Similar findings are seen within portions of the sacrum and lumbar spine. Impression: 1. Mixed sclerotic and lytic lesions throughout the spine as well as pelvis and within both hips. Sclerotic lesions seen within the sternum. These findings are compatible with metastatic bony disease. Most of these findings are seen on prior CT exam although findings have slightly worsened in the interim. 2. Retroperitoneal adenopathy which has decreased in prominence from previous exam. 3. Enlarged prostate gland which has decreased in size from previous exam. 4. Small splenic lesions which are nonspecific but possibly due to early metastatic disease. 5. Other incidental findings. Diagnostic code #9 - Re-Assessments/Exams Free Text/Narrative Re-Assessment/Exam: 06/15/18 17:24 Pt presents to the ED for further evaluation for lower back pain and heme + stool. CMP and INR/PT/PTT has been ordered, with CT chest abdomen pelvis for further evaluation of possible bone cancer mets to other sources. 06/15/18 18:04 RN notified me that she escorted the patient to the bathroom and he had some black stool initially and then had a peter bloody stool after. Have ordered CBC to evaluate for further blood loss, due to large, peter bloody stool. Will order type and screen in case blood transfusion may be necessary. 06/15/18 18:40 metabolic panel is back and his ALP is elevated at 337, which further indicates bone cancer mets. It was recommended by radiology that did x-ray for a possible bone scan to determine spread. It is likely that he will have to be admitted for a GI bleed. Will wait for CT results before decisions can be made. 06/15/18 19:[address] Kelley, he did recommend an 80mg bolus of protonix with an 8mg protonix drip to be started. 06/15/18 21:29 Dr. Mccabe consulted for hospital admission, she accepted for observation with telemetry and a general surgery consult in AM with Dr. Espinoza. 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 DIRECTED Sodium Chloride 0.9% [Saline Flush] 10 ml FLUSH ASDIRECTED PRN Peripheral IV Insertion Adult [OM.PC] Routine 06/15/18 19:56 Pantoprazole [ProTONIX IV] 80 mg Sodium Chloride 0.9% [Normal Saline] 100 ml IV ONETIME 06/15/18 20:15 Sodium Chloride 0.9% [Normal Saline] 1,000 ml IV ASDIRECTED 06/15/18 21:32 Admission Status [Patient Status] [ADT] Routine - Assessment/Plan Last 24 Hours: My Active Orders 06/15/18 17:17 RED BLOOD CELLS LP [BBK] Stat TYPE AND SCREEN [BBK] Stat 06/15/18 19:54 Peripheral IV Care [RC] . DIRECTED Sodium Chloride 0.9% [Saline Flush] 10 ml FLUSH ASDIRECTED PRN Peripheral IV Insertion Adult [OM.PC] Routine 06/15/18 19:56 Pantoprazole [ProTONIX IV] 80 mg Sodium Chloride 0.9% [Normal Saline] 100 ml IV ONETIME 06/15/18 20:15 Sodium Chloride 0.9% [Normal Saline] 1,000 ml IV ASDIRECTED 06/15/18 21:32 Admission Status [Patient Status] [ADT] Routine
[2018-06-15] MEDS ORDERED: Iopamidol 612 MG/ML 100 ML Bottle IVPUSH ONE (18:05)
[2018-06-15] MEDS ORDERED: Diatrizoate Meglumine/Diatrizoate Sodium 37% 120 ML Bottle PO ONE (18:05)
[2018-06-15] MEDS ORDERED: Pantoprazole 40 MG Vial IVPUSH ONE ×2 (19:54→20:26)
[2018-06-15] MEDS ORDERED: Pantoprazole 80 MG in Sodium Chloride 0.9% 100 ML IV ONE (19:56)
[2018-06-15] MEDS: Sodium Chloride 0.9% 10 ML Syringe FLUSH PRN ×2 (20:16→20:34)
[2018-06-15] MEDS: Sodium Chloride 0.9% 1,000 ML IV SCH (20:35)
--- NOTE | 2018-06-15 21:02 | CT ---
CT chest Technique: Multiple axial sections were obtained through the chest. Intravenous contrast was utilized. Comparison: No prior chest CT is available. Findings: Aorta shows atherosclerotic calcification without aneurysm. Coronary artery calcification is seen. Heart is mildly enlarged. Mediastinum and hilar regions show no adenopathy. Gynecomastia is identified bilaterally. No axillary adenopathy is seen. Mild emphysematous changes are seen within both lungs. Mild interstitial fibrosis is seen within both lung bases. No acute parenchymal change is seen. Bone window settings were reviewed which shows a mixture of sclerotic and osteolytic lesions throughout the thoracic spine. Sclerosis is noted within the sternum. No discrete rib abnormality is appreciated. Impression: 1. Mixture of osteolytic and sclerotic lesions throughout the thoracic spine compatible with metastatic disease. Sclerotic area also noted within the sternum compatible with metastatic disease. 2. Gynecomastia bilaterally. 3. Other incidental findings. Diagnostic code #9 CT abdomen and pelvis Technique: Multiple axial sections were obtained from above the dome of the diaphragm inferiorly through the pubic symphysis. Intravenous and oral contrast was utilized. Delayed images were also obtained through the pelvis. Comparison: Prior noncontrast CT abdomen and pelvis study of 02/11/17. Findings: Liver shows no discrete abnormality. Small low-density lesion is noted within the spleen measuring 5 mm in size. Small additional second lesion measuring 5 mm is also noted. Spleen is not enlarged. Adrenal glands show no nodule. Fluid-filled collection is seen posterior to the kidney which appears stable from prior CT exam and has a maximum length of 7.6 cm. Pancreas is atrophic without discrete mass. Gallbladder contains no calcified gallstones. Right kidney shows a cyst measuring 2.8 cm. Left kidney shows a minimal cortical lesion which is felt compatible with additional cyst measuring 9 mm. No additional abnormality is seen within the kidneys. Aorta shows atherosclerotic change. Scattered retroperitoneal adenopathy is seen as well as adenopathy within the right iliac chain. This adenopathy has decreased in prominence from previous exam. Appendix not definitely visualized but no findings of appendicitis are seen. Diverticuli are seen within the descending and sigmoid colon without diverticulitis. Prostate gland is mildly enlarged but decreased in size from previous study. Delayed images shows contrast within the ureters as well as a small amount of contrast within the bladder. Bone window settings were reviewed which shows a mixture of sclerotic and osteolytic lesions within the proximal femurs as well as within the pelvis compatible with metastatic disease. Similar findings are seen within portions of the sacrum and lumbar spine. Impression: 1. Mixed sclerotic and lytic lesions throughout the spine as well as pelvis and within both hips. Sclerotic lesions seen within the sternum. These findings are compatible with metastatic bony disease. Most of these findings are seen on prior CT exam although findings have slightly worsened in the interim. 2. Retroperitoneal adenopathy which has decreased in prominence from previous exam. 3. Enlarged prostate gland which has decreased in size from previous exam. 4. Small splenic lesions which are nonspecific but possibly due to early metastatic disease. 5. Other incidental findings. Diagnostic code #9
[2018-06-16] MEDS: Sodium Chloride 0.9% 1,000 ML IV SCH ×2 (03:09→16:40)
[2018-06-16] MEDS ORDERED: Albuterol/Ipratropium 3.0-0.5 MG/3 ML Neb Soln NEB PRN (06:31)
[2018-06-16] MEDS ORDERED: Ondansetron 4 MG Tab.DIS PO PRN (06:31)
[2018-06-16] MEDS ORDERED: Acetaminophen 325 MG Tab PO PRN (06:31)
[2018-06-16] MEDS ORDERED: Ondansetron 4 MG/2 ML SDV IV PRN (06:31)
[2018-06-16] MEDS ORDERED: hydrALAZINE 20 MG/ML SDV IVPUSH PRN (06:34)
[2018-06-16] MEDS ORDERED: Metoprolol Tartrate 5 MG/5 ML SDV IVPUSH PRN (06:34)
[2018-06-16] MEDS ORDERED: TRAMADOL 50 MG PO PRN (06:36)
[2018-06-16] MEDS ORDERED: IPRATROPIUM INH PRN (06:36)
[2018-06-16] MEDS ORDERED: [UNRECOGNIZED DRUG - OTHER] INH PRN (06:36)
[2018-06-16] MEDS ORDERED: ALBUTEROL SULFATE INH PRN (06:36)
[2018-06-16] MEDS ORDERED: Bisacodyl 5 MG Tab PO PRN (06:36)
[2018-06-16] MEDS ORDERED: HYDROCORTISONE TOP PRN (06:36)
--- NOTE | 2018-06-16 06:41 | PCM.HP ---
H&P History of Present Illness - General Date of Service: 06/16/18 Admit Problem/Dx: Admission Diagnosis/Problem Admission Diagnosis/Problem GI bleed not requiring more than 4 units of blood in 24 hours, ICU, or surgery Source of Information: Patient, Old Records, Provider, RN, RN Notes Reviewed History Limitations: Reports: Altered Mental Status - History of Present Illness Initial Comments - Free Text/Narative: Ronald Ramirez is an 88 yo male who presented to her ED yesterday afternoon with low back pain and heme positive stool. He reportedly had an appointment with his primary care provider, Dr. Cervantes, today at [place] and a lumbar x- ray was done showing a lytic lesion of 2.9 cm x 2.7 cm on the right side of the sacrum. His hemoglobin was done at the clinic and found to be 1.9 along with a PSA of 150 and heme positive stool he was therefore sent to the ED for further evaluation. Rates his pain at a 6 out of 10 and sharp and stabbing in nature. Denies any radiation of the pain, weakness, dizziness, fever, chills, nausea, vomiting, diarrhea. He does note that he had a bowel movement the day before and reports this is regular for him without any gross blood or melena. He is on Coumadin chronically. In the ED temperature was 97.5. Pulse 75. Respirations 18. Blood pressure 120/61. Pulse ox 95%. Orthostatic blood pressure was obtained standing showing 105/63, sitting 126/67, supine 124/67. Labs were obtained: W CBC was 7.70. Hemoglobin 9.2. Hematocrit 29.4. He is normocytic. Pulses were good at 319,000. Neutrophils were elevated at 78%. There is 2% band neutrophils. PT was 23.6. INR 2.2. Sodium 136. Potassium 4.4. Chloride 97. Carbon dioxide 29. Anion gap 14.4. BUN was 29. Creatinine 1.6. EGFR is 41. Glucose is 192. Calcium 9.5. Total bilirubin 0.7. AST is 19, ALT 17, alkaline phosphatase 337. Protein 7.9 albumin 2.9. Type and screen was performed showing a positive blood and negative for antibodies. He was started on a Protonix drip and given a 40 mg IV push her Protonix. In the ED patient had a black bowel movement initially which then turned to peter blood. CT of the chest was obtained and interpreted as "1 mix of osteolytic and sclerotic lesions throughout the thoracic spine compatible with metastatic disease. Sclerotic area also noted within the sternum compatible with metastatic disease. 2. Gynecomastia bilaterally. 3. Other incidental findings." CT of the abdomen and pelvis was obtained showing "1 mix sclerotic and lytic lesions throughout the spine as well as pelvis and within both hips. Sclerotic lesions seen within the sternum. These findings are compatible with metastatic bony disease. Most of these findings are seen on prior CT exam although findings have slightly worsened in the interim. 2. Retroperitoneal adenopathy which has decreased in prominence from previous exam. 3. Enlarged prostate gland which is decreased in size from previous exam. 4. Small splenic lesions which are nonspecific but possibly due to early metastatic disease. 5. Other incidental findings." He is subsequently admitted to the medical floor observation status. General surgeon, Dr. Espinoza has been consulted. He carries a history of: A. fib, CAD, cardiomyopathy, heart failure, HLD, HTN, COPD, chronic constipation, gastritis, GERD, hemorrhoids, PUD, prior ulcer, BPH, chronic renal insufficiency, prostate disorder, urinary retention, osteoporosis, diabetic neuropathy, addiction, depression, type II DM, hypothyroidism, anemia. He is a former smoker. His PCP is Dr. Cervantes. He is a full code. lower spine Pain Score (Numeric/FACES): 5 - Related Data Allergies/Adverse Reactions: Allergies Allergy/AdvReac Type Severity Reaction Status Date / Time No Known Allergies Allergy Verified 12/09/17 09:42 Home Medications: Home Meds Omeprazole 40 mg PO DAILY 02/08/14 [History] Warfarin [Coumadin] 5 mg PO DAILY 11/15/14 [History] Gabapentin [Neurontin] 200 mg PO BID 06/21/16 [History] Tamsulosin [Flomax] 0.4 mg PO BEDTIME 06/21/16 [History] Insulin Glarg,Human.Rec.Analog [Lantus] 17 unit SQ BEDTIME 10/07/16 [History] [place]-3/DHA/Epa/Fish Oil [Fish Oil 1,000 mg Softgel] 1,000 mg PO DAILY 10/07/16 [History] Vitamin E 400 intnl unit PO DAILY 10/07/16 [History] Acetaminophen [Tylenol] 650 mg PO Q4HR PRN 01/15/17 [History] L.acidoph,Paracasei, B.lactis [Probiotic] 1 tab PO DAILY 01/15/17 [History] Polyethylene Glycol [Polyox Wsr-301] 17 gram PO DAILY 01/15/17 [History] traMADol [Ultram] 50 mg PO Q6HR PRN 01/15/17 [History] Multivitamin [Gummi Bear Multivitamin] 1 dose PO DAILY 01/16/17 [History] Potassium Chloride [Klor-Con M20] 20 meq PO DAILY 01/16/17 [History] Diltiazem [Cardizem CD] 180 mg PO DAILY #30 cap.cd 01/20/17 [Rx] Ferrous Sulfate 325 mg PO BID #60 tablet 01/20/17 [Rx] Furosemide 40 mg PO DAILY #0 01/20/17 [Rx] Metoprolol Succinate [Toprol XL] 12.5 mg PO DAILY #30 tab.er 01/20/17 [Rx] Bisacodyl [Dulcolax] 5 mg PO DAILY PRN 02/26/17 [History] Hydrocortisone [Anusol-HC] 1 dose TOP BID PRN 02/26/17 [History] Ipratropium/Albuterol Sulfate [Iprat-Albut 0.5-3(2.5) MG/3 ML] 1 ampule INH Q4H PRN 02/26/17 [History] Bicalutamide [Casodex] 50 mg PO DAILY 06/12/17 [History] Acetaminophen with Codeine [Tylenol with Codeine #3 Tablet] 1 each PO 1200 06/15 [History] Furosemide 20 mg PO 1200 06/15/18 [History] Insulin Aspart [NovoLOG] 2 - 10 unit SQ ASDIRECTED PRN 06/15/18 [History] Levothyroxine [Synthroid] 75 mcg PO ACBREAKFAST 06/15/18 [History] Naproxen Sodium 220 mg PO TID PRN 06/15/18 [History] Docusate Sodium [Colace] 100 mg PO DAILY 06/16/18 [History] Past Medical History HEENT History: Reports: Hard of Hearing, Impaired Vision Other HEENT History: wears eyeglasses Cardiovascular History: Reports: Afib, CAD, Cardiomyopathy, Heart Failure, High Cholesterol, Hypertension Respiratory History: Reports: COPD, SOB Gastrointestinal History: Reports: Chronic Constipation, Gastritis, GERD, Hemorrhoids, PUD Other Gastrointestinal History: ulcer Genitourinary History: Reports: BPH, Chronic Renal Insuffiency, Prostate Disorder, Retention, Urinary Musculoskeletal History: Reports: Osteoarthritis Other Musculoskeletal History: Hip pain and low back pain new Neurological History: Reports: Neuropathy, Diabetic Psychiatric History: Reports: Addiction, Depression Other Psychiatric History: states feels depressed "when I get sick like this." State "the only thing, I'd like to get well, this pain" is making pt feel depressed. Endocrine/Metabolic History: Reports: Diabetes, Type II, Hypothyroidism Hematologic History: Reports: Anemia, Blood Transfusion(s) Oncologic (Cancer) History: Reports: Bone Dermatologic History: Reports: Other (See Below) Other Dermatologic History: "blisters removed on nose" - Infectious Disease History Infectious Disease History: Reports: Chicken Pox, Influenza - Past Surgical History Dermatological Surgical History: Reports: Skin Biopsy Social & Family History - Family History Family Medical History: Noncontributory HEENT: Reports: Cataract, Macular Degeneration Cardiac: Reports: Hypertension : Reports: Diabetic Nephropathy Musculoskeletal: Reports: Arthritis Neurological: Reports: Alzheimers Disease, Dementia, Parkinson's, Vertigo Endocrine/Metabolic: Reports: Diabetes, type II Dermatologic: Reports: Psoriasis Oncologic: Reports: Leukemia, Prostate, Other (See Below) Other Oncologic Family History: stomach - Tobacco Use Smoking Status *Q: Former Smoker Used Tobacco, but Quit: Yes Month/Year Tobacco Last Used: 1986 Second Hand Smoke Exposure: No - Caffeine Use Caffeine Use: Reports: Soda Caffeine Use Comment: every other day - Recreational Drug Use Recreational Drug Use: No - Living Situation & Occupation Living situation: Reports: Single, Assisted Living ([place]) Occupation: Retired H&P Review of Systems - Review of Systems: Review Of Systems: See Below General: Reports: No Symptoms. Denies: Fever, Chills, Malaise, Weakness, Fatigue HEENT: Reports: No Symptoms. Denies: Headaches Pulmonary: Reports: No Symptoms. Denies: Shortness of Breath, Wheezing, Cough, Sputum Cardiovascular: Reports: No Symptoms. Denies: Chest Pain, Palpitations, Dyspnea on Exertion, Edema Gastrointestinal: Reports: Hematochezia, Melena. Denies: Abdominal Pain, Decreased Appetite, Hematemesis, Nausea, Vomiting Genitourinary: Reports: No Symptoms. Denies: Pain Musculoskeletal: Reports: Back Pain Skin: Reports: No Symptoms Psychiatric: Reports: Confusion Neurological: Reports: No Symptoms Hematologic/Lymphatic: Reports: No Symptoms Immunologic: Reports: No Symptoms Exam - Exam Exam: See Below - Vital Signs Vital Signs: Last Vital Signs Temp 97.5 F 06/16/18 02:45 Pulse 98 06/16/18 02:45 Resp 18 06/16/18 02:45 BP 141/64 H 06/16/18 02:45 Pulse Ox 96 06/16/18 02:45 Orthostatic Blood Pressure [ 105/63 Standing] Orthostatic Blood Pressure [ 126/67 Sitting] Orthostatic Blood Pressure [ 124/67 Supine] Weight: 177 lb - Exam Quality Assessment: DVT Prophylaxis General: Alert, Cooperative. No: Oriented (confused ), Mild Distress HEENT: Conjunctiva Clear, EACs Clear, EOMI, Hearing Intact, Mucosa Moist & [place] , Nares Patent, Posterior Pharynx Clear, PERRLA Neck: Supple, Trachea Midline Lungs: Clear to Auscultation, Normal Respiratory Effort Cardiovascular: Regular Rate, Regular Rhythm GI/Abdominal Exam: Normal Bowel Sounds, Soft, Non-Tender, No Distention, No Abnormal Bruit (Male) Exam: Deferred Rectal (Males) Exam: Deferred Back Exam: Normal Inspection, Decreased Range of Motion (2/2 pain) Extremities: Normal Inspection, Normal Range of Motion, Non-Tender, No Pedal Edema, Normal Capillary Refill Peripheral Pulses: 2+: Radial (L), Radial (R), Dorsalis Pedis (L), Dorsalis Pedis (R) Skin: Warm, Dry, Intact Neurological: Cranial Nerves Intact (grossly) Neuro Extensive - Mental Status: Alert, Normal Mood/Affect, Normal Cognition - Patient Data Lab Results Last 24 hrs: Laboratory Results - last 24 hr 06/15/18 06/15/18 06/15/18 Range/Units 17:17 17:17 17:17 WBC 7.70 (4.23-9.07) K/mm3 RBC 3.28 L (4.63-6.08) M/mm3 Hgb 9.2 L (13.7-17.5) gm/L Hct 29.4 L (40.1-51.0) % MCV 89.6 (79.0-92.2) fl MCH 28.0 (25.7-32.2) pg MCHC 31.3 L (32.2-35.5) g/dl RDW Std Deviation 49.1 H (35.1-43.9) fL Plt Count 319 (163-337) K/mm3 MPV 9.6 (9.4-12.3) fl Neutrophils % (Manual) 78 H (40-60) % Band Neutrophils % 2 (0-10) % Lymphocytes % (Manual) 16 L (20-40) % Atypical Lymphs % 0 % Monocytes % (Manual) 2 (2-10) % Eosinophils % (Manual) 1 (0.8-7.0) % Basophils % (Manual) 1 (0.2-1.2) Platelet Estimate Adequate Hypochromasia Few Anisocytosis 1+ slight Ovalocytes Few RBC Morph Comment Not Reportable PT 23.6 H (9.5-12.1) SECONDS INR 2.20 Sodium 136 (136-145) mEq/L Potassium 4.4 (3.5-5.1) mEq/L Chloride 97 L (98-107) mEq/L Carbon Dioxide 29 (21-32) mEq/L Anion Gap 14.4 (5-15) BUN 29 H (7-18) mg/dL Creatinine 1.6 H (0.7-1.3) mg/dL Est Cr Clr Drug Dosing 34.35 mL/min Estimated GFR (MDRD) 41 (>60) mL/min BUN/Creatinine Ratio 18.1 H (14-18) Glucose 192 H (83-115) mg/dL POC Glucose (83-110) mg/dL Calcium 9.5 (8.5-10.1) mg/dL Total Bilirubin 0.7 (0.2-1.0) mg/dL AST 19 (15-37) U/L ALT 17 (16-63) U/L Alkaline Phosphatase 337 H (46-116) U/L Total Protein 7.9 (6.4-8.2) g/dl Albumin 2.9 L (3.4-5.0) g/dl Globulin 5.0 gm/dL Albumin/Globulin Ratio 0.6 L (1-2) MRSA (PCR) Blood Type Gel Antibody Screen Crossmatch 06/15/18 06/15/18 06/16/18 Range/Units 17:17 23:45 06:25 WBC (4.23-9.07) K/mm3 RBC (4.63-6.08) M/mm3 Hgb (13.7-17.5) gm/L Hct (40.1-51.0) % MCV (79.0-92.2) fl MCH (25.7-32.2) pg MCHC (32.2-35.5) g/dl RDW Std Deviation (35.1-43.9) fL Plt Count (163-337) K/mm3 MPV (9.4-12.3) fl Neutrophils % (Manual) (40-60) % Band Neutrophils % (0-10) % Lymphocytes % (Manual) (20-40) % Atypical Lymphs % % Monocytes % (Manual) (2-10) % Eosinophils % (Manual) (0.8-7.0) % Basophils % (Manual) (0.2-1.2) Platelet Estimate Hypochromasia Anisocytosis Ovalocytes RBC Morph Comment PT (9.5-12.1) SECONDS INR Sodium (136-145) mEq/L Potassium (3.5-5.1) mEq/L Chloride (98-107) mEq/L Carbon Dioxide (21-32) mEq/L Anion Gap (5-15) BUN (7-18) mg/dL Creatinine (0.7-1.3) mg/dL Est Cr Clr Drug Dosing mL/min Estimated GFR (MDRD) (>60) mL/min BUN/Creatinine Ratio (14-18) Glucose (83-115) mg/dL POC Glucose 152 H (83-110) mg/dL Calcium (8.5-10.1) mg/dL Total Bilirubin (0.2-1.0) mg/dL AST (15-37) U/L ALT (16-63) U/L Alkaline Phosphatase (46-116) U/L Total Protein (6.4-8.2) g/dl Albumin (3.4-5.0) g/dl Globulin gm/dL Albumin/Globulin Ratio (1-2) MRSA (PCR) Negative Blood Type A POSITIVE Gel Antibody Screen Negative Crossmatch See Detail Result Diagrams: 06/16/18 06:26 06/16/18 06:26 - Problem List (1) GIB (gastrointestinal bleeding) SNOMED Code(s): 02239011 ICD Code: K92.2 - GASTROINTESTINAL HEMORRHAGE, UNSPECIFIED Status: Acute Priority: High Current Visit: Yes Qualifiers: GI bleed type/associated pathology: melena Qualified Code(s): K92.1 - Melena (2) 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 SNOMED Code(s): 62328733, 769892749 ICD Code: C79.51 - SECONDARY MALIGNANT NEOPLASM OF BONE; C80.1 - MALIGNANT ( PRIMARY) NEOPLASM, UNSPECIFIED Status: Acute Priority: Medium Current Visit: Yes (3) Afib, Chronic atrial fibrillation SNOMED Code(s): 122156775 ICD Code: I48.2 - CHRONIC ATRIAL FIBRILLATION Status: Chronic Priority: Medium Current Visit: No (4) Anemia SNOMED Code(s): 964987158 ICD Code: D64.9 - ANEMIA, UNSPECIFIED Status: Acute Priority: High Current Visit: Yes Qualifiers: Anemia type: unspecified type Qualified Code(s): D64.9 - Anemia, unspecified (5) Atrial fibrillation, chronic SNOMED Code(s): 655815382 ICD Code: I48.2 - CHRONIC ATRIAL FIBRILLATION Status: Chronic Priority: Medium Current Visit: No (6) CHF (congestive heart failure), NYHA class III SNOMED Code(s): 688436093, 564663422 ICD Code: I50.9 - HEART FAILURE, UNSPECIFIED Status: Chronic Priority: Low Current Visit: No Qualifiers: Congestive heart failure type: diastolic Congestive heart failure chronicity: chronic Qualified Code(s): I50.32 - Chronic diastolic (congestive ) heart failure (7) Type II diabetes mellitus SNOMED Code(s): 53361410 ICD Code: E11.9 - TYPE 2 DIABETES MELLITUS WITHOUT COMPLICATIONS Status: Chronic Priority: Medium Current Visit: No Qualifiers: Diabetes mellitus terminal computer operator insulin use: with terminal computer operator use Diabetes mellitus complication status: with unspecified complications Qualified Code(s) : E11.8 - Type 2 diabetes mellitus with unspecified complications; Z79.4 - snf (current) use of insulin (8) CAD (coronary artery disease) SNOMED Code(s): 38005555 ICD Code: I25.10 - ATHSCL HEART DISEASE OF [place] CORONARY ARTERY W/O ANG PCTRS Status: Chronic Priority: Medium Current Visit: No Qualifiers: Coronary Disease-Associated Artery/Lesion type: unspecified vessel or lesion type [place] vs. transplanted heart: [place] heart Associated angina: angina presence unspecified Qualified Code(s): I25.10 - Atherosclerotic heart disease of [place] coronary artery without angina pectoris (9) Cardiomyopathy SNOMED Code(s): 83142471 ICD Code: I42.9 - CARDIOMYOPATHY, UNSPECIFIED Status: Chronic Priority: Medium Current Visit: No Qualifiers: Cardiomyopathy type: unspecified Qualified Code(s): I42.9 - Cardiomyopathy , unspecified (10) HLD (hyperlipidemia) SNOMED Code(s): 31206053 ICD Code: E78.5 - HYPERLIPIDEMIA, UNSPECIFIED Status: Chronic Priority: Low Current Visit: No Qualifiers: Hyperlipidemia type: unspecified Qualified Code(s): E78.5 - Hyperlipidemia , unspecified (11) HTN (hypertension) SNOMED Code(s): 47327316 ICD Code: I10 - ESSENTIAL (PRIMARY) HYPERTENSION Status: Chronic Priority : Medium Current Visit: No Qualifiers: Hypertension type: unspecified Qualified Code(s): I10 - Essential (primary ) hypertension (12) COPD (chronic obstructive pulmonary disease) SNOMED Code(s): 99551834 ICD Code: J44.9 - CHRONIC OBSTRUCTIVE PULMONARY DISEASE, UNSPECIFIED Status : Chronic Priority: Medium Current Visit: No Qualifiers: COPD type: unspecified COPD Qualified Code(s): J44.9 - Chronic obstructive pulmonary disease, unspecified (13) Chronic constipation SNOMED Code(s): 394245106 ICD Code: K59.09 - OTHER CONSTIPATION Status: Chronic Priority: Low Current Visit: No (14) GERD (gastroesophageal reflux disease) SNOMED Code(s): 691942525 ICD Code: K21.9 - GASTRO-ESOPHAGEAL REFLUX DISEASE WITHOUT ESOPHAGITIS Status: Chronic Priority: Medium Current Visit: No Qualifiers: Esophagitis presence: esophagitis presence not specified Qualified Code(s) : K21.9 - Gastro-esophageal reflux disease without esophagitis (15) BPH (benign prostatic hyperplasia) SNOMED Code(s): 405362586 ICD Code: N40.0 - BENIGN PROSTATIC HYPERPLASIA WITHOUT LOWER URINRY TRACT SYMP Status: Chronic Priority: Low Current Visit: No Qualifiers: Lower urinary tract symptom presence: unspecified whether lower urinary tract symptoms present Qualified Code(s): N40.0 - Benign prostatic hyperplasia without lower urinary tract symptoms (16) Diabetic neuropathy SNOMED Code(s): 660696276, 765110453 ICD Code: E11.40 - TYPE 2 DIABETES MELLITUS WITH DIABETIC NEUROPATHY, UNSP Status: Chronic Priority: Medium Current Visit: No Qualifiers: Diabetes mellitus type: type 2 Diabetes mellitus complication detail: with other neurological complication Qualified Code(s): E11.49 - Type 2 diabetes mellitus with other diabetic neurological complication Problem List Initiated/Reviewed/Updated: Yes Orders Last 24hrs: Active Orders 24 hr Category Date Time Status Admission Status [Patient Status] [ADT] Routine ADT 06/15/18 21:32 Active Blood Glucose Check, Bedside [RC] BIDMEALS Care 06/16/18 06:00 Active Cardiac Monitoring [RC] CONTINUOUS Care 06/16/18 06:32 Ordered Communication Order [RC] DAILY Care 06/15/18 22:17 Active Height and Weight [RC] DAILY Care 06/16/18 06:31 Ordered Intake and Output [RC] QSHIFT Care 06/16/18 06:32 Ordered Notify Provider Consults [RC] ASDIRECTED Care 06/15/18 22:26 Active Oxygen Therapy [RC] PRN Care 06/16/18 06:32 Ordered Peripheral IV Care [RC] Q2HR Care 06/15/18 19:54 Active Pulse Oximetry [RC] PRN Care 06/16/18 06:32 Ordered RT Aerosol Therapy [RC] ASDIRECTED Care 06/16/18 06:33 Ordered Up With Assistance [RC] ASDIRECTED Care 06/16/18 06:31 Ordered VTE/DVT Education [RC] PER UNIT ROUTINE Care 06/16/18 06:32 Ordered Vital Signs [RC] Q4H Care 06/16/18 06:32 Ordered Consult to Case Management/Director Of Web Marketing [CONS] Cons 06/15/18 22:17 Active Routine Consult to Physician [CONS] Routine Cons 06/15/18 22:17 Active Consult to Spiritual Care [CONS] Routine Cons 06/16/18 06:31 Ordered OT Evaluation and Treatment [CONS] Routine Cons 06/16/18 06:31 Ordered PT Evaluation and Treatment [CONS] Routine Cons 06/16/18 06:31 Ordered Nothing Per Oral Diet [DIET] Diet 06/16/18 Breakfast Active BASIC METABOLIC PANEL,BMP [CHEM] Routine Lab 06/16/18 05:00 Ordered HEMOGLOBIN [HEME] Routine Lab 06/16/18 05:00 Ordered RED BLOOD CELLS LP [BBK] Stat Lab 06/15/18 17:17 Results TYPE AND SCREEN [BBK] Stat Lab 06/15/18 17:17 Results Acetaminophen [Tylenol] Med 06/16/18 06:31 Ordered 650 mg PO Q4H PRN Acetaminophen with Codeine [Tylenol with Codeine #3 Med 06/16/18 12:00 Ordered Tablet] 1 each PO 1200 Albuterol/Ipratropium [DuoNeb 3.0-0.5 MG/3 ML] Med 06/16/18 06:31 Ordered 3 ml NEB Q4H PRN Bicalutamide Med 06/16/18 09:00 Ordered 50 mg PO DAILY Bisacodyl [Dulcolax] Med 06/16/18 06:36 Ordered 5 mg PO DAILY PRN Diltiazem [Cardizem CD] Med 06/16/18 09:00 Ordered 180 mg PO DAILY Ferrous Sulfate [Ferrous Sulfate] Med 06/16/18 09:00 Ordered 325 mg PO BID Furosemide [Furosemide] Med 06/16/18 12:00 Ordered 20 mg PO 1200 Furosemide [Furosemide] Med 06/16/18 09:00 Ordered 40 mg PO DAILY Gabapentin [Neurontin] Med 06/16/18 09:00 Ordered 200 mg PO BID Hydrocortisone Med 06/16/18 06:36 Ordered 1 dose TOP BID PRN Insulin Glarg,Human.Rec.Analog [Lantus] Med 06/16/18 21:00 Ordered 17 unit SQ BEDTIME Ipratropium/Albuterol Sulfate [Iprat-Albut 0.5-3(2.5) Med 06/16/18 06:36 Ordered MG/3 ML] 1 ampule INH Q4H PRN Levothyroxine [Synthroid] Med 06/17/18 06:00 Ordered 75 mcg PO ACBREAKFAST Metoprolol Succinate [Toprol XL] Med 06/16/18 09:00 Ordered 12.5 mg PO DAILY Metoprolol Tartrate [Lopressor] Med 06/16/18 06:34 Ordered 5 mg IVPUSH Q4H PRN Multivitamin [Gummi Bear Multivitamin] Med 06/16/18 09:00 Ordered 1 dose PO DAILY Ondansetron [Zofran ODT] Med 06/16/18 06:31 Ordered 4 mg PO Q6H PRN Ondansetron [Zofran] Med 06/16/18 06:31 Ordered 4 mg IV Q6H PRN Pantoprazole [ProTONIX IV] Med 06/16/18 21:00 Ordered 40 mg IVPUSH Q12H Potassium Chloride [Klor-Con M20] Med 06/16/18 09:00 Ordered 20 meq PO DAILY Sodium Chloride 0.9% [Normal Saline] 1,000 ml Med 06/16/18 06:30 Ordered IV ASDIRECTED Sodium Chloride 0.9% [Saline Flush] Med 06/15/18 19:54 Active 10 ml FLUSH ASDIRECTED PRN Tamsulosin [Flomax] Med 06/16/18 21:00 Ordered 0.4 mg PO BEDTIME hydrALAZINE [Apresoline] Med 06/16/18 06:34 Ordered 10 mg IVPUSH Q4H PRN traMADol [Ultram] Med 06/16/18 06:36 Ordered 50 mg PO Q6HR PRN Peripheral IV Insertion Adult [OM.PC] Routine Oth 06/15/18 19:54 Ordered Sequential Compression Device [OM.PC] Per Unit Routine Oth 06/16/18 06:32 Ordered Resuscitation Status Routine Resus Stat 06/15/18 22:17 Ordered Medication Orders Acetaminophen (Tylenol) 650 mg PO Q4H PRN PRN Reason: Pain (Mild 1-3)/fever Albuterol/Ipratropium (Duoneb 3.0-0.5 Mg/3 Ml) 3 ml NEB Q4H PRN PRN Reason: Shortness Of Breath/wheezing Hydralazine HCl (Apresoline) 10 mg IVPUSH Q4H PRN PRN Reason: Hypertension Sodium Chloride (Normal Saline) 1,000 mls @ 75 mls/hr IV ASDIRECTED CORY Metoprolol Tartrate (Lopressor) 5 mg IVPUSH Q4H PRN PRN Reason: Tachycardia Non-Formulary Medication (Acetaminophen With Codeine [Tylenol With Codeine #3 Tablet]) 1 each PO 1200 CORY Non-Formulary Medication (Bicalutamide) 50 mg PO DAILY CORY Non-Formulary Medication (Bisacodyl [Dulcolax]) 5 mg PO DAILY PRN PRN Reason: Constipation Non-Formulary Medication (Diltiazem [Cardizem Cd]) 180 mg PO DAILY CORY Non-Formulary Medication (Ferrous Sulfate [Ferrous Sulfate]) 325 mg PO BID CORY Non-Formulary Medication (Furosemide [Furosemide]) 20 mg PO 1200 CORY Non-Formulary Medication (Furosemide [Furosemide]) 40 mg PO DAILY CORY Non-Formulary Medication (Gabapentin [Neurontin]) 200 mg PO BID CORY Non-Formulary Medication (Hydrocortisone) 1 dose TOP BID PRN PRN Reason: Hemorrhoids Non-Formulary Medication (Insulin Glarg,Human.Rec.Analog [Lantus]) 17 unit SQ BEDTIME CORY Non-Formulary Medication (Ipratropium/Albuterol Sulfate [Iprat-Albut 0.5-3(2.5) Mg/3 Ml]) 1 ampule INH Q4H PRN PRN Reason: Shortness of Breath Non-Formulary Medication (Levothyroxine [Synthroid]) 75 mcg PO ACBREAKFAST CORY Non-Formulary Medication (Metoprolol Succinate [Toprol Xl]) 12.5 mg PO DAILY CORY Non-Formulary Medication (Multivitamin [Gummi Bear Multivitamin]) 1 dose PO DAILY CORY Non-Formulary Medication (Potassium Chloride [Klor-Con M20]) 20 meq PO DAILY CORY Non-Formulary Medication (Tamsulosin [Flomax]) 0.4 mg PO BEDTIME C[place] Non-Formulary Medication (Tramadol [Ultram]) 50 mg PO Q6HR PRN PRN Reason: Pain Ondansetron HCl (Zofran Odt) 4 mg PO Q6H PRN PRN Reason: nausea, able to take PO Ondansetron HCl (Zofran) 4 mg IV Q6H PRN PRN Reason: Nausea/Vomiting Pantoprazole Sodium (Protonix Iv) 40 mg IVPUSH Q12H CORY Sodium Chloride (Saline Flush) 10 ml FLUSH ASDIRECTED PRN PRN Reason: Keep Vein Open Last Admin: 06/15/18 20:34 Dose: 10 ml Admin: 06/15/18 20:16 Dose: 10 ml Assessment/Plan Comment:: I/P: Acute: GI Bleed, stable -Heme positive stool in PCP office -Reports normal BM day before with no black or blood -Initially melonic stool in ED which turned to peter red blood -Hgb 9.2-->9.2 -Given IVP protonix followed by protonix drip in ED -Hx/o GERD, anemia, hemorrhoids, ulcers -On warfarin for A-fib -INR 2.20 in ED -Dr. Espinoza, consulted -Awaiting us to establish goals with family/patient -Recommends continuing warfarin -Signed off - will re-consult if needed -IV fluids as ordered -Repeat HH as indicated Back/hip pain -Acute on chronic -Likely 2/2 metastatic disease -CT chest (06/15/17) shows Osteolytic and sclerotic lesions throughout thoracic spine compatible with metastatic disease -Sclerotic area also noted within sternum compatible with metastatic disease. -Gynecomastia bilaterally -Other incidental findings -CT Abdomen/Pelvis (06/15/17): Mixed sclerotic and lytic lesions throughout spine as well as pelvis and within both hips. -Sclerotic lesion seen within sternum -Findings compatible with metastatic bony disease -Most of these findings are seen on prior CT exam although findings have slightly worsened in the interm -Retroperitoneal adenopathy which has decreased in prominence from previous exam -Enlarged prostate gland which has decreased in size from previous exam -Small splenic lesions which are nonspecific but possibly due to early metastatic disease -Other incidental findings -PSA in PCP office noted to be 150 -Alkaline phosphatase 337 -Pain medications as ordered -PT/OT CKD, improving -In reviewing prior labs he appears to have a baseline creatinine 1.4-1.7 and GFR in the mid to upper 40's -Creatinine 1.6-->1.4 -BUN 29-->22 -eGFR 41-->48 Confusion -Mild baseline confusion -Unsure if he is worse today -Head CT without contrast to r/o mets to brain Chronic: A. fib CAD Cardiomyopathy Heart failure HLD HTN COPD Chronic constipation Gastritis GERD Hemorrhoids PUD Prior ulcer BPH Chronic renal insufficiency Prostate disorder Urinary retention Osteoporosis Diabetic neuropathy Addiction Depression Type II DM Hypothyroidism Anemia Plan: Admit to medical floor - observation status with telemetry Other orders as indicated above PT/OT Routine AM labs Home medications as ordered CM/SW for discharge planning DVT/PE prophylaxis: Warfarin GI Prophylaxis: PPI Discuss code status with patient and family Obtain old records from [place] Code status: Full code; PCP: Dr. Cervantes Discussed code status with Ronald. He indicated he would not like CPR or to be intubated after explanation of what it could require. Updated on cancer from prior CT scan and he seemed surprised by this. Updated on overall prognosis and commorbidities. Discussed this with his POA who agreed we should shange code status to DNR/DNI. Also discussed CT scan results and concerns over spread of cancer.
[2018-06-16] MEDS ORDERED: HYDROmorphone 1 MG/ML Syringe IVPUSH PRN (07:19)
--- NOTE | 2018-06-16 08:27 | PCM.CONS ---
H&P History of Present Illness - General Date of Service: 06/16/18 Admit Problem/Dx: Admission Diagnosis/Problem Admission Diagnosis/Problem GI bleed not requiring more than 4 units of blood in 24 hours, ICU, or surgery Source of Information: Patient, Provider History Limitations: Reports: No Limitations - History of Present Illness Initial Comments - Free Text/Narative: Pt is an 88 y/o male who presents to the ED from clinic for lower back pain and heme positive stool. Upon arrival to the ED, pt was noted to have melena that progressed to hematochezia. The patient denies noting any melena or hematochezia prior to this episode. He denies having any abdominal pain. He is unsure what medications he takes at the care facility, and reports "I don't remember very well any more." He was found to have many osteolytic appearing lesions on CT scan of chest/ abdomen/pelvis in the ED as well as an elevated PSA and enlarged prostate on imaging. He has atrial fibrillation and is on warfarin, last dose was given before 06/15/18. lower spine Pain Score (Numeric/FACES): 5 - Related Data Allergies/Adverse Reactions: Allergies Allergy/AdvReac Type Severity Reaction Status Date / Time No Known Allergies Allergy Verified 12/09/17 09:42 Home Medications: Home Meds Omeprazole 40 mg PO DAILY 02/08/14 [History] Warfarin [Coumadin] 5 mg PO DAILY 11/15/14 [History] Gabapentin [Neurontin] 200 mg PO BID 06/21/16 [History] Tamsulosin [Flomax] 0.4 mg PO BEDTIME 06/21/16 [History] Insulin Glarg,Human.Rec.Analog [Lantus] 17 unit SQ BEDTIME 10/07/16 [History] [place]-3/DHA/Epa/Fish Oil [Fish Oil 1,000 mg Softgel] 1,000 mg PO DAILY 10/07/16 [History] Vitamin E 400 intnl unit PO DAILY 10/07/16 [History] Acetaminophen [Tylenol] 650 mg PO Q4HR PRN 01/15/17 [History] L.acidoph,Paracasei, B.lactis [Probiotic] 1 tab PO DAILY 01/15/17 [History] Polyethylene Glycol [Polyox Wsr-301] 17 gram PO DAILY 01/15/17 [History] traMADol [Ultram] 50 mg PO Q6HR PRN 01/15/17 [History] Multivitamin [[place] Multivitamin] 1 dose PO DAILY 01/16/17 [History] Potassium Chloride [Klor-Con M20] 20 meq PO DAILY 01/16/17 [History] Diltiazem [Cardizem CD] 180 mg PO DAILY #30 cap.cd 01/20/17 [Rx] Ferrous Sulfate 325 mg PO BID #60 tablet 01/20/17 [Rx] Furosemide 40 mg PO DAILY #0 01/20/17 [Rx] Metoprolol Succinate [Toprol XL] 12.5 mg PO DAILY #30 tab.er 01/20/17 [Rx] Bisacodyl [Dulcolax] 5 mg PO DAILY PRN 02/26/17 [History] Hydrocortisone [Anusol-HC] 1 dose TOP BID PRN 02/26/17 [History] Ipratropium/Albuterol Sulfate [Iprat-Albut 0.5-3(2.5) MG/3 ML] 1 ampule INH Q4H PRN 02/26/17 [History] Bicalutamide [Casodex] 50 mg PO DAILY 06/12/17 [History] Acetaminophen with Codeine [Tylenol with Codeine #3 Tablet] 1 each PO 1200 06/15 [History] Furosemide 20 mg PO 1200 06/15/18 [History] Insulin Aspart [NovoLOG] 2 - 10 unit SQ ASDIRECTED PRN 06/15/18 [History] Levothyroxine [Synthroid] 75 mcg PO ACBREAKFAST 06/15/18 [History] Naproxen Sodium 220 mg PO TID PRN 06/15/18 [History] Docusate Sodium [Colace] 100 mg PO DAILY 06/16/18 [History] Past Medical History HEENT History: Reports: Hard of Hearing, Impaired Vision Other HEENT History: wears eyeglasses Cardiovascular History: Reports: Afib, CAD, Cardiomyopathy, Heart Failure, High Cholesterol, Hypertension Respiratory History: Reports: COPD, SOB Gastrointestinal History: Reports: Chronic Constipation, Gastritis, GERD, Hemorrhoids, PUD Other Gastrointestinal History: ulcer Genitourinary History: Reports: BPH, Chronic Renal Insuffiency, Prostate Disorder, Retention, Urinary Musculoskeletal History: Reports: Osteoarthritis Other Musculoskeletal History: Hip pain and low back pain new Neurological History: Reports: Neuropathy, Diabetic Psychiatric History: Reports: Addiction, Depression Other Psychiatric History: states feels depressed "when I get sick like this." State "the only thing, I'd like to get well, this pain" is making pt feel depressed. Endocrine/Metabolic History: Reports: Diabetes, Type II, Hypothyroidism Hematologic History: Reports: Anemia, Blood Transfusion(s) Oncologic (Cancer) History: Reports: Bone Dermatologic History: Reports: Other (See Below) Other Dermatologic History: "blisters removed on nose" - Infectious Disease History Infectious Disease History: Reports: Chicken Pox, Influenza - Past Surgical History Dermatological Surgical History: Reports: Skin Biopsy Social & Family History - Family History HEENT: Reports: Cataract, Macular Degeneration Cardiac: Reports: Hypertension : Reports: Diabetic Nephropathy Musculoskeletal: Reports: Arthritis Neurological: Reports: Alzheimers Disease, Dementia, Parkinson's, Vertigo Endocrine/Metabolic: Reports: Diabetes, type II Dermatologic: Reports: Psoriasis Oncologic: Reports: Leukemia, Prostate, Other (See Below) Other Oncologic Family History: stomach - Tobacco Use Smoking Status *Q: Former Smoker Used Tobacco, but Quit: Yes Month/Year Tobacco Last Used: 1986 Second Hand Smoke Exposure: No - Caffeine Use Caffeine Use: Reports: Soda Caffeine Use Comment: every other day - Recreational Drug Use Recreational Drug Use: No - Living Situation & Occupation Living situation: Reports: Single, Assisted Living ([facility]) Occupation: Retired H&P Review of Systems - Review of Systems: Review Of Systems: See Below General: Reports: No Symptoms HEENT: Reports: No Symptoms Pulmonary: Reports: Shortness of Breath (can walk about 1/2 block before needing to stop and rest) Cardiovascular: Reports: No Symptoms Gastrointestinal: Reports: Black Stool, Bloody Stool Genitourinary: Reports: No Symptoms Musculoskeletal: Reports: Back Pain Skin: Reports: No Symptoms Psychiatric: Reports: Other (memory loss) Exam - Exam Exam: See Below - Vital Signs Vital Signs: Last Vital Signs Temp 36.4 C 06/16/18 02:45 Pulse 98 06/16/18 02:45 Resp 18 06/16/18 02:45 BP 141/64 H 06/16/18 02:45 Pulse Ox 96 06/16/18 02:45 Orthostatic Blood Pressure [ 105/63 Standing] Orthostatic Blood Pressure [ 126/67 Sitting] Orthostatic Blood Pressure [ 124/67 Supine] Weight: 80.286 kg - Exam Quality Assessment: No: Supplemental Oxygen General: Alert HEENT: Conjunctiva Clear, EOMI Neck: Supple Lungs: Normal Respiratory Effort, Rhonchi (on the left) Cardiovascular: Regular Rate, Irregular Rhythm GI/Abdominal Exam: Soft, No Distention, Tender (mild tenderness in the lower quadrants) Extremities: Normal Inspection Peripheral Pulses: 1+: Dorsalis Pedis (L), Dorsalis Pedis (R) Skin: Dry Neurological: Cranial Nerves Intact Neuro Extensive - Mental Status: Alert, Normal Mood/Affect - Patient Data Lab Results Last 24 hrs: Laboratory Results - last 24 hr 06/15/18 06/15/18 06/15/18 Range/Units 17:17 17:17 17:17 WBC 7.70 (4.23-9.07) K/mm3 RBC 3.28 L (4.63-6.08) M/mm3 Hgb 9.2 L (13.7-17.5) gm/L Hct 29.4 L (40.1-51.0) % MCV 89.6 (79.0-92.2) fl MCH 28.0 (25.7-32.2) pg MCHC 31.3 L (32.2-35.5) g/dl RDW Std Deviation 49.1 H (35.1-43.9) fL Plt Count 319 (163-337) K/mm3 MPV 9.6 (9.4-12.3) fl Neutrophils % (Manual) 78 H (40-60) % Band Neutrophils % 2 (0-10) % Lymphocytes % (Manual) 16 L (20-40) % Atypical Lymphs % 0 % Monocytes % (Manual) 2 (2-10) % Eosinophils % (Manual) 1 (0.8-7.0) % Basophils % (Manual) 1 (0.2-1.2) Platelet Estimate Adequate Hypochromasia Few Anisocytosis 1+ slight Ovalocytes Few RBC Morph Comment Not Reportable PT 23.6 H (9.5-12.1) SECONDS INR 2.20 Sodium 136 (136-145) mEq/L Potassium 4.4 (3.5-5.1) mEq/L Chloride 97 L (98-107) mEq/L Carbon Dioxide 29 (21-32) mEq/L Anion Gap 14.4 (5-15) BUN 29 H (7-18) mg/dL Creatinine 1.6 H (0.7-1.3) mg/dL Est Cr Clr Drug Dosing 34.35 mL/min Estimated GFR (MDRD) 41 (>60) mL/min BUN/Creatinine Ratio 18.1 H (14-18) Glucose 192 H (83-115) mg/dL POC Glucose (83-110) mg/dL Calcium 9.5 (8.5-10.1) mg/dL Total Bilirubin 0.7 (0.2-1.0) mg/dL AST 19 (15-37) U/L ALT 17 (16-63) U/L Alkaline Phosphatase 337 H (46-116) U/L Total Protein 7.9 (6.4-8.2) g/dl Albumin 2.9 L (3.4-5.0) g/dl Globulin 5.0 gm/dL Albumin/Globulin Ratio 0.6 L (1-2) MRSA (PCR) Blood Type Gel Antibody Screen Crossmatch 06/15/18 06/15/18 06/16/18 Range/Units 17:17 23:45 06:25 WBC (4.23-9.07) K/mm3 RBC (4.63-6.08) M/mm3 Hgb (13.7-17.5) gm/L Hct (40.1-51.0) % MCV (79.0-92.2) fl MCH (25.7-32.2) pg MCHC (32.2-35.5) g/dl RDW Std Deviation (35.1-43.9) fL Plt Count (163-337) K/mm3 MPV (9.4-12.3) fl Neutrophils % (Manual) (40-60) % Band Neutrophils % (0-10) % Lymphocytes % (Manual) (20-40) % Atypical Lymphs % % Monocytes % (Manual) (2-10) % Eosinophils % (Manual) (0.8-7.0) % Basophils % (Manual) (0.2-1.2) Platelet Estimate Hypochromasia Anisocytosis Ovalocytes RBC Morph Comment PT (9.5-12.1) SECONDS INR Sodium (136-145) mEq/L Potassium (3.5-5.1) mEq/L Chloride (98-107) mEq/L Carbon Dioxide (21-32) mEq/L Anion Gap (5-15) BUN (7-18) mg/dL Creatinine (0.7-1.3) mg/dL Est Cr Clr Drug Dosing mL/min Estimated GFR (MDRD) (>60) mL/min BUN/Creatinine Ratio (14-18) Glucose (83-115) mg/dL POC Glucose 152 H (83-110) mg/dL Calcium (8.5-10.1) mg/dL Total Bilirubin (0.2-1.0) mg/dL AST (15-37) U/L ALT (16-63) U/L Alkaline Phosphatase (46-116) U/L Total Protein (6.4-8.2) g/dl Albumin (3.4-5.0) g/dl Globulin gm/dL Albumin/Globulin Ratio (1-2) MRSA (PCR) Negative Blood Type A POSITIVE Gel Antibody Screen Negative Crossmatch See Detail 06/16/18 06/16/18 Range/Units 06:26 06:26 WBC (4.23-9.07) K/mm3 RBC (4.63-6.08) M/mm3 Hgb 9.2 L (13.7-17.5) gm/L Hct (40.1-51.0) % MCV (79.0-92.2) fl MCH (25.7-32.2) pg MCHC (32.2-35.5) g/dl RDW Std Deviation (35.1-43.9) fL Plt Count (163-337) K/mm3 MPV (9.4-12.3) fl Neutrophils % (Manual) (40-60) % Band Neutrophils % (0-10) % Lymphocytes % (Manual) (20-40) % Atypical Lymphs % % Monocytes % (Manual) (2-10) % Eosinophils % (Manual) (0.8-7.0) % Basophils % (Manual) (0.2-1.2) Platelet Estimate Hypochromasia Anisocytosis Ovalocytes RBC Morph Comment PT (9.5-12.1) SECONDS INR Sodium 139 (136-145) mEq/L Potassium 4.0 (3.5-5.1) mEq/L Chloride 101 (98-107) mEq/L Carbon Dioxide 28 (21-32) mEq/L Anion Gap 14.0 (5-15) BUN 22 H (7-18) mg/dL Creatinine 1.4 H (0.7-1.3) mg/dL Est Cr Clr Drug Dosing 39.26 mL/min Estimated GFR (MDRD) 48 (>60) mL/min BUN/Creatinine Ratio 15.7 (14-18) Glucose 154 H (83-115) mg/dL POC Glucose (83-110) mg/dL Calcium 9.1 (8.5-10.1) mg/dL Total Bilirubin (0.2-1.0) mg/dL AST (15-37) U/L ALT (16-63) U/L Alkaline Phosphatase (46-116) U/L Total Protein (6.4-8.2) g/dl Albumin (3.4-5.0) g/dl Globulin gm/dL Albumin/Globulin Ratio (1-2) MRSA (PCR) Blood Type Gel Antibody Screen Crossmatch Result Diagrams: 06/16/18 06:26 06/16/18 06:26 Consult PN Assessment/Plan Procedures: Procedures AGENT NOS ASSAY W/OPTIC (07/30/16) ASSAY OF IRON (03/06/15) ASSAY OF LIPASE (01/16/17) ASSAY OF MAGNESIUM (06/12/17) ASSAY OF NATRIURETIC PEPTIDE (06/12/17) ASSAY OF PHOSPHORUS (07/31/15) ASSAY OF TRANSFERRIN (03/06/15) ASSAY OF TROPONIN QUANT (06/12/17) ASSAY THYROID STIM HORMONE (12/29/16) BL SMEAR W/DIFF WBC COUNT (12/09/17) BLOOD CULTURE FOR BACTERIA (03/06/15) BLOOD TYPING SEROLOGIC ABO (11/09/16) BLOOD TYPING SEROLOGIC RH(D) (11/09/16) BONE IMAGING WHOLE BODY (02/21/17) C-REACTIVE PROTEIN (06/12/17) CHEST X-RAY 1 VIEW FRONTAL (06/12/17) CHEST X-RAY 2VW FRONTAL&LATL (01/16/17) COGNITIVE TEST BY HC PRO (10/04/16) COMPATIBILITY TEST ANTIGLOB (06/22/16) COMPLETE CBC AUTOMATED (12/09/17) COMPLETE CBC W/AUTO DIFF WBC (06/12/17) COMPREHEN METABOLIC PANEL (06/12/17) CREATINE MB FRACTION (10/04/16) CT ABD & PELVIS W/O CONTRAST (02/11/17) CT HEAD/BRAIN W/O DYE (03/24/14) ECHO EXAM OF ABDOMEN (02/19/14) ELECTROCARDIOGRAM TRACING (06/12/17) EMERGENCY DEPT VISIT (12/09/17) EMERGENCY DEPT VISIT (11/16/17) EMERGENCY DEPT VISIT (06/12/17) EMERGENCY DEPT VISIT (02/26/17) EMERGENCY DEPT VISIT (01/16/17) EMERGENCY DEPT VISIT (12/29/16) EMERGENCY DEPT VISIT (10/07/16) EMERGENCY DEPT VISIT (10/04/16) EMERGENCY DEPT VISIT (07/28/16) EMERGENCY DEPT VISIT (06/22/16) EMERGENCY DEPT VISIT (02/04/16) EMERGENCY DEPT VISIT (02/03/16) EMERGENCY DEPT VISIT (02/02/16) EMERGENCY DEPT VISIT (10/22/15) EMERGENCY DEPT VISIT (07/31/15) EMERGENCY DEPT VISIT (07/28/15) EMERGENCY DEPT VISIT (07/26/15) EMERGENCY DEPT VISIT (11/15/14) EMERGENCY DEPT VISIT (03/24/14) EMERGENCY DEPT VISIT (02/24/14) EMERGENCY DEPT VISIT (02/19/14) FIBRIN DEGRADATION QUANT (07/31/15) GAIT TRAINING THERAPY (01/16/17) GLUCOSE BLOOD TEST (01/16/17) GLYCOSYLATED HEMOGLOBIN TEST (10/04/16) HEPATOBIL SYST IMAGE W/DRUG (03/28/14) HYDRATE IV INFUSION ADD-ON (10/04/16) HYDRATION IV INFUSION INIT (07/31/15) IMMUNIZATION ADMIN (10/04/16) INSERT TEMP BLADDER CATH (02/11/17) LEUKOCYTE ASSESSMENT FECAL (07/30/16) MEASURE BLOOD OXYGEN LEVEL (02/20/14) METABOLIC PANEL TOTAL CA (01/16/17) MICROBE SUSCEPTIBLE BASSEM (10/04/16) MR-STAPH DNA AMP PROBE (01/16/17) NEUROMUSCULAR REEDUCATION (01/16/17) OCCULT BLOOD FECES (12/09/17) OT EVAL LOW COMPLEX 30 MIN (01/16/17) OT EVALUATION (07/31/15) PPSV23 VACC 2 YRS+ SUBQ/IM (02/24/14) PROTHROMBIN TIME (12/09/17) PT EVAL LOW COMPLEX 20 MIN (10/04/16) PT EVAL MOD COMPLEX 30 MIN (01/16/17) PT EVALUATION (07/31/15) RBC ANTIBODY SCREEN (11/09/16) ROUTINE VENIPUNCTURE (12/09/17) SELF CARE MNGMENT TRAINING (06/22/16) STOOL CULTR AEROBIC BACT EA (07/30/16) THER/PROPH/DIAG INJ IV PUSH (10/04/16) THER/PROPH/DIAG INJ SC/IM (10/04/16) THER/PROPH/DIAG IV INF ADDON (02/24/14) THER/PROPH/DIAG IV INF INIT (03/06/15) THERAPEUTIC ACTIVITIES (10/04/16) THERAPEUTIC EXERCISES (10/04/16) THROMBOPLASTIN TIME PARTIAL (11/09/16) TTE W/DOPPLER COMPLETE (03/06/15) TX/PRO/DX INJ NEW DRUG ADDON (02/24/14) URINALYSIS AUTO W/SCOPE (06/12/17) URINE BACTERIA CULTURE (10/04/16) URINE CULTURE/COLONY COUNT (10/04/16) US EXAM ABDO BACK WALL COMP (07/31/15) US URINE CAPACITY MEASURE (01/16/17) X-RAY EXAM L-S SPINE 2/3 VWS (10/04/16) X-RAY EXAM OF ABDOMEN (02/26/17) X-RAY EXAM OF ABDOMEN (02/24/14) X-RAY EXAM OF ABDOMEN (02/20/14) X-RAY EXAM OF HUMERUS (07/31/15) X-RAY EXAM OF PELVIS (10/04/16) X-RAY EXAM OF SHOULDER (07/28/15) (1) GIB (gastrointestinal bleeding) SNOMED Code(s): 80417039 Code(s): K92.2 - GASTROINTESTINAL HEMORRHAGE, UNSPECIFIED Priority: High Current Visit: Yes Qualifiers: GI bleed type/associated pathology: melena Qualified Code(s): K92.1 - Melena Problem List Initiated/Reviewed/Updated: Yes My Orders Last 24 Hours: 88-year-old gentleman with GI bleed. 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 Please call back with any additional questions, concerns or if the patient would like to proceed with surgical procedures. Chula Alvarez MD General Surgery
[2018-06-16] MEDS ORDERED: Diltiazem 180 MG Cap.CD PO SCH (10:00)
[2018-06-16] MEDS: Ferrous Sulfate 325 MG Tab PO SCH ×2 (10:23→21:22)
[2018-06-16] MEDS ORDERED: Metoprolol Succinate 25 MG Tab.ER PO SCH (10:30)
[2018-06-16] MEDS ORDERED: Furosemide 20 MG Tab PO SCH (12:00)
[2018-06-16] MEDS ORDERED: TYLENOL WITH CODEINE PO PRN (13:00)
[2018-06-16] MEDS: BICALUTAMIDE 50 MG PO SCH (14:18)
--- NOTE | 2018-06-16 14:35 | CT ---
Head CT Technique: Multiple axial sections through the brain were obtained. Intravenous contrast was not utilized. Comparison: Previous head CT exam of 03/24/14. Findings: Ventricles along with basal cisterns and sulci over the convexities are moderately prominent. Old lacunar infarcts are noted within the basal ganglia. Diminished density is noted within the periventricular and subcortical white matter compatible with small vessel ischemic demyelination change. No other abnormal parenchymal densities are seen. No intracranial hemorrhage is seen. Atherosclerotic calcification is noted within the vertebral vessels and carotid siphon. No acute calvarial abnormality is seen. No acute sinus findings are seen. Impression: 1. Senescent change as described above. Nothing acute is appreciated on noncontrast head CT exam. Diagnostic code #2
[2018-06-16] MEDS ORDERED: WARFARIN 5 MG PO SCH (18:00)
[2018-06-16] MEDS ORDERED: Acetaminophen/Codeine 300-30 MG Tab PO PRN (20:12)
[2018-06-16] MEDS ORDERED: GABAPENTIN 100 MG PO SCH (21:00)
[2018-06-16] MEDS ORDERED: TAMSULOSIN 0.4 MG PO SCH (21:00)
[2018-06-16] MEDS: Insulin Lispro 100 Unit/ML 3 ML KwikPen SUBCUT SCH (21:19)
[2018-06-16] MEDS: Gabapentin 100 MG Cap PO SCH (21:22)
[2018-06-16] MEDS: Tamsulosin 0.4 MG Cap.ER PO SCH (21:22)
[2018-06-16] MEDS: Insulin Glarg,Human.Rec.Analog 100 UNIT/ML ML SUBCUT SCH (21:23)
[2018-06-16] MEDS: Pantoprazole 40 MG Vial IVPUSH SCH (21:29)
[2018-06-17] MEDS ORDERED: LEVOTHYROXINE 75 MCG PO SCH (06:00)
[2018-06-17] MEDS: Sodium Chloride 0.9% 1,000 ML IV SCH ×2 (06:03→19:31)
[2018-06-17] MEDS: Furosemide 40 MG Tab PO SCH (06:05)
[2018-06-17] MEDS: Levothyroxine 75 MCG Tab PO SCH (06:05)
[2018-06-17] MEDS ORDERED: Furosemide 40 MG Tab **PTOM PO SCH (07:00)
[2018-06-17] MEDS: Insulin Lispro 100 Unit/ML 3 ML KwikPen SUBCUT SCH ×4 (07:07→21:00)
[2018-06-17] MEDS ORDERED: Furosemide 40 MG Tab PO SCH (09:00)
[2018-06-17] MEDS ORDERED: Metoprolol Succinate 25 MG Tab.ER **PTOM PO SCH (09:00)
[2018-06-17] MEDS ORDERED: Potassium Chloride 20 MEQ Tab.ER PO SCH (09:00)
[2018-06-17] MEDS ORDERED: DILTIAZEM 180 MG PO SCH (09:00)
[2018-06-17] MEDS: Pantoprazole 40 MG Vial IVPUSH SCH ×2 (09:08→20:53)
[2018-06-17] MEDS: Gabapentin 100 MG Cap PO SCH ×2 (09:08→20:50)
[2018-06-17] MEDS: Diltiazem 180 MG Cap.CD PO SCH (09:08)
[2018-06-17] MEDS: Multivitamins,Therapeutic Tab PO SCH (09:08)
[2018-06-17] MEDS: Metoprolol Succinate 25 MG Tab.ER PO SCH (09:09)
[2018-06-17] MEDS: Ferrous Sulfate 325 MG Tab PO SCH ×2 (09:09→20:51)
[2018-06-17] MEDS: traMADol 50 MG Tab PO PRN (09:10)
[2018-06-17] MEDS: BICALUTAMIDE 50 MG PO SCH (09:29)
[2018-06-17] MEDS: Furosemide 20 MG Tab PO SCH (13:06)
[2018-06-17] MEDS: Acetaminophen/HYDROcodone 325-5 MG Tab PO PRN (13:08)
[2018-06-17] MEDS ORDERED: Magnesium Sulfate/Water 2 GM in Premix Bag 1 BAG IV ONE (13:27)
--- NOTE | 2018-06-17 13:31 | PCM.PN ---
- General Info Date of Service: 06/17/18 Functional Status: Reports: Pain Controlled, Ambulating, Urinating - Review of Systems General: Reports: No Symptoms, Weakness HEENT: Reports: No Symptoms, Dysphasia, Rhinitis Pulmonary: Reports: No Symptoms Cardiovascular: Reports: No Symptoms Gastrointestinal: Reports: No Symptoms Genitourinary: Reports: No Symptoms Musculoskeletal: Reports: No Symptoms Skin: Reports: No Symptoms Neurological: Reports: No Symptoms Psychiatric: Reports: No Symptoms - Patient Data Vitals - Most Recent: Last Vital Signs Temp 36.8 C 06/17/18 09:05 Pulse 78 06/17/18 09:09 Resp 16 06/17/18 09:05 BP 134/95 H 06/17/18 09:09 Pulse Ox 97 06/17/18 09:05 Orthostatic Blood Pressure [ 105/63 Standing] Orthostatic Blood Pressure [ 126/67 Sitting] Orthostatic Blood Pressure [ 124/67 Supine] Weight - Most Recent: 78.744 kg I&O - Last 24 Hours: Intake & Output 06/16/18 06/17/18 06/17/18 22:59 06:59 14:59 Intake Total 340 1335 420 Output Total 1350 1300 Balance -1010 35 420 Lab Results Last 24 Hours: Laboratory Results - last 24 hr 06/16/18 06/16/18 06/16/18 Range/Units 17:41 18:00 20:44 WBC (4.23-9.07) K/mm3 RBC (4.63-6.08) M/mm3 Hgb 9.6 L (13.7-17.5) gm/L Hct 30.4 L (40.1-51.0) % MCV (79.0-92.2) fl MCH (25.7-32.2) pg MCHC (32.2-35.5) g/dl RDW Std Deviation (35.1-43.9) fL Plt Count (163-337) K/mm3 MPV (9.4-12.3) fl Neut % (Auto) (34.0-67.9) % Lymph % (Auto) (21.8-53.1) % [place] % (Auto) (5.3-12.2) % Eos % (Auto) (0.8-7.0) Baso % (Auto) (0.1-1.2) % Neut # (Auto) (1.78-5.38) K/mm3 Lymph # (Auto) (1.32-3.57) K/mm3 [place] # (Auto) (0.30-0.82) K/mm3 Eos # (Auto) (0.04-0.54) K/mm3 Baso # (Auto) (0.01-0.08) K/mm3 Manual Slide Review PT (9.5-12.1) SECONDS INR Sodium (136-145) mEq/L Potassium (3.5-5.1) mEq/L Chloride (98-107) mEq/L Carbon Dioxide (21-32) mEq/L Anion Gap (5-15) BUN (7-18) mg/dL Creatinine (0.7-1.3) mg/dL Est Cr Clr Drug Dosing mL/min Estimated GFR (MDRD) (>60) mL/min BUN/Creatinine Ratio (14-18) Glucose (83-115) mg/dL POC Glucose 172 H 177 H (83-110) mg/dL Calcium (8.5-10.1) mg/dL Magnesium (1.8-2.4) mg/dl 06/17/18 06/17/18 06/17/18 Range/Units 06:00 06:00 06:00 WBC 6.74 (4.23-9.07) K/mm3 RBC 3.17 L (4.63-6.08) M/mm3 Hgb 8.9 L (13.7-17.5) gm/L Hct 28.3 L (40.1-51.0) % MCV 89.3 (79.0-92.2) fl MCH 28.1 (25.7-32.2) pg MCHC 31.4 L (32.2-35.5) g/dl RDW Std Deviation 49.0 H (35.1-43.9) fL Plt Count 308 (163-337) K/mm3 MPV 9.4 (9.4-12.3) fl Neut % (Auto) 77.1 H (34.0-67.9) % Lymph % (Auto) 9.5 L (21.8-53.1) % [place] % (Auto) 10.1 (5.3-12.2) % Eos % (Auto) 2.1 (0.8-7.0) Baso % (Auto) 0.3 (0.1-1.2) % Neut # (Auto) 5.20 (1.78-5.38) K/mm3 Lymph # (Auto) 0.64 L (1.32-3.57) K/mm3 [place] # (Auto) 0.68 (0.30-0.82) K/mm3 Eos # (Auto) 0.14 (0.04-0.54) K/mm3 Baso # (Auto) 0.02 (0.01-0.08) K/mm3 Manual Slide Review Abnormal smear PT 20.9 H (9.5-12.1) SECONDS INR 1.94 Sodium 140 (136-145) mEq/L Potassium 3.6 (3.5-5.1) mEq/L Chloride 103 (98-107) mEq/L Carbon Dioxide 26 (21-32) mEq/L Anion Gap 14.6 (5-15) BUN 15 (7-18) mg/dL Creatinine 1.2 (0.7-1.3) mg/dL Est Cr Clr Drug Dosing 45.87 mL/min Estimated GFR (MDRD) 57 (>60) mL/min BUN/Creatinine Ratio 12.5 L (14-18) Glucose 103 (83-115) mg/dL POC Glucose (83-110) mg/dL Calcium 9.2 (8.5-10.1) mg/dL Magnesium 1.9 (1.8-2.4) mg/dl 06/17/18 06/17/18 Range/Units 06:36 11:47 WBC (4.23-9.07) K/mm3 RBC (4.63-6.08) M/mm3 Hgb 9.4 L (13.7-17.5) gm/L Hct (40.1-51.0) % MCV (79.0-92.2) fl MCH (25.7-32.2) pg MCHC (32.2-35.5) g/dl RDW Std Deviation (35.1-43.9) fL Plt Count (163-337) K/mm3 MPV (9.4-12.3) fl Neut % (Auto) (34.0-67.9) % Lymph % (Auto) (21.8-53.1) % [place] % (Auto) (5.3-12.2) % Eos % (Auto) (0.8-7.0) Baso % (Auto) (0.1-1.2) % Neut # (Auto) (1.78-5.38) K/mm3 Lymph # (Auto) (1.32-3.57) K/mm3 [place] # (Auto) (0.30-0.82) K/mm3 Eos # (Auto) (0.04-0.54) K/mm3 Baso # (Auto) (0.01-0.08) K/mm3 Manual Slide Review PT (9.5-12.1) SECONDS INR Sodium (136-145) mEq/L Potassium (3.5-5.1) mEq/L Chloride (98-107) mEq/L Carbon Dioxide (21-32) mEq/L Anion Gap (5-15) BUN (7-18) mg/dL Creatinine (0.7-1.3) mg/dL Est Cr Clr Drug Dosing mL/min Estimated GFR (MDRD) (>60) mL/min BUN/Creatinine Ratio (14-18) Glucose (83-115) mg/dL POC Glucose 106 (83-110) mg/dL Calcium (8.5-10.1) mg/dL Magnesium (1.8-2.4) mg/dl Med Orders - Current: Current Medications Acetaminophen (Tylenol) 650 mg PO Q4H PRN PRN Reason: Pain (Mild 1-3)/fever Acetaminophen/Codeine Phosphate (Tylenol With Codeine No.3 300mg/30mg) 1 tab PO 1300 PRN PRN Reason: lumbar back pain Hydrocodone Bitart/Acetaminophen ([place] 325-5 Mg) 1 tab PO Q4H PRN PRN Reason: Pain (moderate 4-6) Last Admin: 06/17/18 13:08 Dose: 1 tab Albuterol/Ipratropium (Duoneb 3.0-0.5 Mg/3 Ml) 3 ml NEB Q4H PRN PRN Reason: Shortness Of Breath/wheezing Bisacodyl (Dulcolax) 5 mg PO DAILY PRN PRN Reason: Constipation Diltiazem HCl (Cardizem Cd) 180 mg PO DAILY [facility] Last Admin: 06/17/18 09:08 Dose: 180 mg Ferrous Sulfate (Ferrous Sulfate) 325 mg PO BID [facility] Last Admin: 06/17/18 09:09 Dose: 325 mg Furosemide (Lasix) 40 mg PO WITHBREAKFAST [facility] Last Admin: 06/17/18 06:05 Dose: 40 mg Furosemide (Lasix) 20 mg PO DAILY@1400 [facility] Last Admin: 06/17/18 13:06 Dose: 20 mg Gabapentin (Neurontin) 200 mg PO BID [facility] Last Admin: 06/17/18 09:08 Dose: 200 mg Hydralazine HCl (Apresoline) 10 mg IVPUSH Q4H PRN PRN Reason: Hypertension Hydromorphone HCl (Dilaudid) 0.25 mg IVPUSH Q2H PRN PRN Reason: Pain (severe 7-10) Sodium Chloride (Normal Saline) 1,000 mls @ 75 mls/hr IV ASDIRECTED [facility] Last Admin: 06/17/18 06:03 Dose: 75 mls/hr Insulin Glargine (Lantus) 17 unit SUBCUT BEDTIME [facility] Last Admin: 06/16/18 21:23 Dose: 17 units Insulin Human Lispro (Humalog) 0 unit SUBCUT QIDACANDBED [facility]; Protocol Last Admin: 06/17/18 13:06 Dose: 1 units Levothyroxine Sodium (Levothyroxine) 75 mcg PO ACBREAKFAST [facility] Last Admin: 06/17/18 06:05 Dose: 75 mcg Metoprolol Succinate (Toprol Xl) 12.5 mg PO DAILY [facility] Last Admin: 06/17/18 09:09 Dose: 12.5 mg Metoprolol Tartrate (Lopressor) 5 mg IVPUSH Q4H PRN PRN Reason: Tachycardia Multivitamins (Thera) 1 each PO DAILY [facility] Last Admin: 06/17/18 09:08 Dose: 1 each Ondansetron HCl (Zofran Odt) 4 mg PO Q6H PRN PRN Reason: nausea, able to take PO Ondansetron HCl (Zofran) 4 mg IV Q6H PRN PRN Reason: Nausea/Vomiting Pantoprazole Sodium (Protonix Iv) 40 mg IVPUSH Q12H [facility] Last Admin: 06/17/18 09:08 Dose: 40 mg Bicalutamide 50 Mg * (*Ptom) 0 each PO DAILY [facility] Last Admin: 06/17/18 09:29 Dose: 1 each Sodium Chloride (Saline Flush) 10 ml FLUSH ASDIRECTED PRN PRN Reason: Keep Vein Open Last Admin: 06/15/18 20:34 Dose: 10 ml Tamsulosin HCl (Flomax) 0.4 mg PO BEDTIME [facility] Last Admin: 06/16/18 21:22 Dose: 0.4 mg Tramadol HCl (Ultram) 50 mg PO Q6H PRN PRN Reason: MODERATE PAIN Last Admin: 06/17/18 09:10 Dose: 50 mg Warfarin Sodium (Pharmacy To Dose - Warfarin) 0 dose .XX ASDIRECTED PRN PRN Reason: RX TO DOSE WARFARIN Warfarin Sodium (Coumadin) 5 mg PO ONETIME ONE Stop: 06/17/18 18:01 Discontinued Medications Diatrizoate Meglum/Diatrizoate Sod (Gastrografin 37%) 120 ml PO ONETIME ONE Stop: 06/15/18 18:06 Last Admin: 06/15/18 20:15 Dose: 120 ml Diltiazem HCl (Cardizem Cd) 180 mg PO DAILY [facility] Last Admin: 06/16/18 10:23 Dose: 180 mg Furosemide (Lasix) 20 mg PO 1200 [facility] Last Admin: 06/16/18 11:38 Dose: 20 mg Furosemide (Lasix) 40 mg PO DAILY [facility] Pantoprazole Sodium 80 mg/ (Sodium Chloride) 100 mls @ 10 mls/hr IV ONETIME ONE Stop: 06/16/18 05:55 Last Admin: 06/15/18 20:33 Dose: 10 mls/hr Sodium Chloride (Normal Saline) 1,000 mls @ 150 mls/hr IV ASDIRECTED [facility] Last Admin: 06/16/18 03:09 Dose: 150 mls/hr Iopamidol (Isovue-300 (61%)) 100 ml IVPUSH ONETIME ONE Stop: 06/15/18 18:06 Last Admin: 06/15/18 20:16 Dose: 75 ml Metoprolol Succinate (Toprol Xl) 12.5 mg PO DAILY [facility] Last Admin: 06/16/18 10:22 Dose: 12.5 mg Non-Formulary Medication (Hydrocortisone) 1 dose TOP BID PRN PRN Reason: Hemorrhoids Non-Formulary Medication (Ipratropium/Albuterol Sulfate [Iprat-Albut 0.5-3(2.5) Mg/3 Ml]) 1 ampule INH Q4H PRN PRN Reason: Shortness of Breath Pantoprazole Sodium (Protonix Iv) 40 mg IVPUSH ONETIME ONE Stop: 06/15/18 20:27 Last Admin: 06/15/18 20:34 Dose: 40 mg Tylenol With Codeine (#3 Tab Ptom) 0 each PO 1300 PRN PRN Reason: LUMBAR BACK PAIN Furosemide 40 Mg Tab (Ptom) 0 each PO WITHBREAKFAST [facility] Gabapentin 100 Mg (Cap Ptom) 0 each PO BID [facility] Levothyroxine 75 (Mcg Ptom) 0 each PO ACBREAKFAST [facility] Tamsulosin 0.4 Mg (Cap Ptom) 0 each PO BEDTIME [facility] Tramadol 50 Mg Tab * (*Ptom) 0 each PO Q6HR PRN PRN Reason: MODERATE PAIN Last Admin: 06/16/18 17:39 Dose: 1 each Diltiazem 180 Mg Cap (.Cd Ptom) 0 each PO DAILY [facility] Metoprolol Succinate (25 Mg Tab.Er Ptom) 0 each PO DAILY [facility] Warfarin 5 Mg Tab (Ptom) 0 each PO QPM [facility] Stop: 06/16/18 21:00 Last Admin: 06/16/18 17:38 Dose: 1.5 each Potassium Chloride (Klor-Con M20) 20 meq PO DAILY [facility] Last Admin: 06/17/18 09:08 Dose: 20 meq - Exam Quality Assessment: Supplemental Oxygen, Urine Catheter, DVT Prophylaxis General: Alert, Oriented, Cooperative, No Acute Distress HEENT: Pupils Equal, Pupils Reactive, EOMI Neck: Trachea Midline, No JVD Lungs: Normal Respiratory Effort, Decreased Breath Sounds Cardiovascular: Regular Rate GI/Abdominal Exam: Normal Bowel Sounds, Soft, Non-Tender, No Organomegaly, No Distention (Male) Exam: Deferred Back Exam: Normal Inspection Extremities: Normal Inspection, Non-Tender, Normal Capillary Refill Skin: Warm Neurological: No New Focal Deficit Psy/Mental Status: Alert, Normal Affect, Normal Mood - Problem List Review Problem List Initiated/Reviewed/Updated: Yes - My Orders Last 24 Hours: My Active Orders 06/16/18 17:58 Blood Glucose Check, Bedside [RC] QIDACANDBED 06/16/18 22:00 Insulin Lispro [HumaLOG] See Protocol SUBCUT QIDACANDBED 06/17/18 13:27 Magnesium Sulfate/Water [Magnesium Sulfate 2 GM in Water 50 ML] 2 gm Premix Bag 1 bag IV ONETIME 06/17/18 14:00 Furosemide [Lasix] 20 mg PO DAILY@1400 06/17/18 Dinner Soft Diet [DIET] 06/17/18 Lunch Full Liquid Diet [DIET] 06/18/18 09:00 Potassium Chloride [Klor-Con M20] 40 meq PO DAILY 06/18/18 Breakfast Heart Healthy Diet [DIET] - Plan Plan:: I/P: Acute: GI Bleed, stable -Heme positive stool in PCP office -Reports normal BM day before with no black or blood -Initially melonic stool in ED which turned to peter red blood -Hgb 9.2-->9.2 -Given IVP protonix followed by protonix drip in ED -Hx/o GERD, anemia, hemorrhoids, ulcers -On warfarin for A-fib -INR 2.20 in ED -Dr. Espinoza, consulted -Awaiting us to establish goals with family/patient -Recommends continuing warfarin -Signed off - will re-consult if needed -IV fluids as ordered -Repeat HH as indicated Back/hip pain -Acute on chronic -Likely 2/2 metastatic disease -CT chest (06/15/17) shows Osteolytic and sclerotic lesions throughout thoracic spine compatible with metastatic disease -Sclerotic area also noted within sternum compatible with metastatic disease. -Gynecomastia bilaterally -Other incidental findings -CT Abdomen/Pelvis (06/15/17): Mixed sclerotic and lytic lesions throughout spine as well as pelvis and within both hips. -Sclerotic lesion seen within sternum -Findings compatible with metastatic bony disease -Most of these findings are seen on prior CT exam although findings have slightly worsened in the interm -Retroperitoneal adenopathy which has decreased in prominence from previous exam -Enlarged prostate gland which has decreased in size from previous exam -Small splenic lesions which are nonspecific but possibly due to early metastatic disease -Other incidental findings -PSA in PCP office noted to be 150 -Alkaline phosphatase 337 -Pain medications as ordered -PT/OT CKD, improving -In reviewing prior labs he appears to have a baseline creatinine 1.4-1.7 and GFR in the mid to upper 40's -Creatinine 1.6-->1.4 -BUN 29-->22 -eGFR 41-->48 Confusion -Mild baseline confusion -Unsure if he is worse today -Head CT without contrast to r/o mets to brain Chronic: A. fib CAD Cardiomyopathy Heart failure HLD HTN COPD Chronic constipation Gastritis GERD Hemorrhoids PUD Prior ulcer BPH Chronic renal insufficiency Prostate disorder Urinary retention Osteoporosis Diabetic neuropathy Addiction Depression Type II DM Hypothyroidism Anemia Plan: Admit to medical floor - observation status with telemetry Other orders as indicated above PT/OT Routine AM labs Home medications as ordered CM/SW for discharge planning DVT/PE prophylaxis: Warfarin GI Prophylaxis: PPI Discuss code status with patient and family Obtain old records from [facility] Code status: Full code; PCP: Dr. Cervantes Discussed code status with Ronald. He indicated he would not like CPR or to be intubated after explanation of what it could require. Updated on cancer from prior CT scan and he seemed surprised by this. Updated on overall prognosis and commorbidities. Discussed this with his POA who agreed we should shange code status to DNR/DNI. Also discussed CT scan results and concerns over spread of cancer.
[2018-06-17] MEDS ORDERED: Warfarin 5 MG Tab PO ONE (18:00)
[2018-06-17] MEDS: Tamsulosin 0.4 MG Cap.ER PO SCH (20:51)
[2018-06-17] MEDS: Insulin Glarg,Human.Rec.Analog 100 UNIT/ML ML SUBCUT SCH (20:58)
[2018-06-18] MEDS: Levothyroxine 75 MCG Tab PO SCH (06:02)
[2018-06-18] MEDS: Furosemide 40 MG Tab PO SCH (06:02)
[2018-06-18] MEDS: Insulin Lispro 100 Unit/ML 3 ML KwikPen SUBCUT SCH ×4 (06:04→21:04)
[2018-06-18] MEDS: Multivitamins,Therapeutic Tab PO SCH (08:18)
[2018-06-18] MEDS: Ferrous Sulfate 325 MG Tab PO SCH ×2 (08:18→21:02)
[2018-06-18] MEDS: Gabapentin 100 MG Cap PO SCH ×3 (08:18→21:01)
[2018-06-18] MEDS: Pantoprazole 40 MG Vial IVPUSH SCH (08:19)
[2018-06-18] MEDS: Diltiazem 180 MG Cap.CD PO SCH (08:19)
[2018-06-18] MEDS: Metoprolol Succinate 25 MG Tab.ER PO SCH (08:19)
[2018-06-18] MEDS: Potassium Chloride 20 MEQ Tab.ER PO SCH (08:19)
[2018-06-18] MEDS: BICALUTAMIDE 50 MG PO SCH (08:19)
[2018-06-18] MEDS: traMADol 50 MG Tab PO PRN (08:20)
[2018-06-18] MEDS: Sodium Chloride 0.9% 1,000 ML IV SCH (09:05)
[2018-06-18] MEDS: Acetaminophen/HYDROcodone 325-5 MG Tab PO PRN (10:01)
[2018-06-18] MEDS: Furosemide 20 MG Tab PO SCH (13:59)
--- NOTE | 2018-06-18 17:47 | PCM.PN ---
- General Info Date of Service: 06/18/18 Functional Status: Reports: Pain Controlled, Tolerating Diet, Ambulating, Urinating - Review of Systems General: Reports: No Symptoms HEENT: Reports: No Symptoms Pulmonary: Reports: No Symptoms Cardiovascular: Reports: No Symptoms Gastrointestinal: Reports: No Symptoms Genitourinary: Reports: No Symptoms Musculoskeletal: Reports: No Symptoms Skin: Reports: No Symptoms Neurological: Reports: No Symptoms Psychiatric: Reports: No Symptoms - Patient Data Vitals - Most Recent: Last Vital Signs Temp 36.4 C 06/18/18 16:00 Pulse 86 06/18/18 16:00 Resp 16 06/18/18 16:00 BP 121/81 06/18/18 16:00 Pulse Ox 96 06/18/18 16:00 Orthostatic Blood Pressure [ 105/63 Standing] Orthostatic Blood Pressure [ 126/67 Sitting] Orthostatic Blood Pressure [ 124/67 Supine] Weight - Most Recent: 78.834 kg I&O - Last 24 Hours: Intake & Output 06/18/18 06/18/18 06/18/18 06:59 14:59 22:59 Intake Total 0181 869 2086 Output Total 1950 1750 Balance -468 440 -415 Lab Results Last 24 Hours: Laboratory Results - last 24 hr 06/17/18 06/18/18 06/18/18 Range/Units 20:57 06:01 06:20 WBC 6.43 (4.23-9.07) K/mm3 RBC 3.34 L (4.63-6.08) M/mm3 Hgb 9.2 L (13.7-17.5) gm/L Hct 29.8 L (40.1-51.0) % MCV 89.2 (79.0-92.2) fl MCH 27.5 (25.7-32.2) pg MCHC 30.9 L (32.2-35.5) g/dl RDW Std Deviation 50.1 H (35.1-43.9) fL Plt Count 294 (163-337) K/mm3 MPV 9.4 (9.4-12.3) fl Neut % (Auto) 72.7 H (34.0-67.9) % Lymph % (Auto) 11.5 L (21.8-53.1) % Sargent % (Auto) 10.7 (5.3-12.2) % Eos % (Auto) 3.9 (0.8-7.0) Baso % (Auto) 0.3 (0.1-1.2) % Neut # (Auto) 4.67 (1.78-5.38) K/mm3 Lymph # (Auto) 0.74 L (1.32-3.57) K/mm3 Sargent # (Auto) 0.69 (0.30-0.82) K/mm3 Eos # (Auto) 0.25 (0.04-0.54) K/mm3 Baso # (Auto) 0.02 (0.01-0.08) K/mm3 PT (9.5-12.1) SECONDS INR Sodium (136-145) mEq/L Potassium (3.5-5.1) mEq/L Chloride (98-107) mEq/L Carbon Dioxide (21-32) mEq/L Anion Gap (5-15) BUN (7-18) mg/dL Creatinine (0.7-1.3) mg/dL Est Cr Clr Drug Dosing mL/min Estimated GFR (MDRD) (>60) mL/min BUN/Creatinine Ratio (14-18) Glucose (83-115) mg/dL POC Glucose 185 H 98 (83-110) mg/dL Calcium (8.5-10.1) mg/dL Magnesium (1.8-2.4) mg/dl 06/18/18 06/18/18 06/18/18 Range/Units 06:20 06:20 12:13 WBC (4.23-9.07) K/mm3 RBC (4.63-6.08) M/mm3 Hgb (13.7-17.5) gm/L Hct (40.1-51.0) % MCV (79.0-92.2) fl MCH (25.7-32.2) pg MCHC (32.2-35.5) g/dl RDW Std Deviation (35.1-43.9) fL Plt Count (163-337) K/mm3 MPV (9.4-12.3) fl Neut % (Auto) (34.0-67.9) % Lymph % (Auto) (21.8-53.1) % Sargent % (Auto) (5.3-12.2) % Eos % (Auto) (0.8-7.0) Baso % (Auto) (0.1-1.2) % Neut # (Auto) (1.78-5.38) K/mm3 Lymph # (Auto) (1.32-3.57) K/mm3 Sargent # (Auto) (0.30-0.82) K/mm3 Eos # (Auto) (0.04-0.54) K/mm3 Baso # (Auto) (0.01-0.08) K/mm3 PT 26.1 H (9.5-12.1) SECONDS INR 2.44 Sodium 138 (136-145) mEq/L Potassium 3.6 (3.5-5.1) mEq/L Chloride 103 (98-107) mEq/L Carbon Dioxide 26 (21-32) mEq/L Anion Gap 12.6 (5-15) BUN 13 (7-18) mg/dL Creatinine 1.3 (0.7-1.3) mg/dL Est Cr Clr Drug Dosing 42.34 mL/min Estimated GFR (MDRD) 52 (>60) mL/min BUN/Creatinine Ratio 10.0 L (14-18) Glucose 86 (83-115) mg/dL POC Glucose 103 (83-110) mg/dL Calcium 9.1 (8.5-10.1) mg/dL Magnesium 2.2 (1.8-2.4) mg/dl 06/18/18 Range/Units 16:10 WBC (4.23-9.07) K/mm3 RBC (4.63-6.08) M/mm3 Hgb (13.7-17.5) gm/L Hct (40.1-51.0) % MCV (79.0-92.2) fl MCH (25.7-32.2) pg MCHC (32.2-35.5) g/dl RDW Std Deviation (35.1-43.9) fL Plt Count (163-337) K/mm3 MPV (9.4-12.3) fl Neut % (Auto) (34.0-67.9) % Lymph % (Auto) (21.8-53.1) % Sargent % (Auto) (5.3-12.2) % Eos % (Auto) (0.8-7.0) Baso % (Auto) (0.1-1.2) % Neut # (Auto) (1.78-5.38) K/mm3 Lymph # (Auto) (1.32-3.57) K/mm3 Sargent # (Auto) (0.30-0.82) K/mm3 Eos # (Auto) (0.04-0.54) K/mm3 Baso # (Auto) (0.01-0.08) K/mm3 PT (9.5-12.1) SECONDS INR Sodium (136-145) mEq/L Potassium (3.5-5.1) mEq/L Chloride (98-107) mEq/L Carbon Dioxide (21-32) mEq/L Anion Gap (5-15) BUN (7-18) mg/dL Creatinine (0.7-1.3) mg/dL Est Cr Clr Drug Dosing mL/min Estimated GFR (MDRD) (>60) mL/min BUN/Creatinine Ratio (14-18) Glucose (83-115) mg/dL POC Glucose 114 H (83-110) mg/dL Calcium (8.5-10.1) mg/dL Magnesium (1.8-2.4) mg/dl Med Orders - Current: Current Medications Acetaminophen (Tylenol) 650 mg PO Q4H PRN PRN Reason: Pain (Mild 1-3)/fever Acetaminophen/Codeine Phosphate (Tylenol With Codeine No.3 300mg/30mg) 1 tab PO 1300 PRN PRN Reason: lumbar back pain Hydrocodone Bitart/Acetaminophen ([place] 325-5 Mg) 1 tab PO Q4H PRN PRN Reason: Pain (moderate 4-6) Last Admin: 06/18/18 10:01 Dose: 1 tab Albuterol/Ipratropium (Duoneb 3.0-0.5 Mg/3 Ml) 3 ml NEB Q4H PRN PRN Reason: Shortness Of Breath/wheezing Bisacodyl (Dulcolax) 5 mg PO DAILY PRN PRN Reason: Constipation Diltiazem HCl (Cardizem Cd) 180 mg PO DAILY [facility] Last Admin: 06/18/18 08:19 Dose: 180 mg Ferrous Sulfate (Ferrous Sulfate) 325 mg PO BID [facility] Last Admin: 06/18/18 08:18 Dose: 325 mg Furosemide (Lasix) 40 mg PO WITHBREAKFAST [facility] Last Admin: 06/18/18 06:02 Dose: 40 mg Furosemide (Lasix) 20 mg PO DAILY@1400 [facility] Last Admin: 06/18/18 13:59 Dose: 20 mg Gabapentin (Neurontin) 200 mg PO TID [facility] Last Admin: 06/18/18 13:59 Dose: 200 mg Hydralazine HCl (Apresoline) 10 mg IVPUSH Q4H PRN PRN Reason: Hypertension Hydromorphone HCl (Dilaudid) 0.25 mg IVPUSH Q2H PRN PRN Reason: Pain (severe 7-10) Insulin Glargine (Lantus) 17 unit SUBCUT BEDTIME [facility] Last Admin: 06/17/18 20:58 Dose: 17 units Insulin Human Lispro (Humalog) 0 unit SUBCUT QIDACANDBED [facility]; Protocol Last Admin: 06/18/18 14:00 Dose: Not Given Levothyroxine Sodium (Levothyroxine) 75 mcg PO ACBREAKFAST [facility] Last Admin: 06/18/18 06:02 Dose: 75 mcg Metoprolol Succinate (Toprol Xl) 12.5 mg PO DAILY [facility] Last Admin: 06/18/18 08:19 Dose: 12.5 mg Metoprolol Tartrate (Lopressor) 5 mg IVPUSH Q4H PRN PRN Reason: Tachycardia Multivitamins (Thera) 1 each PO DAILY [facility] Last Admin: 06/18/18 08:18 Dose: 1 each Ondansetron HCl (Zofran Odt) 4 mg PO Q6H PRN PRN Reason: nausea, able to take PO Ondansetron HCl (Zofran) 4 mg IV Q6H PRN PRN Reason: Nausea/Vomiting Pantoprazole Sodium (Protonix) 40 mg PO Q12H [facility] Bicalutamide 50 Mg * (*Ptom) 0 each PO DAILY [facility] Last Admin: 06/18/18 08:19 Dose: 1 each Potassium Chloride (Klor-Con M20) 40 meq PO DAILY [facility] Last Admin: 06/18/18 08:19 Dose: 40 meq Sodium Chloride (Saline Flush) 10 ml FLUSH ASDIRECTED PRN PRN Reason: Keep Vein Open Last Admin: 06/15/18 20:34 Dose: 10 ml Tamsulosin HCl (Flomax) 0.4 mg PO BEDTIME [facility] Last Admin: 06/17/18 20:51 Dose: 0.4 mg Tramadol HCl (Ultram) 50 mg PO Q6H PRN PRN Reason: MODERATE PAIN Last Admin: 06/18/18 08:20 Dose: 50 mg Warfarin Sodium (Pharmacy To Dose - Warfarin) 0 dose .XX ASDIRECTED PRN PRN Reason: RX TO DOSE WARFARIN Warfarin Sodium (Coumadin) 5 mg PO ONETIME ONE Stop: 06/18/18 18:01 Discontinued Medications Diatrizoate Meglum/Diatrizoate Sod (Gastrografin 37%) 120 ml PO ONETIME ONE Stop: 06/15/18 18:06 Last Admin: 06/15/18 20:15 Dose: 120 ml Diltiazem HCl (Cardizem Cd) 180 mg PO DAILY [facility] Last Admin: 06/16/18 10:23 Dose: 180 mg Furosemide (Lasix) 20 mg PO 1200 [facility] Last Admin: 06/16/18 11:38 Dose: 20 mg Furosemide (Lasix) 40 mg PO DAILY [facility] Gabapentin (Neurontin) 200 mg PO BID [facility] Last Admin: 06/18/18 08:18 Dose: 200 mg Pantoprazole Sodium 80 mg/ (Sodium Chloride) 100 mls @ 10 mls/hr IV ONETIME ONE Stop: 06/16/18 05:55 Last Admin: 06/15/18 20:33 Dose: 10 mls/hr Sodium Chloride (Normal Saline) 1,000 mls @ 150 mls/hr IV ASDIRECTED [facility] Last Admin: 06/16/18 03:09 Dose: 150 mls/hr Sodium Chloride (Normal Saline) 1,000 mls @ 75 mls/hr IV ASDIRECTED [facility] Last Admin: 06/18/18 09:05 Dose: 75 mls/hr Magnesium Sulfate 2 gm/ Premix 50 mls @ 25 mls/hr IV ONETIME ONE Stop: 06/17/18 15:26 Last Admin: 06/17/18 14:17 Dose: 25 mls/hr Iopamidol (Isovue-300 (61%)) 100 ml IVPUSH ONETIME ONE Stop: 06/15/18 18:06 Last Admin: 06/15/18 20:16 Dose: 75 ml Metoprolol Succinate (Toprol Xl) 12.5 mg PO DAILY [facility] Last Admin: 06/16/18 10:22 Dose: 12.5 mg Non-Formulary Medication (Hydrocortisone) 1 dose TOP BID PRN PRN Reason: Hemorrhoids Non-Formulary Medication (Ipratropium/Albuterol Sulfate [Iprat-Albut 0.5-3(2.5) Mg/3 Ml]) 1 ampule INH Q4H PRN PRN Reason: Shortness of Breath Pantoprazole Sodium (Protonix Iv) 40 mg IVPUSH ONETIME ONE Stop: 06/15/18 20:27 Last Admin: 06/15/18 20:34 Dose: 40 mg Pantoprazole Sodium (Protonix Iv) 40 mg IVPUSH Q12H [facility] Last Admin: 06/18/18 08:19 Dose: 40 mg Tylenol With Codeine (#3 Tab Ptom) 0 each PO 1300 PRN PRN Reason: LUMBAR BACK PAIN Furosemide 40 Mg Tab (Ptom) 0 each PO WITHBREAKFAST [facility] Gabapentin 100 Mg (Cap Ptom) 0 each PO BID [facility] Levothyroxine 75 (Mcg Ptom) 0 each PO ACBREAKFAST [facility] Tamsulosin 0.4 Mg (Cap Ptom) 0 each PO BEDTIME [facility] Tramadol 50 Mg Tab * (*Ptom) 0 each PO Q6HR PRN PRN Reason: MODERATE PAIN Last Admin: 06/16/18 17:39 Dose: 1 each Diltiazem 180 Mg Cap (.Cd Ptom) 0 each PO DAILY [facility] Metoprolol Succinate (25 Mg Tab.Er Ptom) 0 each PO DAILY [facility] Warfarin 5 Mg Tab (Ptom) 0 each PO QPM [facility] Stop: 06/16/18 21:00 Last Admin: 06/16/18 17:38 Dose: 1.5 each Potassium Chloride (Klor-Con M20) 20 meq PO DAILY [facility] Last Admin: 06/17/18 09:08 Dose: 20 meq Warfarin Sodium (Coumadin) 5 mg PO ONETIME ONE Stop: 06/17/18 18:01 Last Admin: 06/17/18 17:05 Dose: 5 mg - Exam Quality Assessment: DVT Prophylaxis General: Alert, Oriented, Cooperative, No Acute Distress HEENT: Pupils Equal, Pupils Reactive, EOMI Neck: Trachea Midline, No JVD Lungs: Normal Respiratory Effort Cardiovascular: Regular Rate GI/Abdominal Exam: Normal Bowel Sounds, Soft, Non-Tender, No Organomegaly, No Distention (Male) Exam: Deferred Back Exam: Normal Inspection Extremities: Normal Inspection, Non-Tender, Normal Capillary Refill Skin: Warm Neurological: No New Focal Deficit Psy/Mental Status: Alert, Normal Affect, Normal Mood - Problem List Review Problem List Initiated/Reviewed/Updated: Yes - My Orders Last 24 Hours: My Active Orders 06/17/18 Dinner Soft Diet [DIET] 06/18/18 09:00 Potassium Chloride [Klor-Con M20] 40 meq PO DAILY 06/18/18 15:00 Gabapentin [Neurontin] 200 mg PO TID 06/18/18 18:00 Warfarin [Coumadin] 5 mg PO ONETIME ONE - Plan Plan:: I/P: Acute: GI Bleed, stable -Heme positive stool in PCP office -Reports normal BM day before with no black or blood -Initially melonic stool in ED which turned to peter red blood -Hgb 9.2-->9.2 -Given IVP protonix followed by protonix drip in ED -Hx/o GERD, anemia, hemorrhoids, ulcers -On warfarin for A-fib -INR 2.20 in ED -Dr. Espinoza, GS consulted -Awaiting us to establish goals with family/patient -Recommends continuing warfarin -Signed off - will re-consult if needed -IV fluids as ordered -Repeat HH as indicated Back/hip pain -Acute on chronic -Likely 2/2 metastatic disease -CT chest (06/15/17) shows Osteolytic and sclerotic lesions throughout thoracic spine compatible with metastatic disease -Sclerotic area also noted within sternum compatible with metastatic disease. -Gynecomastia bilaterally -Other incidental findings -CT Abdomen/Pelvis (06/15/17): Mixed sclerotic and lytic lesions throughout spine as well as pelvis and within both hips. -Sclerotic lesion seen within sternum -Findings compatible with metastatic bony disease -Most of these findings are seen on prior CT exam although findings have slightly worsened in the interm -Retroperitoneal adenopathy which has decreased in prominence from previous exam -Enlarged prostate gland which has decreased in size from previous exam -Small splenic lesions which are nonspecific but possibly due to early metastatic disease -Other incidental findings -PSA in PCP office noted to be 150 -Alkaline phosphatase 337 -Pain medications as ordered -PT/OT CKD, improving -In reviewing prior labs he appears to have a baseline creatinine 1.4-1.7 and GFR in the mid to upper 40's -Creatinine 1.6-->1.4 -BUN 29-->22 -eGFR 41-->48 Confusion -Mild baseline confusion -Unsure if he is worse today -Head CT without contrast to r/o mets to brain Chronic: A. fib CAD Cardiomyopathy Heart failure HLD HTN COPD Chronic constipation Gastritis GERD Hemorrhoids PUD Prior ulcer BPH Chronic renal insufficiency Prostate disorder Urinary retention Osteoporosis Diabetic neuropathy Addiction Depression Type II DM Hypothyroidism Anemia Plan: Admit to medical floor - observation status with telemetry Other orders as indicated above PT/OT Routine AM labs Home medications as ordered CM/SW for discharge planning DVT/PE prophylaxis: Warfarin GI Prophylaxis: PPI Discuss code status with patient and family Obtain old records from [place] Code status: Full code; PCP: Dr. Cervantes Discussed code status with Ronald. He indicated he would not like CPR or to be intubated after explanation of what it could require. Updated on cancer from prior CT scan and he seemed surprised by this. Updated on overall prognosis and commorbidities. Discussed this with his POA who agreed we should shange code status to DNR/DNI. Also discussed CT scan results and concerns over spread of cancer. LOS>96 hours with placement TBD
[2018-06-18] MEDS ORDERED: Warfarin 5 MG Tab PO ONE (18:00)
[2018-06-18] MEDS: Tamsulosin 0.4 MG Cap.ER PO SCH (21:01)
[2018-06-18] MEDS: Pantoprazole 40 MG Tab.CR PO SCH (21:02)
[2018-06-18] MEDS: Insulin Glarg,Human.Rec.Analog 100 UNIT/ML ML SUBCUT SCH (21:03)
[2018-06-19] MEDS: Furosemide 40 MG Tab PO SCH (06:37)
[2018-06-19] MEDS: Insulin Lispro 100 Unit/ML 3 ML KwikPen SUBCUT SCH ×2 (06:38→11:17)
[2018-06-19] MEDS: Levothyroxine 75 MCG Tab PO SCH (06:38)
[2018-06-19] MEDS: Potassium Chloride 20 MEQ Tab.ER PO SCH (08:48)
[2018-06-19] MEDS: Pantoprazole 40 MG Tab.CR PO SCH (08:48)
[2018-06-19] MEDS: Ferrous Sulfate 325 MG Tab PO SCH (08:49)
[2018-06-19] MEDS: Metoprolol Succinate 25 MG Tab.ER PO SCH (08:49)
[2018-06-19] MEDS: Multivitamins,Therapeutic Tab PO SCH (08:51)
[2018-06-19] MEDS: BICALUTAMIDE 50 MG PO SCH (08:52)
[2018-06-19] MEDS: Gabapentin 100 MG Cap PO SCH ×2 (08:52→13:43)
[2018-06-19] MEDS: Diltiazem 180 MG Cap.CD PO SCH (08:52)
[2018-06-19 08:55] VITALS: BP 123/83
--- NOTE | 2018-06-19 12:43 | PCM.DCSUM1 ---
Discharge Summary - Hospital Course HPI Initial Comments: Ronald Ramirez is an 88 yo male who presented to her ED yesterday afternoon with low back pain and heme positive stool. He reportedly had an appointment with his primary care provider, Dr. Cervantes, today at [facility] and a lumbar x- ray was done showing a lytic lesion of 2.9 cm x 2.7 cm on the right side of the sacrum. His hemoglobin was done at the clinic and found to be 1.9 along with a PSA of 150 and heme positive stool he was therefore sent to the ED for further evaluation. Rates his pain at a 6 out of 10 and sharp and stabbing in nature. Denies any radiation of the pain, weakness, dizziness, fever, chills, nausea, vomiting, diarrhea. He does note that he had a bowel movement the day before and reports this is regular for him without any gross blood or melena. He is on Coumadin chronically. In the ED temperature was 97.5. Pulse 75. Respirations 18. Blood pressure 120/61. Pulse ox 95%. Orthostatic blood pressure was obtained standing showing 105/63, sitting 126/67, supine 124/67. Labs were obtained: W CBC was 7.70. Hemoglobin 9.2. Hematocrit 29.4. He is normocytic. Pulses were good at 319,000. Neutrophils were elevated at 78%. There is 2% band neutrophils. PT was 23.6. INR 2.2. Sodium 136. Potassium 4.4. Chloride 97. Carbon dioxide 29. Anion gap 14.4. BUN was 29. Creatinine 1.6. EGFR is 41. Glucose is 192. Calcium 9.5. Total bilirubin 0.7. AST is 19, ALT 17, alkaline phosphatase 337. Protein 7.9 albumin 2.9. Type and screen was performed showing a positive blood and negative for antibodies. He was started on a Protonix drip and given a 40 mg IV push her Protonix. In the ED patient had a black bowel movement initially which then turned to peter blood. CT of the chest was obtained and interpreted as "1 mix of osteolytic and sclerotic lesions throughout the thoracic spine compatible with metastatic disease. Sclerotic area also noted within the sternum compatible with metastatic disease. 2. Gynecomastia bilaterally. 3. Other incidental findings." CT of the abdomen and pelvis was obtained showing "1 mix sclerotic and lytic lesions throughout the spine as well as pelvis and within both hips. Sclerotic lesions seen within the sternum. These findings are compatible with metastatic bony disease. Most of these findings are seen on prior CT exam although findings have slightly worsened in the interim. 2. Retroperitoneal adenopathy which has decreased in prominence from previous exam. 3. Enlarged prostate gland which is decreased in size from previous exam. 4. Small splenic lesions which are nonspecific but possibly due to early metastatic disease. 5. Other incidental findings." He is subsequently admitted to the medical floor observation status. General surgeon, Dr. Espinoza has been consulted. He carries a history of: A. fib, CAD, cardiomyopathy, heart failure, HLD, HTN, COPD, chronic constipation, gastritis, GERD, hemorrhoids, PUD, prior ulcer, BPH, chronic renal insufficiency, prostate disorder, urinary retention, osteoporosis, diabetic neuropathy, addiction, depression, type II DM, hypothyroidism, anemia. He is a former smoker. His PCP is Dr. Cervantes. He is a full code. 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 SNOMED Code(s): 45306249, 615721080 ICD Code: C79.51 - SECONDARY MALIGNANT NEOPLASM OF BONE; C80.1 - MALIGNANT ( PRIMARY) NEOPLASM, UNSPECIFIED Status: Acute Priority: Medium Current Visit: Yes (3) Afib, Chronic atrial fibrillation SNOMED Code(s): 126877079 ICD Code: I48.2 - CHRONIC ATRIAL FIBRILLATION Status: Chronic Priority: Medium Current Visit: No (4) Anemia SNOMED Code(s): 709016993 ICD Code: D64.9 - ANEMIA, UNSPECIFIED Status: Acute Priority: High Current Visit: Yes Qualifiers: Anemia type: unspecified type Qualified Code(s): D64.9 - Anemia, unspecified (5) CHF (congestive heart failure), NYHA class III SNOMED Code(s): 518731201, 025210341 ICD Code: I50.9 - HEART FAILURE, UNSPECIFIED Status: Chronic Priority: Low Current Visit: No Qualifiers: Congestive heart failure type: diastolic Congestive heart failure chronicity: chronic Qualified Code(s): I50.32 - Chronic diastolic (congestive ) heart failure (6) Type II diabetes mellitus SNOMED Code(s): 09412471 ICD Code: E11.9 - TYPE 2 DIABETES MELLITUS WITHOUT COMPLICATIONS Status: Chronic Priority: Medium Current Visit: No Qualifiers: Diabetes mellitus long-term insulin use: with terminal system operator use Diabetes mellitus complication status: with unspecified complications Qualified Code(s) : E11.8 - Type 2 diabetes mellitus with unspecified complications; Z79.4 - alf (current) use of insulin (7) CAD (coronary artery disease) SNOMED Code(s): 13386996 ICD Code: I25.10 - ATHSCL HEART DISEASE OF [place] CORONARY ARTERY W/O ANG PCTRS Status: Chronic Priority: Medium Current Visit: No Qualifiers: Coronary Disease-Associated Artery/Lesion type: unspecified vessel or lesion type [place] vs. transplanted heart: [place] heart Associated angina: angina presence unspecified Qualified Code(s): I25.10 - Atherosclerotic heart disease of [place] coronary artery without angina pectoris (8) Cardiomyopathy SNOMED Code(s): 03674630 ICD Code: I42.9 - CARDIOMYOPATHY, UNSPECIFIED Status: Chronic Priority: Medium Current Visit: No Qualifiers: Cardiomyopathy type: unspecified Qualified Code(s): I42.9 - Cardiomyopathy , unspecified (9) HLD (hyperlipidemia) SNOMED Code(s): 66807323 ICD Code: E78.5 - HYPERLIPIDEMIA, UNSPECIFIED Status: Chronic Priority: Low Current Visit: No Qualifiers: Hyperlipidemia type: unspecified Qualified Code(s): E78.5 - Hyperlipidemia , unspecified (10) HTN (hypertension) SNOMED Code(s): 92616865 ICD Code: I10 - ESSENTIAL (PRIMARY) HYPERTENSION Status: Chronic Priority : Medium Current Visit: No Qualifiers: Hypertension type: unspecified Qualified Code(s): I10 - Essential (primary ) hypertension (11) COPD (chronic obstructive pulmonary disease) SNOMED Code(s): 10876480 ICD Code: J44.9 - CHRONIC OBSTRUCTIVE PULMONARY DISEASE, UNSPECIFIED Status : Chronic Priority: Medium Current Visit: No Qualifiers: COPD type: unspecified COPD Qualified Code(s): J44.9 - Chronic obstructive pulmonary disease, unspecified (12) Chronic constipation SNOMED Code(s): 697521141 ICD Code: K59.09 - OTHER CONSTIPATION Status: Chronic Priority: Low Current Visit: No (13) GERD (gastroesophageal reflux disease) SNOMED Code(s): 016902212 ICD Code: K21.9 - GASTRO-ESOPHAGEAL REFLUX DISEASE WITHOUT ESOPHAGITIS Status: Chronic Priority: Medium Current Visit: No Qualifiers: Esophagitis presence: esophagitis presence not specified Qualified Code(s) : K21.9 - Gastro-esophageal reflux disease without esophagitis (14) BPH (benign prostatic hyperplasia) SNOMED Code(s): 621030274 ICD Code: N40.0 - BENIGN PROSTATIC HYPERPLASIA WITHOUT LOWER URINRY TRACT SYMP Status: Chronic Priority: Low Current Visit: No Qualifiers: Lower urinary tract symptom presence: unspecified whether lower urinary tract symptoms present Qualified Code(s): N40.0 - Benign prostatic hyperplasia without lower urinary tract symptoms (15) Diabetic neuropathy SNOMED Code(s): 506347197, 508012120 ICD Code: E11.40 - TYPE 2 DIABETES MELLITUS WITH DIABETIC NEUROPATHY, UNSP Status: Chronic Priority: Medium Current Visit: No Qualifiers: Diabetes mellitus type: type 2 Diabetes mellitus complication detail: with other neurological complication Qualified Code(s): E11.49 - Type 2 diabetes mellitus with other diabetic neurological complication - Patient Summary/Data Consults: Consultations 06/15/18 22:17 Consult to Case Management/Infection Prevention Coordinator [CONS] Routine Consult to Physician [CONS] Routine 06/16/18 06:31 Consult to Spiritual Care [CONS] Routine OT Evaluation and Treatment [CONS] Routine PT Evaluation and Treatment [CONS] Routine Labs Pending at D/C: None Recommended Follow-up Testing/Procedures: Follow-up with PCP within 7-10 days, sooner if needed. Hospital Course: I/P: Acute: GI Bleed, stable -Heme positive stool in PCP office -Reports normal BM day before with no black or blood -Initially melonic stool in ED which turned to peter red blood -Hgb 9.2-->9.2-->9.6-->8.9-->9.4-->9.2-->9.6 -Given IVP protonix followed by protonix drip in ED -Hx/o GERD, anemia, hemorrhoids, ulcers -On warfarin for A-fib -INR 2.20 in ED->stable on floor with current dosing -Dr. Espinoza, consulted -Awaiting us to establish goals with family/patient -Recommends continuing warfarin -Signed off - will re-consult if needed -IV fluids as ordered -Repeat HH as indicated Back/hip pain -Acute on chronic -Likely 2/2 metastatic disease -CT chest (06/15/17) shows Osteolytic and sclerotic lesions throughout thoracic spine compatible with metastatic disease -Sclerotic area also noted within sternum compatible with metastatic disease. -Gynecomastia bilaterally -Other incidental findings -CT Abdomen/Pelvis (06/15/17): Mixed sclerotic and lytic lesions throughout spine as well as pelvis and within both hips. -Sclerotic lesion seen within sternum -Findings compatible with metastatic bony disease -Most of these findings are seen on prior CT exam although findings have slightly worsened in the interm -Retroperitoneal adenopathy which has decreased in prominence from previous exam -Enlarged prostate gland which has decreased in size from previous exam -Small splenic lesions which are nonspecific but possibly due to early metastatic disease -Other incidental findings -PSA in PCP office noted to be 150 -Alkaline phosphatase 337 -Pain medications as ordered -PT/OT CKD, stable -In reviewing prior labs he appears to have a baseline creatinine 1.4-1.7 and GFR in the mid to upper 40's -Creatinine 1.6-->1.4-->1.2-->1.3-->1.3 -BUN 29-->22-->15-->13-->15 -eGFR 41-->48-->57-->52-->52 Confusion -Mild baseline confusion -Has shown some memory loss while here -Head CT without contrast to r/o mets to brain-> negative; No acute findings Chronic: A. fib CAD Cardiomyopathy Heart failure HLD HTN COPD Chronic constipation Gastritis GERD Hemorrhoids PUD Prior ulcer BPH Chronic renal insufficiency Prostate disorder Urinary retention Osteoporosis Diabetic neuropathy Addiction Depression Type II DM Hypothyroidism Anemia Plan: Admit to medical floor - observation status with telemetry Other orders as indicated above PT/OT Routine AM labs Home medications as ordered CM/SW for discharge planning DVT/PE prophylaxis: Warfarin GI Prophylaxis: PPI Discuss code status with patient and family Obtain old records from [facility] Code status: Full code; PCP: Dr. Cervantes Discussed code status with Ronald. He indicated he would not like CPR or to be intubated after explanation of what it could require. Updated on cancer from prior CT scan and he seemed surprised by this. Updated on overall prognosis and commorbidities. Discussed this with his POA who agreed we should shange code status to DNR/DNI. Also discussed CT scan results and concerns over spread of cancer. LOS>96 hours with placement TBD Overall Fracisco did quite well. He was admitted with a GI bleed and was noted to have some melonic and grossly bloody stools in the ED. He did not have any irregular stools in the past few days while admitted here. His diet was advanced to soft. This may be advanced further as tolerated in the custodial. He was kept soft to not irritate his GI tract. Dr. Espinoza, general surgeon was consulted and in discussion did not think he would be a good surgical candidate given his co-morbidities. She recommended monitoring Hgb and continuing his warfarin. INRs have been monitored and he has been very stable on his home dose. He has been working with PT/OT while here and that should continue with home health on discharge. While in our ED a CT scan of his chest/ abdomen/pelvis was obtained with results as above. The results of this scan were communicated with Fracisco, along with his POA brother in [place] via phone. His nephew here in [facility] has also been very involved in his care. He came in a full code and given all the results a discussion was had about his code status. Ultimately Fracisco and his POA brother decided on DNR/DNI status. Due to his confusion a CT of his brain was obtained with no sign of cancer and nothing acute. In reviewing old charts it was noted he has had some progressing lesions for sometime. When this was discussed with Fracisco he acted very surprised. This tended to be a trend throughout his stay as he could hold a good conversation but would quickly forget what discussion was had after we would go back in. He was evaluated by [facility] staff and felt appropriate for their facility. He did show some signs of kidney injury while her which did respond well to treatment and become stable. He complained of mild hip and back pain while her, likely 2/2 cancer mets. His gabapentin was increased from 200mg BID to TID with good results. His other home medications were continued. He will be discharged today back to [facility]. Ronald's POA was updated and agreed to discharge plan and plan of care throughout his stay. Discussion was had about further changing code status to comfort care however his POA reports this is something they will need to discuss in the future further. I personally met with Ronald prior to discharge [id number] to discuss his plan after discharge and his homebound status. Due to his above diagnoses and difficulty with ambulation he would be a good candidate to home health. It is felt he would benefit from [facility] services, PT, and [facility] services. This can further be managed by his PCP, Dr. Cervantes, and adjusted as he feels necessary. - Patient Instructions Diet: GI Soft/Low Residue/Low Fiber Diet, Other: Advance as tollerated Activity: As Tolerated Driving: Do Not Drive Notify Provider of: Fever, Increased Pain, Nausea and/or Vomiting Other/Special Instructions: -Follow-up with PCP within 7-10 days of discharge, sooner if needed. -Be sure to follow new dosing for gabapentin. -Other home medications were continued. -Continue checking blood sugars per prior routine. -Home health PT/[facility]/penitentiary services to continue at [facility]. - Should symtpoms return or worsen, contact PCP or return to the ED. - Discharge Plan *PRESCRIPTION DRUG MONITORING PROGRAM REVIEWED*: No *COPY OF PRESCRIPTION DRUG MONITORING REPORT IN PATIENT APARNA: No Prescriptions/Med Rec: Gabapentin [Neurontin] 200 mg PO TID #40 capsule Home Medications: Home Meds Omeprazole 40 mg PO DAILY 02/08/14 [History] Warfarin [Coumadin] 5 mg PO DAILY 11/15/14 [History] Tamsulosin [Flomax] 0.4 mg PO BEDTIME 06/21/16 [History] Insulin Glarg,Human.Rec.Analog [Lantus] 17 unit SQ BEDTIME 10/07/16 [History] Galvin-3/DHA/Epa/Fish Oil [Fish Oil 1,000 mg Softgel] 1,000 mg PO DAILY 10/07/16 [History] Vitamin E 400 intnl unit PO DAILY 10/07/16 [History] Acetaminophen [Tylenol] 650 mg PO Q4HR PRN 01/15/17 [History] L.acidoph,Paracasei, B.lactis [Probiotic] 1 tab PO DAILY 01/15/17 [History] Polyethylene Glycol [Polyox Wsr-301] 17 gram PO DAILY 01/15/17 [History] traMADol [Ultram] 50 mg PO Q6HR PRN 01/15/17 [History] Multivitamin [Gum[place] Bear Multivitamin] 1 dose PO DAILY 01/16/17 [History] Potassium Chloride [Klor-Con M20] 20 meq PO DAILY 01/16/17 [History] Diltiazem [Cardizem CD] 180 mg PO DAILY #30 cap.cd 01/20/17 [Rx] Ferrous Sulfate 325 mg PO BID #60 tablet 01/20/17 [Rx] Furosemide 40 mg PO DAILY #0 01/20/17 [Rx] Metoprolol Succinate [Toprol XL] 12.5 mg PO DAILY #30 tab.er 01/20/17 [Rx] Bisacodyl [Dulcolax] 5 mg PO DAILY PRN 02/26/17 [History] Hydrocortisone [Anusol-HC] 1 dose TOP BID PRN 02/26/17 [History] Ipratropium/Albuterol Sulfate [Iprat-Albut 0.5-3(2.5) MG/3 ML] 1 ampule INH Q4H PRN 02/26/17 [History] Bicalutamide [Casodex] 50 mg PO DAILY 06/12/17 [History] Acetaminophen with Codeine [Tylenol with Codeine #3 Tablet] 1 each PO 1200 06/15 [History] Furosemide 20 mg PO 1200 06/15/18 [History] Insulin Aspart [NovoLOG] 2 - 10 unit SQ ASDIRECTED PRN 06/15/18 [History] Levothyroxine [Synthroid] 75 mcg PO ACBREAKFAST 06/15/18 [History] Naproxen Sodium 220 mg PO TID PRN 06/15/18 [History] Docusate Sodium [Colace] 100 mg PO DAILY 06/16/18 [History] Gabapentin [Neurontin] 200 mg PO TID #40 capsule 06/19/18 [Rx] Oxygen Therapy Mode: Room Air Patient Handouts: Anemia Referrals: Rosalio Cervantes MD [Primary Care Provider] - 06/29/18 9:15 am (Please follow-up with your primary care provider, Dr. Cervantes, at your previously scheduled appointment on June 29 at 0915am. ) - Discharge Summary/Plan Comment DC Time >30 min.: Yes (45 mins ) - General Info Date of Service: 06/19/18 Admission Dx/Problem (Free Text: Admission Diagnosis/Problem Admission Diagnosis/Problem GI bleed not requiring more than 4 units of blood in 24 hours, ICU, or surgery Functional Status: Reports: Pain Controlled, Tolerating Diet, Ambulating, Urinating. Denies: New Symptoms - Review of Systems General: Reports: Weakness (improving ). Denies: Fever, Fatigue, Malaise, Chills HEENT: Reports: No Symptoms. Denies: Headaches Pulmonary: Reports: No Symptoms. Denies: Shortness of Breath, Pleuritic Chest Pain, Cough, Sputum, Wheezing Cardiovascular: Reports: No Symptoms. Denies: Chest Pain, Palpitations, Dyspnea on Exertion, Edema, Lightheadedness Gastrointestinal: Reports: No Symptoms. Denies: Abdominal Pain, Constipation, Diarrhea, Nausea, Vomiting Genitourinary: Reports: No Symptoms. Denies: Pain Musculoskeletal: Reports: No Symptoms Skin: Reports: No Symptoms Neurological: Reports: Confusion (baseline ). Denies: Seizure, Trouble Speaking Psychiatric: Reports: No Symptoms - Patient Data Vitals - Most Recent: Last Vital Signs Temp 98.6 F 06/19/18 07:31 Pulse 96 06/19/18 08:49 Resp 16 06/19/18 07:31 BP 123/83 06/19/18 08:50 Pulse Ox 96 06/19/18 07:31 Orthostatic Blood Pressure [ 105/63 Standing] Orthostatic Blood Pressure [ 126/67 Sitting] Orthostatic Blood Pressure [ 124/67 Supine] Weight - Most Recent: 172 lb 8 oz I&O - Last 24 hours: Intake & Output 06/18/18 06/19/18 06/19/18 22:59 06:59 14:59 Intake Total 1575 300 160 Output Total 1750 800 Balance -175 -500 160 Lab Results - Last 24 hrs: Laboratory Results - last 24 hr 06/15/18 06/18/18 06/18/18 Range/Units 17:17 16:10 20:00 WBC (4.23-9.07) K/mm3 RBC (4.63-6.08) M/mm3 Hgb (13.7-17.5) gm/L Hct (40.1-51.0) % MCV (79.0-92.2) fl MCH (25.7-32.2) pg MCHC (32.2-35.5) g/dl RDW Std Deviation (35.1-43.9) fL Plt Count (163-337) K/mm3 MPV (9.4-12.3) fl Neut % (Auto) (34.0-67.9) % Lymph % (Auto) (21.8-53.1) % Mcintosh % (Auto) (5.3-12.2) % Eos % (Auto) (0.8-7.0) Baso % (Auto) (0.1-1.2) % Neut # (Auto) (1.78-5.38) K/mm3 Lymph # (Auto) (1.32-3.57) K/mm3 Mcintosh # (Auto) (0.30-0.82) K/mm3 Eos # (Auto) (0.04-0.54) K/mm3 Baso # (Auto) (0.01-0.08) K/mm3 PT (9.5-12.1) SECONDS INR Sodium (136-145) mEq/L Potassium (3.5-5.1) mEq/L Chloride (98-107) mEq/L Carbon Dioxide (21-32) mEq/L Anion Gap (5-15) BUN (7-18) mg/dL Creatinine (0.7-1.3) mg/dL Est Cr Clr Drug Dosing mL/min Estimated GFR (MDRD) (>60) mL/min BUN/Creatinine Ratio (14-18) Glucose (83-115) mg/dL POC Glucose 114 H 222 H (83-110) mg/dL Calcium (8.5-10.1) mg/dL Magnesium (1.8-2.4) mg/dl Crossmatch See Detail 06/19/18 06/19/18 06/19/18 Range/Units 06:05 06:20 06:20 WBC 5.33 (4.23-9.07) K/mm3 RBC 3.41 L (4.63-6.08) M/mm3 Hgb 9.6 L (13.7-17.5) gm/L Hct 30.5 L (40.1-51.0) % MCV 89.4 (79.0-92.2) fl MCH 28.2 (25.7-32.2) pg MCHC 31.5 L (32.2-35.5) g/dl RDW Std Deviation 50.6 H (35.1-43.9) fL Plt Count 281 (163-337) K/mm3 MPV 9.2 L (9.4-12.3) fl Neut % (Auto) 70.7 H (34.0-67.9) % Lymph % (Auto) 13.1 L (21.8-53.1) % Mcintosh % (Auto) 11.4 (5.3-12.2) % Eos % (Auto) 3.2 (0.8-7.0) Baso % (Auto) 0.8 (0.1-1.2) % Neut # (Auto) 3.77 (1.78-5.38) K/mm3 Lymph # (Auto) 0.70 L (1.32-3.57) K/mm3 Mcintosh # (Auto) 0.61 (0.30-0.82) K/mm3 Eos # (Auto) 0.17 (0.04-0.54) K/mm3 Baso # (Auto) 0.04 (0.01-0.08) K/mm3 PT (9.5-12.1) SECONDS INR Sodium 139 (136-145) mEq/L Potassium 3.8 (3.5-5.1) mEq/L Chloride 104 (98-107) mEq/L Carbon Dioxide 27 (21-32) mEq/L Anion Gap 11.8 (5-15) BUN 15 (7-18) mg/dL Creatinine 1.3 (0.7-1.3) mg/dL Est Cr Clr Drug Dosing 42.34 mL/min Estimated GFR (MDRD) 52 (>60) mL/min BUN/Creatinine Ratio 11.5 L (14-18) Glucose 76 L (83-115) mg/dL POC Glucose 74 L (83-110) mg/dL Calcium 9.3 (8.5-10.1) mg/dL Magnesium 2.0 (1.8-2.4) mg/dl Crossmatch 06/19/18 06/19/18 06/19/18 Range/Units 06:20 06:28 11:06 WBC (4.23-9.07) K/mm3 RBC (4.63-6.08) M/mm3 Hgb (13.7-17.5) gm/L Hct (40.1-51.0) % MCV (79.0-92.2) fl MCH (25.7-32.2) pg MCHC (32.2-35.5) g/dl RDW Std Deviation (35.1-43.9) fL Plt Count (163-337) K/mm3 MPV (9.4-12.3) fl Neut % (Auto) (34.0-67.9) % Lymph % (Auto) (21.8-53.1) % Mcintosh % (Auto) (5.3-12.2) % Eos % (Auto) (0.8-7.0) Baso % (Auto) (0.1-1.2) % Neut # (Auto) (1.78-5.38) K/mm3 Lymph # (Auto) (1.32-3.57) K/mm3 Mcintosh # (Auto) (0.30-0.82) K/mm3 Eos # (Auto) (0.04-0.54) K/mm3 Baso # (Auto) (0.01-0.08) K/mm3 PT 27.7 H (9.5-12.1) SECONDS INR 2.59 Sodium (136-145) mEq/L Potassium (3.5-5.1) mEq/L Chloride (98-107) mEq/L Carbon Dioxide (21-32) mEq/L Anion Gap (5-15) BUN (7-18) mg/dL Creatinine (0.7-1.3) mg/dL Est Cr Clr Drug Dosing mL/min Estimated GFR (MDRD) (>60) mL/min BUN/Creatinine Ratio (14-18) Glucose (83-115) mg/dL POC Glucose 111 H 114 H (83-110) mg/dL Calcium (8.5-10.1) mg/dL Magnesium (1.8-2.4) mg/dl Crossmatch Med Orders - Current: Current Medications Acetaminophen (Tylenol) 650 mg PO Q4H PRN PRN Reason: Pain (Mild 1-3)/fever Acetaminophen/Codeine Phosphate (Tylenol With Codeine No.3 300mg/30mg) 1 tab PO 1300 PRN PRN Reason: lumbar back pain Hydrocodone Bitart/Acetaminophen ([place] 325-5 Mg) 1 tab PO Q4H PRN PRN Reason: Pain (moderate 4-6) Last Admin: 06/18/18 10:01 Dose: 1 tab Albuterol/Ipratropium (Duoneb 3.0-0.5 Mg/3 Ml) 3 ml NEB Q4H PRN PRN Reason: Shortness Of Breath/wheezing Bisacodyl (Dulcolax) 5 mg PO DAILY PRN PRN Reason: Constipation Diltiazem HCl (Cardizem Cd) 180 mg PO DAILY [facility] Last Admin: 06/19/18 08:52 Dose: 180 mg Ferrous Sulfate (Ferrous Sulfate) 325 mg PO BID [facility] Last Admin: 06/19/18 08:49 Dose: 325 mg Furosemide (Lasix) 40 mg PO WITHBREAKFAST [facility] Last Admin: 06/19/18 06:37 Dose: 40 mg Furosemide (Lasix) 20 mg PO DAILY@1400 [facility] Last Admin: 06/18/18 13:59 Dose: 20 mg Gabapentin (Neurontin) 200 mg PO TID [facility] Last Admin: 06/19/18 08:52 Dose: 200 mg Hydralazine HCl (Apresoline) 10 mg IVPUSH Q4H PRN PRN Reason: Hypertension Hydromorphone HCl (Dilaudid) 0.25 mg IVPUSH Q2H PRN PRN Reason: Pain (severe 7-10) Insulin Glargine (Lantus) 17 unit SUBCUT BEDTIME [facility] Last Admin: 06/18/18 21:03 Dose: 17 units Insulin Human Lispro (Humalog) 0 unit SUBCUT QIDACANDBED [facility]; Protocol Last Admin: 06/19/18 11:17 Dose: Not Given Levothyroxine Sodium (Levothyroxine) 75 mcg PO ACBREAKFAST [facility] Last Admin: 06/19/18 06:38 Dose: 75 mcg Metoprolol Succinate (Toprol Xl) 12.5 mg PO DAILY [facility] Last Admin: 06/19/18 08:49 Dose: 12.5 mg Metoprolol Tartrate (Lopressor) 5 mg IVPUSH Q4H PRN PRN Reason: Tachycardia Multivitamins (Thera) 1 each PO DAILY [facility] Last Admin: 06/19/18 08:51 Dose: 1 each Ondansetron HCl (Zofran Odt) 4 mg PO Q6H PRN PRN Reason: nausea, able to take PO Ondansetron HCl (Zofran) 4 mg IV Q6H PRN PRN Reason: Nausea/Vomiting Pantoprazole Sodium (Protonix) 40 mg PO Q12H [facility] Last Admin: 06/19/18 08:48 Dose: 40 mg Bicalutamide 50 Mg * (*Ptom) 0 each PO DAILY [facility] Last Admin: 06/19/18 08:52 Dose: 1 each Potassium Chloride (Klor-Con M20) 40 meq PO DAILY [facility] Last Admin: 06/19/18 08:48 Dose: 40 meq Sodium Chloride (Saline Flush) 10 ml FLUSH ASDIRECTED PRN PRN Reason: Keep Vein Open Last Admin: 06/15/18 20:34 Dose: 10 ml Tamsulosin HCl (Flomax) 0.4 mg PO BEDTIME [facility] Last Admin: 06/18/18 21:01 Dose: 0.4 mg Tramadol HCl (Ultram) 50 mg PO Q6H PRN PRN Reason: MODERATE PAIN Last Admin: 06/18/18 08:20 Dose: 50 mg Warfarin Sodium (Pharmacy To Dose - Warfarin) 0 dose .XX ASDIRECTED PRN PRN Reason: RX TO DOSE WARFARIN Warfarin Sodium (Coumadin) 5 mg PO QPM ONE Stop: 06/19/18 18:01 Discontinued Medications Diatrizoate Meglum/Diatrizoate Sod (Gastrografin 37%) 120 ml PO ONETIME ONE Stop: 06/15/18 18:06 Last Admin: 06/15/18 20:15 Dose: 120 ml Diltiazem HCl (Cardizem Cd) 180 mg PO DAILY [facility] Last Admin: 06/16/18 10:23 Dose: 180 mg Furosemide (Lasix) 20 mg PO 1200 [facility] Last Admin: 06/16/18 11:38 Dose: 20 mg Furosemide (Lasix) 40 mg PO DAILY [facility] Gabapentin (Neurontin) 200 mg PO BID [facility] Last Admin: 06/18/18 08:18 Dose: 200 mg Pantoprazole Sodium 80 mg/ (Sodium Chloride) 100 mls @ 10 mls/hr IV ONETIME ONE Stop: 06/16/18 05:55 Last Admin: 06/15/18 20:33 Dose: 10 mls/hr Sodium Chloride (Normal Saline) 1,000 mls @ 150 mls/hr IV ASDIRECTED [facility] Last Admin: 06/16/18 03:09 Dose: 150 mls/hr Sodium Chloride (Normal Saline) 1,000 mls @ 75 mls/hr IV ASDIRECTED [facility] Last Admin: 06/18/18 09:05 Dose: 75 mls/hr Magnesium Sulfate 2 gm/ Premix 50 mls @ 25 mls/hr IV ONETIME ONE Stop: 06/17/18 15:26 Last Admin: 06/17/18 14:17 Dose: 25 mls/hr Iopamidol (Isovue-300 (61%)) 100 ml IVPUSH ONETIME ONE Stop: 06/15/18 18:06 Last Admin: 06/15/18 20:16 Dose: 75 ml Metoprolol Succinate (Toprol Xl) 12.5 mg PO DAILY [facility] Last Admin: 06/16/18 10:22 Dose: 12.5 mg Non-Formulary Medication (Hydrocortisone) 1 dose TOP BID PRN PRN Reason: Hemorrhoids Non-Formulary Medication (Ipratropium/Albuterol Sulfate [Iprat-Albut 0.5-3(2.5) Mg/3 Ml]) 1 ampule INH Q4H PRN PRN Reason: Shortness of Breath Pantoprazole Sodium (Protonix Iv) 40 mg IVPUSH ONETIME ONE Stop: 06/15/18 20:27 Last Admin: 06/15/18 20:34 Dose: 40 mg Pantoprazole Sodium (Protonix Iv) 40 mg IVPUSH Q12H [facility] Last Admin: 06/18/18 08:19 Dose: 40 mg Tylenol With Codeine (#3 Tab Ptom) 0 each PO 1300 PRN PRN Reason: LUMBAR BACK PAIN Furosemide 40 Mg Tab (Ptom) 0 each PO WITHBREAKFAST [facility] Gabapentin 100 Mg (Cap Ptom) 0 each PO BID [facility] Levothyroxine 75 (Mcg Ptom) 0 each PO ACBREAKFAST [facility] Tamsulosin 0.4 Mg (Cap Ptom) 0 each PO BEDTIME [facility] Tramadol 50 Mg Tab * (*Ptom) 0 each PO Q6HR PRN PRN Reason: MODERATE PAIN Last Admin: 06/16/18 17:39 Dose: 1 each Diltiazem 180 Mg Cap (.Cd Ptom) 0 each PO DAILY [facility] Metoprolol Succinate (25 Mg Tab.Er Ptom) 0 each PO DAILY [facility] Warfarin 5 Mg Tab (Ptom) 0 each PO QPM [facility] Stop: 06/16/18 21:00 Last Admin: 06/16/18 17:38 Dose: 1.5 each Potassium Chloride (Klor-Con M20) 20 meq PO DAILY [facility] Last Admin: 06/17/18 09:08 Dose: 20 meq Warfarin Sodium (Coumadin) 5 mg PO ONETIME ONE Stop: 06/17/18 18:01 Last Admin: 06/17/18 17:05 Dose: 5 mg Warfarin Sodium (Coumadin) 5 mg PO ONETIME ONE Stop: 06/18/18 18:01 Last Admin: 06/18/18 18:27 Dose: 5 mg - Exam Quality Assessment: Reports: DVT Prophylaxis General: Reports: Alert, Cooperative, No Acute Distress HEENT: Reports: Pupils Equal, Pupils Reactive, EOMI, Mucous Membr. Moist/[place] Neck: Reports: Supple, Trachea Midline Lungs: Reports: Clear to Auscultation, Normal Respiratory Effort Cardiovascular: Reports: Regular Rate, Regular Rhythm GI/Abdominal Exam: Normal Bowel Sounds, Soft, Non-Tender, No Distention, No Abnormal Bruit (Male) Exam: Deferred Rectal (Males) Exam: Deferred Back Exam: Reports: Normal Inspection, Full Range of Motion Extremities: Normal Inspection, Normal Range of Motion, Non-Tender, No Pedal Edema, Normal Capillary Refill Skin: Reports: Warm, Dry, Intact Neurological: Reports: No New Focal Deficit Psy/Mental Status: Reports: Alert, Normal Affect, Normal Mood
[2018-06-19] MEDS: Furosemide 20 MG Tab PO SCH (13:42)
[2018-06-19] MEDS ORDERED: Warfarin 5 MG Tab PO ONE (18:00)
== END 2018-06-19 14:10 | disposition other institution (70) | DRG 378 ==
LOC: JD.ED 16:10 → JD.MS 21:47 → OBSVTOIN 06-16 14:41
PROVIDERS: ADMIT Internal Medicine Cardiovascular Disease; ATTEND Internal Medicine Cardiovascular Disease
DX: K92.1 Melena (principal); K92.2 Gastrointestinal hemorrhage, unspecified; C80.1 Malignant (primary) neoplasm, unspecified; C79.51 Secondary malignant neoplasm of bone; I48.91 Unspecified atrial fibrillation; I42.9 Cardiomyopathy, unspecified; I13.0 Hypertensive heart and chronic kidney disease with heart failure and stage 1 through stage 4 chronic kidney disease, or unspecified chronic kidney disease; I50.9 Heart failure, unspecified; I50.32 Chronic diastolic (congestive) heart failure; G89.3 Neoplasm related pain (acute) (chronic); I25.10 Atherosclerotic heart disease of native coronary artery without angina pectoris; E78.00 Pure hypercholesterolemia, unspecified; C61 Malignant neoplasm of prostate; E78.5 Hyperlipidemia, unspecified; I48.2 Chronic atrial fibrillation; R41.0 Disorientation, unspecified; J44.9 Chronic obstructive pulmonary disease, unspecified; K59.09 Other constipation; K21.9 Gastro-esophageal reflux disease without esophagitis; N18.9 Chronic kidney disease, unspecified; N40.1 Benign prostatic hyperplasia with lower urinary tract symptoms; R33.8 Other retention of urine; M19.90 Unspecified osteoarthritis, unspecified site; E11.22 Type 2 diabetes mellitus with diabetic chronic kidney disease; E11.40 Type 2 diabetes mellitus with diabetic neuropathy, unspecified; F32.9 Major depressive disorder, single episode, unspecified; E03.9 Hypothyroidism, unspecified; D64.9 Anemia, unspecified; H91.90 Unspecified hearing loss, unspecified ear; R06.02 Shortness of breath; K29.70 Gastritis, unspecified, without bleeding; M54.5 Low back pain; H54.7 Unspecified visual loss; Z87.891 Personal history of nicotine dependence; Z79.01 Long term (current) use of anticoagulants; Z79.899 Other long term (current) drug therapy; Z79.4 Long term (current) use of insulin; Z66 Do not resuscitate; Z87.11 Personal history of peptic ulcer disease
CPT/HCPCS: 36415 ×2; 70450; 71260; 74177; 80048; 80053; 82962; 84402; 84403; 85007; 85018; 85027; 85610; 87641; 96365; 97162; 97165; 99285; A9270 ×4; C9113 ×2; J7030; J7040 ×2; Q9963; Q9967; 83735; 85014; 85025; 86850; 86900; 86901; 86922; 97110-GP; 97116-GP; J1815; J3475